=== PATIENT | male | born 1945 | race Caucasian/White ===

== ENCOUNTER 2020-02-27 14:58 | Inpatient (IN) | payer MEDICARE, BC, SELFPAY ==
--- NOTE | ~2020-02-27 | XR_ITS ---
EXAMINATION: XR chest 1V portable INDICATION: Hypotension TECHNIQUE: Portable AP chest at 1134 hours COMPARISON: None available FINDINGS: The lungs are free of acute opacities. There is no pleural effusion or pneumothorax. The ca rdiomediastinal silhouette is normal. There are changes of bilateral total shoulder arthroplasty. IMPRESSION: 1. No acute cardiopulmonary abnormality. Reviewed, dictated and finalized at location A.
--- NOTE | ~2020-02-27 | US_ITS ---
EXAMINATION: US carotid duplex BI DATE: 02/27/2020 16:29 INDICATION: Stroke TECHNIQUE: Grayscale, color Doppler, and pulsed Doppler images of the cervical carotid arteries were obtained. The degree of vessel stenosis is placed in one of the following categories: normal, <50%, 5 0-69%, >=70% but less than near-occlusion, near-occlusion, or total occlusion. Note that percent sten osis relative to normal distal artery lumen diameter is indirectly measured from velocity measurement s as described by David, et al. Radiology 2003; 229:340-346. COMPARISON: None. FINDINGS: RIGHT: The right common carotid artery (CCA) peak systolic velocity (PSV) is 45 cm/s. The right internal car otid artery (ICA) PSV is 41 cm/s. The right ICA end-diastolic velocity (EDV) is 16 cm/s. The right IC A/CCA PSV ratio is 0.9. Grayscale and color Doppler images yield an estimate of <50% diameter reducti on from plaque in the ICA. The external carotid artery (ECA) PSV is 96 cm/s. There is antegrade flow in the right vertebral artery. LEFT: The left CCA PSV is 56 cm/s. The left ICA PSV is 45 cm/s. The left ICA EDV is 15 cm/s. The left ICA/C CA PSV ratio is 0.8. Grayscale and color Doppler images yield an estimate of <50% diameter reduction from plaque in the ICA. The ECA PSV is 73 cm/s. There is antegrade flow in the left vertebral artery. IMPRESSION: 1. <50% stenosis in the right internal carotid artery. 2. <50% stenosis in the left internal carotid artery. Reviewed, dictated and finalized at location A.
--- NOTE | ~2020-02-27 | MR_ITS ---
EXAMINATION: MR brain/brain stem wo con DATE: 02/28/2020 16:57 INDICATION: Stroke presenting with left-sided weakness, numbness and slurred speech TECHNIQUE: Magnetic resonance imaging (MRI) of the brain and brainstem was performed without intraven ous contrast. Sequences included sagittal and axial T1-weighted SE, axial diffusion-weighted FS SE, a xial T2*-weighted GRE, axial T2-weighted FLAIR, and axial T2-weighted FSE. Apparent diffusion coeffic ient (ADC) maps were created. COMPARISON: None. FINDINGS: Small wedge-shaped region of restricted diffusion consistent with acute infarct at the lateral right side of the inferior marilyn. Chronic small infarcts in the right cerebellum and along a gyrus of the ri ght parietal lobe. No intracranial hemorrhage or abnormal intracranial mass lesion. There are scatter ed areas of nonspecific increased T2-weighted signal intensity in the cerebral white matter, predomin antly involving the deep and periventricular white matter. There are no intraparenchymal signal abnor malities seen on the other pulse sequences. Symmetric prominence of the sulci and ventricles consiste nt with mild age-appropriate diffuse cerebral volume loss. There are no abnormal extra-axial fluid co llections. There is absence of a flow void in the left vertebral artery on the T2-weighted sequences cyst with either occlusion or slow flow. Changes of bilateral intraocular lens replacement. Visualiz ed orbits and soft tissues are unremarkable. Mucous retention cysts at the inferior aspect of the fox ateral maxillary sinuses. IMPRESSION: 1. Acute infarct at the right side of the inferior marilyn. 2. Small old infarcts the right cerebellar hemisphere and right parietal lobe. 3. Absent flow void in the left vertebral artery consistent with occlusion or slow flow. 0.4. Age-rel ated changes including mild diffuse volume loss and moderate scattered periventricular predominant no nspecific white matter T2 hyperintensity consistent with chronic small vessel ischemic disease. Reviewed, dictated and finalized at location A. IMPRESSION: 1. Acute infarct at the right side of the inferior marilyn. 2. Small old infarcts the right cerebellar hemisphere and right parietal lobe. 3. Absent flow void in the left vertebral artery consistent with occlusion or s low flow. 0.4. Age-related changes including mild diffuse volume loss and moder ate scattered periventricular predominant nonspecific white matter T2 hyperinte nsity consistent with chronic small vessel ischemic disease.
--- NOTE | ~2020-02-27 | XR_ITS ---
EXAMINATION: XR barium swallow modified DATE: 02/28/2020 14:28 INDICATION: Dysphagia. TECHNIQUE: Modified barium esophagram was performed by myself to administer fluoroscopy, in conjunct ion with speech pathologist who administered barium in varying consistencies as per speech pathologis t documentation. This was recorded on tape. A single fluoroscopic spot image was recorded. The DAP fo r this procedure was 2.96 Gycm2. Fluoroscopy exposure time was 3.8 minutes. FINDINGS: Oral stage: Adequate function. Pharyngeal phase: Reduced laryngeal elevation, reduced tongue base retraction, reduced pharyngeal squ eeze, pyriform sinus residue with thicker material. Laryngeal penetration: Present with thin liquids. Aspiration: Present within liquids. Laryngeal sensitivity: Present. IMPRESSION: Findings as detailed above. Please refer to speech pathologist findings and specific fee ding recommendations. Reviewed, dictated and finalized at location A. IMPRESSION: Findings as detailed above. Please refer to speech pathologist armida seals and specific feeding recommendations.
--- NOTE | ~2020-02-27 | CT_ITS ---
EXAMINATION: CTA brain DATE: 02/28/2020 17:18 INDICATION: Stroke TECHNIQUE: Computed tomographic angiography (CTA) of the head was performed without and with 100 mL O mnipaque-350 intravenous contrast. Initial contrast opacification was poor and repeat imaging was obt ained 6 hours later with additional 100 mL Omnipaque 350 intravenous contrast. Volume-rendered and ma ximum intensity projection 3D reconstructions of the intracranial arteries were created by the techno logist on a separate workstation. The dose-length product was 2219.54 mGy-cm. COMPARISON: MR dated 02/28/2020 FINDINGS: There is a severe >70% stenosis at the left intracranial vertebral artery proximal to the cuff of the left posterior inferior cerebellar artery. The segment of the left vertebral artery between the take off of the left posterior inferior cerebellar artery and the basilar artery is completely thrombosed. There is approximately 70% stenosis of the intracranial right vertebral artery occurring at the conf luence with the left vertebral and basilar arteries. There is mild nonhemodynamically significant geovanna nosis along the basilar artery as well as along the internal carotid arteries at the bilateral caroti d siphons. The bilateral A1 and P1 segments are patent. The left P1 segment is diminutive with a pin larger caliber left posterior communicating artery also likely supplying the left posterior cerebral artery. Cerebral arterial arborization appears symmetric. There is additional scattered mild nonhemod ynamically significant stenosis along the right P1 segment as well as along branch of the bilateral m iddle and anterior cerebral arteries. No aneurysm. Small chronic infarcts in the right cerebellar hemisphere and at the right parietal lobe. Subtle decr eased attenuation at the right side of the inferior marilyn consistent corresponding to the acute infarc t with restricted diffusion is noted on MRI. There is moderate scattered white matter hypoattenuation consistent with chronic small vessel ischemic disease. No acute intracranial hemorrhage or abnormal extra axial fluid collection. Symmetric prominence of the sulci consistent with mild age-appropriate diffuse cerebral volume loss. Ventricles are normal and symmetric. No mass/mass effect. Changes of bi lateral intraocular lens replacement. The orbits, paranasal sinuses and mastoid air cells are normal. IMPRESSION: 1. Scattered intracranial atherosclerotic disease most notable for a 70% stenosis in the distalmost r ight vertebral artery and complete occlusion of the distalmost left vertebral artery. 2. Small old infarcts at the right parietal lobe and right cerebellar hemisphere with more subtle acu te infarct in the right inferior marilyn. 3. Age-related changes including mild diffuse volume loss and moderate scattered white matter hypoatt enuation consistent with chronic small vessel ischemic disease. Reviewed, dictated and finalized at location A. IMPRESSION: 1. Scattered intracranial atherosclerotic disease most notable for a 70% stenos is in the distalmost right vertebral artery and complete occlusion of the dista lmost left vertebral artery. 2. Small old infarcts at the right parietal lobe and right cerebellar hemispher e with more subtle acute infarct in the right inferior marilyn. 3. Age-related changes including mild diffuse volume loss and moderate scattere d white matter hypoattenuation consistent with chronic small vessel ischemic di sease.
[2020-02-27 15:00] VITALS: BP 179/104; PULSE 89; RESP 18; TEMP 36.2; O2SAT 97
[2020-02-27 15:02] VITALS: BMI 31.6
[2020-02-27 16:00] VITALS: PULSE 100
[2020-02-27 17:39] LABS: Add Urine Microscopic? YES; Appearance Urine Clear (Clear); Bilirubin Urine Negative (Negative); Blood Urine Negative (Negative); Color Urine Yellow (Yellow); Glucose Urine UA Negative (Negative); Ketones Urine Trace mg/dL (Negative); Leukocyte Esterase Ur Negative LEU/UL (Negative); Mucus Urine Rare /lpf; Nitrate Urine Negative (Negative); Protein Urine Negative (Negative); RBC Urine 0-2 /hpf (0-2); Specific Grav Ur 1.014 (1.001-1.035); Urobilinogen Urine Negative mg/dL (<2.0); WBC Urine 0-3 /hpf
[2020-02-27 17:58] LABS: Glucose Point of Care 127 (65-105)
[2020-02-27] MEDS: ASPIRIN 81 MG CHEWABLE TABLET 324 MG PO (18:09)
[2020-02-27 22:00] VITALS: BP 169/96; PULSE 84; RESP 18; TEMP 36.6; O2SAT 95
[2020-02-27 23:09] LABS: Glucose Point of Care 223 (65-105)
[2020-02-28] VITALS (12 sets, daily range): BP systolic 134–187; BP diastolic 79–99; PULSE 70–101; RESP 16–20; TEMP 36.4–37.1; O2SAT 94–99
--- NOTE | 2020-02-28 00:02 | PC.NURSE ---
RN was notified of blood pressure
[2020-02-28] MEDS: hydrALAZINE HCL 20 MG/ML VIAL 5 MG IV PUSH (02:02)
[2020-02-28 06:11] LABS: Hematocrit 44.2 % (42.0-52.0); Hemoglobin 15.1 g/dL (14.0-18.0); Mean Corpuscular HGB Conc 34.2 g/dl (32-36); Mean Corpuscular Hemoglobin 29.4 pg (26-34); Mean Platelet Volume 9.6 fl (7.4-10.4); Platelet Count Result 309 k/mm3 (150-375); Red Blood Count 5.14 M/mm3 (4.6-6.20); Red Cell Distribution Width 12.3 % (11.5-14.5); White Blood Count 9.3 K/mm3 (4.5-10.0)
[2020-02-28 06:23] LABS: Alanine Aminotransferase 11 U/L (4-50); Albumin Level 4.1 g/dL (3.5-5.1); Alkaline Phosphatase 46 U/L (38-126); Anion Gap 7 mmol/L (8-16); Aspartate Amino Transferase 22 U/L (17-59); Bilirubin,Total 0.5 mg/dL (0.2-1.3); Blood Urea Nitrogen 15 mg/dL (9-20); Carbon Dioxide 26 mmol/L (22-30); Chloride 103 mmol/L (98-107); Cholesterol 172 mg/dL (0-200); Estimated CRCL calculation 79 ml/min; Estimated Glomerular Filt Rate > 60; Glucose 126 mg/dL (75-110); HDL Direct 41 mg/dL; Potassium 3.7 mmol/L (3.4-5.0); Sodium 136 mmol/L (137-145); Triglycerides 136 mg/dL (<150)
[2020-02-28 06:34] LABS: LDL Cholesterol Direct 104 mg/dL
[2020-02-28 07:17] LABS: Hemoglobin A1C 7.4 % (<5.7)
[2020-02-28 08:33] LABS: Glucose Point of Care 139 (65-105)
[2020-02-28] MEDS: hydroCHLOROthiazide 12.5 MG CAPSULE PO (08:43)
[2020-02-28] MEDS: lisinopriL 10 MG TABLET PO (08:43)
[2020-02-28] MEDS: ASPIRIN 81 MG ENTERIC TABLET PO (08:43)
[2020-02-28 12:34] LABS: Glucose Point of Care 180 (65-105)
--- NOTE | 2020-02-28 14:47 | PCSTNOTE ---
Please refer to the Bedside Swallow Evaluation in the EMR. Please note, silent aspiration cannot be ruled out at bedside.
--- NOTE | 2020-02-28 14:47 | PCSTNOTE ---
Please refer to the Modified Barium Swallow Evaluation in the EMR.
--- NOTE | 2020-02-28 15:04 | ECHO_ITS ---
Patient Info Name: Cleve Oseguera Age: 74 years : 1945 Gender: Male Ht: 69 in Wt: 215 lbs BSA: 2.21 m2 HR: 70 bpm BP: 160 / 85 mmHg Technical Quality: Good Exam Date: 02/28/2020 10:42 AM Exam Location: [facility] Pulmonary Exam Room: 315 Patient Status: Inpatient Admit Date: 02/27/2020 Staff Ordering Physician: Melisa Shoemaker PA-C Senior Ui Software Engineer: Jordyn Cain RDCS Attending Provider: Kaley Chin MD Referring Physician: Navid ELIZALDE; Exam Type: CA echo doppler color flow Study Info Indications - CVA Complete two-dimensional, color flow and Doppler transthoracic echocardiogram is performed. Summary 1. Left ventricular chamber dimension is normal. 2. Left ventricular systolic function is normal, estimated at 65-70%. 3. The left ventricular diastolic function is grade I diastolic dysfunction. 4. E/e' 14 is mildly elevated. 5. There is mild aortic valve sclerosis. 6. The mitral valve has moderately calcified annulus. 7. No pulmonary hypertension, estimated pulmonary arterial systolic pressure is 19 mmHg. 8. There is trace pulmonic regurgitation. Left Ventricle E/e' 14 is mildly elevated. Left ventricular chamber dimension is normal. Left ventricular systolic function is normal, estimated at 65-70%. The left ventricular diastolic function is grade I diastolic dysfunction. Right Ventricle Right ventricular chamber dimension is normal. Right ventricular systolic function is normal. Left Atria Left atrial chamber dimension is normal. Right Atria Right atrial chamber dimension is normal. Aortic Valve The aortic valve is trileaflet. There is mild aortic valve sclerosis. There is no aortic valve stenosis. There is no aortic valve regurgitation. Pulmonic Valve There is trace pulmonic regurgitation. Mitral Valve The mitral valve has moderately calcified annulus. There is no mitral valve stenosis. There is no mitral valve regurgitation. Tricuspid Valve There is no tricuspid valve regurgitation. No pulmonary hypertension, estimated pulmonary arterial systolic pressure is 19 mmHg. Pericardium/Pleural There is no pericardial effusion. Inferior Vena Cava Normal inferior vena cava with >50% collapse upon inspiration consistent with normal right atrial pressure, 5 mmHg. Aorta The aortic root size at the sinus of Valsalva is normal. Left Ventricular Outflow Tract Name Value Normal LVOT 2D LVOT Diameter 2.1 cm LVOT Doppler LVOT Peak Gradient 4 mmHg LVOT Mean Gradient 3 mmHg LVOT VTI 20 cm LVOT VTI/AV VTI Ratio 0.9 LVOT Stroke Volume 71 ml LVOT CO 16.8 l/min LVOT CI 7.6 l/min/m2 Pulmonic Valve Name Value Normal PV Doppler
--- NOTE | 2020-02-28 15:10 | WPDNEURCNPN ---
Assessment and Plan Additional Plan brain stem stroke wit MRI done at [facility] further studies will be done here and he will be evaluated for the rehab Consult date: 02/28/20 Reason for consult: 74 years old right-handed male has been admitted to [facility] regular floor on transfer from the emergency room of [facility] as per the information available patient carries the diagnosis of hypertension hyperlipidemia diabetes mellitus type 2 in the emergency room of [facility] he was seen for the sudden onset of left-sided weakness along with the numbness initially involving the left lower extremity subsequently involving the left upper extremity he went about his day without any significant debility but was not feeling right so he went to bed early for a good night's sleep woke up in the morning while ambulating to the bathroom he fell down onto his buttock in the bathroom due to his left lower extremity weakness EMS were called to the scene he was brought to the emergency room where his blood pressure was noted to be 178/111 with NIH stroke scale of [address] scan revealed no acute finding that his bleed but MRI reveals subacute right pontine lacunar infarct and he was transferred to emergency it to the [facility] for further care Saul no history of associated headache nausea vomiting any other general symptomatology HPI: Cleve Oseguera is a 74 year old male Review of Systems Review of Systems: Narrative: all system reviewed and unremarkable except as noted in the admission history and physical examination PMFSH Past Medical History Medical History (Updated 02/27/20 @ 16:48 by Melisa Shoemaker PA-C) Cervical spine disease Degenerative disc disease, cervical Dyslipidemia Essential hypertension Osteoarthritis Type 2 diabetes mellitus Surgical History Surgical History (Updated 02/27/20 @ 16:10 by Melisa Shoemaker PA-C) History of lumbar surgery History of replacement of both shoulder joints History of toe surgery Right 1st toe surgery done for unclear reasons. Patient cannot provide me with specifics. Family History Family History (Updated 02/27/20 @ 16:10 by Melisa Shoemaker PA-C) Other Hypertension Social History Social History (Updated 02/27/20 @ 16:11 by Melisa Shoemaker PA-C) Social History: The patient lives in [place] with his . they have 2 children. He his retired from [employer]. He smoked perhaps a pack of cigarettes per day and quit 35 years ago. he denies alcohol and illicit substance use. He designates his , Katherine, as his surrogate decision maker and he wishes to be a full code. Spiritual care concerns: No Meds Home Medications and Allergies Home Medications Medication Instructions Recorded Confirmed Type fenofibrate 150 mg PO DAILY 02/27/20 02/27/20 History hydrochlorothiazide 12.5 mg PO DAILY 02/27/20 02/27/20 History lisinopril 10 mg PO DAILY 02/27/20 02/27/20 History metformin 1,000 mg PO BID 02/27/20 02/27/20 History pravastatin 40 mg PO HS 02/27/20 02/27/20 History Allergies Allergy/AdvReac Type Severity Reaction Status Date / Time No Known Allergies Allergy Verified 02/27/20 17:31 Vital Signs Vital Signs - 24 hr 02/27/20 16:00 02/27/20 22:00 02/28/20 00:00 Temperature 36.6 C Pulse Rate 100 84 80 Respiratory Rate 18 Blood Pressure 169/96 H Pulse Oximetry 95 02/28/20 02:00 02/28/20 03:08 02/28/20 04:00 Temperature 36.4 C Pulse Rate 77 81 78 Respiratory Rate 18 18 Blood Pressure 187/99 H 186/98 H Pulse Oximetry 98 99 02/28/20 06:25 02/28/20 08:00 02/28/20 12:00 Temperature 37.1 C 36.4 C Pulse Rate 70 76 81 Respiratory Rate 18 16 Blood Pressure 160/85 H 181/97 H Pulse Oximetry 97 97 Exam Narrative: Exam Narrative: examination revealed him to be awake alert cooperative in no obvious acute distress head normocephalic wi
--- NOTE | 2020-02-28 15:30 | PM.IMHP ---
H&P: HPI History of Present Illness Date/Time: 02/27/20 15:15 Chief complaint: CVA Narrative: Cleve Oseguera is a 74-year-old male with hypertension, dyslipidemia, and type 2 diabetes mellitus who is being directly admitted to the hospitalist service from the emergency department at [facility] for further workup after he was found to have a right pontine subacute lacunar infarction on brain MRI. He was in his usual state of health yesterday afternoon (02/26/2020 at approximately 12:00) and while vacuuming he noticed the sudden onset of left lower extremity numbness and weakness, followed shortly by left arm weakness. He went about his day without any significant debility but I was just not feeling right so I went to bed early for a good night's sleep. He woke at approximately 10:00, and while ambulating to the bathroom he fell down onto his buttock in the bathroom due to left leg weakness. EMS was summoned as he was unable to get himself up and at that time they noticed mild slurred speech, which the patient had not noticed himself yesterday. On arrival to the outside emergency department, his blood pressure was 178/111 and NIH stroke scale was 3. Brain CT showed no acute findings but a subsequent MRI showed a subacute right pontine lacunar infarction, and he is being transferred to [place] for neurology consultation given lack of that service at [place]. the weakness in his legs seems to be a bit better, and he seems mostly bothered by paresthesias at this time. He denies headache, vertigo, auditory and visual changes, palpitations, racing heart, and dysphagia. He has never had similar symptoms in the past. The only complaint he has at the time my evaluation is the urge to urinate and the inability to do so. With further questioning he denies dysuria, urgency, hematuria, and nocturia. He does not believe that he injured himself when he fell today, and he is having no back pain. He also denies constipation, diarrhea, and bowel incontinence. No saddle anesthesia. He also denies head trauma and loss of consciousness in the fall earlier today. Review of Systems Review of Systems: Narrative: Twelve systems were reviewed with pertinent positives and negatives as per HPI. No fever, chills, or sweats. No recent cold or flu symptoms. He denies exertional chest pain and shortness of breath. He does not check his blood pressure or glucose at home. He is not even certain that he has diabetes, and believes he may be a prediabetic. No blurry vision, polydipsia, or polyuria. Except as documented, all other systems were reviewed and are negative. [facility] Past Medical History Medical History (Updated 02/27/20 @ 16:48 by Melisa Shoemaker PA-C) Cervical spine disease Degenerative disc disease, cervical Dyslipidemia Essential hypertension Osteoarthritis Type 2 diabetes mellitus Surgical History Surgical History (Updated 02/27/20 @ 16:10 by Melisa Shoemaker PA-C) History of lumbar surgery History of replacement of both shoulder joints History of toe surgery Right 1st toe surgery done for unclear reasons. Patient cannot provide me with specifics. Family History Family History (Updated 02/27/20 @ 16:10 by Melisa Shoemaker PA-C) Other Hypertension Social History Social History (Updated 02/27/20 @ 16:11 by Melisa Shoemaker PA-C) Social History: The patient lives in [place] with his . they have 2 children. He his retired from [employer]. He smoked perhaps a pack of cigarettes per day and quit 35 years ago. he denies alcohol and illicit substance use. He designates his , Katherine, as his surrogate decision maker and he wishes to be a full code. Spiritual care concerns: No Meds Home Medications and Allergies Home Medications Medication Instructions Recorded Confirmed Type fenofibrate 150 mg PO DAILY 02/27/20 02/27/20 History hydrochlorothiazide 12.5 mg PO DAILY 02/27/20 02/27/20
--- NOTE | 2020-02-28 17:09 | PM.IMPN ---
Progress Note: A&P Assessment and Plan (1) Right pontine cerebrovascular accident: Code(s): I63.50 - Cerebral infarction due to unspecified occlusion or stenosis of unspecified cerebral artery Status: Acute Assessment and Plan: -----the patient had a confirms stroke at an outside area hospital and I reviewed the records. Today, his symptoms seem worse. I have spoken to Neurology and we have ordered a CTA and MRI P will continue on aspirin. I see no evidence of atrial fibrillation on telemetry. Blood pressure is better 134/79. Carotid Doppler are negative. Continue PT/OT/ST. Patient would benefit from TRC (2) Essential hypertension: Code(s): I10 - Essential (primary) hypertension Status: Acute Assessment and Plan: -----last blood pressure 134/79. Monitor (3) Dyslipidemia: Code(s): E78.5 - Hyperlipidemia, unspecified Status: Acute Assessment and Plan: ----- Continue statin and fenofibrate. LDL not at goal at 1:04 a.m.. Will switch him from pravastatin to atorvastatin 40 mg which is considered a high-intensity statin. (4) Type 2 diabetes mellitus: Code(s): E11.9 - Type 2 diabetes mellitus without complications Status: Acute Assessment and Plan: -----180 with a hemoglobin of 7.4. Continue sliding scale insulin (5) Urinary retention: Code(s): R33.9 - Retention of urine, unspecified Status: Acute Assessment and Plan: -----patient is still unable to void which she says happens every time he is in the hospital. He now has a Jang catheter and I will start tamsulosin. Hopefully he can have a successful voiding trial tomorrow Time Spent With Patient Time with patient: 25 - 35 minutes Subjective Date/time seen: 02/28/20 17:09 Interval history: Pt is a 74-year-old male here for new onset stroke. Patient was seen today and states that his left-sided weakness is getting worse. He is not unable to lift his left arm or leg off the bed. Yesterday he was able to move these although he was weaker. His states his speech is also worse. Pt denies nausea, vomiting, fevers, chills, constipation, diarrhea, chest pain, sob, or abdominal pain. Review of Systems Review of Systems: All systems reviewed & are unremarkable except as noted in HPI and below Exam Narrative: Exam Narrative: General: Well developed well nourished patient resting in bed in NAD HEENT: normocephalic Neck: supple Neuro: Alert and oriented x 4. Slurred speech with a left-sided mild facial droop. Left-sided paralysis as he is not able to move his left leg or arm. Tongue midline. Unable to shrug his left shoulder CV:RRR. Telemetry reviewed with no abnormal alarm reviews Resp:CTA Abd: Soft, non distended. No pain to palpation. Positive bowel sounds Extremities: No swelling, erythema, or pain to palpation. Objective Data Vital Signs Vital Signs: Vital Signs - 24 hr 02/27/20 22:00 02/28/20 00:00 02/28/20 02:00 Temperature 97.9 F 97.6 F Pulse Rate 84 80 77 Respiratory Rate 18 18 Blood Pressure 169/96 H 187/99 H Pulse Oximetry 95 98 02/28/20 03:08 02/28/20 04:00 02/28/20 06:25 Temperature 98.8 F Pulse Rate 81 78 70 Respiratory Rate 18 18 Blood Pressure 186/98 H 160/85 H Pulse Oximetry 99 97 02/28/20 08:00 02/28/20 12:00 02/28/20 14:00 Temperature 97.6 F 97.5 F L Pulse Rate 76 81 101 H Respiratory Rate 16 20 Blood Pressure 181/97 H 134/79 Pulse Oximetry 97 94 Intake/Output Intake/Output: Intake & Output 02/25/20 02/26/20 02/27/20 02/28/20 23:59 23:59 23:59 23:59 Intake Total 350 Output Total 1050 Balance -700 Meds/Results Medications: Active Medications Generic Name Dose Route Start Last Admin Trade Name Freq PRN Reason Stop Dose Admin Aspirin 81 mg 02/28/20 09:00 02/28/20 08:43 Aspirin Ec PO 81 mg QAM WEN Administration Dextrose 12.5 gm 02/27/20 16:22
[2020-02-28 17:54] LABS: Glucose Point of Care 216 (65-105)
[2020-02-28] MEDS: INSULIN ASPART (*BKC) 100 UNITS/ML SUB-Q (18:07)
[2020-02-28] MEDS: ATORVASTATIN 40 MG TABLET PO (20:21)
[2020-02-28 20:25] LABS: Glucose Point of Care 180 (65-105)
[2020-02-29] VITALS (13 sets, daily range): BP systolic 101–145; BP diastolic 64–98; PULSE 76–116; RESP 16–20; TEMP 36.4–36.7; O2SAT 94–98
[2020-02-29 08:38] LABS: Glucose Point of Care 159 (65-105)
[2020-02-29] MEDS: ASPIRIN 81 MG ENTERIC TABLET PO (09:01)
[2020-02-29] MEDS: hydroCHLOROthiazide 12.5 MG CAPSULE PO (09:01)
[2020-02-29] MEDS: TAMSULOSIN HCL 0.4 MG CAPSULE PO (09:01)
[2020-02-29] MEDS: lisinopriL 10 MG TABLET PO (09:01)
[2020-02-29 11:01] LABS: Hematocrit 47.8 % (42.0-52.0); Hemoglobin 16.6 g/dL (14.0-18.0)
--- NOTE | 2020-02-29 11:16 | ECG_ITS ---
Measurements Intervals [place] Rate: 98 P: 14 UT: 215 QRS: -24 QRSD: 160 T: -13 QT: 393 QTc: 504 Interpretive Statements SINUS RHYTHM WITH FIRST DEGREE AV BLOCK RIGHT BUNDLE BRANCH BLOCK BASELINE WANDER- II, AVF, V2 ABNORMAL ECG Electronically Signed On 02-29-2020 12:42:31 CDT by Matthias Smith D.O.
[2020-02-29 11:25] LABS: Glucose Point of Care 307 (65-105)
[2020-02-29 11:43] LABS: Basophils Absolute Auto 0.1 K/mm3 (0.0-0.1); Basophils Percent Auto 0.4 % (0.2-1.2); Eosinophils Absolute Auto 0.1 K/mm3 (0-0.3); Eosinophils Percent Auto 0.6 % (0-4.4); Hematocrit 46.4 % (42.0-52.0); Hemoglobin 16.1 g/dL (14.0-18.0); Immature Granulocyte Absolute 0.07 K/mm3 (0.00-0.031); Immature Granulocyte Percent A 0.6 % (0-0.5); Lymphocytes Absolute Auto 1.26 K/mm3 (0.9-3.2); Lymphocytes Percent Auto 10.7 % (18.3-44.2); Mean Corpuscular HGB Conc 34.7 g/dl (32-36); Mean Corpuscular Hemoglobin 29.6 pg (26-34); Mean Corpuscular Volume 85.3 fl (80-100); Mean Platelet Volume 9.5 fl (7.4-10.4); Monocytes Absolute Auto 0.8 K/mm3 (0.1-0.6); Monocytes Percent Auto 7.1 % (2.6-8.5); Neutrophils Absolute Auto 9.5 K/mm3 (1.3-6.7); Neutrophils Percent Auto 80.6 % (45.5-73.1); Platelet Count Result 339 k/mm3 (150-375); Red Blood Count 5.44 M/mm3 (4.6-6.20); White Blood Count 11.8 K/mm3 (4.5-10.0)
[2020-02-29 12:13] LABS: Lactic Acid Reflex 3.2 mmol/L (0.7-2.1)
[2020-02-29 12:15] LABS: Alanine Aminotransferase 17 U/L (4-50); Albumin Level 4.5 g/dL (3.5-5.1); Alkaline Phosphatase 55 U/L (38-126); Anion Gap 12 mmol/L (8-16); Aspartate Amino Transferase 26 U/L (17-59); Bilirubin,Total 0.4 mg/dL (0.2-1.3); Blood Urea Nitrogen 21 mg/dL (9-20); Calcium 9.7 mg/dL (8.4-10.2); Carbon Dioxide 24 mmol/L (22-30); Chloride 100 mmol/L (98-107); Estimated CRCL calculation 64 ml/min; Estimated Glomerular Filt Rate > 60; Glucose 303 mg/dL (75-110); Magnesium 1.9 mg/dL (1.6-2.3); Sodium 136 mmol/L (137-145)
[2020-02-29] MEDS: LACTATED RINGERS 1,000 ML 100 ML IV CONT ×2 (12:28→20:12)
--- NOTE | 2020-02-29 12:42 | PM.IMPN ---
Progress Note: A&P Assessment and Plan (1) Right pontine cerebrovascular accident: Code(s): I63.50 - Cerebral infarction due to unspecified occlusion or stenosis of unspecified cerebral artery Status: Acute Assessment and Plan: -----the patient had a confirmed stroke at an outside area hospital and I reviewed the records. MRI and CT done since his symptoms worsened which shows vetebral occlusion. I have spoken to Neurology and we will continue aspirin and do plavix for 3 weeks. I see no evidence of atrial fibrillation on telemetry. Blood pressure is better 107/66. Carotid Doppler are negative. Continue PT/OT/ST. Patient would benefit from TRC (2) Essential hypertension: Code(s): I10 - Essential (primary) hypertension Status: Acute Assessment and Plan: -----last blood pressure 107/66. Monitor (3) Dyslipidemia: Code(s): E78.5 - Hyperlipidemia, unspecified Status: Acute Assessment and Plan: ----- Continue statin and fenofibrate. LDL not at goal at 104. He was switched from pravastatin to atorvastatin 40 mg which is considered a high-intensity statin. (4) Type 2 diabetes mellitus: Code(s): E11.9 - Type 2 diabetes mellitus without complications Status: Acute Assessment and Plan: -----last glucose 283 with a hemoglobin A1c of 7.4. Continue sliding scale insulin (5) Urinary retention: Code(s): R33.9 - Retention of urine, unspecified Status: Acute Assessment and Plan: -----Undergoing a voiding trial now. continue flomax. (6) Elevated lactic acid level: Code(s): R79.89 - Other specified abnormal findings of blood chemistry Status: Acute Assessment and Plan: -----Likely d/t dehydration from thickened liquids. No signs of infection on exam or CXR but awaiting new UA. WBC slightly elevated. Will order blood cultures since he was tachycardic earlier (pulse now is better). Subjective Date/time seen: 02/29/20 12:42 Interval history: Pt is a 74-year-old male here for new onset stroke. Patient was seen today and has no complaints the time of my exam. He denies CP, SOB, fevers, chills, abdominal pain, diarrhea, constipation, leg swelling, or headache. He says he still can't use his left side and his speech is still slurred. Nursing staff called me and let me know he had a status change and he was much weaker than he was earlier in the day but no new focal deficits. Exam Narrative: Exam Narrative: General: Well developed well nourished patient resting in bed in NAD HEENT: normocephalic Neck: supple Neuro: Alert and oriented x 4. Slurred speech with a left-sided mild facial droop. Left-sided paralysis as he is not able to move his left leg or arm. Tongue midline. Unable to shrug his left shoulder. Right side normal CV:RRR. Tele showed some sinus tachycardia without arythmias. EKG reviewed, no acute abnormalities to cause his symptoms. RBBB. Resp:CTA Abd: Soft, non distended. No pain to palpation. Positive bowel sounds Extremities: No swelling, erythema, or pain to palpation. Objective Data Vital Signs Vital Signs: Vital Signs - 24 hr 02/28/20 14:00 02/28/20 16:00 02/28/20 18:00 Temperature 97.5 F L 98.0 F Pulse Rate 101 H 96 91 Respiratory Rate 20 20 Blood Pressure 134/79 149/89 H Pulse Oximetry 94 95 02/28/20 20:00 02/28/20 22:00 02/29/20 00:00 Temperature 97.7 F Pulse Rate 86 86 85 Respiratory Rate 20 20 Blood Pressure 134/90 Pulse Oximetry 97 97 02/29/20 02:00 02/29/20 04:00 02/29/20 06:00 Temperature 98.1 F 98 F Pulse Rate 76 76 80 Respiratory Rate 16 20 Blood Pressure 133/68 139/84 Pulse Oximetry 98 97 02/29/20 10:00 Temperature 97.8 F Pulse Rate 116 H Respiratory Rate 18 Blood Pressure 107/66 Pulse Oximetry 95 Intake/Output Intake/Output: Intake & Output 02/26/20 02/27/20 02/28/20 02/29/20 23:59 23:59 23:59 23:59 Stefanie
[2020-02-29 12:47] LABS: Glucose Point of Care 283 (65-105)
[2020-02-29] MEDS: INSULIN ASPART (*BKC) 100 UNITS/ML SUB-Q (12:53)
[2020-02-29 14:41] LABS: Reflex Lactic Acid Yes or No Add Lactic
[2020-02-29 15:09] LABS: Lactic Acid 2.7 mmol/L (0.7-2.1)
--- NOTE | 2020-02-29 17:20 | PC.NURSE ---
Patient has not voided since catheter removal at 1100. Patient bladder scanned and had 620mL in.
[2020-02-29 18:41] LABS: Glucose Point of Care 161 (65-105)
[2020-02-29 18:47] LABS: Add Urine Microscopic? YES; Appearance Urine Cloudy (Clear); Bilirubin Urine Negative (Negative); Blood Urine 3+ (Negative); Color Urine Yellow (Yellow); Glucose Urine UA 3+ mg/dL (Negative); Ketones Urine Negative (Negative); Leukocyte Esterase Ur Trace LEU/UL (Negative); Mucus Urine Few /lpf; Nitrate Urine Negative (Negative); Protein Urine 1+ mg/dL (Negative); RBC Urine >75 /hpf (0-2); Specific Grav Ur 1.022 (1.001-1.035); Urobilinogen Urine Negative mg/dL (<2.0)
[2020-02-29] MEDS: ATORVASTATIN 40 MG TABLET PO (20:12)
[2020-02-29 22:30] LABS: Glucose Point of Care 215 (65-105)
[2020-03-01] VITALS (13 sets, daily range): BP systolic 120–149; BP diastolic 63–85; PULSE 76–112; RESP 18–20; TEMP 36.4–36.9; O2SAT 93–96
[2020-03-01] MEDS: LACTATED RINGERS 1,000 ML 100 ML IV CONT ×2 (05:34→15:56)
[2020-03-01 06:30] LABS: Hemoglobin 14.5 g/dL (14.0-18.0); Mean Corpuscular HGB Conc 34.5 g/dl (32-36); Mean Corpuscular Hemoglobin 29.8 pg (26-34); Mean Corpuscular Volume 86.2 fl (80-100); Mean Platelet Volume 9.5 fl (7.4-10.4); Platelet Count Result 287 k/mm3 (150-375); Red Blood Count 4.87 M/mm3 (4.6-6.20); Red Cell Distribution Width 12.6 % (11.5-14.5); White Blood Count 9.4 K/mm3 (4.5-10.0)
[2020-03-01 06:44] LABS: Anion Gap 6 mmol/L (8-16); Blood Urea Nitrogen 18 mg/dL (9-20); CRP 1.1 mg/dL (<1.0); Calcium 8.9 mg/dL (8.4-10.2); Carbon Dioxide 29 mmol/L (22-30); Chloride 101 mmol/L (98-107); Estimated CRCL calculation 89 ml/min; Estimated Glomerular Filt Rate > 60; Glucose 143 mg/dL (75-110); Lactic Acid Reflex 2.4 mmol/L (0.7-2.1); Potassium 3.5 mmol/L (3.4-5.0); Sodium 136 mmol/L (137-145)
[2020-03-01 08:45] LABS: Glucose Point of Care 151 (65-105)
[2020-03-01 09:25] LABS: Reflex Lactic Acid Yes or No Add Lactic
[2020-03-01 09:48] LABS: Lactic Acid 2.2 mmol/L (0.7-2.1)
[2020-03-01] MEDS: TAMSULOSIN HCL 0.4 MG CAPSULE PO (09:51)
[2020-03-01] MEDS: CLOPIDOGREL BISULFATE 75 MG TABLET PO (09:51)
[2020-03-01] MEDS: hydroCHLOROthiazide 12.5 MG CAPSULE PO (09:51)
[2020-03-01] MEDS: ASPIRIN 81 MG ENTERIC TABLET PO (09:51)
[2020-03-01] MEDS: lisinopriL 10 MG TABLET PO (09:51)
[2020-03-01] MEDS: INSULIN ASPART (*BKC) 100 UNITS/ML SUB-Q ×2 (12:48→17:40)
[2020-03-01] MEDS: FENOFIBRATE NANOCRYSTALLIZED 145 MG TABLET PO (12:50)
[2020-03-01 12:56] LABS: Glucose Point of Care 262 (65-105)
--- NOTE | 2020-03-01 14:31 | PM.IMPN ---
Progress Note: A&P Assessment and Plan (1) Right pontine cerebrovascular accident: Code(s): I63.50 - Cerebral infarction due to unspecified occlusion or stenosis of unspecified cerebral artery Status: Acute Assessment and Plan: -----the patient had a confirmed stroke at an outside area hospital and I reviewed the records. MRI and CT done since his symptoms worsened which shows vetebral artery occlusion. I have spoken to Neurology and we will continue aspirin and do plavix for 3 weeks. I see no evidence of atrial fibrillation on telemetry. Blood pressure is better 127/82. Carotid Doppler are negative. Continue PT/OT/ST. Patient would benefit from TRC (2) Essential hypertension: Code(s): I10 - Essential (primary) hypertension Status: Acute Assessment and Plan: -----last blood pressure 127/82. Monitor (3) Dyslipidemia: Code(s): E78.5 - Hyperlipidemia, unspecified Status: Acute Assessment and Plan: ----- Continue statin and fenofibrate. LDL not at goal at 104. He was switched from pravastatin to atorvastatin 40 mg which is considered a high-intensity statin. (4) Type 2 diabetes mellitus: Code(s): E11.9 - Type 2 diabetes mellitus without complications Status: Acute Assessment and Plan: -----last glucose 262 with a hemoglobin A1c of 7.4. Continue sliding scale insulin and restart metformin (5) Urinary retention: Code(s): R33.9 - Retention of urine, unspecified Status: Acute Assessment and Plan: ----- patient failed his voiding trial and a catheter was replaced. continue flomax. Follow-up with his urologist outpatient (6) Elevated lactic acid level: Code(s): R79.89 - Other specified abnormal findings of blood chemistry Status: Acute Assessment and Plan: -----Likely d/t dehydration from thickened liquids. UA mildly suspicious for UTI. because his catheter related, Zosyn was started. WBC improved. Blood cultures negative to date (7) Possible urinary tract infection: Code(s): R39.89 - Other symptoms and signs involving the genitourinary system Status: Acute Assessment and Plan: ----- UA shows suspicion for UTI with trace leuk esterase, 10-15 white blood cells, and blood. The blood is likely from recatheterization although cannot rule out infection. He had no blood on admission. Continue Zosyn until cultures are back. Will likely discharge once these are back Subjective Date/time seen: 03/01/20 14:31 Interval history: Pt is a 74-year-old male here for new onset stroke. Patient was seen today and states he is feeling much better today than compared to yesterday. He has no complaints today. We talked about his catheter and he has a urologist but cannot remember the name. He is going to follow up with him. He still cannot utilize his left arm or left leg. He thinks his speech is better today. He feels a little constipated. We discussed the plan of care and agreed at bedside. Exam Narrative: Exam Narrative: General: Well developed well nourished patient resting in bed in NAD HEENT: normocephalic Neck: supple Neuro: Alert and oriented x 4. Slurred speech with a left-sided mild facial droop. Flaccid left side as he is not able to move his left leg or arm. Tongue midline. Unable to shrug his left shoulder. Right side normal CV:RRR. no worrisome alarm reviews Resp:CTA Abd: Soft, non distended. No pain to palpation. Positive bowel sounds Extremities: No swelling, erythema, or pain to palpation. Objective Data Vital Signs Vital Signs: Vital Signs - 24 hr 02/29/20 16:00 02/29/20 18:00 02/29/20 20:00 Temperature 97.6 F Pulse Rate 98 112 H 108 H Respiratory Rate 20 20 Blood Pressure 117/88 Pulse Oximetry 95 94 02/29/20 22:00 03/01/20 00:00 03/01/20 02:00 Temperature 97.8 F 97.8 F Pulse Rate 108 H 96 87 Respiratory Rate 2
[2020-03-01] MEDS: polyethylene glycoL 3350 17 GM POWD.PACK PO (15:18)
[2020-03-01] MEDS: metFORMIN HCL 500 MG TABLET 1000 MG PO (17:36)
[2020-03-01 17:46] LABS: Glucose Point of Care 258 (65-105)
--- NOTE | 2020-03-01 20:13 | WPDNEUROPN ---
Progress Note: A&P Assessment and Plan (1) Possible urinary tract infection: Code(s): R39.89 - Other symptoms and signs involving the genitourinary system Status: Acute (2) Type 2 diabetes mellitus: Code(s): E11.9 - Type 2 diabetes mellitus without complications Status: Acute (3) Dyslipidemia: Code(s): E78.5 - Hyperlipidemia, unspecified Status: Acute (4) Essential hypertension: Code(s): I10 - Essential (primary) hypertension Status: Acute (5) Right pontine cerebrovascular accident: Code(s): I63.50 - Cerebral infarction due to unspecified occlusion or stenosis of unspecified cerebral artery Status: Acute Additional Plan continue present medical management and evaluate for the T RC Review of Systems Review of Systems: All systems reviewed & are unremarkable except as noted in HPI and below Exam Const: General: comfortable and no acute distress HENMT: General nose exam: Normal nares present Mouth: Yes moist mucous membranes Eyes: General: appearance normal, both eyes and all related structures Neck: Neck: supple and no JVD Resp: Effort & Inspection: normal respiratory effort Auscultation: clear to auscultation bilaterally Cardio: Rate: regular rate Rhythm: regular rhythm GI: Auscultation: normal bowel sounds Skin: General skin exam: normal color and no rashes or lesions noted Neuro: Other: patient has dysphonia and dysarthria and significant weakness flaccid paralysis of the left side Extrem: General: normal to inspection Psych: Mental Status: mental status grossly normal Objective Data Vital Signs Vital Signs: Vital Signs - 24 hr 02/29/20 22:00 03/01/20 00:00 03/01/20 02:00 Temperature 36.6 C 36.6 C Pulse Rate 108 H 96 87 Respiratory Rate 20 20 Blood Pressure 133/70 125/71 Pulse Oximetry 94 93 03/01/20 04:00 03/01/20 06:00 03/01/20 08:00 Temperature 36.9 C Pulse Rate 77 76 78 Respiratory Rate 20 Blood Pressure 124/63 Pulse Oximetry 96 03/01/20 09:51 03/01/20 10:00 03/01/20 12:00 Temperature 36.9 C Pulse Rate 91 92 Respiratory Rate 18 Blood Pressure 149/74 H 127/82 Pulse Oximetry 95 03/01/20 14:00 03/01/20 16:00 03/01/20 18:00 Temperature 36.4 C L 36.6 C Pulse Rate 97 96 103 H Respiratory Rate 18 18 Blood Pressure 120/66 133/85 Pulse Oximetry 95 94 Intake/Output Intake/Output: Intake & Output 02/27/20 02/28/20 02/29/20 03/01/20 23:59 23:59 23:59 23:59 Intake Total 1100 2165 3080 Output Total 1875 1745 1600 Balance -275 228 1955 Meds/Results Medications: Active Medications Generic Name Dose Route Start Last Admin Trade Name Freq PRN Reason Stop Dose Admin Aspirin 81 mg 02/28/20 09:00 03/01/20 09:51 Aspirin Ec PO 81 mg QAM WEN Administration Atorvastatin Calcium 40 mg 02/28/20 21:00 02/29/20 20:12 Lipitor PO 40 mg HS WEN Administration Clopidogrel Bisulfate 75 mg 03/01/20 09:00 03/01/20 09:51 Plavix PO 75 mg QAM WEN Administration Dextrose 12.5 gm 02/27/20 16:22 Dextrose 50% Syringe IV PUSH PRN PRN Hypoglycemia Protocol Fenofibrate 145 mg 03/01/20 09:00 03/01/20 12:50 Tricor PO 03/29/20 09:01 145 mg DAILY WEN Administration Glucagon 1 mg 02/27/20 16:22 Glucagon For Inj IM PRN PRN Hypoglycemia Protocol Glucose 15 gm 02/27/20 16:22 Glutose 15 PO PRN PRN Hypoglycemia Protocol Hydralazine HCl 10 mg 02/28/20 04:42 Apresoline Hcl Inj IV PUSH Q4H PRN SBP > 185 or DBP > 110 Hydrochlorothiazide 12.5 mg 02/28/20 09:00 03/01/20 09:51 Hydrochlorothiazide PO 12.5 mg DAILY WEN Administration Dextrose 1,000 mls @ 100 mls/hr 02/27/20 16:22 Dextrose 5% 1,000 Ml IVPB PRN PRN Hypoglycemia Protocol Lactated Ringer's 1,000 mls @ 100 mls/hr 02/29/20 11:25 03/01/20 15:56 Lr - Lactated Ringers Iv IV CONT 100 ml
[2020-03-01] MEDS: ATORVASTATIN 40 MG TABLET PO (20:14)
[2020-03-01 20:26] LABS: Glucose Point of Care 223 (65-105)
[2020-03-02] VITALS (9 sets, daily range): BP systolic 153–162; BP diastolic 77–97; PULSE 69–109; RESP 16–20; TEMP 36.3–36.4; O2SAT 94–99
[2020-03-02] MEDS: LACTATED RINGERS 1,000 ML 100 ML IV CONT ×2 (00:46→09:22)
[2020-03-02 08:12] LABS: Glucose Point of Care 127 (65-105)
[2020-03-02] MEDS: ASPIRIN 81 MG ENTERIC TABLET PO (09:12)
[2020-03-02] MEDS: hydroCHLOROthiazide 12.5 MG CAPSULE PO (09:13)
[2020-03-02] MEDS: metFORMIN HCL 500 MG TABLET 1000 MG PO ×2 (09:13→17:10)
[2020-03-02] MEDS: CLOPIDOGREL BISULFATE 75 MG TABLET PO (09:13)
[2020-03-02] MEDS: polyethylene glycoL 3350 17 GM POWD.PACK PO (09:13)
[2020-03-02] MEDS: lisinopriL 10 MG TABLET PO (09:13)
[2020-03-02] MEDS: FENOFIBRATE NANOCRYSTALLIZED 145 MG TABLET PO (09:13)
[2020-03-02] MEDS: TAMSULOSIN HCL 0.4 MG CAPSULE PO (09:13)
[2020-03-02 12:25] LABS: Glucose Point of Care 179 (65-105)
--- NOTE | 2020-03-02 12:42 | WPDURCON ---
Assessment and Plan Assessment and plan (1) Urinary retention: Code(s): R33.9 - Retention of urine, unspecified Status: Acute Assessment and Plan: likely due to his cerebral vascular accident. A retention usually lasts for between 2 to 4 weeks. I would continue Flomax for now. Could attempt a voiding trial once he is more ambulatory. (2) Gross hematuria: Code(s): R31.0 - Gross hematuria Status: Acute Assessment and Plan: sounds like it was due to traumatic catheterization. Urine is clearing nicely. Could irrigate the catheter p.r.n.. No other interventions needed. Urology Consult Note HPI Date Seen: 03/02/20 Requesting Physician: Kaley Chin MD Primary Care Provider: Gely Francis, Consult Narrative Narrative: Cleve Oseguera is a 74 year old male Who is admitted for a cerebral vascular accident. A Jang catheter was placed on admission. It was discontinued and he failed his voiding trial. Jang catheter is replaced with some difficulty and he was started on Flomax. His past urologic history is significant for postoperative retention after orthopedic surgery. He otherwise states he voids well. His Jang catheter is in place. There is some pink-tinged urine clearing to yellow. He has no other urologic complaints. He is tolerating the Jang well. Review of Systems Review of Systems: All systems reviewed & are unremarkable except as noted in HPI and below Constitutional: Constitutional: Reports weakness Comments: Left-sided weakness from his stroke Respiratory: Respiratory: Reports no additional respiratory complaints [facility] Past Medical History Medical History (Updated 03/02/20 @ 12:46 by Fabrice Moore MD) Cervical spine disease Degenerative disc disease, cervical Dyslipidemia Essential hypertension Osteoarthritis Type 2 diabetes mellitus Surgical History Surgical History (Updated 02/27/20 @ 16:10 by Melisa Shoemaker PA-C) History of lumbar surgery History of replacement of both shoulder joints History of toe surgery Right 1st toe surgery done for unclear reasons. Patient cannot provide me with specifics. Family History Family History (Updated 02/27/20 @ 16:10 by Melisa Shoemaker PA-C) Other Hypertension Social History Social History (Updated 02/27/20 @ 16:11 by Melisa Shoemaker PA-C) Social History: The patient lives in [place] with his . they have 2 children. He his retired from [employer]. He smoked perhaps a pack of cigarettes per day and quit 35 years ago. he denies alcohol and illicit substance use. He designates his , Katherine, as his surrogate decision maker and he wishes to be a full code. Spiritual care concerns: No Meds Home Medications and Allergies Home Medications Medication Instructions Recorded Confirmed Type fenofibrate 150 mg PO DAILY 02/27/20 02/27/20 History hydrochlorothiazide 12.5 mg PO DAILY 02/27/20 02/27/20 History lisinopril 10 mg PO DAILY 02/27/20 02/27/20 History metformin 1,000 mg PO BID 02/27/20 02/27/20 History pravastatin 40 mg PO HS 02/27/20 02/27/20 History Allergies Allergy/AdvReac Type Severity Reaction Status Date / Time No Known Allergies Allergy Verified 02/27/20 17:31 Vital Signs Vital Signs - 24 hr 03/01/20 14:00 03/01/20 16:00 03/01/20 18:00 Temperature 97.5 F L 97.8 F Pulse Rate 97 96 103 H Respiratory Rate 18 18 Blood Pressure 120/66 133/85 Pulse Oximetry 95 94 03/01/20 20:00 03/01/20 22:00 03/02/20 00:00 Temperature 97.9 F Pulse Rate 112 H 91 80 Respiratory Rate 18 20 Blood Pressure 148/76 H Pulse Oximetry 94 96 03/02/20 02:00 03/02/20 04:00 03/02/20 06:00 Temperature 97.5 F L 97.4 F L Pulse Rate 75 69 71 Respiratory Rate 20 20 Blood Pressure 156/81 H 159/81 H Pulse Oximetry 95 97 03/02/20 08:00 Temperature Pulse Rate 76 Respiratory Rate Blood Pressure Pulse Oximetry Exam
--- NOTE | 2020-03-02 14:24 | PM.IMPN ---
Progress Note: A&P Assessment and Plan (1) Gross hematuria: Code(s): R31.0 - Gross hematuria Status: Acute Assessment and Plan: -----the patient likely has traumatic hematuria due to Jang catheter. We are going to irrigate the catheter. This seems to be draining nicely without any clots. Because of his recent significant stroke, we are going to continue the aspirin and Plavix and follow the hemoglobin. (2) Right pontine cerebrovascular accident: Code(s): I63.50 - Cerebral infarction due to unspecified occlusion or stenosis of unspecified cerebral artery Status: Acute Assessment and Plan: -----the patient had a confirmed stroke at an outside area hospital and I reviewed the records. MRI and CT done since his symptoms worsened which shows vetebral artery occlusion. I have spoken to Neurology and we will continue aspirin and do plavix for 3 weeks. I see no evidence of atrial fibrillation on telemetry. Blood pressure is better. Carotid Doppler are negative. Continue PT/OT/ST. Patient would benefit from TRC (3) Essential hypertension: Code(s): I10 - Essential (primary) hypertension Status: Acute Assessment and Plan: -----last blood pressure 159/81. Will stop fluids (4) Dyslipidemia: Code(s): E78.5 - Hyperlipidemia, unspecified Status: Acute Assessment and Plan: ----- Continue statin and fenofibrate. LDL not at goal at 104. He was switched from pravastatin to atorvastatin 40 mg which is considered a high-intensity statin. (5) Type 2 diabetes mellitus: Code(s): E11.9 - Type 2 diabetes mellitus without complications Status: Acute Assessment and Plan: -----last glucose 179 with a hemoglobin A1c of 7.4. Continue sliding scale insulin and restart metformin (6) Urinary retention: Code(s): R33.9 - Retention of urine, unspecified Status: Acute Assessment and Plan: ----- patient failed his voiding trial and a catheter was replaced. continue flomax. Follow-up with his urologist outpatient (7) Elevated lactic acid level: Code(s): R79.89 - Other specified abnormal findings of blood chemistry Status: Acute Assessment and Plan: -----Likely d/t dehydration from thickened liquids. Urine culture negative and antibiotics stopped. Blood cultures negative to date (8) Possible urinary tract infection: Code(s): R39.89 - Other symptoms and signs involving the genitourinary system Status: Acute Assessment and Plan: -----culture negative, antibiotics stopped. Subjective Date/time seen: 03/02/20 14:24 Interval history: Patient is 74-year-old male here for CVA. Patient states he has CN well and his speech wax and wanes but overall doing better. He is still unable to move his left side very well. He said he noticed his catheter being red this morning. He said the last time they put a catheter in him it hurt and that them sometime. He no longer has any pain in the area. He denies chest pain, shortness of breath, fevers, chills, nausea, vomiting, diarrhea or constipation. Exam Narrative: Exam Narrative: General: Well developed well nourished patient resting in bed in NAD HEENT: normocephalic Neck: supple Neuro: Alert and oriented x 4. Slurred speech with a left-sided mild facial droop. Flaccid left side as he is not able to move his left leg or arm. Tongue midline. Unable to shrug his left shoulder. Right side normal CV:RRR. no worrisome alarm reviews Resp:CTA Abd: Soft, non distended. No pain to palpation. Positive bowel sounds Extremities: No swelling, erythema, or pain to palpation. : Bright red urine without clots in the Jang bag Objective Data Vital Signs Vital Signs: Vital Signs - 24 hr 03/01/20 16:00 03/01/20 18:00 03/01/20 20:00 Temperature 97.8 F Pulse Rate 96 103 H 112 H Respiratory Rate 18 18 Blood Pressure 133/
[2020-03-02 17:19] LABS: Glucose Point of Care 167 (65-105)
[2020-03-02] MEDS: ATORVASTATIN 40 MG TABLET PO (21:22)
[2020-03-02 22:08] LABS: Glucose Point of Care 181 (65-105)
[2020-03-03] VITALS (8 sets, daily range): BP systolic 130–174; BP diastolic 67–87; PULSE 68–90; RESP 18–20; TEMP 36.5–36.9; O2SAT 95–97
[2020-03-03 06:13] LABS: Hematocrit 40.5 % (42.0-52.0); Hemoglobin 13.9 g/dL (14.0-18.0)
[2020-03-03] MEDS: lisinopriL 10 MG TABLET PO (08:05)
[2020-03-03] MEDS: FENOFIBRATE NANOCRYSTALLIZED 145 MG TABLET PO (08:05)
[2020-03-03] MEDS: metFORMIN HCL 500 MG TABLET 1000 MG PO ×2 (08:05→16:42)
[2020-03-03] MEDS: CLOPIDOGREL BISULFATE 75 MG TABLET PO (08:05)
[2020-03-03] MEDS: ASPIRIN 81 MG ENTERIC TABLET PO (08:06)
[2020-03-03] MEDS: polyethylene glycoL 3350 17 GM POWD.PACK PO (08:06)
[2020-03-03] MEDS: hydroCHLOROthiazide 12.5 MG CAPSULE PO (08:06)
[2020-03-03] MEDS: TAMSULOSIN HCL 0.4 MG CAPSULE PO (08:06)
[2020-03-03 08:13] LABS: Glucose Point of Care 114 (65-105)
--- NOTE | 2020-03-03 10:16 | PM.DS ---
DS: Admitting Diagnosis Admitting Diagnosis Admitting Diagnosis: CVA DS: Discharge Diagnosis Discharge Diagnosis (1) Gross hematuria: Code(s): R31.0 - Gross hematuria Status: Acute Assessment and Plan: -----the patient likely has traumatic hematuria due to Jang catheter. Continue to irrigate the catheter as needed at [facility]. This seems to be draining nicely without any clots. Because of his recent significant stroke, we are going to continue the aspirin and Plavix and follow the hemoglobin. (2) Right pontine cerebrovascular accident: Code(s): I63.50 - Cerebral infarction due to unspecified occlusion or stenosis of unspecified cerebral artery Status: Acute Assessment and Plan: -----the patient had a confirmed stroke at an outside area hospital and I reviewed the records. MRI and CT done since his symptoms worsened which shows vetebral artery occlusion. I have spoken to Neurology and we will continue aspirin and do plavix for 3 weeks. I see no evidence of atrial fibrillation on telemetry. Blood pressure is better. Carotid Doppler are negative. Continue PT/OT/ST in [facility] (3) Essential hypertension: Code(s): I10 - Essential (primary) hypertension Status: Acute Assessment and Plan: -----blood pressure appropriate. (4) Dyslipidemia: Code(s): E78.5 - Hyperlipidemia, unspecified Status: Acute Assessment and Plan: ----- Continue statin and fenofibrate. LDL not at goal at 104. He was switched from pravastatin to atorvastatin 40 mg which is considered a high-intensity statin. (5) Type 2 diabetes mellitus: Code(s): E11.9 - Type 2 diabetes mellitus without complications Status: Acute Assessment and Plan: -----glucose appropriate. hemoglobin A1c of 7.4. Continue sliding scale insulin and restart metformin (6) Urinary retention: Code(s): R33.9 - Retention of urine, unspecified Status: Acute Assessment and Plan: ----- patient failed his voiding trial and a catheter was replaced. continue flomax. Follow-up with his urologist outpatient (7) Elevated lactic acid level: Code(s): R79.89 - Other specified abnormal findings of blood chemistry Status: Acute Assessment and Plan: -----Likely d/t dehydration from thickened liquids. Urine culture negative and antibiotics stopped. Blood cultures negative to date (8) Possible urinary tract infection: Code(s): R39.89 - Other symptoms and signs involving the genitourinary system Status: Acute Assessment and Plan: -----culture negative, antibiotics stopped. DS: Summary Hospital Course Reason for hospitalization: Acute stroke Hospital Course: Patient is a 74-year-old male who presented from an outside area hospital after having an acute stroke with left-sided deficits. The patient's deficits worsened while here at the hospital and imaging was repeated with no signs of hemorrhagic conversion or worsening stroke. He was started on aspirin and Plavix and worked with physical therapy. During his stay, he had urinary retention and Jang catheter was placed. This was removed for voiding trial which he failed. The catheter was put back in which caused significant hematuria which lengthened his hospital stay. This was irrigated and Urology was consulted. He is going to follow up with Urology outpatient. Overall, the patient made little improvement during his stay and it was recommended that he go to [facility]. Please see above for further details. Patient was discharged in stable condition Status at Discharge Overall status at discharge: patient is not back to baseline Time Spent with Patient Time attestation: Total time spent providing and/or coordinating discharge services:40 min Time spent: Greater than 30 minutes Exam Narrative: Exam Narrative: General: Well developed well nourished patient resting in be
[2020-03-03] MEDS: INSULIN ASPART (*BKC) 100 UNITS/ML SUB-Q (11:59)
[2020-03-03 12:05] LABS: Glucose Point of Care 201 (65-105)
[2020-03-03 16:50] LABS: Glucose Point of Care 127 (65-105)
[2020-03-03] MEDS: ATORVASTATIN 40 MG TABLET PO (21:31)
[2020-03-03 21:58] LABS: Glucose Point of Care 144 (65-105)
[2020-03-04] VITALS: PULSE 81
[2020-03-04 02:00] VITALS: BP 160/87; PULSE 80; RESP 18; TEMP 36.2; O2SAT 97
[2020-03-04 04:00] VITALS: PULSE 75
[2020-03-04 06:00] VITALS: BP 167/93; PULSE 75; RESP 18; TEMP 36.2; O2SAT 96
[2020-03-04 08:00] VITALS: PULSE 74
[2020-03-04] MEDS: CLOPIDOGREL BISULFATE 75 MG TABLET PO (09:29)
[2020-03-04] MEDS: metFORMIN HCL 500 MG TABLET 1000 MG PO (09:29)
[2020-03-04] MEDS: FENOFIBRATE NANOCRYSTALLIZED 145 MG TABLET PO (09:29)
[2020-03-04] MEDS: hydroCHLOROthiazide 12.5 MG CAPSULE PO (09:29)
[2020-03-04] MEDS: polyethylene glycoL 3350 17 GM POWD.PACK PO (09:30)
[2020-03-04] MEDS: TAMSULOSIN HCL 0.4 MG CAPSULE PO (09:30)
[2020-03-04] MEDS: ASPIRIN 81 MG ENTERIC TABLET PO (09:30)
[2020-03-04] MEDS: lisinopriL 10 MG TABLET PO (09:30)
[2020-03-04 09:32] LABS: Glucose Point of Care 157 (65-105)
--- NOTE | 2020-03-10 12:29 | PC.NURSE ---
Blood cx are negative
== END 2020-03-04 10:45 | DRG 65 ==
PROVIDERS: Physician Assistant; Admitting Provider Family Medicine; PCP Internal Medicine; Visit Provider Physician Assistant
DX: I63.50 Cerebral infarction due to unspecified occlusion or stenosis of unspecified cerebral artery (principal); G81.04 Flaccid hemiplegia affecting left nondominant side; R47.81 Slurred speech; R29.810 Facial weakness; R33.9 Retention of urine, unspecified; R31.0 Gross hematuria; R39.89 Other symptoms and signs involving the genitourinary system; I10 Essential (primary) hypertension; E78.5 Hyperlipidemia, unspecified; E11.9 Type 2 diabetes mellitus without complications; R79.89 Other specified abnormal findings of blood chemistry; M50.30 Other cervical disc degeneration, unspecified cervical region; Z79.84 Long term (current) use of oral hypoglycemic drugs; Z87.891 Personal history of nicotine dependence
CPT/HCPCS: 36415; 70496; 70551; 71045; 80048; 80053; 80061; 81001; 83036; 83605; 83735; 84443; 85014; 85018; 85025; 85027; 86140; 87040; 87086; 92507; 92526; 92610; 92611; 93005; 93306; 93880; 97110; 97161; 97165; 97530; 97535; A9270; G0378; J0360; J1815; J2543; J7120; Q9967

== ENCOUNTER 2020-03-04 10:52 | IRF | payer MEDICARE, BC, SELFPAY ==
--- NOTE | ~2020-03-04 | XR_ITS ---
EXAMINATION: XR barium swallow modified EXAM DATE: 03/25/2020 10:43 INDICATION: Dysphagia. TECHNIQUE: Modified barium esophagram was performed by myself to administered fluoroscopy, in conjun ction with speech pathologist who administered barium in thin consistency as per speech pathologist d ocumentation. This was recorded on tape. The DAP for this procedure was 1.1 Gycm2. FINDINGS: Oral stage: Adequate function. Pharyngeal phase: Patulous piriform sinus with residual. Laryngeal penetration: None. Aspiration: None. IMPRESSION: Patient tolerated thin consistency in the upright position. Please refer to speech path ologist findings and specific feeding recommendations. Reviewed, dictated and finalized at location A. IMPRESSION: Patient tolerated thin consistency in the upright position. Pleas e refer to speech pathologist findings and specific feeding recommendations.
--- NOTE | ~2020-03-04 | XR_ITS ---
EXAMINATION: XR hand LT 2V INDICATION: Left hand pain TECHNIQUE: Three views of the right hand are obtained. COMPARISON: None available FINDINGS: No fracture is identified. There is advanced osteoarthritis at the first carpometacarpal aurora int. Moderate osteoarthritis is noted in the interphalangeal and metacarpophalangeal joint. The soft tissues are unremarkable. IMPRESSION: 1. Polyarticular osteoarthritis without acute osseous abnormality. Reviewed, dictated and finalized at location B.
--- NOTE | ~2020-03-04 | XR_ITS ---
EXAMINATION: XR barium swallow modified DATE: 03/13/2020 12:13 INDICATION: Dysphagia TECHNIQUE: Modified barium esophagram was performed by myself to administered fluoroscopy, in conjun ction with speech pathologist who administered barium in varying consistencies as per speech patholog ist documentation. This was recorded on tape. A single fluoroscopic spot image was recorded. The DAP for this procedure was 2.1 Gycm2. Fluoroscopy exposure time was 1.974 minutes. FINDINGS: Oral stage: Adequate function. Pharyngeal phase: Adequate function. Incidental note is made of prominent cricopharyngeal contraction during real-time images. Laryngeal penetration: None. Aspiration: None. Laryngeal sensitivity: Present. IMPRESSION: Prominent cricopharyngeal contraction noted. Please refer to speech pathologist findings and specific feeding recommendations. Reviewed, dictated and finalized at location A.
--- NOTE | 2020-03-04 11:30 | WPDREHABHP ---
H&P: HPI History of Present Illness Date/Time: 03/04/20 14:03 Chief complaint: CVA Narrative: Cleve Oseguera is a 74 year old male HISTORY OF PRESENT ILLNESS: The patient's primary rehab impairment category is stroke The etiologic diagnosis is acute infarct on the right side of the inferior marilyn I saw this patient [id number] on March 04, 2020 at 11:30 a.m. The patient is a 74-year-old right-handed white male with whom I am familiar with when I followed him up for brainstem stroke on the acute medical floor after being transferred from [facility]. The patient has a past medical history of hypertension hyperlipidemia ID with diabetes mellitus type 2 that was a direct admit from the emergency department [facility] to further workup after he was found to have a right pontine lacunar infarction on the brain MRI. He was in his usual state of health on February 26, 2020 at approximately 12 100 and while vacuuming he noticed the sudden onset of the left lower extremity numbness and weakness followed by left arm weakness. He went about his day without any significant debility but I was not just not feeling right so I went to bed will early for a good night sleep. He woke up approximately 10:00 a.m. and while ambulating to the bathroom he fell down onto his buttocks in the bathroom due to left leg weakness. EMS were called and he was unable to get himself up and at that time the notice mild slurring of the speech which the patient had not noticed himself. Upon arrival to [facility] his blood pressure was 178/111 and NIHSS score was 3. Brain CT showed no acute findings but subsequent MRI showed a subacute right pontine lacunar infarction and he was transferred to [facility] on February 27, 2020 for a neurology consultation. Carotid Dopplers demonstrated less than 50% stenosis in the right and left internal carotid arteries. Echocardiogram showed an ejection fraction of 65 to 70%. There was no evidence of atrial fibrillation on telemetry. After the completion of his modified barium swallow is speech therapy recommended regular diet with thickened liquids. A head CT showed scattered intracranial atherosclerosis disease most notable for a 70% stenosis in the distal most right vertebral artery and complete occlusion of the distal distal most left vertebral artery small old infarcts at the right parietal lobe in the right cerebellar hemisphere with more subtle acute infarct in the right inferior marilyn and adults changed. A brain MRI revealed an acute infarct in the right side of the inferior marilyn is small old infarcts the right cerebellar hemisphere and right parietal lobe and absent flow void in the left vertebral artery consistent with occlusion or slow flow 0.4. The patient's last hemoglobin A1c was 7.4. The patient's sliding scale insulin was continued and his metformin was restarted. He was also switched to high intensity statin for hyperlipidemia. The patient failed is voiding trial and the Jang catheter was placed or replace with some difficulty. Urology was consulted and the patient was found to have traumatic hematuria due to traumatic catheterization. Urine culture was negative and antibiotics stopped. Per urologist the urinary retention is likely due to his cerebral vascular accident and can last between 2 to 4 weeks. Additional voiding trial can be attempted once he is more ambulatory. Plan to continue pill Flomax and follow-up with his urologist outpatient if unsuccessful. Neurology was consulted and recommended continue aspirin and Plavix for 3 weeks Plavix for 3 weeks and then continuation of the aspirin later on the patient is alert and oriented x4 with dysphonia and dysarthria left-sided facial droop and left-sided hemiplegia. The patient has not traveled outside of the [place] or had contact with someone who is ill that has traveled outside the [place] in the past 21 days. Patient has not traveled to an a
[2020-03-04 11:55] VITALS: BP 152/90; PULSE 89; RESP 19; TEMP 36.1; O2SAT 94; BMI 31.2
[2020-03-04 12:15] LABS: Glucose Point of Care 161 (65-105)
--- NOTE | 2020-03-04 15:47 | ADMGEN ---
Patient arrived per bed from 3rd [facility] at 10:55. This patient, Cleve Oseguera, was admitted to [facility] Room 220-02. Patient/family oriented to hospital policies and general routines including ID bracelet, bed and alarms, visiting hours, pain management, procedures, bathroom and other care routines, personal items, smoking policy, room service/diet, and visiting hours. Valuables list has been completed. Information on how to activate the Rapid Response Team has been discussed. Patient/Family are encouraged to report perceived risks to care and to ask questions if they do not understand what they are told or what they should do.
[2020-03-04 17:19] LABS: Glucose Point of Care 115 (65-105)
[2020-03-04] MEDS: metFORMIN HCL 500 MG TABLET 1000 MG PO (17:24)
[2020-03-04] MEDS: CLOPIDOGREL BISULFATE 75 MG TABLET PO (17:25)
[2020-03-04] MEDS: ATORVASTATIN 40 MG TABLET PO (21:35)
[2020-03-04 22:00] VITALS: BP 130/85; PULSE 94; RESP 16; TEMP 36.9; O2SAT 92
[2020-03-04 22:43] LABS: Glucose Point of Care 142 (65-105)
[2020-03-05 05:06] LABS: Basophils Absolute Auto 0.1 K/mm3 (0.0-0.1); Basophils Percent Auto 0.7 % (0.2-1.2); Eosinophils Absolute Auto 0.2 K/mm3 (0-0.3); Eosinophils Percent Auto 2.3 % (0-4.4); Hematocrit 44.8 % (42.0-52.0); Hemoglobin 15.2 g/dL (14.0-18.0); Immature Granulocyte Absolute 0.06 K/mm3 (0.00-0.031); Immature Granulocyte Percent A 0.6 % (0-0.5); Lymphocytes Absolute Auto 1.59 K/mm3 (0.9-3.2); Lymphocytes Percent Auto 15.5 % (18.3-44.2); Mean Corpuscular HGB Conc 33.9 g/dl (32-36); Mean Corpuscular Hemoglobin 29.1 pg (26-34); Mean Corpuscular Volume 85.8 fl (80-100); Mean Platelet Volume 9.6 fl (7.4-10.4); Monocytes Absolute Auto 0.9 K/mm3 (0.1-0.6); Monocytes Percent Auto 8.3 % (2.6-8.5); Neutrophils Absolute Auto 7.4 K/mm3 (1.3-6.7); Neutrophils Percent Auto 72.6 % (45.5-73.1); Platelet Count Result 329 k/mm3 (150-375); Red Blood Count 5.22 M/mm3 (4.6-6.20); Red Cell Distribution Width 12.5 % (11.5-14.5); White Blood Count 10.2 K/mm3 (4.5-10.0)
[2020-03-05 05:21] LABS: Anion Gap 10 mmol/L (8-16); Blood Urea Nitrogen 18 mg/dL (9-20); Calcium 9.1 mg/dL (8.4-10.2); Carbon Dioxide 27 mmol/L (22-30); Chloride 98 mmol/L (98-107); Cholesterol 124 mg/dL (0-200); Estimated CRCL calculation 70 ml/min; Estimated Glomerular Filt Rate > 60; Glucose 152 mg/dL (75-110); HDL Direct 35 mg/dL; Potassium 3.8 mmol/L (3.4-5.0); Sodium 135 mmol/L (137-145); Triglycerides 132 mg/dL (<150)
[2020-03-05 05:23] LABS: Hemoglobin A1C 7.3 % (<5.7)
[2020-03-05 05:32] LABS: LDL Cholesterol Direct 67 mg/dL
[2020-03-05 06:00] VITALS: BP 130/76; PULSE 96; RESP 18; TEMP 36.7; O2SAT 95
[2020-03-05 06:02] LABS: Add Urine Microscopic? YES; Appearance Urine Cloudy (Clear); Bilirubin Urine Negative (Negative); Blood Urine 3+ (Negative); Color Urine Red (Yellow); Glucose Urine UA 1+ mg/dL (Negative); Ketones Urine Negative (Negative); Leukocyte Esterase Ur Trace LEU/UL (Negative); Mucus Urine Moderate /lpf; Nitrate Urine Positive (Negative); Protein Urine 2+ mg/dL (Negative); RBC Urine >75 /hpf (0-2); Specific Grav Ur 1.024 (1.001-1.035); Urobilinogen Urine Negative mg/dL (<2.0)
[2020-03-05 06:57] LABS: Glucose Point of Care 159 (65-105)
[2020-03-05] MEDS: FENOFIBRATE NANOCRYSTALLIZED 145 MG TABLET PO (08:43)
[2020-03-05] MEDS: hydroCHLOROthiazide 12.5 MG CAPSULE PO (08:43)
[2020-03-05] MEDS: TAMSULOSIN HCL 0.4 MG CAPSULE PO (08:43)
[2020-03-05] MEDS: metFORMIN HCL 500 MG TABLET 1000 MG PO ×2 (08:43→17:31)
[2020-03-05] MEDS: lisinopriL 10 MG TABLET PO (08:43)
[2020-03-05] MEDS: CLOPIDOGREL BISULFATE 75 MG TABLET PO (08:43)
[2020-03-05] MEDS: ASPIRIN 81 MG ENTERIC TABLET PO (08:43)
[2020-03-05 11:45] LABS: Glucose Point of Care 209 (65-105)
[2020-03-05 12:55] VITALS: BMI 31.2
[2020-03-05 14:00] VITALS: BP 152/89; PULSE 89; RESP 20; TEMP 36.4; O2SAT 98
--- NOTE | 2020-03-05 16:16 | RPD ---
INDIVIDUALIZED PLAN OF CARE FOR Cleve Oseguera Brief Synthesis of Pre-Admission Screen, Post-Admission Evaluation and Therapy Evaluations: The patient presents to rehab with acute infarct at the right side of the inferior marilyn. Comorbidities include s/p ground level fall, HTN, HLD, DMII, slurred speech, dysphonia, dysarthria, left-sided weakness/flaccid paralysis, cervical spine disease, degenerative disc disease, osteoarthritis, urinary retention, aortic valve sclerosis, grade I diastolic dysfunction, dyslipidemia, hyperglycemia, and hyponatremia. The complexity of the patient's medical management, nursing, and therapy needs require an inpatient rehab hospital stay with a physician-led interdisciplinary team approach. The patient?s needs will be best met in an intensive program vs. at a lower level of care. The patient requires physician services for neurology services, medical oversight, and coordination of care. The patient requires nursing services for frequent neurochecks, anticoagulation therapy, medication management and education, pressure relief and skin care management, monitoring of labs, bowel and bladder training, diabetes management and education, and fall/safety precautions. Deficits include:ADLs, Balance, Cognition, Endurance, Family Training/Education, Mobility, Pain Management, ROM, Safety, Speech, Strength, Transfers, and Swallowing Track Oiler/Case Management for: Discharge Planning and Patient/Family Counseling Physical Therapy: 5 days per week for 60 minutes. Treatments may include: Therapeutic Exercise, Gait Training, Neuromuscular Re-education, Transfer Training, Community Reintegration, Bed Mobility, Patient/Family Education, Wheelchair Mobility Group Therapy/Concurrent Therapy Rationales: -Improve attention span during functional activities in a distracted environment. -Enhance problem solving and/or adequate judgment skills during functional activities in a distracted environment. -Promote increased safety awareness in a distracted environment to reduce fall risk with functional tasks, transfers, and ambulation to allow a more safe, self-sufficient return to the home environment. -Improve dynamic balance skills to promote safety and independence with functional activities in a distracted environment for maximum gain. Occupational Therapy: 5 days per week for 60 minutes. Treatments may include: Therapeutic Exercise, Therapeutic Activity, Cognitive Training, Self-Care Transfer Training, Community Reintegration, Home Management, Patient/Family Education, Wheelchair Mobility Training, Energy Conservation Training Group Therapy/Concurrent Therapy Rationales: -Allow therapist to observe and teach generalization and carry-over of skills learned in individual therapy. -Enhance problem solving and sequencing skills during therapeutic activities in a distracted environment. -Promote increased safety awareness in a realistic setting to reduce fall risk with functional tasks due to visual and verbal distractions. -Increase functional level with ADLs, ADL transfers and use of adaptive equipment through therapeutic activities with others while promoting safety to allow a more safe, self-sufficient return home. Speech Therapy: 5 days per week for 60 minutes. Treatments may include: Dysphasia Therapy, Speech/Language/Communication Therapy, Cognitive Training, Patient/Family Education Group Therapy/Concurrent Therapy - Rationale: -Allow therapist to observe and teach generalization and carry-over of skills learned in individual therapy. -Improve comprehension skills with complex or abstract ideas through discussion in a realistic setting. -Enhance problem solving skills with complex issues during activities in a distracted environment. -Promote increased memory skills and concentration in a distracted environment for a safe transition home. -Improve attention and focus with language/communication skills in a realistic and supportive therapeutic set
--- NOTE | 2020-03-05 16:35 | WPDUROPN2 ---
Progress Note: A&P Assessment and Plan (1) Gross hematuria: Code(s): R31.0 - Gross hematuria Status: Acute (2) Urinary retention: Code(s): R33.9 - Retention of urine, unspecified Status: Acute Assessment and Plan: Urinary retention likely as result brainstem/pontine infarct. Jang catheter x2-4 weeks / voiding trial when more ambulatory. Tolerating catheter well. Hematuria likel just due to cahteter irritation. Won't worry about that unless persists following catheter removal. Subjective Subjective Date/Time Seen: 03/05/20 16:35 Urinary retention Tolerating catheter well - actually happy to have it. Review of Systems Cardiovascular: Cardiovascular: Denies chest pain, Denies lightheadedness, Denies palpitations and Denies dyspnea Respiratory: Respiratory: Denies dyspnea Gastrointestinal: Gastrointestinal: Denies diarrhea, Denies nausea and Denies vomiting Genitourinary: Genitourinary: Denies hematuria and Denies dysuria Endocrine: Endocrine: Denies palpitations Objective Data Vital Signs Vital Signs: Vital Signs - 24 hr 03/04/20 22:00 03/05/20 06:00 03/05/20 14:00 Temperature 98.5 F 98.1 F 97.6 F Pulse Rate 94 96 89 Respiratory Rate 16 18 20 Blood Pressure 130/85 130/76 152/89 H Pulse Oximetry 92 95 98 Intake/Output Intake/Output: Intake & Output 03/02/20 03/03/20 03/04/20 03/05/20 23:59 23:59 23:59 23:59 Intake Total 720 0 Output Total 600 250 Balance 120 -250 Meds/Results Medications: Active Medications Generic Name Dose Route Start Last Admin Trade Name Freq PRN Reason Stop Dose Admin Aspirin 81 mg 03/05/20 09:00 03/05/20 08:43 Aspirin Ec PO 81 mg QAM WEN Administration Atorvastatin Calcium 40 mg 03/04/20 21:00 03/04/20 21:35 Lipitor PO 40 mg HS WEN Administration Clopidogrel Bisulfate 75 mg 03/04/20 09:00 03/05/20 08:43 Plavix PO 03/24/20 09:01 75 mg DAILY WEN Administration Dextrose 12.5 gm 03/04/20 12:34 Dextrose 50% Syringe IV PUSH PRN PRN Hypoglycemia Protocol Fenofibrate 145 mg 03/05/20 09:00 03/05/20 08:43 Tricor PO 04/04/20 09:01 145 mg DAILY WEN Administration Glucagon 1 mg 03/04/20 12:34 Glucagon For Inj IM PRN PRN Hypoglycemia Protocol Glucose 15 gm 03/04/20 12:34 Glutose 15 PO PRN PRN Hypoglycemia Protocol Hydrochlorothiazide 12.5 mg 03/05/20 09:00 03/05/20 08:43 Hydrochlorothiazide PO 12.5 mg DAILY WEN Administration Dextrose 1,000 mls @ 100 mls/hr 03/04/20 12:34 Dextrose 5% 1,000 Ml IVPB PRN PRN Hypoglycemia Protocol Lisinopril 10 mg 03/05/20 09:00 03/05/20 08:43 Prinivil PO 10 mg DAILY WEN Administration Metformin HCl 1,000 mg 03/04/20 17:00 03/05/20 08:43 Glucophage PO 1,000 mg BID WEN Administration Tamsulosin HCl 0.4 mg 03/05/20 09:00 03/05/20 08:43 Flomax PO 0.4 mg QAM WEN Administration Labs Labs: Laboratory Results - last 24 hr 03/04/20 03/04/20 03/05/20 17:11 21:35 04:31 WBC 10.2 H RBC 5.22 Hgb 15.2 Hct 44.8 MCV 85.8 MCH 29.1 MCHC 33.9 RDW 12.5 Plt Count 329 MPV 9.6 Immature Gran % (Auto) 0.6 H Neut % (Auto) 72.6 Lymph % (Auto) 15.5 L Irion % (Auto) 8.3 Eos % (Auto) 2.3 Baso % (Auto) 0.7 Lymph # (Auto) 1.59 Irion # (Auto) 0.9 H Eos # (Auto) 0.2 Baso # (Auto) 0.1 Abs Immat Gran (auto) 0.06 H Absolute Neuts (auto) 7.4 H Absolute Nucleated RBC 0.0 Nucleated RBC % 0.0 Sodium Potassium Chloride Carbon Dioxide Anion Gap BUN Creatinine Estim Creat Clear Calc Estimated GFR Glucose POC Capillary Glucose 115 H 142 H Hemoglobin A1c Calcium Triglycerides Cholesterol LDL Cholesterol Direct HDL Direct Urine Color Urine Appearance Urine pH Ur Specific Crooks Urine Protein
[2020-03-05 17:06] LABS: Glucose Point of Care 125 (65-105)
[2020-03-05] MEDS: ATORVASTATIN 40 MG TABLET PO (20:45)
[2020-03-05 21:37] LABS: Glucose Point of Care 163 (65-105)
[2020-03-05 21:58] VITALS: BP 121/86; PULSE 97; RESP 20; TEMP 36.5; O2SAT 93
[2020-03-06 05:41] VITALS: BP 136/81; PULSE 99; RESP 22; TEMP 36.7; O2SAT 91
[2020-03-06 06:15] LABS: Glucose Point of Care 147 (65-105)
--- NOTE | 2020-03-06 07:09 | WPDUROPN2 ---
Progress Note: A&P Assessment and Plan (1) Urinary retention: Code(s): R33.9 - Retention of urine, unspecified Status: Acute (2) Gross hematuria: Code(s): R31.0 - Gross hematuria Status: Acute Assessment and Plan: Urinary retention likely as result brainstem/pontine infarct. Jang catheter x2-4 weeks / voiding trial when more ambulatory. Tolerating catheter well. Hematuria likel just due to cahteter irritation. Won't worry about that unless persists following catheter removal. 03/06/2020 Urine clear today - draining well. Plan as above Subjective Subjective Date/Time Seen: 03/06/20 07:09 No complaints - tolerating catheter. Urine clear today. Review of Systems Cardiovascular: Cardiovascular: Denies chest pain, Denies lightheadedness, Denies palpitations and Denies dyspnea Respiratory: Respiratory: Denies dyspnea Gastrointestinal: Gastrointestinal: Denies diarrhea, Denies nausea and Denies vomiting Genitourinary: Genitourinary: Denies hematuria and Denies dysuria Endocrine: Endocrine: Denies palpitations Exam Const: General: no acute distress Resp: Effort & Inspection: normal respiratory effort GI: Inspection: non-distended GI Palp: No abdominal tenderness and No Guarding due to palpation present (GI) Auscultation: normal bowel sounds Objective Data Vital Signs Vital Signs: Vital Signs - 24 hr 03/05/20 14:00 03/05/20 21:58 03/06/20 05:41 Temperature 97.6 F 97.7 F 98.1 F Pulse Rate 89 97 99 Respiratory Rate 20 20 22 H Blood Pressure 152/89 H 121/86 136/81 Pulse Oximetry 98 93 91 Intake/Output Intake/Output: Intake & Output 03/03/20 03/04/20 03/05/20 03/06/20 23:59 23:59 23:59 23:59 Intake Total 720 240 60 Output Total 600 700 400 Balance 120 460 -340 Meds/Results Medications: Active Medications Generic Name Dose Route Start Last Admin Trade Name Freq PRN Reason Stop Dose Admin Aspirin 81 mg 03/05/20 09:00 03/05/20 08:43 Aspirin Ec PO 81 mg QAM WEN Administration Atorvastatin Calcium 40 mg 03/04/20 21:00 03/05/20 20:45 Lipitor PO 40 mg HS WEN Administration Clopidogrel Bisulfate 75 mg 03/04/20 09:00 03/05/20 08:43 Plavix PO 03/24/20 09:01 75 mg DAILY WEN Administration Dextrose 12.5 gm 03/04/20 12:34 Dextrose 50% Syringe IV PUSH PRN PRN Hypoglycemia Protocol Fenofibrate 145 mg 03/05/20 09:00 03/05/20 08:43 Tricor PO 04/04/20 09:01 145 mg DAILY WEN Administration Glucagon 1 mg 03/04/20 12:34 Glucagon For Inj IM PRN PRN Hypoglycemia Protocol Glucose 15 gm 03/04/20 12:34 Glutose 15 PO PRN PRN Hypoglycemia Protocol Hydrochlorothiazide 12.5 mg 03/05/20 09:00 03/05/20 08:43 Hydrochlorothiazide PO 12.5 mg DAILY WEN Administration Dextrose 1,000 mls @ 100 mls/hr 03/04/20 12:34 Dextrose 5% 1,000 Ml IVPB PRN PRN Hypoglycemia Protocol Lisinopril 10 mg 03/05/20 09:00 03/05/20 08:43 Prinivil PO 10 mg DAILY WEN Administration Metformin HCl 1,000 mg 03/04/20 17:00 03/05/20 17:31 Glucophage PO 1,000 mg BID WEN Administration Tamsulosin HCl 0.4 mg 03/05/20 09:00 03/05/20 08:43 Flomax PO 0.4 mg QAM WEN Administration Labs Labs: Laboratory Results - last 24 hr 03/05/20 03/05/20 03/05/20 11:26 17:02 20:52 POC Capillary Glucose 209 H 125 H 163 H 03/06/20 06:09 POC Capillary Glucose 147 H
[2020-03-06] MEDS: FENOFIBRATE NANOCRYSTALLIZED 145 MG TABLET PO (09:03)
[2020-03-06] MEDS: metFORMIN HCL 500 MG TABLET 1000 MG PO ×2 (09:03→18:41)
[2020-03-06] MEDS: TAMSULOSIN HCL 0.4 MG CAPSULE PO (09:03)
[2020-03-06] MEDS: lisinopriL 10 MG TABLET PO (09:04)
[2020-03-06] MEDS: ASPIRIN 81 MG ENTERIC TABLET PO (09:04)
[2020-03-06] MEDS: hydroCHLOROthiazide 12.5 MG CAPSULE PO (09:04)
[2020-03-06] MEDS: CLOPIDOGREL BISULFATE 75 MG TABLET PO (09:04)
[2020-03-06 11:58] LABS: Glucose Point of Care 204 (65-105)
--- NOTE | 2020-03-06 12:06 | WPDNEURORHBP ---
Subjective Date/time seen: 03/06/20 12:06 Interval history: this 74-year-old is here after having had the brainstem stroke with left-sided hemiparesis he is improving has been seen by the urologist for the hematuria he has a Jang catheter which is not as red as it was before urology wants to follow it till the catheter is removed and the hematuria persisted then only we will need to to do any further workup from the urological standpoint The patient denies any headache nausea vomiting chest pain shortness of breath fever chills sore throat Review of Systems Review of Systems: All systems reviewed & are unremarkable except as noted in HPI and below Functional Status Ambulation Ability Ambulation Assistive Devices: Mechanical Lift Transfers Ability Ability to Transfer In/Out of Chair: Moderate Assistance X 2 Exam Const: General: comfortable and no acute distress HENMT: General nose exam: Normal nares present Mouth: Yes moist mucous membranes Eyes: General: appearance normal, both eyes and all related structures Neck: Neck: supple and no JVD Resp: Effort & Inspection: normal respiratory effort Auscultation: clear to auscultation bilaterally Cardio: Rate: regular rate Rhythm: regular rhythm GI: GI Palp: Yes Soft to palpation Auscultation: normal bowel sounds Urinary Catheter: Urinary Catheter: patent and draining and urine pink Skin: General skin exam: normal color and no rashes or lesions noted Neuro: Other: patient's dysphonia and dysarthria is improved likewise his left hemiparesis is improving also Extrem: General: normal to inspection Psych: Mental Status: mental status grossly normal Objective Data Vital Signs Vital Signs: Vital Signs - 24 hr 03/05/20 14:00 03/05/20 21:58 03/06/20 05:41 Temperature 36.4 C 36.5 C 36.7 C Pulse Rate 89 97 99 Respiratory Rate 20 20 22 H Blood Pressure 152/89 H 121/86 136/81 Pulse Oximetry 98 93 91 Intake/Output Intake/Output: Intake & Output 03/03/20 03/04/20 03/05/20 03/06/20 23:59 23:59 23:59 23:59 Intake Total 720 240 180 Output Total 600 700 400 Balance 120 -460 -220 Meds/Results Medications: Active Medications Generic Name Dose Route Start Last Admin Trade Name Freq PRN Reason Stop Dose Admin Aspirin 81 mg 03/05/20 09:00 03/06/20 09:04 Aspirin Ec PO 81 mg QAM WEN Administration Atorvastatin Calcium 40 mg 03/04/20 21:00 03/05/20 20:45 Lipitor PO 40 mg HS WEN Administration Clopidogrel Bisulfate 75 mg 03/04/20 09:00 03/06/20 09:04 Plavix PO 03/24/20 09:01 75 mg DAILY WEN Administration Dextrose 12.5 gm 03/04/20 12:34 Dextrose 50% Syringe IV PUSH PRN PRN Hypoglycemia Protocol Fenofibrate 145 mg 03/05/20 09:00 03/06/20 09:03 Tricor PO 04/04/20 09:01 145 mg DAILY WEN Administration Glucagon 1 mg 03/04/20 12:34 Glucagon For Inj IM PRN PRN Hypoglycemia Protocol Glucose 15 gm 03/04/20 12:34 Glutose 15 PO PRN PRN Hypoglycemia Protocol Hydrochlorothiazide 12.5 mg 03/05/20 09:00 03/06/20 09:04 Hydrochlorothiazide PO 12.5 mg DAILY WEN Administration Dextrose 1,000 mls @ 100 mls/hr 03/04/20 12:34 Dextrose 5% 1,000 Ml IVPB PRN PRN Hypoglycemia Protocol Lisinopril 10 mg 03/05/20 09:00 03/06/20 09:04 Prinivil PO 10 mg DAILY WEN Administration Metformin HCl 1,000 mg 03/04/20 17:00 03/06/20 09:03 Glucophage PO 1,000 mg BID WEN Administration Tamsulosin HCl 0.4 mg 03/05/20 09:00 03/06/20 09:03 Flomax PO 0.4 mg QAM WEN Administration Labs Labs: Laboratory Results - last 24 hr 03/05/20 03/05/20 03/06/20 17:02 20:52 06:09 POC Capillary Glucose 125 H 163 H 147 H 03/06/20 11:52 POC Capillary Glucose 204 H Progress Note: A&P Assessment and Plan (1) Vertebral artery stenosis: Code(s): I65.09 - Occlusion and stenosis of unspecified verte
[2020-03-06 14:00] VITALS: BP 119/71; PULSE 103; RESP 20; TEMP 36.3; O2SAT 95
[2020-03-06] MEDS: ATORVASTATIN 40 MG TABLET PO (20:35)
[2020-03-06 20:41] VITALS: BP 143/72; PULSE 106; RESP 20; TEMP 37.7; O2SAT 94
[2020-03-06 21:27] VITALS: TEMP 37
[2020-03-07 06:00] VITALS: BP 147/85; PULSE 100; RESP 16; TEMP 36.5; O2SAT 95
[2020-03-07 08:00] VITALS: PULSE 100; RESP 16; O2SAT 95
[2020-03-07] MEDS: hydroCHLOROthiazide 12.5 MG CAPSULE PO (08:59)
[2020-03-07] MEDS: FENOFIBRATE NANOCRYSTALLIZED 145 MG TABLET PO (08:59)
[2020-03-07] MEDS: metFORMIN HCL 500 MG TABLET 1000 MG PO ×2 (08:59→17:40)
[2020-03-07] MEDS: ASPIRIN 81 MG ENTERIC TABLET PO (08:59)
[2020-03-07] MEDS: CLOPIDOGREL BISULFATE 75 MG TABLET PO (08:59)
[2020-03-07] MEDS: lisinopriL 10 MG TABLET PO (08:59)
[2020-03-07] MEDS: TAMSULOSIN HCL 0.4 MG CAPSULE PO (09:00)
[2020-03-07 11:59] LABS: Glucose Point of Care 240 (65-105)
[2020-03-07 14:00] VITALS: BP 140/78; PULSE 99; RESP 18; TEMP 36.2; O2SAT 94
[2020-03-07 16:54] LABS: Glucose Point of Care 237 (65-105)
[2020-03-07] MEDS: ATORVASTATIN 40 MG TABLET PO (20:21)
[2020-03-07 20:27] LABS: Glucose Point of Care 292 (65-105)
[2020-03-07 21:50] VITALS: BP 115/71; PULSE 100; RESP 18; TEMP 36.7; O2SAT 93
[2020-03-08 06:00] VITALS: BP 147/76; PULSE 83; RESP 18; TEMP 36.1; O2SAT 97
[2020-03-08 06:47] LABS: Glucose Point of Care 149 (65-105)
[2020-03-08] MEDS: ASPIRIN 81 MG ENTERIC TABLET PO (09:48)
[2020-03-08] MEDS: TAMSULOSIN HCL 0.4 MG CAPSULE PO (09:48)
[2020-03-08] MEDS: CLOPIDOGREL BISULFATE 75 MG TABLET PO (09:48)
[2020-03-08] MEDS: FENOFIBRATE NANOCRYSTALLIZED 145 MG TABLET PO (09:48)
[2020-03-08] MEDS: hydroCHLOROthiazide 12.5 MG CAPSULE PO (09:48)
[2020-03-08] MEDS: lisinopriL 10 MG TABLET PO (09:48)
[2020-03-08] MEDS: metFORMIN HCL 500 MG TABLET 1000 MG PO ×2 (09:48→17:45)
[2020-03-08 12:04] LABS: Glucose Point of Care 200 (65-105)
--- NOTE | 2020-03-08 12:29 | WPDNEURORHBP ---
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 in addition to the ongoing hematuria he has been evaluated by the urologist catheter is in place and if the hematuria persist after the catheter is removed further workup will be done by the urologist Review of Systems Review of Systems: All systems reviewed & are unremarkable except as noted in HPI and below Functional Status Ambulation Ability Ambulation Assistive Devices: Mechanical Lift Transfers Ability Ability to Transfer In/Out of Chair: Moderate Assistance X 2 Exam Narrative: Exam Narrative: examination reveals him to be awake alert cooperative ear nose throat examination normal with no nasal drainage eyes normal with normal visual miller and normal extraocular movements neck is supple with no cervical bruit no thyromegaly no lymphadenopathy no JVD respiration clear with no rhonchi or crepitations heart regular with no murmur abdomen is soft with no organomegaly nontender normal bowel sounds urinary catheter in place draining a skin normal neurologically he has mild dysphonia and dysarthria with obvious left hemiparesis but definitely improving and is normal mental status with no signs of hallucination or depression Objective Data Vital Signs Vital Signs: Vital Signs - 24 hr 03/07/20 14:00 03/07/20 21:50 03/08/20 06:00 Temperature 36.2 C L 36.7 C 36.1 C L Pulse Rate 99 100 83 Respiratory Rate 18 18 18 Blood Pressure 140/78 115/71 147/76 H Pulse Oximetry 94 93 97 Intake/Output Intake/Output: Intake & Output 03/05/20 03/06/20 03/07/20 03/08/20 23:59 23:59 23:59 23:59 Intake Total 240 540 880 0 Output Total 237 218 6777 600 Balance -460 -310 -270 -600 Meds/Results Medications: Active Medications Generic Name Dose Route Start Last Admin Trade Name Freq PRN Reason Stop Dose Admin Aspirin 81 mg 03/05/20 09:00 03/08/20 09:48 Aspirin Ec PO 81 mg QAM WEN Administration Atorvastatin Calcium 40 mg 03/04/20 21:00 03/07/20 20:21 Lipitor PO 40 mg HS WEN Administration Clopidogrel Bisulfate 75 mg 03/04/20 09:00 03/08/20 09:48 Plavix PO 03/24/20 09:01 75 mg DAILY WEN Administration Dextrose 12.5 gm 03/04/20 12:34 Dextrose 50% Syringe IV PUSH PRN PRN Hypoglycemia Protocol Fenofibrate 145 mg 03/05/20 09:00 03/08/20 09:48 Tricor PO 04/04/20 09:01 145 mg DAILY WEN Administration Glucagon 1 mg 03/04/20 12:34 Glucagon For Inj IM PRN PRN Hypoglycemia Protocol Glucose 15 gm 03/04/20 12:34 Glutose 15 PO PRN PRN Hypoglycemia Protocol Hydrochlorothiazide 12.5 mg 03/05/20 09:00 03/08/20 09:48 Hydrochlorothiazide PO 12.5 mg DAILY WEN Administration Dextrose 1,000 mls @ 100 mls/hr 03/04/20 12:34 Dextrose 5% 1,000 Ml IVPB PRN PRN Hypoglycemia Protocol Lisinopril 10 mg 03/05/20 09:00 03/08/20 09:48 Prinivil PO 10 mg DAILY WEN Administration Metformin HCl 1,000 mg 03/04/20 17:00 03/08/20 09:48 Glucophage PO 1,000 mg BID WEN Administration Tamsulosin HCl 0.4 mg 03/05/20 09:00 03/08/20 09:48 Flomax PO 0.4 mg QAM WEN Administration Labs Labs: Laboratory Results - last 24 hr 03/07/20 03/07/20 03/08/20 16:48 20:25 06:31 POC Capillary Glucose 237 H 292 H 149 H 03/08/20 11:58 POC Capillary Glucose 200 H Progress Note: A&P Assessment and Plan (1) Vertebral artery stenosis: Code(s): I65.09 - Occlusion and stenosis of unspecified vertebral artery Status: Acute (2) Vertebral artery occlusion: Code(s): I65.09 - Occlusion and stenosis of unspecified vertebral artery Status: Acute (3) Gross hematuria: Code(s): R31.0 - Gross hematuria Status: Acute (4) Possible urinary tract infection: Code(s): R39.89 - Other symptoms and signs involving th
[2020-03-08 14:00] VITALS: BP 112/64; PULSE 108; RESP 18; TEMP 36.5; O2SAT 95
[2020-03-08 17:06] LABS: Glucose Point of Care 244 (65-105)
[2020-03-08] MEDS: ATORVASTATIN 40 MG TABLET PO (20:51)
[2020-03-08 21:25] LABS: Glucose Point of Care 261 (65-105)
[2020-03-08 22:00] VITALS: BP 124/63; PULSE 99; RESP 18; TEMP 36.6; O2SAT 94
[2020-03-09 05:28] LABS: Glucose Point of Care 144 (65-105)
[2020-03-09 06:00] VITALS: BP 131/74; PULSE 81; RESP 16; TEMP 36.7; O2SAT 99
[2020-03-09 08:00] VITALS: PULSE 98; RESP 18; O2SAT 97
[2020-03-09] MEDS: CLOPIDOGREL BISULFATE 75 MG TABLET PO (09:50)
[2020-03-09] MEDS: metFORMIN HCL 500 MG TABLET 1000 MG PO ×2 (09:50→17:36)
[2020-03-09] MEDS: FENOFIBRATE NANOCRYSTALLIZED 145 MG TABLET PO (09:50)
[2020-03-09] MEDS: lisinopriL 10 MG TABLET PO (09:50)
[2020-03-09] MEDS: hydroCHLOROthiazide 12.5 MG CAPSULE PO (09:50)
[2020-03-09] MEDS: TAMSULOSIN HCL 0.4 MG CAPSULE PO (09:50)
[2020-03-09] MEDS: ASPIRIN 81 MG ENTERIC TABLET PO (09:50)
[2020-03-09 11:51] LABS: Glucose Point of Care 254 (65-105)
[2020-03-09 14:00] VITALS: BP 151/84; PULSE 106; RESP 20; TEMP 36.3; O2SAT 97
[2020-03-09 17:33] LABS: Glucose Point of Care 186 (65-105)
[2020-03-09] MEDS: MEGESTROL ACETATE (*CHEMO) ORAL SUSP 40 MG/ML SYR 800 MG PO (17:37)
[2020-03-09] MEDS: ATORVASTATIN 40 MG TABLET PO (21:08)
[2020-03-09 21:14] LABS: Glucose Point of Care 215 (65-105)
[2020-03-09 22:00] VITALS: BP 132/64; PULSE 72; RESP 18; TEMP 36.2; O2SAT 97
[2020-03-10 06:00] VITALS: BP 115/70; PULSE 90; RESP 20; TEMP 36.8; O2SAT 95
[2020-03-10] MEDS: MEGESTROL ACETATE (*CHEMO) ORAL SUSP 40 MG/ML SYR 800 MG PO ×2 (06:07→11:50)
[2020-03-10 06:26] LABS: Glucose Point of Care 183 (65-105)
[2020-03-10] MEDS: metFORMIN HCL 500 MG TABLET 1000 MG PO ×2 (10:11→16:36)
[2020-03-10] MEDS: hydroCHLOROthiazide 12.5 MG CAPSULE PO (10:11)
[2020-03-10] MEDS: TAMSULOSIN HCL 0.4 MG CAPSULE PO (10:11)
[2020-03-10] MEDS: FENOFIBRATE NANOCRYSTALLIZED 145 MG TABLET PO (10:11)
[2020-03-10] MEDS: ASPIRIN 81 MG ENTERIC TABLET PO (10:11)
[2020-03-10] MEDS: CLOPIDOGREL BISULFATE 75 MG TABLET PO (10:12)
[2020-03-10] MEDS: lisinopriL 10 MG TABLET PO (10:12)
[2020-03-10 11:43] LABS: Glucose Point of Care 257 (65-105)
--- NOTE | 2020-03-10 13:35 | PCNFU ---
Nutrition Follow-Up Complete: Suboptimal oral intake related to fatigue as evidenced by patient report, limited intake at lunch. Goal: Patient to consume 75% of meals or greater. Patient progressing towards goal with 69% average meal consumption. Patient states he is often still full from the previous meal when the next meal arrives (i.e. full from breakfast when lunch arrives). Encouraged patient to consume what he can tolerate. Told patient he can order half portions (i.e. half sandwich) if needed. Patient states liking Ensure. will continue with current goal. Pt current nutrition is [facility] with mildly thick liquids. Nutrition recommendation: Agree with current recommendations Last recorded weight is 96.1 kg. Recommend obtaining new weight. Bowel Motility: last bowel movement reported on 03/08/20. Labs Reviewed: Meds Noted: Hydrochlorothiazide, Glucophage, Tricor, Lipitor, Prinivil, Flomax Additional Notes: Skin is WNL Follow up in 5 days.
--- NOTE | 2020-03-10 13:55 | PCPTNOTE ---
Caroline Treadwell PTA completed an inpatient rehab wheelchair evaluation on Cleve Oseguera on 03/10/2020. The patient is unable to safely and independently ambulate household distances due to their current impairments. Their diagnosis is CVA and their impairments include decreased strength, decreased endurance, decreased range of motion, decreased balance, and lower extremity weakness. Cleve's weight bearing status is weight-bearing as tolerated on the bilateral lower legs. The patient demonstrates significant functional mobility limitations that impair their ability to participate in mobility-related activities of daily living (MRADLs), including toileting, feeding, dressing, grooming, and bathing in the customary locations in the home. These limitations cannot be sufficiently resolved by the use of an appropriately fitted cane or walker. It is recommended that the patient utilize a wheelchair for functional mobility within the home in order to facilitate optimal safety, independence and participation in all MRADL's and adequately access their home environment on a regular basis. The patient's home provides adequate access between rooms, maneuvering space, and surfaces to accommodate the recommended wheelchair. The use of a wheelchair for functional mobility is strongly recommended and the patient is receptive to using the wheelchair. The use of this wheelchair will significantly improve the patient's ability to participate in MRADLS and the patient will use it on a regular basis in the home. This will facilitate optimal safety, independence, and participation. The patient has demonstrated sufficient physical and mental capabilities needed to safely propel a manual wheelchair that is provided in the home during a typical day. Recommended Wheelchair Frame:standard Recommended Wheelchair Size: 20x20 due to patient's anatomical hip and leg length of 18 inches Recommended Wheelchair Cushion:standard Wheelchair Leg Recommendations: swing away -(Anti-tippers are recommended due to patient demonstrating increased risk for falls. They would benefit from anti-tippers with added safety and stabilization. Caroline Rogersenport ABALONE PROCESSOR 03-10-2020 Evaluating Therapist Date I agree with and certify that the above recommendation is medically necessary. Referring Physician Date I agree with and certify that the above recommendation is medically necessary. Referring Physician Date
[2020-03-10 14:00] VITALS: BP 129/70; PULSE 112; RESP 20; TEMP 36.4; O2SAT 94
--- NOTE | 2020-03-10 14:19 | WPDNEURORHBP ---
Subjective Date/time seen: 03/10/20 14:19 Interval history: this 74-year-old gentleman is here due to a brainstem stroke which has left him with the significant left-sided hemiparesis he also has urinary retention and the Jang catheter is being irrigated. Occupational therapy wanted and E stim for the left upper extremity which is feasible speech therapy is giving him a thick the can't liquid in the physical therapy is making slow progress otherwise denies any headache nausea vomiting chest pain shortness of breath fever chills sore throat Review of Systems Review of Systems: All systems reviewed & are unremarkable except as noted in HPI and below Functional Status Ambulation Ability Ambulation Assistive Devices: Mechanical Lift Transfers Ability Ability to Transfer In/Out of Chair: Moderate Assistance X 2 Exam Const: General: comfortable and no acute distress HENMT: General nose exam: Normal nares present Mouth: Yes moist mucous membranes Eyes: General: appearance normal, both eyes and all related structures Neck: Neck: supple and no JVD Resp: Effort & Inspection: normal respiratory effort Auscultation: clear to auscultation bilaterally Cardio: Rate: regular rate Rhythm: regular rhythm GI: GI Palp: Yes Soft to palpation Auscultation: normal bowel sounds Skin: General skin exam: normal color and no rashes or lesions noted Neuro: Other: patient is awake alert well oriented to time place and person his dysarthria is improving the left-sided hemiparesis is taking much longer actually the upper extremities for more involved than the lower extremity but still making progress Extrem: General: normal to inspection Psych: Mental Status: mental status grossly normal Objective Data Vital Signs Vital Signs: Vital Signs - 24 hr 03/09/20 22:00 03/10/20 06:00 Temperature 36.2 C L 36.8 C Pulse Rate 72 90 Respiratory Rate 18 20 Blood Pressure 132/64 115/70 Pulse Oximetry 97 95 Intake/Output Intake/Output: Intake & Output 03/07/20 03/08/20 03/09/20 03/10/20 23:59 23:59 23:59 23:59 Intake Total 880 120 970 480 Output Total 1150 1300 1200 600 Balance -270 -1180 -230 -120 Meds/Results Medications: Active Medications Generic Name Dose Route Start Last Admin Trade Name Freq PRN Reason Stop Dose Admin Aspirin 81 mg 03/05/20 09:00 03/10/20 10:11 Aspirin Ec PO 81 mg QAM WEN Administration Atorvastatin Calcium 40 mg 03/04/20 21:00 03/09/20 21:08 Lipitor PO 40 mg HS WEN Administration Clopidogrel Bisulfate 75 mg 03/04/20 09:00 03/10/20 10:12 Plavix PO 03/24/20 09:01 75 mg DAILY WEN Administration Dextrose 12.5 gm 03/04/20 12:34 Dextrose 50% Syringe IV PUSH PRN PRN Hypoglycemia Protocol Fenofibrate 145 mg 03/05/20 09:00 03/10/20 10:11 Tricor PO 04/04/20 09:01 145 mg DAILY WEN Administration Glucagon 1 mg 03/04/20 12:34 Glucagon For Inj IM PRN PRN Hypoglycemia Protocol Glucose 15 gm 03/04/20 12:34 Glutose 15 PO PRN PRN Hypoglycemia Protocol Hydrochlorothiazide 12.5 mg 03/05/20 09:00 03/10/20 10:11 Hydrochlorothiazide PO 12.5 mg DAILY WEN Administration Dextrose 1,000 mls @ 100 mls/hr 03/04/20 12:34 Dextrose 5% 1,000 Ml IVPB PRN PRN Hypoglycemia Protocol Lisinopril 10 mg 03/05/20 09:00 03/10/20 10:12 Prinivil PO 10 mg DAILY WEN Administration Megestrol Acetate 800 mg 03/09/20 16:30 03/10/20 11:50 Megace Oral Susp PO 800 mg AC WEN Administration Metformin HCl 1,000 mg 03/04/20 17:00 03/10/20 10:11 Glucophage PO 1,000 mg BID WEN Administration Tamsulosin HCl 0.4 mg 03/05/20 09:00 03/10/20 10:11 Flomax PO 0.4 mg QAM WEN Administration Labs Labs: Laboratory Results - last 24 hr 03/09/20 03/09/20 03/10/20 17:20 21:12 06:09 POC Capillary Glucose 186 H 215 H 183 H 03/10/20 11:40 POC Capillar
--- NOTE | 2020-03-10 14:31 | PCNSR ---
On 03/10/20, the student, Doe Ruiz, provided care and [facility]. I have reviewed the student's documentation and agree with the findings.
[2020-03-10 19:17] LABS: Glucose Point of Care 232 (65-105)
[2020-03-10] MEDS: ATORVASTATIN 40 MG TABLET PO (20:58)
[2020-03-10 22:00] VITALS: BP 141/43; PULSE 59; RESP 20; TEMP 37.3; O2SAT 99
[2020-03-11] MEDS: MEGESTROL ACETATE (*CHEMO) ORAL SUSP 40 MG/ML SYR 800 MG PO (05:52)
[2020-03-11 06:00] VITALS: BP 161/79; PULSE 98; RESP 18; TEMP 36.2; O2SAT 97
[2020-03-11 06:29] LABS: Glucose Point of Care 151 (65-105)
[2020-03-11] MEDS: hydroCHLOROthiazide 12.5 MG CAPSULE PO (09:44)
[2020-03-11] MEDS: lisinopriL 10 MG TABLET PO (09:44)
[2020-03-11] MEDS: FENOFIBRATE NANOCRYSTALLIZED 145 MG TABLET PO (09:44)
[2020-03-11] MEDS: CLOPIDOGREL BISULFATE 75 MG TABLET PO (09:44)
[2020-03-11] MEDS: ASPIRIN 81 MG ENTERIC TABLET PO (09:44)
[2020-03-11] MEDS: TAMSULOSIN HCL 0.4 MG CAPSULE PO (09:45)
[2020-03-11] MEDS: metFORMIN HCL 500 MG TABLET 1000 MG PO ×2 (09:45→17:17)
[2020-03-11 12:24] LABS: Glucose Point of Care 263 (65-105)
[2020-03-11 14:00] VITALS: BP 139/69; PULSE 105; RESP 20; TEMP 36.6; O2SAT 95
--- NOTE | 2020-03-11 14:25 | WPDNEURORHBP ---
Subjective Date/time seen: 03/11/20 14:25 Interval history: this 74-year-old gentleman is here because of brainstem stroke which has left him with this left-sided hemiplegia is stable making slow progress denies any headache nausea vomiting chest pain or shortness of breath fever chills sore throat Review of Systems Review of Systems: All systems reviewed & are unremarkable except as noted in HPI and below Functional Status Ambulation Ability Ambulation Assistive Devices: Mechanical Lift Transfers Ability Ability to Transfer In/Out of Chair: Moderate Assistance X 2 Exam Const: General: comfortable and no acute distress HENMT: General nose exam: Normal nares present Mouth: Yes moist mucous membranes Eyes: General: appearance normal, both eyes and all related structures Neck: Neck: supple and no JVD Resp: Effort & Inspection: normal respiratory effort Auscultation: clear to auscultation bilaterally Cardio: Rate: regular rate Rhythm: regular rhythm GI: GI Palp: Yes Soft to palpation Auscultation: normal bowel sounds Skin: General skin exam: normal color and no rashes or lesions noted Neuro: Other: patient is awake and alert well oriented follows all commands seem to be tolerating the therapy well with slow progress in the left-sided almost hemiplegia Extrem: General: normal to inspection Psych: Mental Status: mental status grossly normal Objective Data Vital Signs Vital Signs: Vital Signs - 24 hr 03/10/20 22:00 03/11/20 06:00 Temperature 37.3 C 36.2 C L Pulse Rate 59 L 98 Respiratory Rate 20 18 Blood Pressure 141/43 H 161/79 H Pulse Oximetry 99 97 Intake/Output Intake/Output: Intake & Output 03/08/20 03/09/20 03/10/20 03/11/20 23:59 23:59 23:59 23:59 Intake Total 120 970 720 480 Output Total 1300 1200 1175 400 Balance -8877 -230 -949 80 Meds/Results Medications: Active Medications Generic Name Dose Route Start Last Admin Trade Name Freq PRN Reason Stop Dose Admin Aspirin 81 mg 03/05/20 09:00 03/11/20 09:44 Aspirin Ec PO 81 mg QAM WEN Administration Atorvastatin Calcium 40 mg 03/04/20 21:00 03/10/20 20:58 Lipitor PO 40 mg HS WEN Administration Clopidogrel Bisulfate 75 mg 03/04/20 09:00 03/11/20 09:44 Plavix PO 03/24/20 09:01 75 mg DAILY WEN Administration Dextrose 12.5 gm 03/04/20 12:34 Dextrose 50% Syringe IV PUSH PRN PRN Hypoglycemia Protocol Fenofibrate 145 mg 03/05/20 09:00 03/11/20 09:44 Tricor PO 04/04/20 09:01 145 mg DAILY WEN Administration Glucagon 1 mg 03/04/20 12:34 Glucagon For Inj IM PRN PRN Hypoglycemia Protocol Glucose 15 gm 03/04/20 12:34 Glutose 15 PO PRN PRN Hypoglycemia Protocol Hydrochlorothiazide 12.5 mg 03/05/20 09:00 03/11/20 09:44 Hydrochlorothiazide PO 12.5 mg DAILY WEN Administration Dextrose 1,000 mls @ 100 mls/hr 03/04/20 12:34 Dextrose 5% 1,000 Ml IVPB PRN PRN Hypoglycemia Protocol Lisinopril 10 mg 03/05/20 09:00 03/11/20 09:44 Prinivil PO 10 mg DAILY WEN Administration Megestrol Acetate 800 mg 03/11/20 06:30 03/11/20 05:52 Megace Oral Susp PO 800 mg DAILY@0630 WEN Administration Metformin HCl 1,000 mg 03/04/20 17:00 03/11/20 09:45 Glucophage PO 1,000 mg BID WEN Administration Tamsulosin HCl 0.4 mg 03/05/20 09:00 03/11/20 09:45 Flomax PO 0.4 mg QAM WEN Administration Labs Labs: Laboratory Results - last 24 hr 03/10/20 03/11/20 03/11/20 16:44 06:23 11:40 POC Capillary Glucose 232 H 151 H 263 H Progress Note: A&P Assessment and Plan (1) Vertebral artery stenosis: Code(s): I65.09 - Occlusion and stenosis of unspecified vertebral artery Status: Acute (2) Vertebral artery occlusion: Code(s): I65.09 - Occlusion and stenosis of unspecified vertebral artery Status: Acute (3) Urinary retention: Code(s):
[2020-03-11 17:50] LABS: Glucose Point of Care 180 (65-105)
[2020-03-11] MEDS: ATORVASTATIN 40 MG TABLET PO (20:18)
[2020-03-11 22:00] VITALS: BP 125/60; PULSE 100; RESP 20; TEMP 36.4; O2SAT 96
[2020-03-12] MEDS: MEGESTROL ACETATE (*CHEMO) ORAL SUSP 40 MG/ML SYR 800 MG PO (05:24)
[2020-03-12 05:42] LABS: Basophils Absolute Auto 0.1 K/mm3 (0.0-0.1); Basophils Percent Auto 0.6 % (0.2-1.2); Eosinophils Absolute Auto 0.3 K/mm3 (0-0.3); Eosinophils Percent Auto 2.1 % (0-4.4); Hemoglobin 14.2 g/dL (14.0-18.0); Immature Granulocyte Absolute 0.08 K/mm3 (0.00-0.031); Immature Granulocyte Percent A 0.6 % (0-0.5); Lymphocytes Absolute Auto 1.69 K/mm3 (0.9-3.2); Lymphocytes Percent Auto 13.1 % (18.3-44.2); Mean Corpuscular HGB Conc 33.8 g/dl (32-36); Mean Corpuscular Hemoglobin 29.5 pg (26-34); Mean Corpuscular Volume 87.1 fl (80-100); Mean Platelet Volume 10.1 fl (7.4-10.4); Monocytes Absolute Auto 0.9 K/mm3 (0.1-0.6); Monocytes Percent Auto 6.6 % (2.6-8.5); Neutrophils Absolute Auto 9.9 K/mm3 (1.3-6.7); Platelet Count Result 314 k/mm3 (150-375); Red Blood Count 4.82 M/mm3 (4.6-6.20); Red Cell Distribution Width 12.7 % (11.5-14.5); White Blood Count 12.9 K/mm3 (4.5-10.0)
[2020-03-12 05:59] LABS: Anion Gap 8 mmol/L (8-16); Blood Urea Nitrogen 25 mg/dL (9-20); Calcium 9.5 mg/dL (8.4-10.2); Carbon Dioxide 28 mmol/L (22-30); Chloride 102 mmol/L (98-107); Estimated CRCL calculation 88 ml/min; Estimated Glomerular Filt Rate > 60; Glucose 128 mg/dL (75-110); Potassium 3.8 mmol/L (3.4-5.0); Sodium 138 mmol/L (137-145)
[2020-03-12 06:00] VITALS: BP 132/51; PULSE 73; RESP 18; TEMP 37.2; O2SAT 99
[2020-03-12 06:46] LABS: Glucose Point of Care 121 (65-105)
[2020-03-12] MEDS: lisinopriL 10 MG TABLET PO (09:28)
[2020-03-12] MEDS: ASPIRIN 81 MG ENTERIC TABLET PO (09:28)
[2020-03-12] MEDS: hydroCHLOROthiazide 12.5 MG CAPSULE PO (09:28)
[2020-03-12] MEDS: FENOFIBRATE NANOCRYSTALLIZED 145 MG TABLET PO (09:28)
[2020-03-12] MEDS: CLOPIDOGREL BISULFATE 75 MG TABLET PO (09:28)
[2020-03-12] MEDS: metFORMIN HCL 500 MG TABLET 1000 MG PO ×2 (09:29→17:34)
[2020-03-12] MEDS: TAMSULOSIN HCL 0.4 MG CAPSULE PO (09:29)
[2020-03-12 12:00] LABS: Glucose Point of Care 227 (65-105)
[2020-03-12 14:00] VITALS: BP 147/59; PULSE 78; RESP 18; TEMP 36.6; O2SAT 96
[2020-03-12 17:08] LABS: Glucose Point of Care 169 (65-105)
[2020-03-12 20:03] VITALS: BP 130/73; PULSE 102; RESP 18; TEMP 36.9; O2SAT 97
[2020-03-12] MEDS: ATORVASTATIN 40 MG TABLET PO (20:11)
[2020-03-13 05:05] VITALS: BP 142/78; PULSE 92; RESP 20; TEMP 36.6; O2SAT 96
[2020-03-13 06:15] LABS: Glucose Point of Care 134 (65-105)
[2020-03-13] MEDS: MEGESTROL ACETATE (*CHEMO) ORAL SUSP 40 MG/ML SYR 800 MG PO (07:22)
[2020-03-13] MEDS: lisinopriL 10 MG TABLET PO (08:41)
[2020-03-13] MEDS: metFORMIN HCL 500 MG TABLET 1000 MG PO ×2 (08:41→17:51)
[2020-03-13] MEDS: FENOFIBRATE NANOCRYSTALLIZED 145 MG TABLET PO (08:41)
[2020-03-13] MEDS: hydroCHLOROthiazide 12.5 MG CAPSULE PO (08:41)
[2020-03-13] MEDS: CLOPIDOGREL BISULFATE 75 MG TABLET PO (08:41)
[2020-03-13] MEDS: ASPIRIN 81 MG ENTERIC TABLET PO (08:41)
[2020-03-13] MEDS: TAMSULOSIN HCL 0.4 MG CAPSULE PO (08:42)
[2020-03-13 12:42] LABS: Glucose Point of Care 291 (65-105)
--- NOTE | 2020-03-13 12:53 | PCNFU ---
Nutrition Follow-Up Complete: Suboptimal oral intake related to fatigue as evidenced by patient report, limited intake at lunch. Goal: Patient to consume 75% of meals or greater. Patient is progressing towards goal with 65% average meal consumption. Patient is receiving Glucerna TID (220 kcal and 10 grams protein per serving). Per LINEN WORKER patient is drinking 25-50% of Glucerna. LINEN WORKER states pt is eating more than before. Pt reports good appetite and no diet related concerns. Will continue with current goal. Pt current nutrition is [facility] with thickened liquids, level 2. Nutrition recommendation: Agree with current recommendations Last recorded weight is 96.1 kg. Recommend obtaining new weight Bowel Motility: last bowel movement reported on 03/10/20 Labs Reviewed: BUN (25) Glu (128) Meds Noted: Glucophage, Tricor, Lipitor, Flomax, Plavix Additional Notes: Skin is WNL. Patient wants water and said he can not have it because of thickened liquids. Encouraged patient to practice exercises recommended by speech therapy and to provide speech therapy with concerns. Follow up in 5 days.
--- NOTE | 2020-03-13 13:32 | PCSTNOTE ---
03/13/20: MBS completed. Please refer to evaluation documentation in EMR for details.
--- NOTE | 2020-03-13 13:58 | WPDNEURORHBP ---
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 he gives me conflicting history initially saying that he did have some issues with swallowing prior to having had stroke however told the nurse different story that it developed after the stroke difficult to discern otherwise he remains lucid he is working with the team and using the light gait E give meant to move on denies any headache nausea vomiting chest pain or shortness of breath the patient has been seen by the dietitian to advance his diet however they will stick to the present dietary regimen and suggested a GI consult to look into his swallowing mechanism and the possibility of some kind of web at the level of pharynx or below Review of Systems Review of Systems: All systems reviewed & are unremarkable except as noted in HPI and below Functional Status Ambulation Ability Ambulation Assistive Devices: Mechanical Lift Transfers Ability Ability to Transfer In/Out of Chair: Moderate Assistance X 2 Exam Const: General: comfortable and no acute distress HENMT: General nose exam: Normal nares present Mouth: Yes moist mucous membranes Eyes: General: appearance normal, both eyes and all related structures Neck: Neck: supple and no JVD Resp: Effort & Inspection: normal respiratory effort Auscultation: clear to auscultation bilaterally Cardio: Rate: regular rate GI: GI Palp: Yes Soft to palpation Auscultation: normal bowel sounds Back/Spine/Pelvis: Other: patient's Jang catheter was removed after irrigation because it has some blood clots however the nursing as usual were not able to put the catheter in and we are waiting for a response from the urologist to either put the catheter back in or advise otherwise Skin: General skin exam: normal color and no rashes or lesions noted Neuro: Other: patient is awake alert well oriented with dysarthria and dysphonia related to brainstem stroke left hemiplegia with little improvement Extrem: General: normal to inspection Psych: Mental Status: mental status grossly normal Objective Data Vital Signs Vital Signs: Vital Signs - 24 hr 03/12/20 14:00 03/12/20 20:03 03/13/20 05:05 Temperature 36.6 C 36.9 C 36.6 C Pulse Rate 78 102 H 92 Respiratory Rate 18 18 20 Blood Pressure 147/59 H 130/73 142/78 H Pulse Oximetry 96 97 96 Intake/Output Intake/Output: Intake & Output 03/10/20 03/11/20 03/12/20 03/13/20 23:59 23:59 23:59 23:59 Intake Total 720 960 840 760 Output Total 1175 1150 1400 350 Balance -455 -891 -720 410 Meds/Results Medications: Active Medications Generic Name Dose Route Start Last Admin Trade Name Freq PRN Reason Stop Dose Admin Aspirin 81 mg 03/05/20 09:00 03/13/20 08:41 Aspirin Ec PO 81 mg QAM WEN Administration Atorvastatin Calcium 40 mg 03/04/20 21:00 03/12/20 20:11 Lipitor PO 40 mg HS WEN Administration Clopidogrel Bisulfate 75 mg 03/04/20 09:00 03/13/20 08:41 Plavix PO 03/24/20 09:01 75 mg DAILY WEN Administration Dextrose 12.5 gm 03/04/20 12:34 Dextrose 50% Syringe IV PUSH PRN PRN Hypoglycemia Protocol Fenofibrate 145 mg 03/05/20 09:00 03/13/20 08:41 Tricor PO 04/04/20 09:01 145 mg DAILY WEN Administration Glucagon 1 mg 03/04/20 12:34 Glucagon For Inj IM PRN PRN Hypoglycemia Protocol Glucose 15 gm 03/04/20 12:34 Glutose 15 PO PRN PRN Hypoglycemia Protocol Hydrochlorothiazide 12.5 mg 03/05/20 09:00 03/13/20 08:41 Hydrochlorothiazide PO 12.5 mg DAILY WEN Administration Dextrose 1,000 mls @ 100 mls/hr 03/04/20 12:34 Dextrose 5% 1,000 Ml IVPB PRN PRN Hypoglycemia Protocol Lisinopril 10 mg 03/05/20 09:00 03/13/20 08:41 Prinivil PO 10 mg DAILY WEN Administration Megestrol Acetate 800 mg 03/11/20 06:30 03/13/20 07:22 M
[2020-03-13 14:00] VITALS: BP 136/82; PULSE 94; RESP 20; TEMP 36.8; O2SAT 98
--- NOTE | 2020-03-13 14:39 | PCNSR ---
On 03/13/20, the student, Doe Ruiz, provided care and completed [facility] documentation on this patient. I have reviewed the student's documentation and agree with the findings.
[2020-03-13 17:24] LABS: Glucose Point of Care 230 (65-105)
[2020-03-13] MEDS: ATORVASTATIN 40 MG TABLET PO (21:15)
[2020-03-13 21:27] LABS: Glucose Point of Care 287 (65-105)
[2020-03-13 22:00] VITALS: BP 125/76; PULSE 108; RESP 22; TEMP 36.9; O2SAT 97
[2020-03-14] MEDS: MEGESTROL ACETATE (*CHEMO) ORAL SUSP 40 MG/ML SYR 800 MG PO (05:59)
[2020-03-14 06:00] VITALS: BP 124/62; PULSE 95; RESP 20; TEMP 36.7; O2SAT 97
[2020-03-14 06:13] LABS: Glucose Point of Care 159 (65-105)
[2020-03-14] MEDS: FENOFIBRATE NANOCRYSTALLIZED 145 MG TABLET PO (09:26)
[2020-03-14] MEDS: TAMSULOSIN HCL 0.4 MG CAPSULE PO (09:26)
[2020-03-14] MEDS: metFORMIN HCL 500 MG TABLET 1000 MG PO ×2 (09:26→17:14)
[2020-03-14] MEDS: hydroCHLOROthiazide 12.5 MG CAPSULE PO (09:26)
[2020-03-14] MEDS: CLOPIDOGREL BISULFATE 75 MG TABLET PO (09:26)
[2020-03-14] MEDS: ASPIRIN 81 MG ENTERIC TABLET PO (09:26)
[2020-03-14] MEDS: lisinopriL 10 MG TABLET PO (09:26)
[2020-03-14 11:42] LABS: Glucose Point of Care 227 (65-105)
[2020-03-14 14:00] VITALS: BP 142/76; PULSE 94; RESP 20; TEMP 36.3; O2SAT 98
[2020-03-14 17:28] LABS: Glucose Point of Care 251 (65-105)
--- NOTE | 2020-03-14 18:12 | WPDNEURORHBP ---
Subjective Date/time seen: 03/14/20 18:12 Interval history: this pleasant 74-year-old gentleman is here with the brainstem stroke waiting for the GI to look into his dysphagia for suspected trouble at the faringo esophageal left his catheter is back in with some bloody discharge with stable hemoglobin hematocrit he denies any headache nausea vomiting chest pain shortness of breath fever chills sore throat his diabetic control is at best a fair I will add a Lantus to it and also os for the diabetes educator to see him Review of Systems Review of Systems: All systems reviewed & are unremarkable except as noted in HPI and below Functional Status Ambulation Ability Ability to Ambulate 10 Feet: Total Assistance X 1 Ambulation Assistive Devices: Mechanical Lift Transfers Ability Ability to Transfer In/Out of Chair: Moderate Assistance X 2 Exam Const: General: comfortable and no acute distress HENMT: General nose exam: Normal nares present Mouth: Yes moist mucous membranes Eyes: General: appearance normal, both eyes and all related structures Neck: Neck: supple and no JVD Resp: Effort & Inspection: normal respiratory effort Auscultation: clear to auscultation bilaterally Cardio: Rate: regular rate Rhythm: regular rhythm GI: GI Palp: Yes Soft to palpation Auscultation: normal bowel sounds Urinary Catheter: Urinary Catheter: patent and draining Skin: General skin exam: normal color and no rashes or lesions noted Neuro: Other: patient is awake and alert well oriented with moderately severe left-sided hemiparesis almost hemiplegia Extrem: General: normal to inspection Psych: Mental Status: mental status grossly normal Objective Data Vital Signs Vital Signs: Vital Signs - 24 hr 03/13/20 22:00 03/14/20 06:00 03/14/20 14:00 Temperature 36.9 C 36.7 C 36.3 C L Pulse Rate 108 H 95 94 Respiratory Rate 22 H 20 20 Blood Pressure 125/76 124/62 142/76 H Pulse Oximetry 97 97 98 Intake/Output Intake/Output: Intake & Output 03/11/20 03/12/20 03/13/20 03/14/20 23:59 23:59 23:59 23:59 Intake Total 442 145 6682 720 Output Total 1150 1400 1050 1650 Balance -190 -560 0 -930 Meds/Results Medications: Active Medications Generic Name Dose Route Start Last Admin Trade Name Freq PRN Reason Stop Dose Admin Aspirin 81 mg 03/05/20 09:00 03/14/20 09:26 Aspirin Ec PO 81 mg QAM WEN Administration Atorvastatin Calcium 40 mg 03/04/20 21:00 03/13/20 21:15 Lipitor PO 40 mg HS WEN Administration Clopidogrel Bisulfate 75 mg 03/04/20 09:00 03/14/20 09:26 Plavix PO 03/24/20 09:01 75 mg DAILY WEN Administration Dextrose 12.5 gm 03/04/20 12:34 Dextrose 50% Syringe IV PUSH PRN PRN Hypoglycemia Protocol Fenofibrate 145 mg 03/05/20 09:00 03/14/20 09:26 Tricor PO 04/04/20 09:01 145 mg DAILY WEN Administration Glucagon 1 mg 03/04/20 12:34 Glucagon For Inj IM PRN PRN Hypoglycemia Protocol Glucose 15 gm 03/04/20 12:34 Glutose 15 PO PRN PRN Hypoglycemia Protocol Hydrochlorothiazide 12.5 mg 03/05/20 09:00 03/14/20 09:26 Hydrochlorothiazide PO 12.5 mg DAILY WEN Administration Dextrose 1,000 mls @ 100 mls/hr 03/04/20 12:34 Dextrose 5% 1,000 Ml IVPB PRN PRN Hypoglycemia Protocol Lisinopril 10 mg 03/05/20 09:00 03/14/20 09:26 Prinivil PO 10 mg DAILY WEN Administration Megestrol Acetate 800 mg 03/11/20 06:30 03/14/20 05:59 Megace Oral Susp PO 800 mg DAILY@0630 WEN Administration Metformin HCl 1,000 mg 03/04/20 17:00 03/14/20 17:14 Glucophage PO 1,000 mg BID WEN Administration Tamsulosin HCl 0.4 mg 03/05/20 09:00 03/14/20 09:26 Flomax PO 0.4 mg QAM WEN Administration Radiology Results: ITS Impressions Modified Barium Swallow 03/13/20 12:22 IMPRESSION: Prominent cricopharyngeal contraction noted. Please refer to speech pathologist find
[2020-03-14] MEDS: ATORVASTATIN 40 MG TABLET PO (20:01)
[2020-03-14] MEDS: INSULIN GLARGINE (*BKC) 100 UNITS/ML 10 UNITS SUB-Q (20:02)
[2020-03-14 20:30] LABS: Glucose Point of Care 263 (65-105)
[2020-03-14 22:00] VITALS: BP 112/68; PULSE 102; RESP 18; TEMP 36.9; O2SAT 97
[2020-03-15 06:00] VITALS: BP 129/75; PULSE 87; RESP 20; TEMP 36.3; O2SAT 98
[2020-03-15] MEDS: MEGESTROL ACETATE (*CHEMO) ORAL SUSP 40 MG/ML SYR 800 MG PO (06:01)
[2020-03-15 06:22] LABS: Glucose Point of Care 141 (65-105)
[2020-03-15] MEDS: CLOPIDOGREL BISULFATE 75 MG TABLET PO (08:01)
[2020-03-15] MEDS: ASPIRIN 81 MG ENTERIC TABLET PO (08:01)
[2020-03-15] MEDS: FENOFIBRATE NANOCRYSTALLIZED 145 MG TABLET PO (08:01)
[2020-03-15] MEDS: metFORMIN HCL 500 MG TABLET 1000 MG PO ×2 (08:02→17:12)
[2020-03-15] MEDS: hydroCHLOROthiazide 12.5 MG CAPSULE PO (08:02)
[2020-03-15] MEDS: TAMSULOSIN HCL 0.4 MG CAPSULE PO (08:02)
[2020-03-15] MEDS: lisinopriL 10 MG TABLET PO (08:02)
--- NOTE | 2020-03-15 08:33 | WPDGICN ---
Assessment and Plan Assessment and plan (1) Dysphagia: Code(s): R13.10 - Dysphagia, unspecified Status: Acute Assessment and Plan: Patient has delayed swallowing associated with his recent CVA. Modified barium swallow raises concerns over possible narrowing in the proximal esophagus. Plan is for EGD Monday to assess more thoroughly and exclude any organic disease in the proximal esophagus. Further recommendations will be given after endoscopy. Plan is to continue speech therapy recommendations in advance diet as per their instructions. (2) Right pontine cerebrovascular accident: Code(s): I63.50 - Cerebral infarction due to unspecified occlusion or stenosis of unspecified cerebral artery Status: Acute (3) Left hemiparesis: Code(s): G81.94 - Hemiplegia, unspecified affecting left nondominant side Status: Acute GI Consult Note Consult date/time: 03/15/20 08:33 HPI: Cleve Oseguera is a 74 year old male seen in evaluation at the request of Dr. Baltazar because of swallowing difficulties. Patient has a history of his CVA with brain stem stroke. He has some left hemiparesis. Has had difficulty swallowing. Modified barium swallow revealed that concerned that he may have a narrowing in the proximal esophagus. Patient appeared to swallow adequately in diet is allowed with thickening agents. Patient himself reports that he swallows adequately. He denies coughing after swallowing. He denies any weight loss. Review of Systems Review of Systems: All systems reviewed & are unremarkable except as noted in HPI and below PMFSH Past Medical History Medical History Cervical spine disease Degenerative disc disease, cervical Dyslipidemia Essential hypertension Osteoarthritis Type 2 diabetes mellitus Surgical History Surgical History History of lumbar surgery History of replacement of both shoulder joints History of toe surgery Right 1st toe surgery done for unclear reasons. Patient cannot provide me with specifics. Family History Family History Other Hypertension Social History Social History Social History: The patient lives in [place] with his . they have 2 children. He his retired from [employer]. He smoked perhaps a pack of cigarettes per day and quit 35 years ago. he denies alcohol and illicit substance use. He designates his , Katherine, as his surrogate decision maker and he wishes to be a full code. Smoking packs per day: 1 Smoking cigarettes per day: 20.0 Smoking status: Former smoker Tobacco type: cigarettes Second hand tobacco smoke exposure: Yes Alcohol intake: never Substance use: never Substance use type: does not use Spiritual care concerns: No Meds Home Medications and Allergies Home Medications Medication Instructions Recorded Confirmed Type fenofibrate 150 mg PO DAILY 02/27/20 03/04/20 History hydrochlorothiazide 12.5 mg PO DAILY 02/27/20 03/04/20 History lisinopril 10 mg PO DAILY 02/27/20 03/04/20 History metformin 1,000 mg PO BID 02/27/20 03/04/20 History aspirin 81 mg PO QAM #30 tablet 02/29/20 03/04/20 Rx atorvastatin 40 mg PO HS #30 tablet 02/29/20 03/04/20 Rx clopidogrel [Plavix] 75 mg PO DAILY 21 Days #21 tablet 02/29/20 03/04/20 Rx tamsulosin 0.4 mg PO QAM #30 cap 02/29/20 03/04/20 Rx Allergies Allergy/AdvReac Type Severity Reaction Status Date / Time No Known Allergies Allergy Verified 02/27/20 17:31 Vital Signs Vital Signs - 24 hr 03/14/20 14:00 03/14/20 22:00 03/15/20 06:00 Temperature 97.3 F L 98.5 F 97.4 F L Pulse Rate 94 102 H 87 Respiratory Rate 20 18 20 Blood Pressure 142/76 H 112/68 129/75 Pulse Oximetry 98 97 98 Exam Narrative: Exam Narrative: Physical exam reveals pat
[2020-03-15 12:03] LABS: Glucose Point of Care 149 (65-105)
[2020-03-15 14:00] VITALS: BP 134/71; PULSE 95; RESP 20; TEMP 36.4; O2SAT 98
--- NOTE | 2020-03-15 16:27 | P.PNAN_ITS ---
Anes - Eval Pre Procedure Procedure: EGD Date/Time: 03/15/20 16:27 Surgeon: Vijay Preop Diagnosis: Dysphagia Pre Op Diagnosis: CVA Patient Data Age: 74 Gender: M Height: 5 ft 9 in Weight: 96.1 kg Last Vital Signs Temp 36.3 C L 03/15/20 06:00 Pulse 87 03/15/20 06:00 Resp 20 03/15/20 06:00 BP 129/75 03/15/20 06:00 Pulse Ox 98 03/15/20 06:00 Allergies Allergy/AdvReac Type Severity Reaction Status Date / Time No Known Allergies Allergy Verified 02/27/20 17:31 Home Medications Medication Instructions Recorded Confirmed Type fenofibrate 150 mg PO DAILY 02/27/20 03/04/20 History hydrochlorothiazide 12.5 mg PO DAILY 02/27/20 03/04/20 History lisinopril 10 mg PO DAILY 02/27/20 03/04/20 History metformin 1,000 mg PO BID 02/27/20 03/04/20 History aspirin 81 mg PO QAM #30 tablet 02/29/20 03/04/20 Rx atorvastatin 40 mg PO HS #30 tablet 02/29/20 03/04/20 Rx clopidogrel [Plavix] 75 mg PO DAILY 21 Days #21 tablet 02/29/20 03/04/20 Rx tamsulosin 0.4 mg PO QAM #30 cap 02/29/20 03/04/20 Rx Laboratory Tests 03/14/20 03/14/20 03/15/20 17:13 20:07 05:56 POC Capillary Glucose 251 mg/dl H mg/dl 263 mg/dl H mg/dl 141 mg/dl H mg/dl (65-105) (65-105) (65-105) 03/15/20 11:55 POC Capillary Glucose 149 mg/dl H mg/dl (65-105) Patient hx anesthesia problems: none Family hx anesthesia problems: none PMFSH Past Medical History Medical History Cervical spine disease Degenerative disc disease, cervical Dyslipidemia Essential hypertension Ischemic cerebrovascular accident (CVA) Left hemiparesis Obesity (BMI 30.0-34.9) Osteoarthritis Type 2 diabetes mellitus Surgical History Surgical History History of lumbar surgery History of replacement of both shoulder joints History of toe surgery Right 1st toe surgery done for unclear reasons. Patient cannot provide me with specifics. Family History Family History Other Hypertension Social History Social History Social History: The patient lives in [place] with his . they have 2 children. He his retired from [employer]. He smoked perhaps a pack of cigarettes per day and quit 35 years ago. he denies alcohol and illicit substance use. He designates his , Katherine, as his surrogate decision maker and he wishes to be a full code. Smoking packs per day: 1 Smoking cigarettes per day: 20.0 Smoking status: Former smoker Tobacco type: cigarettes Second hand tobacco smoke exposure: Yes Alcohol intake: never Substance use: never Substance use type: does not use Spiritual care concerns: No Exam Day of Procedure 03/15/20 16:27 Patient weight: obese Heart: regular rate and rhythm Lungs: clear to auscultation and normal air movement Airway: Mallampati scale class II Neurological: alert and oriented and hemiparesis
[2020-03-15 16:46] LABS: Glucose Point of Care 133 (65-105)
[2020-03-15 20:00] VITALS: O2SAT 98
[2020-03-15] MEDS: ATORVASTATIN 40 MG TABLET PO (20:39)
[2020-03-15] MEDS: INSULIN GLARGINE (*BKC) 100 UNITS/ML 10 UNITS SUB-Q (20:39)
[2020-03-15 22:00] VITALS: BP 104/65; PULSE 100; RESP 18; TEMP 36.8; O2SAT 98
[2020-03-15 22:01] LABS: Glucose Point of Care 254 (65-105)
[2020-03-16] VITALS (8 sets, daily range): BP systolic 92–137; BP diastolic 48–76; PULSE 81–91; RESP 20–32; TEMP 36.1–36.6; O2SAT 95–100
[2020-03-16 06:40] LABS: Glucose Point of Care 112 (65-105)
--- NOTE | 2020-03-16 07:13 | P.PNAN_ITS ---
Anes - Eval Final PreProcedure Day of Procedure 03/16/20 07:13 Patient weight: obese Heart: regular rate and rhythm Lungs: clear to auscultation and normal air movement Airway: Mallampati scale class II Neurological: alert and oriented Last oral intake: >/= 8 hours ASA classification: IV Emergent: yes Anesthetic plan: proceed Anesthesia type and monitoring: general GIVS Informed Consent: The patient's anesthetic plan and its attendant risks and b enefits were discussed with the patient/family/POA. Questions were solicited and answers provided to the satisfaction of the patient/family/POA.
[2020-03-16] MEDS: LACTATED RINGERS 1,000 ML 150 ML IV CONT (08:00)
[2020-03-16] MEDS: BENZOCAINE (*SP) 60 ML SPRAY CAN (HURRICAINE) 1 SPRAY MUCOUS MEM (09:32)
[2020-03-16 10:01] LABS: Glucose Point of Care 115 (65-105)
[2020-03-16 10:03] LABS: Glucose Point of Care 116 (65-105)
[2020-03-16] MEDS: ASPIRIN 81 MG ENTERIC TABLET PO (10:48)
[2020-03-16] MEDS: CLOPIDOGREL BISULFATE 75 MG TABLET PO (10:48)
[2020-03-16] MEDS: FENOFIBRATE NANOCRYSTALLIZED 145 MG TABLET PO (10:48)
[2020-03-16] MEDS: metFORMIN HCL 500 MG TABLET 1000 MG PO ×2 (10:49→17:12)
[2020-03-16] MEDS: lisinopriL 10 MG TABLET PO (10:49)
[2020-03-16] MEDS: TAMSULOSIN HCL 0.4 MG CAPSULE PO (10:49)
[2020-03-16] MEDS: hydroCHLOROthiazide 12.5 MG CAPSULE PO (10:49)
--- NOTE | 2020-03-16 11:12 | PC.NURSE ---
Jang leaking slightly, flushed with total of 200 cc; with first flush had a few very small clots.
--- NOTE | 2020-03-16 11:59 | WPDNEURORHBP ---
Subjective Date/time seen: 03/16/20 11:59 Interval history: this 74-year-old gentleman is here after having had right pontine stroke which has left him with left-sided hemiplegia and some dysphagia for which he was evaluated earlier today by EGD and reportedly it has come out unremarkable however the formal notes from the GI are not available for me to review the patient denies any headache nausea vomiting chest pain shortness of breath fever chills or sore throat he still has bladder retention and has urinary catheter placed with still kind of reddish we need to check his CBC tomorrow to see where he is at this point Review of Systems Review of Systems: All systems reviewed & are unremarkable except as noted in HPI and below Functional Status Ambulation Ability Ability to Ambulate 10 Feet: Total Assistance X 1 Ambulation Assistive Devices: Mechanical Lift Transfers Ability Ability to Transfer In/Out of Chair: Moderate Assistance X 2 Exam Const: General: comfortable and no acute distress HENMT: General nose exam: Normal nares present Mouth: Yes moist mucous membranes Eyes: General: appearance normal, both eyes and all related structures Neck: Neck: supple and no JVD Resp: Effort & Inspection: normal respiratory effort Auscultation: clear to auscultation bilaterally Cardio: Rate: regular rate Rhythm: regular rhythm GI: GI Palp: Yes Soft to palpation Auscultation: normal bowel sounds Urinary Catheter: Urinary Catheter: patent and draining and urine red Skin: General skin exam: normal color and no rashes or lesions noted Neuro: Other: patient is awake alert well oriented and has a left-sided hemiplegia Extrem: General: normal to inspection Psych: Mental Status: mental status grossly normal Objective Data Vital Signs Vital Signs: Vital Signs - 24 hr 03/15/20 14:00 03/15/20 20:00 03/15/20 22:00 Temperature 36.4 C 36.8 C Pulse Rate 95 100 Respiratory Rate 20 18 Blood Pressure 134/71 104/65 Pulse Oximetry 98 98 98 03/16/20 06:00 03/16/20 08:03 03/16/20 09:41 Temperature 36.6 C 36.4 C Pulse Rate 81 85 91 Respiratory Rate 20 20 32 H Blood Pressure 122/67 127/69 92/56 L Pulse Oximetry 97 96 95 03/16/20 09:51 03/16/20 10:01 03/16/20 10:11 Temperature Pulse Rate 83 85 84 Respiratory Rate 26 H 28 H 20 Blood Pressure 95/48 L 107/50 L 112/65 Pulse Oximetry 97 96 98 Intake/Output Intake/Output: Intake & Output 03/13/20 03/14/20 03/15/20 03/16/20 23:59 23:59 23:59 23:59 Intake Total 1050 720 540 170 Output Total 1050 1650 1225 300 Balance 0 -558 -396 -130 Meds/Results Medications: Active Medications Generic Name Dose Route Start Last Admin Trade Name Freq PRN Reason Stop Dose Admin Aspirin 81 mg 03/05/20 09:00 03/16/20 10:48 Aspirin Ec PO 81 mg QAM WEN Administration Atorvastatin Calcium 40 mg 03/04/20 21:00 03/15/20 20:39 Lipitor PO 40 mg HS WEN Administration Clopidogrel Bisulfate 75 mg 03/04/20 09:00 03/16/20 10:48 Plavix PO 03/24/20 09:01 75 mg DAILY WEN Administration Dextrose 12.5 gm 03/04/20 12:34 Dextrose 50% Syringe IV PUSH PRN PRN Hypoglycemia Protocol Fenofibrate 145 mg 03/05/20 09:00 03/16/20 10:48 Tricor PO 04/04/20 09:01 145 mg DAILY WEN Administration Glucagon 1 mg 03/04/20 12:34 Glucagon For Inj IM PRN PRN Hypoglycemia Protocol Glucose 15 gm 03/04/20 12:34 Glutose 15 PO PRN PRN Hypoglycemia Protocol Hydrochlorothiazide 12.5 mg 03/05/20 09:00 03/16/20 10:49 Hydrochlorothiazide PO 12.5 mg DAILY WEN Administration Dextrose 1,000 mls @ 100 mls/hr 03/04/20 12:34 Dextrose 5% 1,000 Ml IVPB PRN PRN Hypoglycemia Protocol Insulin Glargine 10 units 03/14/20 21:00 03/15/20 20:39 Lantus SUB-Q 10 units HS WEN Administration Lisinopril 10 mg 03/05/20 09:00 03/16/20 10:49 Prinivil PO 10 mg DAILY SC
[2020-03-16 12:04] LABS: Glucose Point of Care 126 (65-105)
[2020-03-16 17:08] LABS: Glucose Point of Care 120 (65-105)
[2020-03-16] MEDS: ATORVASTATIN 40 MG TABLET PO (20:01)
[2020-03-16 20:07] LABS: Glucose Point of Care 123 (65-105)
--- NOTE | 2020-03-16 20:16 | PC.NURSE ---
HS dose lantus held due to decreased glucose, Dr Baltazar aware.
[2020-03-17 04:43] LABS: Basophils Absolute Auto 0.1 K/mm3 (0.0-0.1); Basophils Percent Auto 0.5 % (0.2-1.2); Eosinophils Absolute Auto 0.3 K/mm3 (0-0.3); Hematocrit 40.5 % (42.0-52.0); Hemoglobin 13.5 g/dL (14.0-18.0); Immature Granulocyte Absolute 0.08 K/mm3 (0.00-0.031); Immature Granulocyte Percent A 0.7 % (0-0.5); Lymphocytes Absolute Auto 1.39 K/mm3 (0.9-3.2); Lymphocytes Percent Auto 12.2 % (18.3-44.2); Mean Corpuscular HGB Conc 33.3 g/dl (32-36); Mean Corpuscular Hemoglobin 29.1 pg (26-34); Mean Corpuscular Volume 87.3 fl (80-100); Mean Platelet Volume 9.5 fl (7.4-10.4); Monocytes Absolute Auto 0.9 K/mm3 (0.1-0.6); Neutrophils Absolute Auto 8.6 K/mm3 (1.3-6.7); Neutrophils Percent Auto 75.6 % (45.5-73.1); Platelet Count Result 355 k/mm3 (150-375); Red Blood Count 4.64 M/mm3 (4.6-6.20); Red Cell Distribution Width 12.1 % (11.5-14.5); White Blood Count 11.4 K/mm3 (4.5-10.0)
[2020-03-17 05:01] LABS: Anion Gap 7 mmol/L (8-16); Blood Urea Nitrogen 18 mg/dL (9-20); Calcium 9.2 mg/dL (8.4-10.2); Carbon Dioxide 24 mmol/L (22-30); Chloride 104 mmol/L (98-107); Estimated CRCL calculation 88 ml/min; Estimated Glomerular Filt Rate > 60; Glucose 112 mg/dL (75-110); Potassium 3.9 mmol/L (3.4-5.0); Sodium 135 mmol/L (137-145)
[2020-03-17] MEDS: MEGESTROL ACETATE (*CHEMO) ORAL SUSP 40 MG/ML SYR 800 MG PO (05:58)
[2020-03-17 06:00] VITALS: BP 133/73; PULSE 81; RESP 18; TEMP 36.4; O2SAT 97
[2020-03-17 06:45] LABS: Glucose Point of Care 108 (65-105)
[2020-03-17] MEDS: FENOFIBRATE NANOCRYSTALLIZED 145 MG TABLET PO (07:40)
[2020-03-17] MEDS: CLOPIDOGREL BISULFATE 75 MG TABLET PO (07:40)
[2020-03-17] MEDS: metFORMIN HCL 500 MG TABLET 1000 MG PO ×2 (07:40→17:29)
[2020-03-17] MEDS: ASPIRIN 81 MG ENTERIC TABLET PO (07:40)
--- NOTE | 2020-03-17 07:40 | WPDANESPN ---
Anes - Prog Note Post-Op Date/Time: 03/17/20 07:40 Cardiovascular status: normal Respiratory status: normal Airway patency: baseline Mental status: baseline Post-Op hydration status: normal Vital Signs: Last Vital Signs Temp 97.6 F 03/17/20 06:00 Pulse 81 03/17/20 06:00 Resp 18 03/17/20 06:00 BP 133/73 03/17/20 06:00 Pulse Ox 97 03/17/20 06:00 Pain Score (VAS): 0/10 I/O: Intake & Output 03/16/20 03/16/20 03/17/20 15:59 23:59 07:59 Intake Total 290 240 Output Total 700 Balance 290 -460 Laboratory Tests 03/17/20 04:26 03/17/20 04:26 03/16/20 03/16/20 03/16/20 08:09 10:02 11:55 WBC RBC Hgb Hct MCV MCH MCHC RDW Plt Count MPV Immature Gran % (Auto) Neut % (Auto) Lymph % (Auto) Foard % (Auto) Eos % (Auto) Baso % (Auto) Lymph # (Auto) [place]oard # (Auto) Eos # (Auto) Baso # (Auto) Abs Immat Gran (auto) Absolute Neuts (auto) Absolute Nucleated RBC Nucleated RBC % Sodium Potassium Chloride Carbon Dioxide Anion Gap BUN Creatinine Estim Creat Clear Calc Estimated GFR Glucose POC Capillary Glucose 115 H 116 H 126 H Calcium 03/16/20 03/16/20 03/17/20 16:56 19:58 04:26 WBC 11.4 H RBC 4.64 Hgb 13.5 L Hct 40.5 L MCV 87.3 MCH 29.1 MCHC 33.3 RDW 12.1 Plt Count 355 MPV 9.5 Immature Gran % (Auto) 0.7 H Neut % (Auto) 75.6 H Lymph % (Auto) 12.2 L Foard % (Auto) 8.0 Eos % (Auto) 3.0 Baso % (Auto) 0.5 Lymph # (Auto) 1.39 Foard # (Auto) 0.9 H Eos # (Auto) 0.3 Baso # (Auto) 0.1 Abs Immat Gran (auto) 0.08 H Absolute Neuts (auto) 8.6 H Absolute Nucleated RBC 0.0 Nucleated RBC % 0.0 Sodium Potassium Chloride Carbon Dioxide Anion Gap BUN Creatinine Estim Creat Clear Calc Estimated GFR Glucose POC Capillary Glucose 120 H 123 H Calcium 03/17/20 03/17/20 04:26 05:56 WBC RBC Hgb Hct MCV MCH MCHC RDW Plt Count MPV Immature Gran % (Auto) Neut % (Auto) Lymph % (Auto) [place] % (Auto) Eos % (Auto) Baso % (Auto) Lymph # (Auto) [place]oard # (Auto) Eos # (Auto) Baso # (Auto) Abs Immat Gran (auto) Absolute Neuts (auto) Absolute Nucleated RBC Nucleated RBC % Sodium 135 L Potassium 3.9 Chloride 104 Carbon Dioxide 24 Anion Gap 7 L BUN 18 Creatinine 0.70 Estim Creat Clear Calc 88 Estimated GFR > 60 Glucose 112 H POC Capillary Glucose 108 Calcium 9.2 Post-procedural complaints: none Patient Feedback: Patient satisfied with anesthetic care.
[2020-03-17] MEDS: lisinopriL 10 MG TABLET PO (07:41)
[2020-03-17] MEDS: TAMSULOSIN HCL 0.4 MG CAPSULE PO (07:41)
[2020-03-17] MEDS: hydroCHLOROthiazide 12.5 MG CAPSULE PO (07:59)
--- NOTE | 2020-03-17 08:06 | WPDGIPROGNO ---
Progress Note: A&P Additional Plan Patient alert comfortable this morning. No change in swallowing status. Physical exam reveals ENT evaluation unremarkable. Lungs are clear. Heart without murmur. Abdomen benign. Left hemiparesis noted. Yesterday EGD was performed and found to be unremarkable. No obvious [place] narrowing of the esophagus encountered. No inflammation evident. Impression 1. Oropharyngeal dysphagia. No intrinsic narrowing her difficulty in the esophagus. This appears to be related to recent CVA. Plan is for diet per speech therapy. Continue speech therapy swallowing therapy. Subjective Date/time seen: 03/17/20 08:06 Objective Data Vital Signs Vital Signs: Vital Signs - 24 hr 03/16/20 09:41 03/16/20 09:51 03/16/20 10:01 Temperature Pulse Rate 91 83 85 Respiratory Rate 32 H 26 H 28 H Blood Pressure 92/56 L 95/48 L 107/50 L Pulse Oximetry 95 97 96 03/16/20 10:11 03/16/20 14:00 03/16/20 22:00 Temperature 97.7 F 97 F L Pulse Rate 84 87 91 Respiratory Rate 20 20 20 Blood Pressure 112/65 137/76 112/70 Pulse Oximetry 98 100 96 03/17/20 06:00 Temperature 97.6 F Pulse Rate 81 Respiratory Rate 18 Blood Pressure 133/73 Pulse Oximetry 97 Intake/Output Intake/Output: Intake & Output 03/14/20 03/15/20 03/16/20 03/17/20 23:59 23:59 23:59 23:59 Intake Total 720 540 650 Output Total 1650 1225 1000 Balance -930 -685 -350 Meds/Results Medications: Active Medications Generic Name Dose Route Start Last Admin Trade Name Freq PRN Reason Stop Dose Admin Aspirin 81 mg 03/05/20 09:00 03/17/20 07:40 Aspirin Ec PO 81 mg QAM WEN Administration Atorvastatin Calcium 40 mg 03/04/20 21:00 03/16/20 20:01 Lipitor PO 40 mg HS WEN Administration Clopidogrel Bisulfate 75 mg 03/04/20 09:00 03/17/20 07:40 Plavix PO 03/24/20 09:01 75 mg DAILY WEN Administration Dextrose 12.5 gm 03/04/20 12:34 Dextrose 50% Syringe IV PUSH PRN PRN Hypoglycemia Protocol Fenofibrate 145 mg 03/05/20 09:00 03/17/20 07:40 Tricor PO 04/04/20 09:01 145 mg DAILY WEN Administration Glucagon 1 mg 03/04/20 12:34 Glucagon For Inj IM PRN PRN Hypoglycemia Protocol Glucose 15 gm 03/04/20 12:34 Glutose 15 PO PRN PRN Hypoglycemia Protocol Hydrochlorothiazide 12.5 mg 03/05/20 09:00 03/17/20 07:59 Hydrochlorothiazide PO 12.5 mg DAILY WEN Administration Dextrose 1,000 mls @ 100 mls/hr 03/04/20 12:34 Dextrose 5% 1,000 Ml IVPB PRN PRN Hypoglycemia Protocol Insulin Glargine 10 units 03/14/20 21:00 03/16/20 20:16 Lantus SUB-Q Not Given HS WEN Lisinopril 10 mg 03/05/20 09:00 03/17/20 07:41 Prinivil PO 10 mg DAILY WEN Administration Megestrol Acetate 800 mg 03/11/20 06:30 03/17/20 06:39 Megace Oral Susp PO Not Given DAILY@0630 WEN Metformin HCl 1,000 mg 03/04/20 17:00 03/17/20 07:40 Glucophage PO 1,000 mg BID WEN Administration Tamsulosin HCl 0.4 mg 03/05/20 09:00 03/17/20 07:41 Flomax PO 0.4 mg QAM WEN Administration Radiology Results: ITS Impressions Modified Barium Swallow 03/13/20 12:22 IMPRESSION: Prominent cricopharyngeal contraction noted. Please refer to speech pathologist findings and specific feeding recommendations. Labs Labs: Laboratory Results - last 24 hr 03/16/20 03/16/20 03/16/20 08:09 10:02 11:55 WBC RBC Hgb Hct MCV MCH MCHC RDW Plt Count MPV Immature Gran % (Auto) Neut % (Auto) Lymph % (Auto) [place] % (Auto) Eos % (Auto) Baso % (Auto) Lymph # (Auto) [place] # (Auto) Eos # (Auto) Baso # (Auto) Abs Immat Gran (auto) Absolute Neuts (auto) Absolute Nucleated RBC Nucleated RBC % Sodium Potassium Chloride Carbon Dioxide Anion Gap BUN Creatinine Estim Creat Clear Calc Estimated
[2020-03-17 12:07] LABS: Glucose Point of Care 155 (65-105)
--- NOTE | 2020-03-17 12:57 | WPDNEURORHBP ---
Subjective Date/time seen: 03/17/20 12:57 Interval history: This 74-year-old gentleman is here after having had the brainstem stroke which has left him with left hemiplegia some dysphagia and also bladder dysfunction for which she has a Jang catheter in place he is getting electrical stimulation to his left upper extremity. Patient is eating fairly well we are using in the physical therapy light gait and with significant assistance he is able to walk 70 feet is speech therapy is also seeing him and the swallowing has improved and she is recommending vital stimulation to his Frenchie L muscles from outside which we will start The patient denies any headache nausea vomiting chest pain shortness of breath fever chills sore throat Review of Systems Review of Systems: All systems reviewed & are unremarkable except as noted in HPI and below Functional Status Ambulation Ability Ability to Ambulate 10 Feet: Total Assistance X 1 Ambulation Assistive Devices: Mechanical Lift Transfers Ability Ability to Transfer In/Out of Chair: Moderate Assistance X 2 Exam Const: General: comfortable and no acute distress HENMT: General nose exam: Normal nares present Mouth: Yes moist mucous membranes Eyes: General: appearance normal, both eyes and all related structures Neck: Neck: supple and no JVD Resp: Effort & Inspection: normal respiratory effort Auscultation: clear to auscultation bilaterally Cardio: Rate: regular rate Rhythm: regular rhythm GI: GI Palp: Yes Soft to palpation Auscultation: normal bowel sounds Urinary Catheter: Urinary Catheter: patent and draining and urine pink Skin: General skin exam: normal color and no rashes or lesions noted Neuro: Other: patient is awake alert well oriented follows all commands left-sided hemiplegia is slightly getting better however needs significant assistance at this time Extrem: General: normal to inspection Psych: Mental Status: mental status grossly normal Objective Data Vital Signs Vital Signs: Vital Signs - 24 hr 03/16/20 14:00 03/16/20 22:00 03/17/20 06:00 Temperature 36.5 C 36.1 C L 36.4 C Pulse Rate 87 91 81 Respiratory Rate 20 20 18 Blood Pressure 137/76 112/70 133/73 Pulse Oximetry 100 96 97 Intake/Output Intake/Output: Intake & Output 03/14/20 03/15/20 03/16/20 03/17/20 23:59 23:59 23:59 23:59 Intake Total 720 540 650 240 Output Total 1650 1225 1000 Balance -930 -685 -350 240 Meds/Results Medications: Active Medications Generic Name Dose Route Start Last Admin Trade Name Freq PRN Reason Stop Dose Admin Aspirin 81 mg 03/05/20 09:00 03/17/20 07:40 Aspirin Ec PO 81 mg QAM WEN Administration Atorvastatin Calcium 40 mg 03/04/20 21:00 03/16/20 20:01 Lipitor PO 40 mg HS WEN Administration Clopidogrel Bisulfate 75 mg 03/04/20 09:00 03/17/20 07:40 Plavix PO 03/24/20 09:01 75 mg DAILY WEN Administration Dextrose 12.5 gm 03/04/20 12:34 Dextrose 50% Syringe IV PUSH PRN PRN Hypoglycemia Protocol Fenofibrate 145 mg 03/05/20 09:00 03/17/20 07:40 Tricor PO 04/04/20 09:01 145 mg DAILY WEN Administration Glucagon 1 mg 03/04/20 12:34 Glucagon For Inj IM PRN PRN Hypoglycemia Protocol Glucose 15 gm 03/04/20 12:34 Glutose 15 PO PRN PRN Hypoglycemia Protocol Hydrochlorothiazide 12.5 mg 03/05/20 09:00 03/17/20 07:59 Hydrochlorothiazide PO 12.5 mg DAILY WEN Administration Dextrose 1,000 mls @ 100 mls/hr 03/04/20 12:34 Dextrose 5% 1,000 Ml IVPB PRN PRN Hypoglycemia Protocol Insulin Glargine 10 units 03/14/20 21:00 03/16/20 20:16 Lantus SUB-Q Not Given HS WEN Lisinopril 10 mg 03/05/20 09:00 03/17/20 07:41 Prinivil PO 10 mg DAILY WEN Administration Metformin HCl 1,000 mg 03/04/20 17:00 03/17/20 07:40 Glucophage PO 1,000 mg BID WEN Administration Tamsulosin HCl 0.4 mg 03/05/20 09:00
[2020-03-17 14:00] VITALS: BP 142/78; PULSE 84; RESP 20; TEMP 36.3; O2SAT 99
[2020-03-17 17:03] LABS: Glucose Point of Care 232 (65-105)
[2020-03-17 20:00] VITALS: PULSE 97; RESP 20; O2SAT 98
[2020-03-17] MEDS: ATORVASTATIN 40 MG TABLET PO (20:00)
[2020-03-17] MEDS: INSULIN GLARGINE (*BKC) 100 UNITS/ML 10 UNITS SUB-Q (20:00)
[2020-03-17 20:14] LABS: Glucose Point of Care 291 (65-105)
[2020-03-17 20:53] VITALS: BP 123/65; PULSE 97; RESP 20; TEMP 36.4; O2SAT 98
[2020-03-18 04:57] VITALS: BP 132/78; PULSE 84; RESP 18; TEMP 36.6; O2SAT 97
[2020-03-18 07:01] LABS: Glucose Point of Care 103 (65-105)
[2020-03-18] MEDS: hydroCHLOROthiazide 12.5 MG CAPSULE PO (07:50)
[2020-03-18] MEDS: metFORMIN HCL 500 MG TABLET 1000 MG PO ×2 (07:50→16:56)
[2020-03-18] MEDS: lisinopriL 10 MG TABLET PO (07:50)
[2020-03-18] MEDS: FENOFIBRATE NANOCRYSTALLIZED 145 MG TABLET PO (07:50)
[2020-03-18] MEDS: ASPIRIN 81 MG ENTERIC TABLET PO (07:50)
[2020-03-18] MEDS: TAMSULOSIN HCL 0.4 MG CAPSULE PO (07:50)
[2020-03-18] MEDS: CLOPIDOGREL BISULFATE 75 MG TABLET PO (07:50)
--- NOTE | 2020-03-18 11:27 | WPDNEURORHBP ---
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 and some dysphagia for which he is receiving vital stimulation and is tolerating is fairly well in 1 session at least 40 minutes is getting the irrigation for his bladder dysfunction and the the urine looks relatively clear Review of Systems Review of Systems: All systems reviewed & are unremarkable except as noted in HPI and below Functional Status Ambulation Ability Ability to Ambulate 10 Feet: Total Assistance X 1 Ambulation Assistive Devices: Parallel Bars Transfers Ability Ability to Transfer In/Out of Chair: Moderate Assistance X 2 Exam Const: General: comfortable and no acute distress HENMT: General nose exam: Normal nares present Mouth: Yes moist mucous membranes Eyes: General: appearance normal, both eyes and all related structures Neck: Neck: supple and no JVD Resp: Effort & Inspection: normal respiratory effort Auscultation: clear to auscultation bilaterally Cardio: Rate: regular rate Rhythm: regular rhythm GI: GI Palp: Yes Soft to palpation Auscultation: normal bowel sounds Urinary Catheter: Urinary Catheter: patent and draining and urine pink Skin: General skin exam: normal color and no rashes or lesions noted Neuro: Other: patient is awake and alert will oriented in time place and person has rather dense left-sided hemiplegia receiving vital stimulation for his dysphagia which is most likely related to the brainstem stroke His EGD was unremarkable as per Gastroenterology note and dysphagia is most likely related to brainstem stroke Extrem: General: normal to inspection Psych: Mental Status: mental status grossly normal Objective Data Vital Signs Vital Signs: Vital Signs - 24 hr 03/17/20 14:00 03/17/20 20:00 03/17/20 20:53 Temperature 36.3 C L 36.4 C Pulse Rate 84 97 97 Respiratory Rate 20 20 20 Blood Pressure 142/78 H 123/65 Pulse Oximetry 99 98 98 03/18/20 04:57 Temperature 36.6 C Pulse Rate 84 Respiratory Rate 18 Blood Pressure 132/78 Pulse Oximetry 97 Intake/Output Intake/Output: Intake & Output 03/15/20 03/16/20 03/17/20 03/18/20 23:59 23:59 23:59 23:59 Intake Total 540 650 480 480 Output Total 1225 1000 450 550 Balance -685 -350 30 -70 Meds/Results Medications: Active Medications Generic Name Dose Route Start Last Admin Trade Name Freq PRN Reason Stop Dose Admin Aspirin 81 mg 03/05/20 09:00 03/18/20 07:50 Aspirin Ec PO 81 mg QAM WEN Administration Atorvastatin Calcium 40 mg 03/04/20 21:00 03/17/20 20:00 Lipitor PO 40 mg HS WEN Administration Clopidogrel Bisulfate 75 mg 03/04/20 09:00 03/18/20 07:50 Plavix PO 03/24/20 09:01 75 mg DAILY WEN Administration Dextrose 12.5 gm 03/04/20 12:34 Dextrose 50% Syringe IV PUSH PRN PRN Hypoglycemia Protocol Fenofibrate 145 mg 03/05/20 09:00 03/18/20 07:50 Tricor PO 04/04/20 09:01 145 mg DAILY WEN Administration Glucagon 1 mg 03/04/20 12:34 Glucagon For Inj IM PRN PRN Hypoglycemia Protocol Glucose 15 gm 03/04/20 12:34 Glutose 15 PO PRN PRN Hypoglycemia Protocol Hydrochlorothiazide 12.5 mg 03/05/20 09:00 03/18/20 07:50 Hydrochlorothiazide PO 12.5 mg DAILY WEN Administration Dextrose 1,000 mls @ 100 mls/hr 03/04/20 12:34 Dextrose 5% 1,000 Ml IVPB PRN PRN Hypoglycemia Protocol Insulin Glargine 10 units 03/14/20 21:00 03/17/20 20:00 Lantus SUB-Q 10 units HS WEN Administration Lisinopril 10 mg 03/05/20 09:00 03/18/20 07:50 Prinivil PO 10 mg DAILY WEN Administration Metformin HCl 1,000 mg 03/04/20 17:00 03/18/20 07:50 Glucophage PO 1,000 mg BID WEN Administration Tamsulosin HCl 0.4 mg 03/05/20 09:00 03/18/20 07:50 Flomax PO 0.4 mg QAM WEN Administration
--- NOTE | 2020-03-18 11:44 | PCDIET ---
Nutrition Follow-Up Complete: Nutrition Diagnosis: Suboptimal oral intake related to fatigue as evidenced by patient report, limited intake at lunch. Nutrition Goal: Patient to consume 75% of meals or greater. Goal met. Patient consuming 100% of most meals and reports good appetite. Diet is diabetic, carbohydrate controlled with level 2 liquids and Glucerna Shakes with meals. Patient would like to continue receiving Glucerna Shakes at this time. Last recorded weight is 96.1 kg. Recommend obtaining new weight. Bowel Motility: Last BM on 03/17/20, per nursing flowsheet. Labs Reviewed: Hgb (13.5), Hct (40.5), Glu (112), Na (135) Meds Noted: Lipitor, Tricor, Hydrochlorothiazide, Lantus, Prinivil, Glucophage Additional Notes: No documented skin breakdown. Patient now undergoing VitalStim on the throat to potentially strengthen swallowing function. Will continue to monitor with same goals. Nutrition Monitoring and Evaluation: Follow up in 7 days.
[2020-03-18 12:32] LABS: Glucose Point of Care 158 (65-105)
[2020-03-18 14:00] VITALS: BP 131/75; PULSE 99; RESP 20; TEMP 36.5; O2SAT 97
[2020-03-18 17:33] LABS: Glucose Point of Care 117 (65-105)
[2020-03-18] MEDS: INSULIN GLARGINE (*BKC) 100 UNITS/ML 10 UNITS SUB-Q (20:39)
[2020-03-18] MEDS: ATORVASTATIN 40 MG TABLET PO (20:39)
[2020-03-18 20:45] LABS: Glucose Point of Care 125 (65-105)
[2020-03-18 21:54] VITALS: BP 128/80; PULSE 93; RESP 20; TEMP 36.6; O2SAT 97
[2020-03-19 04:37] LABS: Basophils Percent Auto 0.4 % (0.2-1.2); Eosinophils Absolute Auto 0.3 K/mm3 (0-0.3); Eosinophils Percent Auto 2.9 % (0-4.4); Hematocrit 39.3 % (42.0-52.0); Hemoglobin 13.4 g/dL (14.0-18.0); Immature Granulocyte Absolute 0.09 K/mm3 (0.00-0.031); Immature Granulocyte Percent A 0.9 % (0-0.5); Lymphocytes Absolute Auto 1.87 K/mm3 (0.9-3.2); Mean Corpuscular HGB Conc 34.1 g/dl (32-36); Mean Corpuscular Hemoglobin 29.5 pg (26-34); Mean Corpuscular Volume 86.6 fl (80-100); Mean Platelet Volume 9.4 fl (7.4-10.4); Monocytes Absolute Auto 0.8 K/mm3 (0.1-0.6); Monocytes Percent Auto 7.5 % (2.6-8.5); Neutrophils Absolute Auto 7.3 K/mm3 (1.3-6.7); Neutrophils Percent Auto 70.3 % (45.5-73.1); Platelet Count Result 380 k/mm3 (150-375); Red Blood Count 4.54 M/mm3 (4.6-6.20); Red Cell Distribution Width 12.2 % (11.5-14.5); White Blood Count 10.4 K/mm3 (4.5-10.0)
[2020-03-19 04:53] LABS: Anion Gap 8 mmol/L (8-16); Blood Urea Nitrogen 19 mg/dL (9-20); Carbon Dioxide 23 mmol/L (22-30); Chloride 104 mmol/L (98-107); Estimated CRCL calculation 88 ml/min; Estimated Glomerular Filt Rate > 60; Glucose 137 mg/dL (75-110); Potassium 3.7 mmol/L (3.4-5.0); Sodium 135 mmol/L (137-145)
[2020-03-19 05:47] VITALS: BP 110/61; PULSE 84; RESP 20; TEMP 36.5; O2SAT 98
[2020-03-19 06:42] LABS: Glucose Point of Care 110 (65-105)
[2020-03-19] MEDS: FENOFIBRATE NANOCRYSTALLIZED 145 MG TABLET PO (08:32)
[2020-03-19] MEDS: ASPIRIN 81 MG ENTERIC TABLET PO (08:32)
[2020-03-19] MEDS: CLOPIDOGREL BISULFATE 75 MG TABLET PO (08:32)
[2020-03-19] MEDS: lisinopriL 10 MG TABLET PO (08:32)
[2020-03-19] MEDS: hydroCHLOROthiazide 12.5 MG CAPSULE PO (08:33)
[2020-03-19] MEDS: metFORMIN HCL 500 MG TABLET 1000 MG PO ×2 (08:33→16:55)
[2020-03-19] MEDS: TAMSULOSIN HCL 0.4 MG CAPSULE PO (08:33)
--- NOTE | 2020-03-19 10:15 | WPDNEURORHBP ---
Subjective Date/time seen: 03/19/20 10:15 Interval history: this 74-year-old gentleman is here status post right pontine stroke with left hemiplegia and also some difficulty swallowing he also has urinary retention for which she has Jang catheter placed by the urologist and he gets the irrigation at least twice a day his urine is clear and is no more pinkish has hemoglobin hematocrit is stable beside the hemiplegia he is awake alert well oriented and does not have any specific new complaints Review of Systems Review of Systems: All systems reviewed & are unremarkable except as noted in HPI and below Functional Status Ambulation Ability Ability to Ambulate 10 Feet: Total Assistance X 1 Ambulation Assistive Devices: Parallel Bars Transfers Ability Ability to Transfer In/Out of Chair: Moderate Assistance X 1 Exam Const: General: comfortable and no acute distress HENMT: General nose exam: Normal nares present Mouth: Yes moist mucous membranes Eyes: General: appearance normal, both eyes and all related structures Neck: Neck: supple and no JVD Resp: Effort & Inspection: normal respiratory effort Auscultation: clear to auscultation bilaterally Cardio: Rate: regular rate Rhythm: regular rhythm GI: GI Palp: Yes Soft to palpation Auscultation: normal bowel sounds Urinary Catheter: Urinary Catheter: patent and draining and urine clear Skin: General skin exam: normal color and no rashes or lesions noted Neuro: Other: patient is awake alert and well-oriented with normal cranial examination and also left-sided hemiplegia needing significant assistance at least at this time Extrem: General: normal to inspection Psych: Mental Status: mental status grossly normal Objective Data Vital Signs Vital Signs: Vital Signs - 24 hr 03/18/20 14:00 03/18/20 21:54 03/19/20 05:47 Temperature 36.5 C 36.6 C 36.5 C Pulse Rate 99 93 84 Respiratory Rate 20 20 20 Blood Pressure 131/75 128/80 110/61 Pulse Oximetry 97 97 98 Intake/Output Intake/Output: Intake & Output 03/16/20 03/17/20 03/18/20 03/19/20 23:59 23:59 23:59 23:59 Intake Total 650 480 960 Output Total 0021 177 8357 400 Balance -350 30 -60 -400 Meds/Results Medications: Active Medications Generic Name Dose Route Start Last Admin Trade Name Freq PRN Reason Stop Dose Admin Aspirin 81 mg 03/05/20 09:00 03/19/20 08:32 Aspirin Ec PO 81 mg QAM WEN Administration Atorvastatin Calcium 40 mg 03/04/20 21:00 03/18/20 20:39 Lipitor PO 40 mg HS WEN Administration Clopidogrel Bisulfate 75 mg 03/04/20 09:00 03/19/20 08:32 Plavix PO 03/24/20 09:01 75 mg DAILY WEN Administration Dextrose 12.5 gm 03/04/20 12:34 Dextrose 50% Syringe IV PUSH PRN PRN Hypoglycemia Protocol Fenofibrate 145 mg 03/05/20 09:00 03/19/20 08:32 Tricor PO 04/04/20 09:01 145 mg DAILY WEN Administration Glucagon 1 mg 03/04/20 12:34 Glucagon For Inj IM PRN PRN Hypoglycemia Protocol Glucose 15 gm 03/04/20 12:34 Glutose 15 PO PRN PRN Hypoglycemia Protocol Hydrochlorothiazide 12.5 mg 03/05/20 09:00 03/19/20 08:33 Hydrochlorothiazide PO 12.5 mg DAILY WEN Administration Dextrose 1,000 mls @ 100 mls/hr 03/04/20 12:34 Dextrose 5% 1,000 Ml IVPB PRN PRN Hypoglycemia Protocol Insulin Glargine 10 units 03/14/20 21:00 03/18/20 20:39 Lantus SUB-Q 10 units HS WEN Administration Lisinopril 10 mg 03/05/20 09:00 03/19/20 08:32 Prinivil PO 10 mg DAILY WEN Administration Metformin HCl 1,000 mg 03/04/20 17:00 03/19/20 08:33 Glucophage PO 1,000 mg BID WEN Administration Tamsulosin HCl 0.4 mg 03/05/20 09:00 03/19/20 08:33 Flomax PO 0.4 mg QAM WEN Administration Radiology Results: ITS Impressions Modified Barium Swallow 03/13/20 12:22 IMPRESSION: Prominent cricopharyngeal contraction noted. Please refer to speech patho
[2020-03-19 12:01] LABS: Glucose Point of Care 115 (65-105)
[2020-03-19 14:00] VITALS: BP 118/73; PULSE 90; RESP 18; TEMP 36.3; O2SAT 100
[2020-03-19 16:43] LABS: Glucose Point of Care 97 (65-105)
[2020-03-19] MEDS: INSULIN GLARGINE (*BKC) 100 UNITS/ML 10 UNITS SUB-Q (19:19)
[2020-03-19 19:23] LABS: Glucose Point of Care 102 (65-105)
[2020-03-19] MEDS: ATORVASTATIN 40 MG TABLET PO (20:22)
[2020-03-19 22:00] VITALS: BP 117/60; PULSE 89; RESP 18; TEMP 36.2; O2SAT 95
[2020-03-20 06:00] VITALS: BP 120/71; PULSE 84; RESP 18; TEMP 36.6; O2SAT 98
[2020-03-20 06:35] LABS: Glucose Point of Care 92 (65-105)
[2020-03-20] MEDS: FENOFIBRATE NANOCRYSTALLIZED 145 MG TABLET PO (09:17)
[2020-03-20] MEDS: lisinopriL 10 MG TABLET PO (09:17)
[2020-03-20] MEDS: ASPIRIN 81 MG ENTERIC TABLET PO (09:17)
[2020-03-20] MEDS: CLOPIDOGREL BISULFATE 75 MG TABLET PO (09:17)
[2020-03-20] MEDS: TAMSULOSIN HCL 0.4 MG CAPSULE PO (09:17)
[2020-03-20] MEDS: metFORMIN HCL 500 MG TABLET 1000 MG PO ×2 (09:17→18:31)
[2020-03-20] MEDS: hydroCHLOROthiazide 12.5 MG CAPSULE PO (09:17)
--- NOTE | 2020-03-20 11:36 | WPDNEURORHBP ---
Subjective Date/time seen: 03/20/20 11:36 Interval history: This 74-year-old diabetic hypertensive gentleman is here after having had right pontine stroke superimposed on the old stroke of the right cerebellum and the right parietal area with left-sided hemiplegia which in fact has improved some in the past couple of days with the encouragement electrical stimulation and also using the light gait a device to make him walk with help from the physical therapy he was complaining of pain of the left hand which shows a polyarticular osteoarthritis without acute osseous abnormality today the pain is negligible and is doing fairly well his catheter drainage is clean and he denies any headache nausea vomiting chest pain shortness of breath fever chills sore throat Review of Systems Review of Systems: All systems reviewed & are unremarkable except as noted in HPI and below Functional Status Ambulation Ability Ability to Ambulate 10 Feet: Total Assistance X 1 Ambulation Assistive Devices: Parallel Bars Transfers Ability Ability to Transfer In/Out of Chair: Moderate Assistance X 1 Exam Const: General: comfortable and no acute distress HENMT: General nose exam: Normal nares present Mouth: Yes moist mucous membranes Eyes: General: appearance normal, both eyes and all related structures Neck: Neck: supple and no JVD Resp: Effort & Inspection: normal respiratory effort Auscultation: clear to auscultation bilaterally Cardio: Rate: regular rate Rhythm: regular rhythm GI: GI Palp: Yes Soft to palpation Auscultation: normal bowel sounds Urinary Catheter: Urinary Catheter: patent and draining and urine clear Skin: General skin exam: normal color and no rashes or lesions noted Neuro: Other: patient is awake alert well oriented time place and person some improvement in the left upper extremity and left lower extremity noted as the patient is able to flex some in the left upper extremity and use the triceps likewise he is able to bend his knee both on command and well of the left lower extremity which is significant improvement from the totally flaccid left-sided hemiplegia Extrem: General: normal to inspection Psych: Mental Status: mental status grossly normal Objective Data Vital Signs Vital Signs: Vital Signs - 24 hr 03/19/20 14:00 03/19/20 22:00 03/20/20 06:00 Temperature 36.3 C L 36.2 C L 36.6 C Pulse Rate 90 89 84 Respiratory Rate 18 18 18 Blood Pressure 118/73 117/60 120/71 Pulse Oximetry 100 95 98 Intake/Output Intake/Output: Intake & Output 03/17/20 03/18/20 03/19/20 03/20/20 23:59 23:59 23:59 23:59 Intake Total 480 960 900 290 Output Total 450 1020 850 350 Balance 30 -60 50 -60 Meds/Results Medications: Active Medications Generic Name Dose Route Start Last Admin Trade Name Freq PRN Reason Stop Dose Admin Aspirin 81 mg 03/05/20 09:00 03/20/20 09:17 Aspirin Ec PO 81 mg QAM WEN Administration Atorvastatin Calcium 40 mg 03/04/20 21:00 03/19/20 20:22 Lipitor PO 40 mg HS WEN Administration Clopidogrel Bisulfate 75 mg 03/04/20 09:00 03/20/20 09:17 Plavix PO 03/24/20 09:01 75 mg DAILY WEN Administration Dextrose 12.5 gm 03/04/20 12:34 Dextrose 50% Syringe IV PUSH PRN PRN Hypoglycemia Protocol Fenofibrate 145 mg 03/05/20 09:00 03/20/20 09:17 Tricor PO 04/04/20 09:01 145 mg DAILY WEN Administration Glucagon 1 mg 03/04/20 12:34 Glucagon For Inj IM PRN PRN Hypoglycemia Protocol Glucose 15 gm 03/04/20 12:34 Glutose 15 PO PRN PRN Hypoglycemia Protocol Hydrochlorothiazide 12.5 mg 03/05/20 09:00 03/20/20 09:17 Hydrochlorothiazide PO 12.5 mg DAILY WEN Administration Dextrose 1,000 mls @ 100 mls/hr 03/04/20 12:34 Dextrose 5% 1,000 Ml IVPB PRN PRN Hypoglycemia Protocol Insulin Glargine 10 units 03/14/20 21:00 03/19/20 19:19 Lantus SUB-Q 10 units HS WEN Adm
[2020-03-20 12:14] LABS: Glucose Point of Care 144 (65-105)
[2020-03-20 14:00] VITALS: BP 143/109; PULSE 97; RESP 20; TEMP 36.4; O2SAT 98
--- NOTE | 2020-03-20 16:11 | PCCDE ---
Consult received 03/14 for insulin teaching. Pt admitted 03/04 s/p CVA; left hemiparesis. Pt has hx of DM treated with Metformin and Lantus insulin was added 03/14. Attempted to meet with pt today but pt c/o being hoarse and tired. Also noted left side is flaccid and he will need help with insulin injections. Pt gave permission that I could contact his to schedule time on Friday 03/23 for teaching. Called , Katherine and scheduled for 03/23 @ 1000.
[2020-03-20 18:39] LABS: Glucose Point of Care 142 (65-105)
[2020-03-20] MEDS: INSULIN GLARGINE (*BKC) 100 UNITS/ML 10 UNITS SUB-Q (19:40)
[2020-03-20] MEDS: ATORVASTATIN 40 MG TABLET PO (19:40)
[2020-03-20 20:13] LABS: Glucose Point of Care 151 (65-105)
[2020-03-20 20:55] VITALS: BP 113/72; PULSE 90; RESP 18; TEMP 36.5; O2SAT 97
[2020-03-21 05:39] VITALS: BP 129/62; PULSE 79; RESP 18; TEMP 36.6; O2SAT 98
[2020-03-21 06:37] LABS: Glucose Point of Care 100 (65-105)
[2020-03-21] MEDS: metFORMIN HCL 500 MG TABLET 1000 MG PO ×2 (08:14→16:53)
[2020-03-21] MEDS: ASPIRIN 81 MG ENTERIC TABLET PO (08:14)
[2020-03-21] MEDS: hydroCHLOROthiazide 12.5 MG CAPSULE PO (08:14)
[2020-03-21] MEDS: CLOPIDOGREL BISULFATE 75 MG TABLET PO (08:14)
[2020-03-21] MEDS: TAMSULOSIN HCL 0.4 MG CAPSULE PO (08:14)
[2020-03-21] MEDS: lisinopriL 10 MG TABLET PO (08:14)
[2020-03-21] MEDS: FENOFIBRATE NANOCRYSTALLIZED 145 MG TABLET PO (08:14)
[2020-03-21 12:17] LABS: Glucose Point of Care 176 (65-105)
[2020-03-21 14:00] VITALS: BP 131/77; PULSE 95; RESP 20; TEMP 36.4; O2SAT 97
[2020-03-21 17:01] LABS: Glucose Point of Care 115 (65-105)
[2020-03-21] MEDS: INSULIN GLARGINE (*BKC) 100 UNITS/ML 10 UNITS SUB-Q (19:25)
[2020-03-21] MEDS: ATORVASTATIN 40 MG TABLET PO (19:27)
[2020-03-21 20:27] LABS: Glucose Point of Care 120 (65-105)
[2020-03-21 20:43] VITALS: BP 103/70; PULSE 94; RESP 20; TEMP 36.6; O2SAT 96
[2020-03-22 04:58] VITALS: BP 127/76; PULSE 79; RESP 18; TEMP 36.1; O2SAT 98
[2020-03-22 06:33] LABS: Glucose Point of Care 78 (65-105)
[2020-03-22] MEDS: lisinopriL 10 MG TABLET PO (08:45)
[2020-03-22] MEDS: CLOPIDOGREL BISULFATE 75 MG TABLET PO (08:45)
[2020-03-22] MEDS: FENOFIBRATE NANOCRYSTALLIZED 145 MG TABLET PO (08:45)
[2020-03-22] MEDS: metFORMIN HCL 500 MG TABLET 1000 MG PO ×2 (08:45→17:28)
[2020-03-22] MEDS: ASPIRIN 81 MG ENTERIC TABLET PO (08:45)
[2020-03-22] MEDS: hydroCHLOROthiazide 12.5 MG CAPSULE PO (08:45)
[2020-03-22] MEDS: TAMSULOSIN HCL 0.4 MG CAPSULE PO (08:45)
[2020-03-22 11:48] LABS: Glucose Point of Care 147 (65-105)
--- NOTE | 2020-03-22 11:56 | WPDREHABHP ---
H&P: HPI History of Present Illness Date/Time: 03/22/20 11:56 74 years old is status post right pontine stroke superimposed on the old stroke of the right cerebellum and the right parietal area with clinical presentation of left hemiplegia and resultant gait dysfunction as well as left hand discomfort cause of polyarticular osteoarthritis complains of no pain today has not noted any significant change in his condition sleeping well bowel movements are okay Chief complaint: CVA Narrative: Cleve Oseguera is a 74 year old male Review of Systems Review of Systems Narrative: all systems reviewed and unremarkable PMFSH Past Medical History Medical History Cervical spine disease Degenerative disc disease, cervical Dyslipidemia Essential hypertension Ischemic cerebrovascular accident (CVA) Left hemiparesis Obesity (BMI 30.0-34.9) Osteoarthritis Type 2 diabetes mellitus Surgical History Surgical History History of lumbar surgery History of replacement of both shoulder joints History of toe surgery Right 1st toe surgery done for unclear reasons. Patient cannot provide me with specifics. Family History Family History Other Hypertension Social History Social History Social History: The patient lives in [place] with his . they have 2 children. He his retired from [employer]. He smoked perhaps a pack of cigarettes per day and quit 35 years ago. he denies alcohol and illicit substance use. He designates his , Katherine, as his surrogate decision maker and he wishes to be a full code. Smoking packs per day: 1 Smoking cigarettes per day: 20.0 Smoking status: Former smoker Tobacco type: cigarettes Second hand tobacco smoke exposure: Yes Alcohol intake: never Substance use: never Substance use type: does not use Spiritual care concerns: No Meds Home Medications and Allergies Home Medications Medication Instructions Recorded Confirmed Type fenofibrate 150 mg PO DAILY 02/27/20 03/04/20 History hydrochlorothiazide 12.5 mg PO DAILY 02/27/20 03/04/20 History lisinopril 10 mg PO DAILY 02/27/20 03/04/20 History metformin 1,000 mg PO BID 02/27/20 03/04/20 History aspirin 81 mg PO QAM #30 tablet 02/29/20 03/04/20 Rx atorvastatin 40 mg PO HS #30 tablet 02/29/20 03/04/20 Rx clopidogrel [Plavix] 75 mg PO DAILY 21 Days #21 tablet 02/29/20 03/04/20 Rx tamsulosin 0.4 mg PO QAM #30 cap 02/29/20 03/04/20 Rx Allergies Allergy/AdvReac Type Severity Reaction Status Date / Time No Known Allergies Allergy Verified 02/27/20 17:31 Vital Signs Vital Signs - 24 hr 03/21/20 14:00 03/21/20 20:43 03/22/20 04:58 Temperature 36.4 C L 36.6 C 36.1 C L Pulse Rate 95 94 79 Respiratory Rate 20 20 18 Blood Pressure 131/77 103/70 127/76 Pulse Oximetry 97 96 98 Exam Narrative Exam Narrative: examination reveals him to be awake alert cooperative in no obvious acute distress. Head normocephalic with no cranial bruit ear nose throat examination normal. Nose clear no drainage eyes normal no corneal opacity nose conjunctival injection neck is supple with no cervical bruit no thyromegaly no lymphadenopathy heart regular with no murmur lungs clear to auscultation with no crepitations abdomen is soft with no organomegaly normal bowel sounds nontender urinary catheter in place draining his skin normal with no evidence of rash or any specific lesions neurological examination reveals him to be awake alert cooperative his speech nor dysphasic not dysarthric not dysphonic with obvious left hemiparesis and hyperreflexia and upgoing plantar response on the left side otherwise extremities are normal with no signs of DVT and mental status is normal as well Assessment and Plan Assessment and plan (1) Left
[2020-03-22 14:00] VITALS: BP 119/77; PULSE 94; RESP 20; TEMP 36.1; O2SAT 98
--- NOTE | 2020-03-22 15:51 | PC.NURSE ---
Spoke with Dr. Holley about low blood sugars and he dc'd Lantus and changed fingersticks to BID (AM and HS). Will continue to monitor.
[2020-03-22] MEDS: ATORVASTATIN 40 MG TABLET PO (20:48)
[2020-03-22 20:55] LABS: Glucose Point of Care 94 (65-105)
[2020-03-22 22:00] VITALS: BP 127/69; PULSE 88; RESP 18; TEMP 36.9; O2SAT 96
[2020-03-23 06:00] VITALS: BP 125/70; PULSE 78; RESP 18; TEMP 36.2; O2SAT 99
[2020-03-23 06:12] LABS: Glucose Point of Care 89 (65-105)
[2020-03-23] MEDS: ASPIRIN 81 MG ENTERIC TABLET PO (08:18)
[2020-03-23] MEDS: metFORMIN HCL 500 MG TABLET 1000 MG PO ×2 (08:19→17:00)
[2020-03-23] MEDS: CLOPIDOGREL BISULFATE 75 MG TABLET PO (08:19)
[2020-03-23] MEDS: FENOFIBRATE NANOCRYSTALLIZED 145 MG TABLET PO (08:19)
[2020-03-23] MEDS: TAMSULOSIN HCL 0.4 MG CAPSULE PO (08:19)
[2020-03-23] MEDS: hydroCHLOROthiazide 12.5 MG CAPSULE PO (08:19)
[2020-03-23] MEDS: lisinopriL 10 MG TABLET PO (08:19)
--- NOTE | 2020-03-23 10:05 | WPDNEURORHBP ---
Subjective Date/time seen: 03/23/20 10:05 74 years old with a right pontine stroke superimposed on the old stroke of the right cerebellum and right parietal area with clinical presentation of left hemiplegia and gait dysfunction as well as ongoing complain of left hand discomfort because loop early articular osteoarthritis on follow-up today has no specific complaints eating fairly well slept go to no bowel or movements difficulties Review of Systems Review of Systems: All systems reviewed & are unremarkable except as noted in HPI and below Functional Status Ambulation Ability Ability to Ambulate 10 Feet: Moderate Assistance X 1 Ambulation Assistive Devices: Railings Transfers Ability Ability to Transfer In/Out of Chair: Moderate Assistance X 1 Exam Narrative: Exam Narrative: examination reveals him to be awake alert cooperative in no obvious acute distress ear nose throat examination normal with no obvious drainage from the nasal passages neck is supple with no signs of irritation normal range of motion no thyromegaly no lymphadenopathy heart regular with no murmur lungs clear to auscultation no rhonchi or crepitations abdomen is soft nontender normal bowel sounds neurological examination revealed him to have non dysphasic non dysarthric speech with clinical presentation of left hemiparesis with hyperreflexia and upgoing left plantar response extremities are normal Objective Data Vital Signs Vital Signs: Vital Signs - 24 hr 03/22/20 14:00 03/22/20 22:00 03/23/20 06:00 Temperature 36.1 C L 36.9 C 36.2 C L Pulse Rate 94 88 78 Respiratory Rate 20 18 18 Blood Pressure 119/77 127/69 125/70 Pulse Oximetry 98 96 99 Intake/Output Intake/Output: Intake & Output 03/20/20 03/21/20 03/22/20 03/23/20 23:59 23:59 23:59 23:59 Intake Total 890 1140 1680 240 Output Total 900 900 975 300 Balance -10 240 705 -60 Meds/Results Medications: Active Medications Generic Name Dose Route Start Last Admin Trade Name Freq PRN Reason Stop Dose Admin Aspirin 81 mg 03/05/20 09:00 03/23/20 08:18 Aspirin Ec PO 81 mg QAM WEN Administration Atorvastatin Calcium 40 mg 03/04/20 21:00 03/22/20 20:48 Lipitor PO 40 mg HS WEN Administration Clopidogrel Bisulfate 75 mg 03/04/20 09:00 03/23/20 08:19 Plavix PO 09/15/20 09:01 75 mg DAILY WEN Administration Dextrose 12.5 gm 03/04/20 12:34 Dextrose 50% Syringe IV PUSH PRN PRN Hypoglycemia Protocol Fenofibrate 145 mg 03/05/20 09:00 03/23/20 08:19 Tricor PO 04/04/20 09:01 145 mg DAILY WEN Administration Glucagon 1 mg 03/04/20 12:34 Glucagon For Inj IM PRN PRN Hypoglycemia Protocol Glucose 15 gm 03/04/20 12:34 Glutose 15 PO PRN PRN Hypoglycemia Protocol Hydrochlorothiazide 12.5 mg 03/05/20 09:00 03/23/20 08:19 Hydrochlorothiazide PO 12.5 mg DAILY WEN Administration Dextrose 1,000 mls @ 100 mls/hr 03/04/20 12:34 Dextrose 5% 1,000 Ml IVPB PRN PRN Hypoglycemia Protocol Lisinopril 10 mg 03/05/20 09:00 03/23/20 08:19 Prinivil PO 10 mg DAILY WEN Administration Metformin HCl 1,000 mg 03/04/20 17:00 03/23/20 08:19 Glucophage PO 1,000 mg BID WEN Administration Tamsulosin HCl 0.4 mg 03/05/20 09:00 03/23/20 08:19 Flomax PO 0.4 mg QAM WEN Administration Radiology Results: ITS Impressions Modified Barium Swallow 03/13/20 12:22 IMPRESSION: Prominent cricopharyngeal contraction noted. Please refer to speech pathologist findings and specific feeding recommendations. Hand X-Ray 03/19/20 14:07 IMPRESSION: 1. Polyarticular osteoarthritis without acute osseous abnormality. Labs Labs: Laboratory Results - last 24 hr 03/22/20 03/22/20 03/23/20 11:45 20:50 06:08 POC Capillary Glucose 147 H 94 89 Progress Note: A&P Assessment and Plan (1) Left hemiparesis: Code(s): G81.94 - Hemiplegia, uns
[2020-03-23 10:10] VITALS: BMI 31.2
[2020-03-23 14:00] VITALS: BP 117/73; PULSE 72; RESP 20; TEMP 36.5; O2SAT 98
[2020-03-23] MEDS: ATORVASTATIN 40 MG TABLET PO (19:56)
[2020-03-23 20:19] VITALS: BP 116/58; PULSE 90; RESP 18; TEMP 36.4; O2SAT 98
[2020-03-24 05:54] VITALS: BP 135/75; PULSE 76; RESP 18; TEMP 36.3; O2SAT 96
[2020-03-24 06:39] LABS: Glucose Point of Care 96 (65-105)
[2020-03-24] MEDS: FENOFIBRATE NANOCRYSTALLIZED 145 MG TABLET PO (08:47)
[2020-03-24] MEDS: CLOPIDOGREL BISULFATE 75 MG TABLET PO (08:47)
[2020-03-24] MEDS: ASPIRIN 81 MG ENTERIC TABLET PO (08:47)
[2020-03-24] MEDS: hydroCHLOROthiazide 12.5 MG CAPSULE PO (08:48)
[2020-03-24] MEDS: TAMSULOSIN HCL 0.4 MG CAPSULE PO (08:48)
[2020-03-24] MEDS: metFORMIN HCL 500 MG TABLET 1000 MG PO ×2 (08:48→17:23)
[2020-03-24] MEDS: lisinopriL 10 MG TABLET PO (08:48)
--- NOTE | 2020-03-24 10:38 | WPDNEURORHBP ---
Subjective Date/time seen: 03/24/20 10:38 Interval history: this 74-year-old gentleman is here after having had the brainstem stroke which has left him significant weakness of the left side of the body and also some difficulty swallowing where he is taking the thickened liquids for which a modified barium swallow will be done tomorrow to make sure we can decrease his appetite a by changing the consistent rather consistency of the liquids from thickened liquids to regular liquids The patient denies any headache nausea vomiting chest pain shortness of breath fever chills sore throat the case was discussed in detail in the team conference Review of Systems Review of Systems: All systems reviewed & are unremarkable except as noted in HPI and below Functional Status Ambulation Ability Ability to Ambulate 10 Feet: Moderate Assistance X 1 Ambulation Assistive Devices: Railings Transfers Ability Ability to Transfer In/Out of Chair: Moderate Assistance X 1 Exam Const: General: comfortable and no acute distress HENMT: General nose exam: Normal nares present Mouth: Yes moist mucous membranes Eyes: General: appearance normal, both eyes and all related structures Neck: Neck: supple and no JVD Resp: Effort & Inspection: normal respiratory effort Auscultation: clear to auscultation bilaterally Cardio: Rate: regular rate Rhythm: regular rhythm GI: GI Palp: Yes Soft to palpation Auscultation: normal bowel sounds Urinary Catheter: Urinary Catheter: patent and draining and urine clear Skin: General skin exam: normal color and no rashes or lesions noted Neuro: Other: patient remains awake alert well oriented time place person with moderately severe left-sided hemiparesis which has improved however not quite for him to be going home with independent living and the has been involved and she knows it and that she was available on the telephone for the team conference Extrem: General: normal to inspection Psych: Mental Status: mental status grossly normal Objective Data Vital Signs Vital Signs: Vital Signs - 24 hr 03/23/20 14:00 03/23/20 20:19 03/24/20 05:54 Temperature 36.5 C 36.4 C L 36.3 C L Pulse Rate 72 90 76 Respiratory Rate 20 18 18 Blood Pressure 117/73 116/58 L 135/75 Pulse Oximetry 98 98 96 Intake/Output Intake/Output: Intake & Output 03/21/20 03/22/20 03/23/20 03/24/20 23:59 23:59 23:59 23:59 Intake Total 1140 1680 480 360 Output Total 900 975 950 450 Balance 240 705 -470 -90 Meds/Results Medications: Active Medications Generic Name Dose Route Start Last Admin Trade Name Freq PRN Reason Stop Dose Admin Aspirin 81 mg 03/05/20 09:00 03/24/20 08:47 Aspirin Ec PO 81 mg QAM WEN Administration Atorvastatin Calcium 40 mg 03/04/20 21:00 03/23/20 19:56 Lipitor PO 40 mg HS WEN Administration Dextrose 12.5 gm 03/04/20 12:34 Dextrose 50% Syringe IV PUSH PRN PRN Hypoglycemia Protocol Fenofibrate 145 mg 03/05/20 09:00 03/24/20 08:47 Tricor PO 04/04/20 09:01 145 mg DAILY WEN Administration Glucagon 1 mg 03/04/20 12:34 Glucagon For Inj IM PRN PRN Hypoglycemia Protocol Glucose 15 gm 03/04/20 12:34 Glutose 15 PO PRN PRN Hypoglycemia Protocol Hydrochlorothiazide 12.5 mg 03/05/20 09:00 03/24/20 08:48 Hydrochlorothiazide PO 12.5 mg DAILY WEN Administration Dextrose 1,000 mls @ 100 mls/hr 03/04/20 12:34 Dextrose 5% 1,000 Ml IVPB PRN PRN Hypoglycemia Protocol Lisinopril 10 mg 03/05/20 09:00 03/24/20 08:48 Prinivil PO 10 mg DAILY WEN Administration Metformin HCl 1,000 mg 03/04/20 17:00 03/24/20 08:48 Glucophage PO 1,000 mg BID WEN Administration Tamsulosin HCl 0.4 mg 03/05/20 09:00 03/24/20 08:48 Flomax PO 0.4 mg QAM WEN Administration Radiology Results: ITS Impressions Modified Barium Swallow 03/13/20 12:22 IMPRESSION: Prominent
--- NOTE | 2020-03-24 11:25 | PCOTNOTE ---
During session with patient, patient stated he was very tired today and just wanted to sleep. Patient complained of being tired during session, but participated in session for 30 minutes before refusing to continue because he was just too tired. Patient stated he didn't sleep all night because he was repeatedly awakened during the night for blood draws and vitals. Patient was encouraged to continue the session, but still refused to continue. Will attempt again later.
--- NOTE | 2020-03-24 12:56 | PCDIET ---
Nutrition Follow-Up Complete: Nutrition Diagnosis: Suboptimal oral intake related to fatigue as evidenced by patient report, limited intake at lunch. Nutrition Goal: Patient to consume 75% of meals or greater. Goal not met. Average intake since 03/18/20 is 68% of meals. Continues on diabetic diet with thickened liquids. Plan for MBS again tomorrow. Patient states no longer taking Glucerna but would be willing to try Frozen Nutritional Treat (300kcal, 9g protein). c/o being too tired to eat or participate in therapy. MD added Lexapro today. Last recorded weight is 96.1 kg. Recommend obtaining new weight. Bowel Motility: Last documented BM on 03/23/20. Labs Reviewed: Glu (96) Meds Noted: Lexapro, Hydrochlorothiazide, Lisinopril, Glucophage Additional Notes: No documented skin breakdown. RN and RD discussed importance of intake with patient re: being on Metformin and needing increased strength/endurance for therapy. Patient eating pot roast and potatoes at time of departure. Recommend stopping Glucerna and adding Frozen Nutritional Treat (Thrive) BID. Will continue to monitor with same goal. Nutrition Monitoring and Evaluation: Follow up in 5 days.
[2020-03-24 14:00] VITALS: BP 127/69; PULSE 76; RESP 18; TEMP 36.8; O2SAT 100
[2020-03-24 17:29] LABS: Glucose Point of Care 127 (65-105)
[2020-03-24] MEDS: ATORVASTATIN 40 MG TABLET PO (20:29)
[2020-03-24 21:05] VITALS: BP 146/75; PULSE 90; RESP 18; TEMP 36.4; O2SAT 97
[2020-03-25 06:00] VITALS: BP 126/65; PULSE 81; RESP 18; TEMP 36.5; O2SAT 97
[2020-03-25 06:44] LABS: Glucose Point of Care 122 (65-105)
[2020-03-25] MEDS: ASPIRIN 81 MG ENTERIC TABLET PO (08:39)
[2020-03-25] MEDS: ESCITALOPRAM OXALATE 10 MG TABLET PO (08:39)
[2020-03-25] MEDS: metFORMIN HCL 500 MG TABLET 1000 MG PO ×2 (08:39→17:47)
[2020-03-25] MEDS: FENOFIBRATE NANOCRYSTALLIZED 145 MG TABLET PO (08:40)
[2020-03-25] MEDS: lisinopriL 10 MG TABLET PO (08:40)
[2020-03-25] MEDS: TAMSULOSIN HCL 0.4 MG CAPSULE PO (08:40)
[2020-03-25] MEDS: hydroCHLOROthiazide 12.5 MG CAPSULE PO (08:40)
--- NOTE | 2020-03-25 09:52 | WPDNEURORHBP ---
Subjective Date/time seen: 03/25/20 09:52 Interval history: This 74-year-old gentleman is here having had a brainstem stroke with significant left-sided hemiparesis and also bladder dysfunction he has Jang catheter which is being irrigated twice a day and the urine is clear denies any headache nausea vomiting chest pain shortness of breath fever chills sore throat he comes across as depressed so have started him on low-dose Lexapro his quite stable no fever no chills no sore throat Review of Systems Review of Systems: All systems reviewed & are unremarkable except as noted in HPI and below Functional Status Ambulation Ability Ability to Ambulate 10 Feet: Moderate Assistance X 1 Ambulation Assistive Devices: Parallel Bars Transfers Ability Ability to Transfer In/Out of Chair: Moderate Assistance X 1 Exam Const: General: comfortable and no acute distress HENMT: General nose exam: Normal nares present Mouth: Yes moist mucous membranes Eyes: General: appearance normal, both eyes and all related structures Neck: Neck: supple and no JVD Resp: Effort & Inspection: normal respiratory effort Auscultation: clear to auscultation bilaterally Cardio: Rate: regular rate Rhythm: regular rhythm GI: GI Palp: Yes Soft to palpation Auscultation: normal bowel sounds Urinary Catheter: Urinary Catheter: patent and draining and urine clear Skin: General skin exam: normal color and no rashes or lesions noted Neuro: Other: patient remains awake alert well oriented with normal speech and language functions and moderately severe left-sided hemiparesis which has improved however not enough for him to be even near independent at this point Extrem: General: normal to inspection Psych: Mental Status: mental status grossly normal Other: patient is a little bit depressed but is not anxious not sad not belligerent Objective Data Vital Signs Vital Signs: Vital Signs - 24 hr 03/24/20 14:00 03/24/20 21:05 03/25/20 06:00 Temperature 36.8 C 36.4 C L 36.5 C Pulse Rate 76 90 81 Respiratory Rate 18 18 18 Blood Pressure 127/69 146/75 H 126/65 Pulse Oximetry 100 97 97 Intake/Output Intake/Output: Intake & Output 03/22/20 03/23/20 03/24/20 03/25/20 23:59 23:59 23:59 23:59 Intake Total 1680 480 840 360 Output Total 975 829 900 550 Balance 705 -470 -60 -190 Meds/Results Medications: Active Medications Generic Name Dose Route Start Last Admin Trade Name Freq PRN Reason Stop Dose Admin Aspirin 81 mg 03/05/20 09:00 03/25/20 08:39 Aspirin Ec PO 81 mg QAM WEN Administration Atorvastatin Calcium 40 mg 03/04/20 21:00 03/24/20 20:29 Lipitor PO 40 mg HS WEN Administration Dextrose 12.5 gm 03/04/20 12:34 Dextrose 50% Syringe IV PUSH PRN PRN Hypoglycemia Protocol Escitalopram Oxalate 10 mg 03/25/20 09:00 03/25/20 08:39 Lexapro PO 10 mg QAM WEN Administration Fenofibrate 145 mg 03/05/20 09:00 03/25/20 08:40 Tricor PO 04/04/20 09:01 145 mg DAILY WEN Administration Glucagon 1 mg 03/04/20 12:34 Glucagon For Inj IM PRN PRN Hypoglycemia Protocol Glucose 15 gm 03/04/20 12:34 Glutose 15 PO PRN PRN Hypoglycemia Protocol Hydrochlorothiazide 12.5 mg 03/05/20 09:00 03/25/20 08:40 Hydrochlorothiazide PO 12.5 mg DAILY WEN Administration Dextrose 1,000 mls @ 100 mls/hr 03/04/20 12:34 Dextrose 5% 1,000 Ml IVPB PRN PRN Hypoglycemia Protocol Lisinopril 10 mg 03/05/20 09:00 03/25/20 08:40 Prinivil PO 10 mg DAILY WEN Administration Metformin HCl 1,000 mg 03/04/20 17:00 03/25/20 08:39 Glucophage PO 1,000 mg BID WEN Administration Tamsulosin HCl 0.4 mg 03/05/20 09:00 03/25/20 08:40 Flomax PO 0.4 mg QAM WEN Administration Radiology Results: ITS Impressions Modified Barium Swallow 03/13/20 12:22 IMPRESSION: Prominent cricopharyngeal contraction noted. Please refer t
--- NOTE | 2020-03-25 13:01 | PCSTNOTE ---
Please refer to the Modified Barium Swallow Evaluation in the EMR.
[2020-03-25 14:00] VITALS: BP 129/80; PULSE 90; RESP 20; TEMP 36.6; O2SAT 100
[2020-03-25 14:25] LABS: SARS-CoV-2 RNA PCR Negative
[2020-03-25] MEDS: ATORVASTATIN 40 MG TABLET PO (20:03)
[2020-03-25 20:32] VITALS: BP 121/76; PULSE 93; RESP 18; TEMP 36.3; O2SAT 97
[2020-03-26 05:11] LABS: Basophils Absolute Auto 0.1 K/mm3 (0.0-0.1); Basophils Percent Auto 0.4 % (0.2-1.2); Eosinophils Absolute Auto 0.3 K/mm3 (0-0.3); Hematocrit 39.9 % (42.0-52.0); Hemoglobin 13.8 g/dL (14.0-18.0); Immature Granulocyte Absolute 0.08 K/mm3 (0.00-0.031); Immature Granulocyte Percent A 0.6 % (0-0.5); Lymphocytes Absolute Auto 2.01 K/mm3 (0.9-3.2); Lymphocytes Percent Auto 16.1 % (18.3-44.2); Mean Corpuscular HGB Conc 34.6 g/dl (32-36); Mean Corpuscular Hemoglobin 28.8 pg (26-34); Mean Corpuscular Volume 83.3 fl (80-100); Mean Platelet Volume 9.3 fl (7.4-10.4); Monocytes Absolute Auto 0.8 K/mm3 (0.1-0.6); Monocytes Percent Auto 6.7 % (2.6-8.5); Neutrophils Absolute Auto 9.2 K/mm3 (1.3-6.7); Neutrophils Percent Auto 74.2 % (45.5-73.1); Platelet Count Result 384 k/mm3 (150-375); Red Blood Count 4.79 M/mm3 (4.6-6.20); Red Cell Distribution Width 11.9 % (11.5-14.5); White Blood Count 12.5 K/mm3 (4.5-10.0)
[2020-03-26 05:26] LABS: Anion Gap 9 mmol/L (8-16); Blood Urea Nitrogen 16 mg/dL (9-20); Calcium 9.1 mg/dL (8.4-10.2); Carbon Dioxide 23 mmol/L (22-30); Chloride 103 mmol/L (98-107); Estimated CRCL calculation 88 ml/min; Estimated Glomerular Filt Rate > 60; Glucose 113 mg/dL (75-110); Potassium 3.3 mmol/L (3.4-5.0); Sodium 135 mmol/L (137-145)
[2020-03-26 05:40] VITALS: BP 115/63; PULSE 71; RESP 20; TEMP 36.6; O2SAT 96
[2020-03-26 06:41] LABS: Glucose Point of Care 124 (65-105)
[2020-03-26] MEDS: TAMSULOSIN HCL 0.4 MG CAPSULE PO (08:49)
[2020-03-26] MEDS: FENOFIBRATE NANOCRYSTALLIZED 145 MG TABLET PO (08:49)
[2020-03-26] MEDS: ESCITALOPRAM OXALATE 10 MG TABLET PO (08:49)
[2020-03-26] MEDS: lisinopriL 10 MG TABLET PO (08:49)
[2020-03-26] MEDS: metFORMIN HCL 500 MG TABLET 1000 MG PO (08:49)
[2020-03-26] MEDS: hydroCHLOROthiazide 12.5 MG CAPSULE PO (08:49)
[2020-03-26] MEDS: ASPIRIN 81 MG ENTERIC TABLET PO (08:49)
--- NOTE | 2020-03-28 14:33 | PM.DS ---
DS: Admitting Diagnosis Admitting Diagnosis Admitting Diagnosis: CVA DS: Discharge Diagnosis Discharge Diagnosis (1) Left hemiparesis: Code(s): G81.94 - Hemiplegia, unspecified affecting left nondominant side Status: Acute (2) Dysphagia: Code(s): R13.10 - Dysphagia, unspecified Status: Acute (3) Vertebral artery stenosis: Code(s): I65.09 - Occlusion and stenosis of unspecified vertebral artery Status: Acute (4) Vertebral artery occlusion: Code(s): I65.09 - Occlusion and stenosis of unspecified vertebral artery Status: Acute (5) Gross hematuria: Code(s): R31.0 - Gross hematuria Status: Acute (6) Possible urinary tract infection: Code(s): R39.89 - Other symptoms and signs involving the genitourinary system Status: Acute (7) Urinary retention: Code(s): R33.9 - Retention of urine, unspecified Status: Acute (8) Type 2 diabetes mellitus: Code(s): E11.9 - Type 2 diabetes mellitus without complications Status: Acute (9) Dyslipidemia: Code(s): E78.5 - Hyperlipidemia, unspecified Status: Acute (10) Essential hypertension: Code(s): I10 - Essential (primary) hypertension Status: Acute (11) Right pontine cerebrovascular accident: Code(s): I63.50 - Cerebral infarction due to unspecified occlusion or stenosis of unspecified cerebral artery Status: Acute DS: Summary Hospital Course Reason for hospitalization: this 74-year-old gentleman was admitted to brainstem stroke on the right marilyn with significant issues with swallowing which resolved and also the left-sided hemiplegia with slightly improved received the PT OT and gait training the patient had urinary retention for which I urology consultation was obtained he had a Jang catheter and his gross hematuria cleared up the patient needs the irrigation twice a day and he had to be transferred to the snf facility to the course of hospitalization he was able to achieve the following independent measures Hospital Course: eating setup, oral hygiene setup, toileting dependent, bathing partial assistance, upper body dressing partial assistance, lower body dressing substantial, footwear substantial, rolling in bed partial assistance, sitting to lying supervision, lying to sitting supervision, sit to stand partial assistance, chair transfers partial assistance, toilet transfers partial assistance, car transfers partial assistance, walking 10 feet dependent, walking 50 feet the 2 turns patient was unable to, walking 150 feet independent, walking 10 feet uneven surfaces dependent, [place] step patient was unable to, 4 steps patient was unable to, 12 steps patient was unable to, became object patient was unable to wheelchair 50 feet partial assistance, wheelchair 150 feet patient partial assistance Time Spent with Patient Time attestation: Total time spent providing and/or coordinating discharge services: Exam Const: General: comfortable and no acute distress HENMT: General nose exam: Normal nares present Mouth: Yes dry mucous membranes Eyes: General: appearance normal, both eyes and all related structures Neck: Neck: supple and no JVD Resp: Effort & Inspection: normal respiratory effort Auscultation: clear to auscultation bilaterally Cardio: Rate: regular rate Rhythm: regular rhythm Urinary Catheter: Urinary Catheter: patent and draining and urine clear Skin: General skin exam: normal color and no rashes or lesions noted Neuro: Other: patient remained awake and alert well oriented with much improved dysphagia and much improved hematuria and other issues which he has had on the acute medical floor he needs further therapy and that is why he had to be transferred to the snf facility the right-sided amend sorry the left-sided weakness had improved but not quite bed Extrem: General: normal to inspection Psych: Mental Status: ment
== END 2020-03-26 14:00 | DRG 57 ==
PROVIDERS: Internal Medicine Gastroenterology; Admitting Provider Psychiatry & Neurology Neurology; PCP Internal Medicine; Visit Provider Psychiatry & Neurology Neurology
PROC: 0DJ08ZZ Inspection of Upper Intestinal Tract, Via Natural or Artificial Opening Endoscopic (ICD-10-PCS; CPT 43235; principal; 2020-03-16 08:00)
DX: I69.354 Hemiplegia and hemiparesis following cerebral infarction affecting left non-dominant side (principal); E87.1 Hypo-osmolality and hyponatremia; Z20.828 Contact with and (suspected) exposure to other viral communicable diseases; I69.322 Dysarthria following cerebral infarction; I69.392 Facial weakness following cerebral infarction; I69.391 Dysphagia following cerebral infarction; R13.12 Dysphagia, oropharyngeal phase; I65.03 Occlusion and stenosis of bilateral vertebral arteries; E78.5 Hyperlipidemia, unspecified; E66.9 Obesity, unspecified; F32.9 Major depressive disorder, single episode, unspecified; I10 Essential (primary) hypertension; I35.8 Other nonrheumatic aortic valve disorders; E11.65 Type 2 diabetes mellitus with hyperglycemia; M15.9 Polyosteoarthritis, unspecified; M50.30 Other cervical disc degeneration, unspecified cervical region; R33.9 Retention of urine, unspecified; T83.83XD Hemorrhage due to genitourinary prosthetic devices, implants and grafts, subsequent encounter; W19.XXXD Unspecified fall, subsequent encounter; Z79.4 Long term (current) use of insulin; Z87.891 Personal history of nicotine dependence; Z96.612 Presence of left artificial shoulder joint; Z96.611 Presence of right artificial shoulder joint; Z68.31 Body mass index [BMI] 31.0-31.9, adult
CPT/HCPCS: 36415; 73120; 80048; 80061; 81001; 83036; 85025; 87635; 92507; 92522; 92526; 92610; 92611; 97110; 97112; 97116; 97162; 97166; 97530; 97535; 97542; A4565; A9270; C9803; J1815; J2704; J7120; U0003

== ENCOUNTER 2020-04-21 14:13 | Inpatient (IN) | payer MEDICARE, BC, SELFPAY ==
[2020-04-21] VITALS (14 sets, daily range): BP systolic 94–135; BP diastolic 67–78; PULSE 86–113; RESP 16–30; TEMP 36.2–36.6; O2SAT 92–97; BMI 27.1
--- NOTE | ~2020-04-21 | XR_ITS ---
EXAMINATION: XR chest 1V portable DATE: 04/21/2020 14:39 INDICATION: Weakness. Hypotension. TECHNIQUE: frontal view of the chest was obtained. COMPARISON: Chest radiograph dated 02/29/2020 FINDINGS: Mild elevation of the right hemidiaphragm. No focal airspace opacities, pulmonary edema, pleural effu brayan or pneumothorax. The cardiomediastinal silhouette is normal. Bilateral total shoulder arthroplas ties. IMPRESSION: 1. Elevation of the right hemidiaphragm. No acute cardiopulmonary disease. Reviewed, dictated and finalized at location B.
--- NOTE | ~2020-04-21 | XR_ITS ---
EXAMINATION: XR chest 1V DATE: 04/24/2020 13:49 INDICATION: Cough. Aspiration. TECHNIQUE: A single frontal view of the chest was obtained. COMPARISON: Chest single view 04/21/2020 FINDINGS: Again seen is mild elevation of right hemidiaphragm. There is mild atelectasis in right low er lung zone. No pleural effusion or pneumothorax. The heart size is normal. There are bilateral shou lder arthroplasties. IMPRESSION: 1. Mild atelectasis in right lower lung zone. Reviewed, dictated and finalized at location A.
--- NOTE | ~2020-04-21 | XR_ITS ---
EXAMINATION: XR barium swallow modified DATE: 04/24/2020 13:51 INDICATION: Witnessed aspiration TECHNIQUE: Modified barium esophagram was performed by myself to administered fluoroscopy, in conjun ction with speech pathologist who administered barium in varying consistencies as per speech patholog ist documentation. This was recorded on tape. A single fluoroscopic spot image was recorded. The DAP for this procedure was 3.242 Gycm2. Fluoroscopy exposure time was 3.3 minutes. FINDINGS: Oral stage: Adequate function. Pharyngeal phase: Adequate function. Laryngeal penetration: One episode seen. Aspiration: One episode seen. Laryngeal sensitivity: Present. IMPRESSION: One episode of laryngeal penetration and aspiration identified with laryngeal sensitivity present. Please refer to speech pathologist findings and specific feeding recommendations. Reviewed, dictated and finalized at location A. IMPRESSION: One episode of laryngeal penetration and aspiration identified with laryngeal sensitivity present. Please refer to speech pathologist findings an d specific feeding recommendations.
--- NOTE | 2020-04-21 14:16 | ECG_ITS ---
Measurements Intervals [place] Rate: 102 P: 50 WI: 188 QRS: -34 QRSD: 161 T: 8 QT: 433 QTc: 567 Interpretive Statements SINUS TACHYCARDIA LEFT AXIS DEVIATION RIGHT BUNDLE BRANCH BLOCK BASELINE ARTIFACT- I, II, AVR, AVL, AVF ABNORMAL ECG Electronically Signed On 04-21-2020 15:00:53 CDT by Matthias Smith D.O.
--- NOTE | 2020-04-21 14:27 | ED.GENADULT ---
HPI - General Adult General Chief complaint: Unspecified Stated complaint: low BP Source: EMS History of Present Illness HPI narrative: Patient is a 74 y/o male sent from [place] for low BP. Patient reportedly had BP of 80s/50s. He was given IVF, which improved his BP. Of note, he test positive for COVID 2 weeks ago. Patient is aphasic due to previous stroke. He is unable to provide additional history. Related Data Home Medications Medication Instructions Recorded Confirmed fenofibrate 200 mg PO DAILY 02/27/20 04/21/20 hydrochlorothiazide 12.5 mg PO DAILY 02/27/20 04/21/20 lisinopril 10 mg PO DAILY 02/27/20 04/21/20 metformin 1,000 mg PO BID 02/27/20 04/21/20 acetaminophen [Tylenol] 650 mg PO Q4H PRN 04/21/20 04/21/20 cholecalciferol (vitamin D3) 125 mcg PO DAILY 04/21/20 04/21/20 [Vitamin D3] mirtazapine 15 mg PO DAILY 04/21/20 04/21/20 phenol [Chloraseptic] 5 spray MUCOUS MEMBRANE Q2H PRN 04/21/20 04/21/20 prochlorperazine maleate 5 mg PO Q8H PRN 04/21/20 04/21/20 Allergies Allergy/AdvReac Type Severity Reaction Status Date / Time No Known Allergies Allergy Verified 02/27/20 17:31 Review of Systems Review of Systems: ROS unobtainable: Yes unobtainable due to medical condition PMFSH Past Medical History Medical History (Updated 04/21/20 @ 20:45 by Joselin Davis MD) Cervical spine disease Degenerative disc disease, cervical Dyslipidemia Essential hypertension Ischemic cerebrovascular accident (CVA) Left hemiparesis Obesity (BMI 30.0-34.9) Osteoarthritis Type 2 diabetes mellitus Surgical History Surgical History History of lumbar surgery History of replacement of both shoulder joints History of toe surgery Right 1st toe surgery done for unclear reasons. Patient cannot provide me with specifics. Family History Family History Other Hypertension Social History Social History Social History: The patient lives in [place] with his . they have 2 children. He his retired from [employer]. He smoked perhaps a pack of cigarettes per day and quit 35 years ago. he denies alcohol and illicit substance use. He designates his , Katherine, as his surrogate decision maker and he wishes to be a full code. Smoking packs per day: 1 Smoking cigarettes per day: 20.0 Smoking status: Former smoker Tobacco type: cigarettes Second hand tobacco smoke exposure: Yes Alcohol intake: former Substance use: never Substance use type: does not use Spiritual care concerns: No Exam Const: General: no acute distress and well developed HENMT: Head: normocephalic Ears: external ears normal General nose exam: Normal external nose present Eyes: General: appearance normal, both eyes and all related structures Conjunctivae: conjunctivae normal Neck: Neck: normal visual inspection and full ROM Chest: Chest palpation & inspection: normal inspection of the chest and no tenderness Resp: Effort & Inspection: normal respiratory effort Auscultation: clear to auscultation bilaterally Cardio: Rate: regular rate and tachycardic GI: GI Palp: No abdominal tenderness and Yes Soft to palpation Skin: General skin exam: normal color and turgor normal Neuro: Cognition (Neuro): normal cognition Motor exam (neuro): Other motor observations present (chronic left hemiparesis) Extrem: General: normal to inspection, full ROM and no pedal edema Psych: Appearance: grossly normal Mental Status: mental status grossly normal Affect: normal affect Course Consultations Consultation #1: Discussed with PUBLIC RELATIONS MANAGER Jacquelyn, who agrees to admit to Dr. Chin. Date: 04/21/20 Time: 17:11 Vital Signs Vital signs: Vital Signs Temperature 36.6 C 04/21/20 14:17 Pulse Rate 107 H 04/21/20 14:17 Respiratory Rate 18 04/21/20 14:17 Blood Pressure 94/67 L 04/21/20
[2020-04-21] MEDS: SODIUM CHLORIDE 0.9% IV 1,000 ML 999 ML IV CONT (14:29)
[2020-04-21 14:49] LABS: Basophils Absolute Auto 0.1 K/mm3 (0.0-0.1); Basophils Percent Auto 0.5 % (0.2-1.2); Eosinophils Absolute Auto 0.1 K/mm3 (0-0.3); Eosinophils Percent Auto 0.5 % (0-4.4); Hematocrit 43.2 % (42.0-52.0); Hemoglobin 14.5 g/dL (14.0-18.0); Immature Granulocyte Absolute 0.18 K/mm3 (0.00-0.031); Immature Granulocyte Percent A 1.4 % (0-0.5); Lymphocytes Absolute Auto 1.01 K/mm3 (0.9-3.2); Mean Corpuscular HGB Conc 33.6 g/dl (32-36); Mean Corpuscular Hemoglobin 28.5 pg (26-34); Mean Platelet Volume 9.5 fl (7.4-10.4); Monocytes Percent Auto 7.7 % (2.6-8.5); Neutrophils Absolute Auto 10.3 K/mm3 (1.3-6.7); Neutrophils Percent Auto 81.9 % (45.5-73.1); Platelet Count Result 472 k/mm3 (150-375); Red Blood Count 5.08 M/mm3 (4.6-6.20); Red Cell Distribution Width 12.8 % (11.5-14.5); White Blood Count 12.6 K/mm3 (4.5-10.0)
[2020-04-21 15:02] LABS: Alanine Aminotransferase 25 U/L (4-50); Albumin Level 3.8 g/dL (3.5-5.1); Alkaline Phosphatase 67 U/L (38-126); Anion Gap 16 mmol/L (8-16); Aspartate Amino Transferase 35 U/L (17-59); Bilirubin,Total 0.8 mg/dL (0.2-1.3); Blood Urea Nitrogen 34 mg/dL (9-20); Calcium 9.5 mg/dL (8.4-10.2); Carbon Dioxide 26 mmol/L (22-30); Chloride 93 mmol/L (98-107); Estimated CRCL calculation 44 ml/min; Estimated Glomerular Filt Rate 49; Glucose 205 mg/dL (75-110); Potassium 3.4 mmol/L (3.4-5.0); Sodium 135 mmol/L (137-145)
[2020-04-21 15:02] LABS: Lactic Acid Reflex 1.2 mmol/L (0.7-2.1)
[2020-04-21 15:13] LABS: NT Pro B Type Natriuretic Pept 247 PG/ML (5-100); Troponin I < 0.012 ng/mL (0.000-0.034)
[2020-04-21 16:39] LABS: Add Urine Microscopic? YES; Appearance Urine Turbid (Clear); Bacteria Urine 4+ /hpf; Bilirubin Urine Negative (Negative); Blood Urine 2+ (Negative); Color Urine Amber (Yellow); Glucose Urine UA Negative (Negative); Hyaline Casts Urine 20-29 /lpf; Ketones Urine Negative (Negative); Leukocyte Esterase Ur 3+ LEU/UL (Negative); Mucus Urine Few /lpf; Nitrate Urine Positive (Negative); Protein Urine 2+ mg/dL (Negative); RBC Urine 21-50 /hpf (0-2); Specific Grav Ur 1.015 (1.001-1.035); Squamous Epithelial Cell Urine Rare /hpf (Few); WBC Clumps Urine Present /HPF; WBC Urine >75 /hpf
[2020-04-21] MEDS: SODIUM CHLORIDE 0.9% IV 1,000 ML 100 ML IV CONT (17:23)
[2020-04-21 17:47] LABS: Troponin I < 0.012 ng/mL (0.000-0.034)
--- NOTE | 2020-04-21 19:04 | ADMGEN ---
This patient, Cleve Oseguera, was admitted to Medical Room 248-. Patient/family oriented to hospital policies and general routines including ID bracelet, bed and alarms, visiting hours, pain management, procedures, bathroom and other care routines, personal items, smoking policy, room service/diet, and visiting hours. Valuables list has been completed. Information on how to activate the Rapid Response Team has been discussed. Patient/Family are encouraged to report perceived risks to care and to ask questions if they do not understand what they are told or what they should do.
[2020-04-21 20:51] LABS: Troponin I < 0.012 ng/mL (0.000-0.034)
[2020-04-22] VITALS (9 sets, daily range): BP systolic 108–136; BP diastolic 66–89; PULSE 74–96; RESP 16–21; TEMP 36.1–36.8; O2SAT 93–98; BMI 27.1
--- NOTE | 2020-04-22 00:26 | PM.IMHP ---
H&P: HPI History of Present Illness Date/Time: 04/21/20 [id number] Chief complaint: uti/hypotension Narrative: Cleve Oseguera is a 74 year old male the patient hears in from the senior living and was reportedly having low blood pressures 80s over 50s. The patient has been on hydralazine. He was given IV fluid which improved his blood pressure patient tested positive 2 weeks ago for COVID. He previously had a stroke and was here in [facility] with left-sided hemiparesis. The patient was just discharged on 03/28/2020 patient is admitted for after patient due to the blood pressure. Sodium 135. Creatinine 1.4. Glucose 205. Troponin negative x3 patient was positive for UTI. Patient was started on Rocephin. The patient does have a chronic indwelling Jang catheter and has a leg bag to left leg. Patient was admitted observation to medical floor Review of Systems Review of Systems: All systems reviewed & are unremarkable except as noted in HPI and below Constitutional: Constitutional: Reports as per HPI and Reports no additional constitutional complaints Eyes: Eyes: Reports as per HPI and Reports no additional eye complaints ENT: Reports system reviewed and no additional complaints, except as documented and Reports Normal hearing present Cardiovascular: Cardiovascular: Reports no additional cardiovascular complaints Respiratory: Respiratory: Reports no additional respiratory complaints and Reports no additional respiratory complaints Gastrointestinal: Gastrointestinal: Reports as per HPI and Reports no additional gastrointestinal complaints Musculoskeletal: Musculoskeletal: Reports no additional musculoskeletal complaints Integumentary/Breasts: Skin/Breast: Reports system reviewed and no additional complaints, except as docu and Reports as per HPI Neurologic: Reports system reviewed and no additional complaints, except as documented, Reports as per HPI and Reports Normal hearing present Psychiatric: Psychiatric: Reports no additional psychiatric complaints and Reports as per HPI Endocrine: Endocrine: Reports no additional endocrine complaints Hematologic/Lymphatic: Hematologic/Lymphatic: Reports no additional hematologic/lymphatic complaints Allergic/Immunologic: Allergic/Immunologic: Reports no additional allergic/immunologic complaints [facility] Past Medical History Medical History (Updated 04/22/20 @ 00:49 by Jacquelyn Lopez NP) Cervical spine disease Degenerative disc disease, cervical Dyslipidemia Essential hypertension Ischemic cerebrovascular accident (CVA) Left hemiparesis Left hemiparesis Obesity (BMI 30.0-34.9) Osteoarthritis Type 2 diabetes mellitus Surgical History Surgical History History of lumbar surgery History of replacement of both shoulder joints History of toe surgery Right 1st toe surgery done for unclear reasons. Patient cannot provide me with specifics. Family History Family History Other Hypertension Social History Social History (Updated 04/22/20 @ 00:39 by Jacquelyn Lopez NP) Social History: The patient lives in [place] with his . they have 2 children. He his retired from [employer]. He smoked perhaps a pack of cigarettes per day and quit 35 years ago. he denies alcohol and illicit substance use. He designates his , Katherine, as his surrogate decision maker and he wishes to be a full code. Smoking packs per day: 1 Smoking cigarettes per day: 20.0 Smoking status: Former smoker Tobacco type: cigarettes Second hand tobacco smoke exposure: Yes Alcohol intake: former Substance use: never Substance use type: does not use Spiritual care concerns: No Meds Home Medications and Allergies Home Medications Medication Instructions Recorded Confirmed Type fenofibrate 200 mg PO DAILY 02/27/20 04/21/20 History hydrochlorothiazide 12.5 mg PO MAEGAN
[2020-04-22 06:18] LABS: Anion Gap 8 mmol/L (8-16); Blood Urea Nitrogen 28 mg/dL (9-20); Calcium 8.4 mg/dL (8.4-10.2); Carbon Dioxide 27 mmol/L (22-30); Chloride 101 mmol/L (98-107); Estimated CRCL calculation 68 ml/min; Estimated Glomerular Filt Rate > 60; Glucose 85 mg/dL (75-110); Potassium 2.8 mmol/L (3.4-5.0); Sodium 136 mmol/L (137-145)
[2020-04-22 08:03] LABS: Glucose Point of Care 106 (65-105)
[2020-04-22] MEDS: CHOLECALCIFEROL 1,000 UNITS TABLET 5000 UNITS PO (08:18)
[2020-04-22] MEDS: ASPIRIN 81 MG ENTERIC TABLET PO (08:19)
[2020-04-22] MEDS: FENOFIBRATE 160 MG TABLET PO (08:19)
[2020-04-22] MEDS: MIRTAZAPINE 15 MG TABLET PO (08:19)
[2020-04-22 11:31] LABS: Glucose Point of Care 131 (65-105)
--- NOTE | 2020-04-22 14:09 | PM.IMPN ---
Progress Note: A&P Assessment and Plan (1) UTI (urinary tract infection) due to urinary indwelling catheter: Qualifiers: Encounter type: initial encounter Indwelling urinary catheter type: indwelling urethral catheter Qualified Code(s): T83.511A - Infection and inflammatory reaction due to indwelling urethral catheter, initial encounter; N39.0 - Urinary tract infection, site not specified Code(s): T83.511A - Infection and inflammatory reaction due to indwelling urethral catheter, initial encounter; N39.0 - Urinary tract infection, site not specified Status: Acute Assessment and Plan: -----UA suspicious for UTI and awaiting urine culture. Continue ceftriaxone at this time. I have discussed with the nurse about changing the Jang catheter since it has not been changed since he has been here. Blood cultures are pending. His blood pressure is better white blood cell count is 12.6. Will monitor cultures and adjust medications as indicated. Cr has improved since admission. (2) Hypotension: Qualifiers: Hypotension type: unspecified hypotension type Qualified Code(s): I95.9 - Hypotension, unspecified Code(s): I95.9 - Hypotension, unspecified Status: Acute Assessment and Plan: -----last blood pressure 108/66 which is improved from admission when it was 94/67. I am going to stop the fluids since he sounds a bit crackly and his blood pressure has improved and he looks more euvolemic. I am not going to restart his hydrochlorothiazide at this time but may need to do so in the future. (3) Urinary retention: Code(s): R33.9 - Retention of urine, unspecified Status: Acute Assessment and Plan: -----chronic since his stroke. Will exchange catheter. He should follow-up with urology (4) Type 2 diabetes mellitus: Code(s): E11.9 - Type 2 diabetes mellitus without complications Status: Chronic Assessment and Plan: -----last glucose 131. Continue Accu-Cheks AC and HS. Metformin is on hold due to acute renal failure. (5) Essential hypertension: Code(s): I10 - Essential (primary) hypertension Status: Chronic Assessment and Plan: -----See above. Hydrochlorothiazide and lisinopril is on hold at this time. (6) Dyslipidemia: Code(s): E78.5 - Hyperlipidemia, unspecified Status: Chronic Assessment and Plan: -----Continue lipitor and fenofibrate Time Spent With Patient Time with patient: 25 - 35 minutes Subjective Date/time seen: 04/22/20 14:09 Interval history: Pt is a 74 year old male here for UTI sepsis and states he is feeling better. Pt denies nausea, vomiting, fevers, chills, constipation, diarrhea, chest pain, sob, or abdominal pain. He states he is weak on his left side which is chronic for him since his stroke a couple months ago. He was doing better at rehab but then contracted COVID and ended up back to his previous baseline. Review of Systems Review of Systems: All systems reviewed & are unremarkable except as noted in HPI and below Exam Narrative: Exam Narrative: General: Well developed well nourished patient in NAD HEENT: normocephalic Neck: supple Neuro: Alert and oriented x4. Weak on his left upper extremity CV:RRR. Telemetry with no arrhythmias Resp: Crackles at the bases, no rhonchi Abd: Soft, non distended. No pain to palpation. Positive bowel sounds Extremities: No swelling, erythema, or pain to palpation. Objective Data Vital Signs Vital Signs: Vital Signs - 24 hr 04/21/20 14:17 04/21/20 14:33 04/21/20 14:47 Temperature 97.8 F Pulse Rate 107 H 113 H 103 H Respiratory Rate 18 30 H 17 Blood Pressure 94/67 L Pulse Oximetry 95 92 97 04/21/20 15:00 04/21/20 15:15 04/21/20 15:30 Temperature Pulse Rate 98 97 98 Respiratory Rate 26 H 25 H 24 H Blood Pressure Pulse Oximetry 94 97 95 04/21/20 15:45 04/21/20 17:16
--- NOTE | 2020-04-22 14:30 | PCNSR ---
On 04/22/20, the student, Lisandra Dobson, provided care and completed [facility] documentation on this patient. I have reviewed the student's documentation and agree with the findings.
[2020-04-22 15:39] LABS: Potassium 3.1 mmol/L (3.4-5.0)
[2020-04-22 15:43] LABS: Magnesium 1.4 mg/dL (1.6-2.3)
[2020-04-22] MEDS: MAGNESIUM SULF 2 GM/WATER 50ML 2 GM/50 ML BAG IVPB (16:54)
[2020-04-22] MEDS: POTASSIUM CHLORIDE 20 MEQ TABLET 40 MEQ PO (16:54)
[2020-04-22 17:02] LABS: Glucose Point of Care 124 (65-105)
[2020-04-22] MEDS: ATORVASTATIN 40 MG TABLET PO (21:40)
[2020-04-22 22:10] LABS: Glucose Point of Care 151 (65-105)
--- NOTE | 2020-04-22 22:24 | PC.NURSE ---
Multiple bladder scans performed at 6h post void, highest result 275ml.
[2020-04-23] VITALS: PULSE 74
[2020-04-23 04:00] VITALS: PULSE 82
[2020-04-23 06:00] VITALS: BP 141/78; PULSE 83; RESP 18; TEMP 37; O2SAT 96
[2020-04-23 06:05] LABS: Hematocrit 35.5 % (42.0-52.0); Hemoglobin 12.4 g/dL (14.0-18.0); Mean Corpuscular HGB Conc 34.9 g/dl (32-36); Mean Corpuscular Hemoglobin 28.8 pg (26-34); Mean Corpuscular Volume 82.4 fl (80-100); Mean Platelet Volume 9.4 fl (7.4-10.4); Platelet Count Result 411 k/mm3 (150-375); Red Blood Count 4.31 M/mm3 (4.6-6.20); Red Cell Distribution Width 12.4 % (11.5-14.5); White Blood Count 10.4 K/mm3 (4.5-10.0)
[2020-04-23 07:04] LABS: Alanine Aminotransferase 19 U/L (4-50); Alkaline Phosphatase 52 U/L (38-126); Anion Gap 8 mmol/L (8-16); Aspartate Amino Transferase 34 U/L (17-59); Bilirubin,Total 0.6 mg/dL (0.2-1.3); Blood Urea Nitrogen 13 mg/dL (9-20); CRP 1.9 mg/dL (<1.0); Calcium 8.7 mg/dL (8.4-10.2); Carbon Dioxide 25 mmol/L (22-30); Chloride 101 mmol/L (98-107); Estimated CRCL calculation 105 ml/min; Estimated Glomerular Filt Rate > 60; Glucose 115 mg/dL (75-110); Magnesium 1.4 mg/dL (1.6-2.3); Potassium 3.3 mmol/L (3.4-5.0); Sodium 134 mmol/L (137-145)
[2020-04-23 07:44] LABS: Glucose Point of Care 123 (65-105)
[2020-04-23 08:00] VITALS: PULSE 84
[2020-04-23] MEDS: MIRTAZAPINE 15 MG TABLET PO (08:13)
[2020-04-23] MEDS: FENOFIBRATE 160 MG TABLET PO (08:13)
[2020-04-23] MEDS: ASPIRIN 81 MG ENTERIC TABLET PO (08:13)
[2020-04-23] MEDS: CHOLECALCIFEROL 1,000 UNITS TABLET 5000 UNITS PO (08:13)
[2020-04-23] MEDS: MAGNESIUM SULF 2 GM/WATER 50ML 2 GM/50 ML BAG IVPB (09:44)
[2020-04-23] MEDS: POTASSIUM CHLORIDE 20 MEQ TABLET 40 MEQ PO (09:44)
--- NOTE | 2020-04-23 10:58 | PM.IMPN ---
Progress Note: A&P Assessment and Plan (1) UTI (urinary tract infection) due to urinary indwelling catheter: Qualifiers: Encounter type: initial encounter Indwelling urinary catheter type: indwelling urethral catheter Qualified Code(s): T83.511A - Infection and inflammatory reaction due to indwelling urethral catheter, initial encounter; N39.0 - Urinary tract infection, site not specified Code(s): T83.511A - Infection and inflammatory reaction due to indwelling urethral catheter, initial encounter; N39.0 - Urinary tract infection, site not specified Status: Acute Assessment and Plan: -----Urine culture confirmed UTI with Klebsiella sensitive to ceftriaxone. Will continue IV antibiotics at this time and monitor blood cultures. He should be able to go home on oral medications tomorrow as long as he continues to do well. We did a voiding trial which she is not retaining urine but is continuously incontinent which is a new symptom. He is going to try to regulate his urine today but if not, we can reinsert the Jang catheter before discharge. (2) Hypotension: Qualifiers: Hypotension type: unspecified hypotension type Qualified Code(s): I95.9 - Hypotension, unspecified Code(s): I95.9 - Hypotension, unspecified Status: Acute Assessment and Plan: -----last blood pressure 141/78 which is improved from admission when it was 94/67. I am not going to restart his hydrochlorothiazide just yet at this time but may need to do so in the future. (3) Urinary retention: Code(s): R33.9 - Retention of urine, unspecified Status: Acute Assessment and Plan: -----chronic since his stroke. See above (4) Type 2 diabetes mellitus: Code(s): E11.9 - Type 2 diabetes mellitus without complications Status: Chronic Assessment and Plan: -----last glucose 123. Continue Accu-Cheks AC and HS. Metformin is on hold due to acute renal failure but will be restarted on discharge. (5) Essential hypertension: Code(s): I10 - Essential (primary) hypertension Status: Chronic Assessment and Plan: -----See above. Will restart lisinopril (6) Dyslipidemia: Code(s): E78.5 - Hyperlipidemia, unspecified Status: Chronic Assessment and Plan: -----Continue lipitor and fenofibrate (7) Sepsis: Code(s): A41.9 - Sepsis, unspecified organism Status: Acute Assessment and Plan: -----due to UTI evident by tachycardia, white blood cell count, and hypotension. Resolved Subjective Date/time seen: 04/23/20 10:58 Interval history: Pt is a 74 year old male here for UTI sepsis and states he is doing okay. Nurse states he has been incontinent of stool and urine. He says he does not feel the urge to urinate and pretty much goes continously. He did not do this before his stroke. Nursing staff also state he had pain in his left wrist that he says comes and goes but he currently without pain. Pt denies nausea, vomiting, fevers, chills, constipation, diarrhea, chest pain, sob, or abdominal pain. Exam Narrative: Exam Narrative: General: Well developed well nourished patient in NAD HEENT: normocephalic Neck: supple Neuro: Alert and oriented x4. Weak on his left upper extremity CV:RRR. Telemetry with no arrhythmias Resp: Less crackles today. no wheezing or rhonchi Abd: Soft, non distended. No pain to palpation. Positive bowel sounds Extremities: No swelling, erythema, or pain to palpation. Objective Data Vital Signs Vital Signs: Vital Signs - 24 hr 04/22/20 12:00 04/22/20 14:00 04/22/20 16:00 Temperature 98.1 F Pulse Rate 96 85 87 Respiratory Rate 21 H Blood Pressure 117/71 Pulse Oximetry 93 04/22/20 20:00 04/22/20 22:00 04/23/20 00:00 Temperature 98.2 F Pulse Rate 81 78 74 Respiratory Rate 20 Blood Pressure 136/89 Pulse Oximetry 98 04/23/20 04:00
[2020-04-23 11:49] LABS: Glucose Point of Care 139 (65-105)
[2020-04-23] MEDS: lisinopriL 10 MG TABLET PO (13:11)
[2020-04-23 14:00] VITALS: BP 126/66; PULSE 87; RESP 18; TEMP 36.7; O2SAT 97
[2020-04-23 17:27] LABS: Glucose Point of Care 125 (65-105)
[2020-04-23] MEDS: ATORVASTATIN 40 MG TABLET PO (21:06)
[2020-04-23 22:00] VITALS: BP 123/70; PULSE 73; RESP 18; TEMP 37.2; O2SAT 96
[2020-04-23 22:30] LABS: Glucose Point of Care 115 (65-105)
[2020-04-24 05:47] LABS: Hematocrit 35.5 % (42.0-52.0); Hemoglobin 12.1 g/dL (14.0-18.0); Mean Corpuscular HGB Conc 34.1 g/dl (32-36); Mean Corpuscular Hemoglobin 28.4 pg (26-34); Mean Corpuscular Volume 83.3 fl (80-100); Mean Platelet Volume 9.3 fl (7.4-10.4); Platelet Count Result 373 k/mm3 (150-375); Red Blood Count 4.26 M/mm3 (4.6-6.20); Red Cell Distribution Width 12.7 % (11.5-14.5); White Blood Count 10.4 K/mm3 (4.5-10.0)
[2020-04-24 06:00] VITALS: BP 119/71; PULSE 73; RESP 20; TEMP 36.2; O2SAT 99
[2020-04-24 06:02] LABS: Anion Gap 4 mmol/L (8-16); Blood Urea Nitrogen 9 mg/dL (9-20); Calcium 8.7 mg/dL (8.4-10.2); Carbon Dioxide 30 mmol/L (22-30); Chloride 102 mmol/L (98-107); Estimated CRCL calculation 89 ml/min; Estimated Glomerular Filt Rate > 60; Glucose 93 mg/dL (75-110); Magnesium 1.4 mg/dL (1.6-2.3); Potassium 3.4 mmol/L (3.4-5.0); Sodium 136 mmol/L (137-145)
[2020-04-24 08:30] LABS: Glucose Point of Care 92 (65-105)
--- NOTE | 2020-04-24 08:51 | PM.IMPN ---
Progress Note: A&P Assessment and Plan (1) Aspiration into airway: Code(s): T17.908A - Unspecified foreign body in respiratory tract, part unspecified causing other injury, initial encounter Status: Acute Assessment and Plan: ----- patient reportedly had an aspiration event overnight. No other details are available at this time. He had a stroke 2 months ago which could be the cause. He is NPO and is going to get a swallow study and a chest x-ray. I have adjusted his medications to Unasyn and started breathing treatments. He does have rhonchi and wheezing which is new for him. Will initiate aspiration precautions and await further recommendations by speech therapy. White blood cell count remained stable today 10.2 and his blood pressure and pulse are within normal limits. No signs systemic infection at this time (2) UTI (urinary tract infection) due to urinary indwelling catheter: Qualifiers: Encounter type: initial encounter Indwelling urinary catheter type: indwelling urethral catheter Qualified Code(s): T83.511A - Infection and inflammatory reaction due to indwelling urethral catheter, initial encounter; N39.0 - Urinary tract infection, site not specified Code(s): T83.511A - Infection and inflammatory reaction due to indwelling urethral catheter, initial encounter; N39.0 - Urinary tract infection, site not specified Status: Acute Assessment and Plan: -----Urine culture confirmed UTI with Klebsiella now on Unasyn which will cover his UTI as well. We did a voiding trial which she is not retaining urine but is continuously incontinent which is a new symptom. No plan for benavidez catheter unless he is retaining urine. Incontinence is not an indication as the risk of infection with catheter outweighs the benefits of catheter for connivence. (3) Hypotension: Qualifiers: Hypotension type: unspecified hypotension type Qualified Code(s): I95.9 - Hypotension, unspecified Code(s): I95.9 - Hypotension, unspecified Status: Acute Assessment and Plan: -----last blood pressure 119/71 which is improved from admission when it was 94/67. I am not going to restart his hydrochlorothiazide just yet at this time but may need to do so in the future. (4) Urinary retention: Code(s): R33.9 - Retention of urine, unspecified Status: Acute Assessment and Plan: ----- See above (5) Type 2 diabetes mellitus: Code(s): E11.9 - Type 2 diabetes mellitus without complications Status: Chronic Assessment and Plan: -----last glucose 92. Continue Accu-Cheks AC and HS. Metformin is on hold due to acute renal failure but will be restarted on discharge. (6) Essential hypertension: Code(s): I10 - Essential (primary) hypertension Status: Chronic Assessment and Plan: -----See above. continue lisinopril (7) Dyslipidemia: Code(s): E78.5 - Hyperlipidemia, unspecified Status: Chronic Assessment and Plan: -----Continue lipitor and fenofibrate (8) Sepsis: Code(s): A41.9 - Sepsis, unspecified organism Status: Acute Assessment and Plan: -----due to UTI evident by tachycardia, white blood cell count, and hypotension. Resolved Subjective Date/time seen: 04/24/20 08:51 Interval history: Pt is a 74 year old male here for UTI sepsis. Nursing staff states that the patient had an aspiration event overnight but could not tell me any details other than that. There is no documentation in the chart about this either. Patient was seen today and was sleepy. He had no complaints and did not feel short of breath. He specifically denies chest pain, abdominal pain, nausea, vomiting, fevers, chills, diarrhea or constipation. He continues to be incontinent of urine. Exam Narrative: Exam Narrative: General: Well developed well nourished patient in [facility] HEENT: n
[2020-04-24] MEDS: MAGNESIUM SULF 4 GM/WATER100ML 4 GM/100 ML BAG IVPB (09:27)
[2020-04-24] MEDS: AMPICILLIN SULB 1.5 GM/NS 50ML 1.5 GM/50 ML VIAL IVPB ×3 (10:51→21:24)
[2020-04-24 11:53] LABS: Glucose Point of Care 94 (65-105)
[2020-04-24 14:00] VITALS: BP 119/82; PULSE 91; RESP 20; TEMP 36.4; O2SAT 96
[2020-04-24] MEDS: CHOLECALCIFEROL 1,000 UNITS TABLET 5000 UNITS PO (14:05)
[2020-04-24] MEDS: MIRTAZAPINE 15 MG TABLET PO (14:06)
[2020-04-24] MEDS: ASPIRIN 81 MG ENTERIC TABLET PO (14:06)
[2020-04-24] MEDS: MAGNESIUM OXIDE 400 MG TABLET PO (14:06)
[2020-04-24] MEDS: lisinopriL 10 MG TABLET PO (14:06)
[2020-04-24] MEDS: POTASSIUM CHLORIDE 20 MEQ TABLET 40 MEQ PO (14:07)
[2020-04-24] MEDS: FENOFIBRATE 160 MG TABLET PO (14:07)
[2020-04-24 14:12] LABS: SARS-CoV-2 RNA PCR Positive
--- NOTE | 2020-04-24 14:16 | PCNFU ---
Nutrition Follow-Up Complete: Inadequate nutrient intake related to unknown etiology, as evidenced by refusal of meal(s) and weight loss of 31lb since February 27, 2020. Goal: Pt. regain appetite and consume at least 90% of total caloric needs in addition to protein supplement. Progressing towards goal. We will continue current goal. Pt current nutrition is NPO. Nutrition recommendation: Regular with Glucerna shakes TID Last recorded weight is 83.2 kg. Bowel Motility: +BM 04/22 Labs Reviewed:Na 136,Hct 35.5, Hgb 12.1 Meds Noted:Vit D, Remeron, Mag Ox. Additional Notes:Patient NPO for MBS today. Spoke with Speech Therapy today they are recommending a regular diet. I would also recommend Glucerna shakes TID for additional 220 kcals and 10 gms protein 2/2 to poor po intake. Monitoring: Monitor pt. intake records and follow up in 3 days.
--- NOTE | 2020-04-24 15:00 | PC.NURSE ---
Spoke with display manager, director, and Renita RN regarding COVID results. Patient was previously positive for COVID 2 weeks ago. COVID testing required for placement has resulted positive today. Patient has already isolated for 10 days prior to admission. Therefore, per Renita we will not isolate at this time. Case management notified as patient was tentatively discharging to [facility].
[2020-04-24 16:37] LABS: Glucose Point of Care 93 (65-105)
[2020-04-24 20:37] VITALS: PULSE 72; RESP 16
[2020-04-24] MEDS: LEVALBUTEROL NEB 1.25 MG/3 ML 0.63 MG INHALATION (20:37)
[2020-04-24 20:48] VITALS: PULSE 77; RESP 16
[2020-04-24] MEDS: ATORVASTATIN 40 MG TABLET PO (21:24)
[2020-04-24 21:54] LABS: Glucose Point of Care 91 (65-105)
[2020-04-24 22:00] VITALS: BP 129/70; PULSE 77; RESP 20; TEMP 37.1; O2SAT 96
[2020-04-25] VITALS (7 sets, daily range): BP systolic 119–124; BP diastolic 75; PULSE 70–85; RESP 16–20; TEMP 36.4; O2SAT 92–93
[2020-04-25] MEDS: LEVALBUTEROL NEB 1.25 MG/3 ML 0.63 MG INHALATION ×2 (01:59→09:17)
[2020-04-25] MEDS: AMPICILLIN SULB 1.5 GM/NS 50ML 1.5 GM/50 ML VIAL IVPB ×2 (03:17→08:36)
[2020-04-25 06:13] LABS: Basophils Absolute Auto 0.1 K/mm3 (0.0-0.1); Basophils Percent Auto 0.7 % (0.2-1.2); Eosinophils Absolute Auto 0.2 K/mm3 (0-0.3); Eosinophils Percent Auto 2.4 % (0-4.4); Hematocrit 37.5 % (42.0-52.0); Hemoglobin 12.8 g/dL (14.0-18.0); Immature Granulocyte Absolute 0.06 K/mm3 (0.00-0.031); Immature Granulocyte Percent A 0.7 % (0-0.5); Lymphocytes Absolute Auto 1.38 K/mm3 (0.9-3.2); Lymphocytes Percent Auto 16.9 % (18.3-44.2); Mean Corpuscular HGB Conc 34.1 g/dl (32-36); Mean Corpuscular Hemoglobin 28.4 pg (26-34); Mean Corpuscular Volume 83.3 fl (80-100); Mean Platelet Volume 9.5 fl (7.4-10.4); Monocytes Absolute Auto 0.8 K/mm3 (0.1-0.6); Monocytes Percent Auto 9.4 % (2.6-8.5); Neutrophils Absolute Auto 5.7 K/mm3 (1.3-6.7); Neutrophils Percent Auto 69.9 % (45.5-73.1); Platelet Count Result 374 k/mm3 (150-375); Red Cell Distribution Width 12.9 % (11.5-14.5); White Blood Count 8.2 K/mm3 (4.5-10.0)
[2020-04-25 06:34] LABS: Alanine Aminotransferase 17 U/L (4-50); Albumin Level 3.2 g/dL (3.5-5.1); Alkaline Phosphatase 63 U/L (38-126); Anion Gap 7 mmol/L (8-16); Aspartate Amino Transferase 34 U/L (17-59); Bilirubin,Total 0.5 mg/dL (0.2-1.3); Blood Urea Nitrogen 10 mg/dL (9-20); Calcium 8.8 mg/dL (8.4-10.2); Carbon Dioxide 28 mmol/L (22-30); Chloride 104 mmol/L (98-107); Estimated CRCL calculation 89 ml/min; Estimated Glomerular Filt Rate > 60; Glucose 87 mg/dL (75-110); Magnesium 1.8 mg/dL (1.6-2.3); Potassium 3.9 mmol/L (3.4-5.0); Sodium 139 mmol/L (137-145)
[2020-04-25] MEDS: MAGNESIUM OXIDE 400 MG TABLET PO (08:37)
[2020-04-25] MEDS: ASPIRIN 81 MG ENTERIC TABLET PO (08:37)
[2020-04-25] MEDS: lisinopriL 10 MG TABLET PO (08:37)
[2020-04-25] MEDS: CHOLECALCIFEROL 1,000 UNITS TABLET 5000 UNITS PO (08:37)
[2020-04-25] MEDS: FENOFIBRATE 160 MG TABLET PO (08:38)
[2020-04-25] MEDS: MIRTAZAPINE 15 MG TABLET PO (08:38)
[2020-04-25 09:23] LABS: Glucose Point of Care 91 (65-105)
--- NOTE | 2020-04-25 09:56 | PM.DS ---
DS: Admitting Diagnosis Admitting Diagnosis Admitting Diagnosis: uti/hypotension DS: Discharge Diagnosis Discharge Diagnosis (1) Aspiration into airway: Code(s): T17.908A - Unspecified foreign body in respiratory tract, part unspecified causing other injury, initial encounter Status: Acute Assessment and Plan: -----there was reports that the patient might have aspirated during his hospitalization. He was made NPO and underwent a swallow study which he passed. Chest x-ray did not show any new infection and he did not require any oxygen. His antibiotic regimen for his UTI was adjusted to Augmentin to cover for respiratory pathogens. He is to follow-up with speech therapy outpatient. White blood cell count normal as well as vitals normal the day of discharge (2) UTI (urinary tract infection) due to urinary indwelling catheter: Qualifiers: Encounter type: initial encounter Indwelling urinary catheter type: indwelling urethral catheter Qualified Code(s): T83.511A - Infection and inflammatory reaction due to indwelling urethral catheter, initial encounter; N39.0 - Urinary tract infection, site not specified Code(s): T83.511A - Infection and inflammatory reaction due to indwelling urethral catheter, initial encounter; N39.0 - Urinary tract infection, site not specified Status: Acute Assessment and Plan: -----Urine culture confirmed UTI with Klebsiella discharged on Augmentin. We did a voiding trial which she is not retaining urine but is continuously incontinent which is a new symptom. No plan for benavidez catheter unless he is retaining urine. Incontinence is not an indication as the risk of infection with catheter outweighs the benefits of catheter for connivence. (3) Hypotension: Qualifiers: Hypotension type: unspecified hypotension type Qualified Code(s): I95.9 - Hypotension, unspecified Code(s): I95.9 - Hypotension, unspecified Status: Acute Assessment and Plan: -----last blood pressure 124/75 which is improved from admission when it was 94/67. Hydrochlorothiazide discontinued (4) Urinary retention: Code(s): R33.9 - Retention of urine, unspecified Status: Acute Assessment and Plan: ----- See above (5) Type 2 diabetes mellitus: Code(s): E11.9 - Type 2 diabetes mellitus without complications Status: Chronic Assessment and Plan: -----last glucose 208. Continue home regimen (6) Essential hypertension: Code(s): I10 - Essential (primary) hypertension Status: Chronic Assessment and Plan: -----See above. continue lisinopril (7) Dyslipidemia: Code(s): E78.5 - Hyperlipidemia, unspecified Status: Chronic Assessment and Plan: -----Continue lipitor and fenofibrate (8) Sepsis: Code(s): A41.9 - Sepsis, unspecified organism Status: Acute Assessment and Plan: -----due to UTI evident by tachycardia, white blood cell count, and hypotension. Resolved DS: Summary Hospital Course Reason for hospitalization: Hypotension Hospital Course: Patient is a 74-year-old male at a rehab center for stroke therapy who presented emergency room for low blood pressures. He tested positive for COVID-19 2 weeks ago but had no recurrent symptoms. Vitals in the ER were temperature 36.6? C, pulse 107, respiratory rate 18, blood pressure 94/67, pulse ox 95 on room air. White blood cell count 12.6, hemoglobin 14.5, hematocrit 43.2, platelets 472. Creatinine a bit elevated 1.4. Lactic acid normal. UA suspicious for UTI. Patient was admitted to the hospitalist service and started on IV fluids and antibiotics. Urine culture grew Klebsiella pnemoniae. And he was on ceftriaxone which was sensitive. During his hospitalization he was thought to aspirate so his antibiotics were changed and he was discharged on Augmentin. Chest x-ray did not show a
[2020-04-25 11:43] LABS: Glucose Point of Care 208 (65-105)
[2020-04-25] MEDS: INSULIN ASPART (*BKC) 100 UNITS/ML SUB-Q (11:45)
--- NOTE | 2020-04-30 08:08 | PC.NURSE ---
Blood cx are negative.
== END 2020-04-25 14:00 | DRG 698 ==
LOC: ANHED 17:22 → ANH2MED 18:22
PROVIDERS: Nurse Practitioner; Admitting Provider Family Medicine; Emergency Provider Emergency Medicine; PCP Internal Medicine; Visit Provider Physician Assistant
DX: T83.511A Infection and inflammatory reaction due to indwelling urethral catheter, initial encounter (principal); A41.9 Sepsis, unspecified organism; U07.1 COVID-19; E78.5 Hyperlipidemia, unspecified; E11.9 Type 2 diabetes mellitus without complications; I10 Essential (primary) hypertension; T17.908A Unspecified foreign body in respiratory tract, part unspecified causing other injury, initial encounter; B96.1 Klebsiella pneumoniae [K. pneumoniae] as the cause of diseases classified elsewhere
CPT/HCPCS: 36415; 71045; 80048; 80053; 80076; 81001; 83605; 83735; 83880; 84132; 84443; 84484; 85025; 85027; 86140; 87040; 87077; 87086; 87088; 87186; 87635; 92611; 93005; 94640; 96361; 96365; 96375; 97110; 97161; 97166; 97530; 99285; A9270; C9803; G0378; J0295; J0696; J1815; J3475; J3480; J7030; U0003

== ENCOUNTER 2021-01-12 13:31 | Outpatient (RCR) | payer MEDICARE, BC, SELFPAY ==
--- NOTE | 2021-01-12 16:01 | PCPTNOTE ---
Patient:Cleve Oseguera Date of :1945 Power mobility seating assessment. Thank you for referring this patient to [facility]. Cleve has been evaluated for wheelchair seating assessment. Recommendations for a power mobility device has been completed with the wheelchair DME provider, Efrem, from [facility]. The findings have been scanned into the patient's EMR. Please review, sign, date and return this recognition of care provided. No additional skilled therapy services are indicated at this time time. I agree with and certify that the following plan for DME equipment is medically necessary. Referring Physician date
== END 2021-01-21 16:54 | disposition home or self-care (01) ==
LOC: ANHPT 13:31
PROVIDERS: PCP Internal Medicine; Visit Provider Internal Medicine
DX: I63.9 Cerebral infarction, unspecified (principal); Z76.89 Persons encountering health services in other specified circumstances
CPT/HCPCS: 97163

== ENCOUNTER 2022-01-11 10:30 | Outpatient (CLI) | payer MEDICARE, BC, SELFPAY ==
--- NOTE | ~2022-01-11 | XR_ITS ---
EXAMINATION: XR abdomen/kub 1V INDICATION: Gross hematuria TECHNIQUE: Supine views of the abdomen were obtained on 2 radiographs. COMPARISON: CT from today FINDINGS: A 5 mm calcification projects in the expected location of the right renal pelvis. There are phleboliths of the pelvis. The bowel gas pattern is normal. There is moderate osteoarthritis of the hips. IMPRESSION: 1. 5 mm calcification projecting in the expected location of the right renal pelvis. Reviewed, dictated and finalized at location A. IMPRESSION: 1. 5 mm calcification projecting in the expected location of the right renal pe lvis.
--- NOTE | ~2022-01-11 | CT_ITS ---
EXAMINATION: CT abdomen pelvis wo/w con DATE: 01/11/2022 11:39 INDICATION: Gross hematuria TECHNIQUE: Computed tomography (CT) of the abdomen and pelvis was performed without and subsequently with 130 CC Omnipaque 300 intravenous contrast. Automated exposure control and iterative reconstructi on technique were employed. Exam dose: 2492.53 mGy-cm total exam DLP. COMPARISON: 01/11/2022 KUB FINDINGS: Cardiomegaly. Coronary artery calcifications. Trace pericardial effusion. Small right pleur al effusion. Mild discoid atelectasis or scarring, right lower lobe. There are multiple stones in the dependent aspect of the gallbladder. No gallbladder wall thickening or pericholecystic fluid or fat stranding. No hepatic, splenic, pancreatic or adrenal space-occupying mass lesion. No bile duct or pancreatic duct dilatation. There is a calcification of the body of the pancreas whic h may indicate mild chronic pancreatitis. Approximately 4 x 4 mm right renal pelvic calculus; mild right hydronephrosis.. Approximately 2 mm lo wer pole nonobstructing right renal calculus. No left renal calculus. No ureteral calculus. Bilateral renal cysts, measuring up to 6.1 cm on the left, 3.5 x 4.6 cm on the right. There is a prominent asymmetric irregular soft tissue mass along the lower posterior right, posterior mid and to a greater extent posterior lateral left urinary bladder. Differential diagnosis includes urothelial urinary bladder carcinoma and/or prostate carcinoma. Cystoscopic correlation and biopsy ar e recommended. Prominent abdominal aortic and iliac arterial calcifications. Prominent calcification at the origin o f the superior mesenteric and to a lesser extent celiac artery. Constipation origins of the renal art eries, especially prominent on the left. Normal appendix. Occasional colonic diverticula; no CT evidence of diverticulitis. No bowel obstructi on, bowel wall thickening, pneumatosis or intraperitoneal free air. Mild fat-containing right inguinal hernia. Fat-containing umbilical hernia. Bilateral L5 pars interarticularis defects with grade 1 anterolisthesis at L5-S1. Multilevel degenera tive disc disease of lumbar spine, most prominent at L1 to and particularly L2-3 and L3-4, with mild retrolisthesis at each of these levels. Mild degenerative disc disease with mild retrolisthesis at L4 -5. Mild to moderate degenerative disc disease at L5-S1. No suspicious osteolytic or osteoblastic lesions are noted. IMPRESSION: Large asymmetric mass along the lower posterior wall of the urinary bladder, left greate r than right, suspicious for urothelial bladder cancer and/or prostate cancer. Cystoscopic correlatio n and biopsy are recommended Cholelithiasis Bilateral renal cysts Right renal pelvic 4 x 4 mm calculus with mild right hydronephrosis as result Minimal colonic diverticulosis Bilateral L5 pars intra-articular is defects with grade 1 anterolisthesis at L5-S1 Multilevel degenerative disc disease of the lumbar and lumbosacral spine Mild fat-containing right inguinal hernia fat-containing umbilical hernia Cardiomegaly, trace pericardial effusion, small right pleural effusion Reviewed, dictated and finalized at [facility]. Reviewed, dictated and finalized at location A. IMPRESSION: Large asymmetric mass along the lower posterior wall of the urinar y bladder, left greater than right, suspicious for urothelial bladder cancer an d/or prostate cancer. Cystoscopic correlation and biopsy are recommended Cholelithiasis Bilateral renal cysts Right renal pelvic 4 x 4 mm calculus with mild right hydronephrosis as result Minimal colonic diverticulosis Bilateral L5 pars intra-articular is defects with grade 1 anterolisthesis at L5 -S1 Mult
[2022-01-11 11:18] LABS: Estimated Glomerular Filt Rate > 60
== END 2022-01-11 10:31 | disposition home or self-care (01) ==
PROVIDERS: PCP Internal Medicine; Visit Provider Nurse Practitioner Adult Health
DX: R31.0 Gross hematuria (principal); K80.20 Calculus of gallbladder without cholecystitis without obstruction; N28.1 Cyst of kidney, acquired; K57.30 Diverticulosis of large intestine without perforation or abscess without bleeding; K40.90 Unilateral inguinal hernia, without obstruction or gangrene, not specified as recurrent; I51.7 Cardiomegaly
CPT/HCPCS: 74018; 74178; Q9967

== ENCOUNTER 2022-03-03 09:25 | Outpatient (CLI) | payer MEDICARE, BC, SELFPAY ==
--- NOTE | 2022-03-03 09:30 | ECG_ITS ---
Measurements Intervals [place] Rate: 86 P: [place]: 0 QRS: -37 QRSD: 141 T: -15 QT: 413 QTc: 496 Interpretive Statements SINUS RHYTHM LEFT AXIS DEVIATION RIGHT BUNDLE BRANCH BLOCK NONSPECIFIC ST AND T-WAVE ABNORMALITY ABNORMAL ECG COMPARED TO ECG 04/21/2020 14:46:38 NO SIGNIFICANT CHANGES Electronically Signed On 03-03-2022 15:21:49 CDT by Reji Veliz M.D.
[2022-03-03 10:12] LABS: Basophils Absolute Auto 0.1 K/mm3 (0.0-0.1); Basophils Percent Auto 0.8 % (0.2-1.2); Eosinophils Absolute Auto 0.2 K/mm3 (0-0.3); Eosinophils Percent Auto 2.3 % (0-4.4); Hematocrit 44.3 % (42.0-52.0); Hemoglobin 14.6 g/dL (14.0-18.0); Immature Granulocyte Absolute 0.02 K/mm3 (0.00-0.031); Immature Granulocyte Percent A 0.3 % (0-0.5); Lymphocytes Absolute Auto 1.41 K/mm3 (0.9-3.2); Lymphocytes Percent Auto 18.1 % (18.3-44.2); Mean Corpuscular Hemoglobin 29.3 pg (26-34); Mean Platelet Volume 9.6 fl (7.4-10.4); Monocytes Absolute Auto 0.6 K/mm3 (0.1-0.6); Monocytes Percent Auto 7.9 % (2.6-8.5); Neutrophils Absolute Auto 5.5 K/mm3 (1.3-6.7); Neutrophils Percent Auto 70.6 % (45.5-73.1); Platelet Count Result 277 k/mm3 (150-375); Red Blood Count 4.98 M/mm3 (4.6-6.20); White Blood Count 7.8 K/mm3 (4.5-10.0)
[2022-03-03 10:27] LABS: INR 1.1; Partial Thromboplastin Time 31.1 SECONDS (22.3-36.8); Prothrombin Time 13.3 Seconds (11.1-14.7)
[2022-03-03 10:28] LABS: Anion Gap 9 mmol/L (8-16); Blood Urea Nitrogen 12 mg/dL (9-20); Calcium 9.2 mg/dL (8.4-10.2); Carbon Dioxide 29 mmol/L (22-30); Chloride 101 mmol/L (98-107); Estimated Glomerular Filt Rate > 60; Glucose 120 mg/dL (65-110); Potassium 4.3 mmol/L (3.4-5.0); Sodium 139 mmol/L (137-145)
== END 2022-03-03 09:26 | disposition home or self-care (01) ==
LOC: ANHSURGERY 09:39
PROVIDERS: PCP Internal Medicine; Visit Provider Urology
DX: E11.9 Type 2 diabetes mellitus without complications (principal); C67.9 Malignant neoplasm of bladder, unspecified; Z01.818 Encounter for other preprocedural examination; I45.10 Unspecified right bundle-branch block
CPT/HCPCS: 36415; 80048; 85025; 85610; 85730; 87077; 87086; 87186; 93005

== ENCOUNTER 2022-03-24 09:16 | Outpatient (CLI) | payer MEDICARE, BC, SELFPAY | END 2022-03-24 09:17 | disposition home or self-care (01) | PROVIDERS: PCP Internal Medicine; Visit Provider Urology | DX: R31.0 Gross hematuria (principal); Z01.818 Encounter for other preprocedural examination | CPT/HCPCS: 87086 ==

== ENCOUNTER 2022-03-30 15:33 | Inpatient (IN) | payer MEDICARE, BC, SELFPAY ==
[2022-03-01 08:51] VITALS: BMI 32.5
--- NOTE | 2022-03-01 09:26 | PC.NURSE ---
Report to the Outpatient Waiting Room, entrance under the green pavilion located off [facility], at time _0600_ on date _03/08/22_. OR Time: _0730_. - You and your visitor will be asked to self-screen and do not enter if you have any COVID symptoms. - Only one visitor and NO children visitors are allowed at this time. - The patient visitor is requested to leave or wait in car when not with patient due to restrictions. - A mask is required within the hospital. Patients may have clear liquids (water, carbonated beverages, clear teas, apple juice) until 3 hours prior to surgery (0430 AM) with a maximum of 20 ounces. - No food from midnight until time of surgery Take the following medications with a SIP of water the morning of surgery: _TYLENOL IF NEEDED_ Medications to discontinue per DR. PINO - _ASPIRIN AND MULTIVITAMIN (PER SPOUSE), Date to take last dose_03/01/22_ Please no make-up, nail danish, hairspray, perfume, deodorant, or body powder the day of surgery. No jewelry (including any body piercings) or valuables the day of surgery, leave them at home. Please take a shower or bath the night before, or the morning of, surgery with an antibacterial soap. Wear comfortable, loose fitting clothing. - Jewelry must be removed prior to entering the operating room. Rings and piercings that are not removed may be cut off. - The hospital will not accept responsibility for valuables. - Please leave all valuables, including medications, at home the day of surgery. If you are going home after surgery, a licensed wood pile driver operator must drive you home. - NO public transportation without another adult. - We recommend that an adult stay with you for 24 hours following discharge. - We also recommend that you do not drive, make important decision, drink alcoholic beverages, or take any drugs that were not prescribed by your health care provider for at least 24 hours after your discharge time. Follow any additional instructions given to you from your surgeon. If you or anyone in your household have experienced Covid symptoms in the past week, please notify your surgeon or the nurse liaison at the phone number below for possible testing. Telephone instructions given to and asked if any additional questions and then verbalized understanding. Patient advised to call surgeon office or pre surgery nurse liaison [phone] if any additional questions.
--- NOTE | 2022-03-21 15:26 | PC.NURSE ---
PRE-OP INSTRUCTIONS, PLEASE READ CAREFULLY Report to the Outpatient Waiting Room, entrance under the green pavilion located off [facility], at time _1100_ on date _03/29/22_. OR Time: _1 PM_. Time changes happen often and if your time is changed the preop area will call you the afternoon before. - You and your visitor will be asked to self-screen and do not enter if you have any COVID symptoms. - Only one visitor and NO children visitors are allowed at this time. - The patient visitor is requested to leave or wait in car when not with patient due to restrictions. - A mask is required within the hospital. Patients may have clear liquids (water, carbonated beverages, clear teas, apple juice) until 3 hours prior to surgery with a maximum of 20 ounces. - No food from midnight until time of surgery Take the following medications with a SIP of water the morning of surgery: _TYLENOL IF NEEDED_ Medications to discontinue _ASPIRIN AND MULTIVITAMIN PER DR. PINO'S INSTRUCTIONS 7 DAYS PRIOR TO SURGERY_ Date to take last dose_03/21/22_ Please no make-up, nail thai, hairspray, perfume, deodorant, or body powder the day of surgery. No jewelry (including any body piercings) or valuables the day of surgery, leave them at home. Please take a shower or bath the night before, or the morning of, surgery with an antibacterial soap. Wear comfortable, loose fitting clothing. - Jewelry must be removed prior to entering the operating room. Rings and piercings that are not removed may be cut off. - The hospital will not accept responsibility for valuables. - Please leave all valuables, including medications, at home the day of surgery. If you are going home after surgery, a licensed maintenance truck driver must drive you home. - NO public transportation without another adult. - We recommend that an adult stay with you for 24 hours following discharge. - We also recommend that you do not drive, make important decision, drink alcoholic beverages, or take any drugs that were not prescribed by your health care provider for at least 24 hours after your discharge time. Follow any additional instructions given to you from your surgeon. If you or anyone in your household have experienced Covid symptoms in the past week, please notify your surgeon or the nurse liaison at the phone number below for possible testing. Telephone instructions given to _PT'S SPOUSE (YUKI)_and asked if any additional questions and then verbalized understanding. Patient advised to call surgeon office or pre surgery nurse liaison [phone] if any additional questions.
[2022-03-21 15:35] VITALS: BMI 32.5
--- NOTE | 2022-03-28 12:30 | WPDANESEPPF ---
Anes - Initial Pre Proc Eval Procedure: Operation Date: 03/29/22 13:00 Proposed Procedures p Trans Urethral Resection Bladder Tumor - Eric Escobedo MD Date/Time: 03/28/22 12:30 Surgeon: Eric Escobedo MD Pre Op Diagnosis: gross hematuria, bladder lesions Patient Data Age: 76 Gender: M Height: 1.75 m Weight: 100 kg Allergies Allergy/AdvReac Type Severity Reaction Status Date / Time No Known Allergies Allergy Verified 03/21/22 15:43 Home Medications Medication Instructions Recorded Confirmed Type lisinopril 10 mg tablet 20 mg PO DAILY 02/27/20 03/21/22 History metformin 1,000 mg tablet 500 mg PO BID 02/27/20 03/21/22 History aspirin 81 mg tablet,delayed 81 mg PO QAM #30 tabs 02/29/20 03/21/22 Rx release atorvastatin 40 mg tablet 40 mg PO HS #30 tabs 02/29/20 03/21/22 Rx tamsulosin 0.4 mg capsule 0.4 mg PO QAM #30 caps 02/29/20 03/21/22 Rx acetaminophen 325 mg tablet 650 mg PO Q4H PRN Pain 04/21/20 03/21/22 History (Tylenol) cholecalciferol (vitamin D3) 125 50 mcg PO DAILY 04/21/20 03/21/22 History mcg (5,000 unit) tablet (Vitamin D3) magnesium oxide 400 mg (241.3 mg 400 mg PO QAM #30 tabs 04/25/20 03/21/22 Rx magnesium) tablet calcitriol 0.25 mcg capsule 0.25 mcg PO DAILY 03/01/22 03/21/22 History multivitamin 1 tablet PO DAILY 03/01/22 03/21/22 History ECG: Date of Service: 03/03/22 Procedure(s): CA 12 lead EKG Accession Number(s): [id number] cc: ~ ? Measurements Intervals? M[place]? Rate: ? 86 ? P:? [place]: ? 0? QRS:? -37 QRSD: ? 141? T:? -15 QT: ? 413? QTc:? 496? Interpretive Statements SINUS RHYTHM LEFT AXIS DEVIATION RIGHT BUNDLE BRANCH BLOCK NONSPECIFIC ST AND T-WAVE ABNORMALITY ABNORMAL ECG COMPARED TO ECG 04/21/2020 14:46:38 NO SIGNIFICANT CHANGES Electronically Signed On 03-03-2022 15:21:49 CDT by Reji Veliz M.D. Patient hx anesthesia problems: none Family hx anesthesia problems: none Results Review: All pre-operative results and documents have been reviewed as part of the pre-operative evaluation. [facility] Past Medical History Medical History (Updated 04/24/20 @ 09:07 by Yany Vazquez PA-C) Cervical spine disease Degenerative disc disease, cervical Dyslipidemia Essential hypertension Ischemic cerebrovascular accident (CVA) Left hemiparesis Left hemiparesis Obesity (BMI 30.0-34.9) Osteoarthritis Type 2 diabetes mellitus Surgical History Surgical History History of lumbar surgery History of replacement of both shoulder joints History of toe surgery Right 1st toe surgery done for unclear reasons. Patient cannot provide me with specifics. Family History Family History Other Hypertension Social History Social History (Updated 04/22/20 @ 00:39 by Jacquelyn Lopez NP) Social History: The patient lives in [place] with his . they have 2 children. He his retired from [employer]. He smoked perhaps a pack of cigarettes per day and quit 35 years ago. he denies alcohol and illicit substance use. He designates his , Katherine, as his surrogate decision maker and he wishes to be a full code. Smoking packs per day: 1 Smoking cigarettes per day: 20.0 Smoking status: Former smoker Tobacco type: cigarettes Second hand tobacco smoke exposure: No Additional smoking assessment comments: STATES SMOKED YRS AGO, QUIT AGE EARLY 38'S Alcohol intake: former Substance use: never Substance use type: does not use Living arrangements: with family Spiritual care concerns: No Anes - Eval Final PreProcedure Day of Proce
[2022-03-29] VITALS (13 sets, daily range): BP systolic 117–189; BP diastolic 75–112; PULSE 82–104; RESP 12–23; TEMP 35.9–36.9; O2SAT 95–100; BMI 32.3
--- NOTE | 2022-03-29 12:07 | WPDHPUPDATE1 ---
History and Physical Update Update Date/Time: 03/29/22 12:07 History and Physical has been reviewed, including an updated exam of the patient. There are NO changes in the patient's condition. Risks, benefits, and alternatives have been discussed and questions answered. Patient agrees to proceed with procedure.
[2022-03-29] MEDS: LACTATED RINGERS 1,000 ML 30 ML IV CONT ×2 (12:14→14:55)
[2022-03-29 12:17] LABS: Glucose Point of Care 112 mg/dl (65-105)
[2022-03-29] MEDS: hydrALAZINE HCL 20 MG/ML VIAL 5 MG IV PUSH (12:17)
[2022-03-29] MEDS: ceFAZolin 2 GM/D5W 50 ML 2 GM/50 ML BAG IVPB (13:47)
[2022-03-29] MEDS: LIDOCAINE HCL 2% GEL UROJET 10 ML PKG MUCOUS MEM (14:11)
--- NOTE | 2022-03-29 14:12 | SUR.PREOP ---
1215 dr estrada aware of elevated bp,orders received,hydralizine given as ordered.
--- NOTE | 2022-03-29 14:52 | P.OP_ITS ---
Procedure Note - Detailed Date of Procedure 03/29/22 Pre-op Diagnosis gross hematuria, bladder lesions Post-op Diagnosis Same Procedure Performed Cystoscopy with transurethral resection of prostate Surgeon Eric Escobedo MD Description of Procedure Patient is taken the operative suite correctly identified. Once anesthesia was obtained was placed in dorsal lithotomy position prepped draped usual sterile fashion. Twenty-two Vietnamese scope inserted into the urethra. Patient was noted to have a fused prostatic lobes inferiorly. We entered the bladder and ventrally. The area in question on CT scan appeared to be more prominent prostate lobes protruding into the bladder. No bladder tumors noted at this time. There was 2+ trabeculation present. Both ureteral orifices normal anatomic position. At this point week's changed the scope over 24 Vietnamese resectoscope sheath. We resected the prostate from the bladder neck to the verumontanum. Hemostasis was achieved using electrocautery. Chips were sent for analysis. There was good hemostasis at termination procedure. 2% viscous lidocaine was inserted urethra. Twenty-four Vietnamese [address] was placed and inflated with 20 cc in the balloon. This was connected to continuous bladder irrigation. Patient is taken recovery room stable condition. Estimated Blood Loss 50 Drains Yes Packing No Pathology Yes Complications No immediate complications Condition Stable Disposition PACU
[2022-03-29 15:04] LABS: Glucose Point of Care 111 mg/dl (65-105)
[2022-03-29] MEDS: hydrALAZINE HCL 20 MG/ML VIAL 10 MG IV PUSH (15:33)
[2022-03-29] MEDS: METOPROLOL TARTRATE INJ 5 MG/5 ML VIAL IV PUSH (16:04)
[2022-03-29 17:07] LABS: Glucose Point of Care 145 mg/dl (65-105)
[2022-03-29] MEDS: DEXTROSE 5%/LACTATED RINGERS 1,000 ML 125 ML IV CONT (17:21)
[2022-03-29] MEDS: lisinopriL 20 MG TABLET PO (17:23)
[2022-03-29] MEDS: DOCUSATE SODIUM 100 MG CAPSULE PO (20:38)
[2022-03-29] MEDS: ATORVASTATIN 40 MG TABLET PO (20:38)
[2022-03-29 21:08] LABS: Glucose Point of Care 288 mg/dl (65-105)
[2022-03-30 04:54] VITALS: BP 135/70; PULSE 82; RESP 16; TEMP 36.4; O2SAT 94
[2022-03-30 05:35] LABS: Hematocrit 39.8 % (42.0-52.0); Hemoglobin 13.1 g/dL (14.0-18.0)
[2022-03-30 05:49] LABS: Anion Gap 12 mmol/L (8-16); Blood Urea Nitrogen 14 mg/dL (9-20); Calcium 8.7 mg/dL (8.4-10.2); Carbon Dioxide 25 mmol/L (22-30); Chloride 100 mmol/L (98-107); Estimated CRCL calculation 87 ml/min; Estimated Glomerular Filt Rate > 60; Glucose 159 mg/dL (65-110); Sodium 137 mmol/L (137-145)
--- NOTE | 2022-03-30 08:07 | WPDUROPN2 ---
Progress Note: A&P Assessment and Plan (1) Gross hematuria: Code(s): R31.0 - Gross hematuria Status: Acute Assessment and Plan: Continue with CBI for today. Will wean overnight if urine becomes clear (2) BPH (benign prostatic hyperplasia): Code(s): N40.0 - Benign prostatic hyperplasia without lower urinary tract symptoms Status: Acute Assessment and Plan: Postop day 1. Transurethral resection of prostate. Continue with CBI for today his urine is still somewhat bloody in nature. Subjective Subjective Date/Time Seen: 03/30/22 08:07 Post Op day: 1 (Transurethral resection of prostate) Principal diagnosis: Hematuria with possible bladder mass Interval history: Doing well postoperative day 1. Urine is still somewhat bloody in nature. Will continue with CBI Review of Systems Review of Systems: All systems reviewed & are unremarkable except as noted in HPI and below Exam Const: General: cooperative, comfortable and no acute distress HENMT: Head: normal to inspection Resp: Effort & Inspection: normal respiratory effort Cardio: Rate: regular rate GI: Inspection: normal to inspection : Scrotum: scrotum normal Urinary Catheter: Urinary Catheter: patent and draining and urine red Objective Data Vital Signs Vital Signs: Vital Signs - 24 hr 03/29/22 12:15 03/29/22 14:54 03/29/22 15:09 Temperature 36.4 C L 35.9 C L Pulse Rate 90 92 86 Respiratory Rate 16 12 14 Blood Pressure 189/112 H 123/75 117/77 Pulse Oximetry 98 98 99 Oxygen Delivery Room Air Simple Face Mask Simple Face Mask Oxygen Flow Rate 10 10 03/29/22 15:24 03/29/22 15:39 03/29/22 15:54 Temperature Pulse Rate 85 94 99 Respiratory Rate 14 23 H 19 Blood Pressure 168/103 H 172/90 H 184/93 H Pulse Oximetry 100 97 97 Oxygen Delivery Simple Face Mask Room Air Room Air Oxygen Flow Rate 10 03/29/22 16:04 03/29/22 16:09 03/29/22 16:30 Temperature 36.2 C L 36.5 C Pulse Rate 104 H 87 88 Respiratory Rate 18 18 Blood Pressure 170/87 H 176/90 H Pulse Oximetry 95 96 Oxygen Delivery Room Air Oxygen Flow Rate 03/29/22 16:45 03/29/22 17:15 03/29/22 18:38 Temperature 36.5 C 36.5 C Pulse Rate 86 85 Respiratory Rate 18 18 Blood Pressure 176/88 H 175/92 H Pulse Oximetry 95 95 Oxygen Delivery Room Air Oxygen Flow Rate 03/29/22 18:15 03/29/22 22:04 03/30/22 04:54 Temperature 36.4 C 36.9 C 36.4 C Pulse Rate 82 97 82 Respiratory Rate 18 18 16 Blood Pressure 172/86 H 156/88 H 135/70 Pulse Oximetry 96 98 94 Oxygen Delivery Oxygen Flow Rate Intake/Output Intake/Output: Intake & Output 03/27/22 03/28/22 03/29/22 03/30/22 23:59 23:59 23:59 23:59 Intake Total 5050 250 Output Total 6450 1999 Balance -1400 -6100 Meds/Results Medications: Active Medications Generic Name Dose Route Start Last Admin Trade Name Freq PRN Reason Stop Dose Admin Hydrocodone Bitart/Acetaminophen 1 tab 03/29/22 16:19 Hydrocodone/Acetaminophen (*Crx) 5-325 Mg Tablet PO Q4H PRN Pain Rated 1-6 Atorvastatin Calcium 40 mg 03/29/22 21:00 03/29/22 20:38 Atorvastatin 40 Mg Tablet PO 40 mg HS WEN Administration Cephalexin HCl 500 mg 03/30/22 09:00 Cephalexin 500 Mg Capsule PO QID WEN Docusate Sodium 100 mg 03/29/22 21:00 03/29/22 20:38 Docusate Sodium 100 Mg Capsule PO 100 mg Q12HR WEN Administration Hyoscyamine 0.125 mg 03/29/22 16:19 Hyoscyamine Sulfate 0.125 Mg Tablet SUBLINGUAL Q6H PRN Bladder Spasm Lisinopril 20 mg 03/29/22 17:00 03/29/22 17:23 Lisinopril 20 Mg Tablet PO 20 mg DAILY WEN Administration Metformin HCl 500 mg 03/29/22 17:00 Metformin Hcl 500 Mg Tablet PO BID WEN Miscellaneous Information 0 each 03/29/22 00:01 Metformin Please Clarify Dose External Med Rec Shows 100mg Bid XX 04/28/22 00:00 CLARIFY WEN Morphine Sulfate 2 mg 03/29/22 16:19 Morphine S
[2022-03-30 08:25] VITALS: BP 129/69; PULSE 78; RESP 16; O2SAT 96
[2022-03-30] MEDS: lisinopriL 20 MG TABLET PO (08:28)
[2022-03-30] MEDS: DOCUSATE SODIUM 100 MG CAPSULE PO ×2 (08:28→20:12)
[2022-03-30] MEDS: CEPHALEXIN 500 MG CAPSULE PO ×4 (08:28→20:12)
[2022-03-30 08:39] LABS: Glucose Point of Care 143 mg/dl (65-105)
[2022-03-30 11:52] LABS: Glucose Point of Care 166 mg/dl (65-105)
[2022-03-30 11:55] VITALS: BP 126/72; PULSE 88; RESP 16; TEMP 36.7; O2SAT 98
--- NOTE | 2022-03-30 13:27 | PC.NURSE ---
On 03/30/22, the student, [Nilay Elliott], provided care and completed [facility] documentation on this patient. I have reviewed the student's documentation and agree with the findings.
[2022-03-30 15:45] VITALS: BP 134/72; PULSE 82; RESP 17; TEMP 36.4; O2SAT 96
[2022-03-30] MEDS: metFORMIN HCL 500 MG TABLET PO (17:25)
[2022-03-30 17:29] LABS: Glucose Point of Care 182 mg/dl (65-105)
[2022-03-30] MEDS: ATORVASTATIN 40 MG TABLET PO (20:12)
[2022-03-30 20:27] VITALS: BP 148/79; PULSE 73; RESP 16; TEMP 36.4; O2SAT 98
[2022-03-30 21:29] LABS: Glucose Point of Care 204 mg/dl (65-105)
[2022-03-31] VITALS: BP 140/68; PULSE 73; RESP 14; TEMP 36.7; O2SAT 97
[2022-03-31 06:57] VITALS: BP 151/74; PULSE 76; RESP 14; TEMP 36.6; O2SAT 99
[2022-03-31] MEDS: lisinopriL 20 MG TABLET PO (08:12)
[2022-03-31] MEDS: CEPHALEXIN 500 MG CAPSULE PO ×4 (08:12→20:49)
[2022-03-31] MEDS: metFORMIN HCL 500 MG TABLET PO ×2 (08:12→17:36)
[2022-03-31] MEDS: DOCUSATE SODIUM 100 MG CAPSULE PO ×2 (08:12→20:49)
[2022-03-31 08:30] LABS: Glucose Point of Care 96 mg/dl (65-105)
[2022-03-31 10:00] VITALS: BP 150/79; PULSE 91; RESP 15; TEMP 36.7; O2SAT 96
[2022-03-31 12:34] LABS: Glucose Point of Care 153 mg/dl (65-105)
[2022-03-31 14:00] VITALS: BP 150/70; PULSE 86; RESP 15; TEMP 37.1; O2SAT 97
--- NOTE | 2022-03-31 15:38 | WPDUROPN2 ---
Progress Note: A&P Assessment and Plan (1) BPH (benign prostatic hyperplasia): Code(s): N40.0 - Benign prostatic hyperplasia without lower urinary tract symptoms Status: Acute Assessment and Plan: Continue CBI, wean to off when clear, will re-assess in the morning. Likely to take some time to improve. Hopeful to discharge tomorrow, slight improvement today. (2) Gross hematuria: Code(s): R31.0 - Gross hematuria Status: Acute Subjective Subjective Date/Time Seen: 03/31/22 15:38 Cystoscopy with TURP Patient remains with bloody urine on CBI. It was pink this morning on slow CBI, I turned it off and rechecked about 3 hours later and it was red in color, but still draining without clots. Post Op day: 2 Review of Systems Cardiovascular: Cardiovascular: Reports no additional cardiovascular complaints Respiratory: Respiratory: Reports no additional respiratory complaints Gastrointestinal: Gastrointestinal: Denies abdominal pain, Denies nausea and Denies vomiting Genitourinary: Genitourinary: Reports hematuria and Denies flank pain Exam Const: General: cooperative Cardio: Rate: regular rate GI: GI Palp: Yes Soft to palpation and No Tenderness to palpation present (GI) : General: Yes no CVA tenderness Urinary Catheter: Urinary Catheter: patent and draining and urine red Extrem: Right lower extremity: no edema Left lower extremity: no edema Objective Data Vital Signs Vital Signs: Vital Signs - 24 hr 03/30/22 15:45 03/30/22 20:27 03/31/22 00:00 Temperature 97.5 F L 97.6 F 98.0 F Pulse Rate 82 73 73 Respiratory Rate 17 16 14 Blood Pressure 134/72 148/79 H 140/68 Pulse Oximetry 96 98 97 Oxygen Delivery 03/31/22 06:57 03/31/22 10:00 03/31/22 08:20 Temperature 97.8 F 98.1 F Pulse Rate 76 91 Respiratory Rate 14 15 Blood Pressure 151/74 H 150/79 H Pulse Oximetry 99 96 Oxygen Delivery Room Air 03/31/22 14:00 Temperature 98.7 F Pulse Rate 86 Respiratory Rate 15 Blood Pressure 150/70 H Pulse Oximetry 97 Oxygen Delivery Intake/Output Intake/Output: Intake & Output 03/28/22 03/29/22 03/30/22 03/31/22 23:59 23:59 23:59 23:59 Intake Total 5050 2050 1510 Output Total 1333 0817 6102 [id number] -8439 -0201 -609 Meds/Results Medications: Active Medications Generic Name Dose Route Start Last Admin Trade Name Freq PRN Reason Stop Dose Admin Hydrocodone Bitart/Acetaminophen 1 tab 03/29/22 16:19 Hydrocodone/Acetaminophen (*Crx) 5-325 Mg Tablet PO Q4H PRN Pain Rated 1-6 Atorvastatin Calcium 40 mg 03/29/22 21:00 03/30/22 20:12 Atorvastatin 40 Mg Tablet PO 40 mg HS WEN Administration Cephalexin HCl 500 mg 03/30/22 09:00 03/31/22 12:34 Cephalexin 500 Mg Capsule PO 500 mg QID WEN Administration Docusate Sodium 100 mg 03/29/22 21:00 03/31/22 08:12 Docusate Sodium 100 Mg Capsule PO 100 mg Q12HR WEN Administration Hyoscyamine 0.125 mg 03/29/22 16:19 Hyoscyamine Sulfate 0.125 Mg Tablet SUBLINGUAL Q6H PRN Bladder Spasm Lisinopril 20 mg 03/29/22 17:00 03/31/22 08:12 Lisinopril 20 Mg Tablet PO 20 mg DAILY WEN Administration Metformin HCl 500 mg 03/30/22 17:00 03/31/22 08:12 Metformin Hcl 500 Mg Tablet PO 500 mg BIDWM WEN Administration Morphine Sulfate 2 mg 03/29/22 16:19 Morphine Sulfate (*Crx) 2 Mg/Ml Inj IV PUSH Q2H PRN Pain Rated 7-10 Naloxone HCl 0.1 mg 03/29/22 16:19 Naloxone Hcl 0.4 Mg/Ml Vial IV PUSH Q2M PRN Opiate Reversal Ondansetron HCl 4 mg 03/29/22 16:19 Ondansetron Inj 4 Mg/2 Ml Vial IV PUSH Q12H PRN Nausea And Vomiting Labs Labs: Laboratory Results - last 24 hr 03/30/22 03/30/22 03/31/22 17:26 20:29 08:20 POC Capillary Glucose 182 H 204 H 96 03/31/22 12:29 POC Capillary Glucose 153 H
[2022-03-31 16:58] LABS: Glucose Point of Care 118 mg/dl (65-105)
[2022-03-31 18:00] VITALS: BP 148/72; PULSE 80; RESP 15; TEMP 37; O2SAT 98
[2022-03-31 19:55] VITALS: BP 164/88; PULSE 88; RESP 18; TEMP 36.4; O2SAT 96
[2022-03-31] MEDS: ATORVASTATIN 40 MG TABLET PO (20:49)
[2022-03-31 21:51] LABS: Glucose Point of Care 183 mg/dl (65-105)
[2022-04-01] VITALS (13 sets, daily range): BP systolic 99–175; BP diastolic 53–97; PULSE 73–95; RESP 14–18; TEMP 36.2–36.8; O2SAT 94–100
[2022-04-01] MEDS: CEPHALEXIN 500 MG CAPSULE PO ×3 (08:18→19:42)
[2022-04-01] MEDS: lisinopriL 20 MG TABLET PO (08:18)
[2022-04-01] MEDS: metFORMIN HCL 500 MG TABLET PO ×2 (08:18→17:55)
[2022-04-01] MEDS: DOCUSATE SODIUM 100 MG CAPSULE PO ×2 (08:22→19:45)
[2022-04-01 08:54] LABS: Glucose Point of Care 117 mg/dl (65-105)
--- NOTE | 2022-04-01 10:33 | WPDANESEPPF ---
Anes - Initial Pre Proc Eval Procedure: Operation Date: 03/29/22 13:00 Proposed Procedures p Trans Urethral Resection Bladder Tumor - Eric Escobedo MD Operation Date: 04/01/22 14:15 Proposed Procedures p Cystoscopy, Evacuation Bladder Clots, Fulgeration - Eric Escobedo MD Date/Time: 04/01/22 10:33 Surgeon: Eric Escobedo MD Pre Op Diagnosis: gross hematuria, bladder lesions Patient Data Age: 76 Gender: M Height: 1.75 m Weight: 99.2 kg Last Vital Signs Temp 36.2 C L 04/01/22 04:11 Pulse 75 04/01/22 04:11 Resp 18 04/01/22 04:11 BP 150/83 H 04/01/22 04:11 Pulse Ox 99 04/01/22 04:11 O2 Del Method Room Air 04/01/22 08:18 O2 Flow Rate 10 03/29/22 15:24 Allergies Allergy/AdvReac Type Severity Reaction Status Date / Time No Known Allergies Allergy Verified 04/01/22 13:47 Home Medications Medication Instructions Recorded Confirmed Type lisinopril 10 mg tablet 20 mg PO DAILY 02/27/20 03/29/22 History metformin 1,000 mg tablet 500 mg PO BID 02/27/20 03/29/22 History aspirin 81 mg tablet,delayed 81 mg PO QAM #30 tabs 02/29/20 03/29/22 Rx release atorvastatin 40 mg tablet 40 mg PO HS #30 tabs 02/29/20 03/29/22 Rx tamsulosin 0.4 mg capsule 0.4 mg PO QAM #30 caps 02/29/20 03/29/22 Rx cholecalciferol (vitamin D3) 125 50 mcg PO DAILY 04/21/20 03/29/22 History mcg (5,000 unit) tablet (Vitamin D3) magnesium oxide 400 mg (241.3 mg 400 mg PO QAM #30 tabs 04/25/20 03/29/22 Rx magnesium) tablet calcitriol 0.25 mcg capsule 0.25 mcg PO DAILY 03/01/22 03/29/22 History multivitamin 1 tablet PO DAILY 03/01/22 03/29/22 History Laboratory Tests 03/31/22 03/31/22 03/31/22 12:29 16:52 20:44 POC Capillary Glucose 153 mg/dl H mg/dl 118 mg/dl H mg/dl 183 mg/dl H mg/dl (65-105) (65-105) (65-105) 04/01/22 08:46 POC Capillary Glucose 117 mg/dl H mg/dl (65-105) Patient hx anesthesia problems: none Family hx anesthesia problems: none Results Review: All pre-operative results and documents have been reviewed as part of the pre-operative evaluation. [facility] Past Medical History Medical History (Updated 03/30/22 @ 08:09 by Eric Escobedo MD) Cervical spine disease Degenerative disc disease, cervical Dyslipidemia Essential hypertension Ischemic cerebrovascular accident (CVA) Left hemiparesis Left hemiparesis Obesity (BMI 30.0-34.9) Osteoarthritis Type 2 diabetes mellitus Surgical History Surgical History History of lumbar surgery History of replacement of both shoulder joints History of toe surgery Right 1st toe surgery done for unclear reasons. Patient cannot provide me with specifics. Family History Family History Other Hypertension Social History Social History (Updated 04/22/20 @ 00:39 by Jacquelyn Lopez NP) Social History: The patient lives in [place] with his . they have 2 children. He his retired from [employer]. He smoked perhaps a pack of cigarettes per day and quit 35 years ago. he denies alcohol and illicit substance use. He designates his , Katherine, as his surrogate decision maker and he wishes to be a full code. Smoking packs per day: 1 Smoking cigarettes per day: 20.0 Smoking status: Former smoker Second hand tobacco smoke exposure: No Additional smoking assessment comments: STATES SMOKED YRS AGO, QUIT AGE EARLY 38'S Alcohol intake: former Substance use: never Substance use type: does not use Living arrangements: with family Spiritual care concerns: No Anes - Eval Final PreProcedure Day of Procedure 04/01/22 10:33 Patient weight: obese Heart: regular rate and rhythm Lungs: clear to auscultation and normal air movement Airway: Mallampati scale class II Neurological: alert and oriented Last oral intake: >/= 8 hours ASA classification: I
[2022-04-01 12:17] LABS: Glucose Point of Care 129 mg/dl (65-105)
--- NOTE | 2022-04-01 13:13 | PC.NURSE ---
To OR per bed at 1310 04/01/22.
[2022-04-01] MEDS: LACTATED RINGERS 1,000 ML 30 ML IV CONT (13:28)
--- NOTE | 2022-04-01 13:33 | WPDHPUPDATE1 ---
History and Physical Update Update Date/Time: 04/01/22 13:33 History and Physical has been reviewed, including an updated exam of the patient. There are NO changes in the patient's condition. Risks, benefits, and alternatives have been discussed and questions answered. Patient agrees to proceed with procedure. proceed with cysto, clot evacuation and fulguration
[2022-04-01 13:54] LABS: Glucose Point of Care 109 mg/dl (65-105)
[2022-04-01] MEDS: LIDOCAINE HCL 2% GEL UROJET 10 ML PKG MUCOUS MEM (16:08)
--- NOTE | 2022-04-01 16:23 | P.OP_ITS ---
Procedure Note - Detailed Date of Procedure 04/01/22 Pre-op Diagnosis gross hematuria, clots Post-op Diagnosis Same Procedure Performed Cystoscopy with clot evacuation and fulguration Surgeon Eric Escobedo MD Anesthesia General Description of Procedure Patient is taken the operative suite correctly identified. Once anesthesia was obtained he was placed in dorsal lithotomy position and prepped and draped usual sterile fashion. Resectoscope sheath was inserted. Proximally 400 cc of clots were evacuated. We inspected the prostatic fossa. There was no active bleeding noted at this time. We still went ahead and used a rollerball to fulgurate the prostatic fossa. There appeared to be good hemostasis at termination procedure. 2% viscous lidocaine was inserted urethra. Twenty-four Belarusian [address] was placed with 30 cc in the balloon. This was placed under traction and connected to continuous bladder irrigation. It appeared clear when we took him to recovery room. Patient will be returned to his room and hopefully be discharged home in the next day or 2 with Jang catheter to be removed as an outpatient next week. Estimated Blood Loss 0 Urine Output 2,000 Drains Yes Packing No Complications No immediate complications Condition Stable Disposition PACU
[2022-04-01 16:54] LABS: Glucose Point of Care 97 mg/dl (65-105)
[2022-04-01] MEDS: BISACODYL 10 MG SUPPOSITORY RECTAL (18:02)
[2022-04-01] MEDS: ATORVASTATIN 40 MG TABLET PO (19:41)
[2022-04-01 21:46] LABS: Glucose Point of Care 111 mg/dl (65-105)
[2022-04-02] VITALS (7 sets, daily range): BP systolic 124–165; BP diastolic 62–90; PULSE 83–105; RESP 16–18; TEMP 36.2–37.1; O2SAT 95–98
[2022-04-02 08:28] LABS: Glucose Point of Care 95 mg/dl (65-105)
[2022-04-02] MEDS: lisinopriL 20 MG TABLET PO (09:16)
[2022-04-02] MEDS: CEPHALEXIN 500 MG CAPSULE PO ×4 (09:16→20:49)
[2022-04-02] MEDS: metFORMIN HCL 500 MG TABLET PO ×2 (09:16→18:17)
[2022-04-02] MEDS: DOCUSATE SODIUM 100 MG CAPSULE PO ×2 (09:18→20:54)
[2022-04-02 12:11] LABS: Glucose Point of Care 144 mg/dl (65-105)
--- NOTE | 2022-04-02 15:12 | WPDUROPN2 ---
Progress Note: A&P Assessment and Plan (1) BPH (benign prostatic hyperplasia): Code(s): N40.0 - Benign prostatic hyperplasia without lower urinary tract symptoms Status: Acute Assessment and Plan: 3 way weaning CBI taking PO well likely home tomorrow (2) Gross hematuria: Code(s): R31.0 - Gross hematuria Status: Acute (3) Urinary retention: Code(s): R33.9 - Retention of urine, unspecified Status: Acute (4) Constipation due to neurogenic bowel: Code(s): K59.00 - Constipation, unspecified; K59.2 - Neurogenic bowel, not elsewhere classified Status: Acute Assessment and Plan: added Miralax repeat suppository Subjective Subjective Date/Time Seen: 04/02/22 15:12 Urine now clear CBI weaned No bowel movement in several days taking PO well no pain Review of Systems Gastrointestinal: Comments: ND and Soft, no pain Genitourinary: Comments: Jang in place--3 way. Urine clear currently Objective Data Vital Signs Vital Signs: Vital Signs - 24 hr 04/01/22 16:22 04/01/22 16:35 04/01/22 16:50 Temperature 36.6 C Pulse Rate 86 75 79 Respiratory Rate 14 16 14 Blood Pressure 99/60 L 130/75 144/88 H Pulse Oximetry 98 100 100 Oxygen Delivery Simple Face Mask Simple Face Mask Simple Face Mask Oxygen Flow Rate 10 10 10 04/01/22 17:05 04/01/22 17:20 04/01/22 17:35 Temperature Pulse Rate 77 74 75 Respiratory Rate 14 18 16 Blood Pressure 134/82 156/87 H 138/77 Pulse Oximetry 94 95 95 Oxygen Delivery Room Air Room Air Room Air Oxygen Flow Rate 04/01/22 17:58 04/01/22 18:00 04/01/22 19:44 Temperature 36.4 C L 36.3 C L Pulse Rate 73 85 Respiratory Rate 16 18 Blood Pressure 175/97 H 152/53 H Pulse Oximetry 99 97 Oxygen Delivery Room Air Oxygen Flow Rate 04/01/22 23:55 04/02/22 04:37 04/02/22 09:29 Temperature 36.2 C L 36.6 C 36.6 C Pulse Rate 76 86 91 Respiratory Rate 18 18 16 Blood Pressure 153/75 H 134/62 165/75 H Pulse Oximetry 98 98 95 Oxygen Delivery Oxygen Flow Rate 04/02/22 08:00 04/02/22 14:00 Temperature 36.8 C Pulse Rate 91 83 Respiratory Rate 16 18 Blood Pressure 150/82 H Pulse Oximetry 95 96 Oxygen Delivery Room Air Oxygen Flow Rate Intake/Output Intake/Output: Intake & Output 03/30/22 03/31/22 04/01/22 04/02/22 23:59 23:59 23:59 23:59 Intake Total 2050 1930 3930 980 Output Total 3600 3550 6950 1000 [facility] -1550 -1620 -3020 -20 Meds/Results Medications: Active Medications Generic Name Dose Route Start Last Admin Trade Name Freq PRN Reason Stop Dose Admin Hydrocodone Bitart/Acetaminophen 1 tab 03/29/22 16:19 Hydrocodone/Acetaminophen (*Crx) 5-325 Mg Tablet PO Q4H PRN Pain Rated 1-6 Atorvastatin Calcium 40 mg 03/29/22 21:00 04/01/22 19:41 Atorvastatin 40 Mg Tablet PO 40 mg HS WEN Administration Cephalexin HCl 500 mg 03/30/22 09:00 04/02/22 12:28 Cephalexin 500 Mg Capsule PO 500 mg QID WEN Administration Docusate Sodium 100 mg 03/29/22 21:00 04/02/22 09:18 Docusate Sodium 100 Mg Capsule PO 100 mg Q12HR WEN Administration Hyoscyamine 0.125 mg 03/29/22 16:19 Hyoscyamine Sulfate 0.125 Mg Tablet SUBLINGUAL Q6H PRN Bladder Spasm Lisinopril 20 mg 03/29/22 17:00 04/02/22 09:16 Lisinopril 20 Mg Tablet PO 20 mg DAILY WEN Administration Metformin HCl 500 mg 03/30/22 17:00 04/02/22 09:16 Metformin Hcl 500 Mg Tablet PO 500 mg BIDWM WEN Administration Morphine Sulfate 2 mg 03/29/22 16:19 Morphine Sulfate (*Crx) 2 Mg/Ml Inj IV PUSH Q2H PRN Pain Rated 7-10 Naloxone HCl 0.1 mg 03/29/22 16:19 Naloxone Hcl 0.4 Mg/Ml Vial IV PUSH Q2M PRN Opiate Reversal Ondansetron HCl 4 mg 03/29/22 16:19 Ondansetron Inj 4 Mg/2 Ml Vial IV PUSH Q12H PRN Nausea And Vomiting Polyethylene Glycol 17 gm 04/02/22 17:00 Polyethylene Glycol 3350 17 Gm Powd.Pac
[2022-04-02] MEDS: BISACODYL 10 MG SUPPOSITORY RECTAL (15:28)
[2022-04-02 17:32] LABS: Glucose Point of Care 135 mg/dl (65-105)
[2022-04-02] MEDS: polyethylene glycoL 3350 17 GM POWD.PACK PO (18:17)
[2022-04-02] MEDS: ATORVASTATIN 40 MG TABLET PO (20:50)
[2022-04-02 21:02] LABS: Glucose Point of Care 195 mg/dl (65-105)
[2022-04-03 03:41] VITALS: BP 134/80; PULSE 86; RESP 18; TEMP 36.6; O2SAT 97
[2022-04-03 08:34] LABS: Glucose Point of Care 112 mg/dl (65-105)
[2022-04-03] MEDS: lisinopriL 20 MG TABLET PO (10:13)
[2022-04-03] MEDS: polyethylene glycoL 3350 17 GM POWD.PACK PO ×2 (10:13→16:36)
[2022-04-03] MEDS: DOCUSATE SODIUM 100 MG CAPSULE PO ×2 (10:13→20:25)
[2022-04-03] MEDS: metFORMIN HCL 500 MG TABLET PO ×2 (10:13→16:36)
[2022-04-03] MEDS: CEPHALEXIN 500 MG CAPSULE PO ×4 (10:13→20:25)
[2022-04-03 10:30] VITALS: BP 155/86; PULSE 78; RESP 22; TEMP 36.8; O2SAT 95
--- NOTE | 2022-04-03 12:01 | WPDUROPN2 ---
Progress Note: A&P Assessment and Plan (1) BPH (benign prostatic hyperplasia): Code(s): N40.0 - Benign prostatic hyperplasia without lower urinary tract symptoms Status: Acute Assessment and Plan: 3 way weaning CBI taking PO well likely home tomorrow (2) Gross hematuria: Code(s): R31.0 - Gross hematuria Status: Acute (3) Urinary retention: Code(s): R33.9 - Retention of urine, unspecified Status: Acute (4) Constipation due to neurogenic bowel: Code(s): K59.00 - Constipation, unspecified; K59.2 - Neurogenic bowel, not elsewhere classified Status: Acute Assessment and Plan: added Miralax repeat suppository can try emema May need GI advice if not responsive Subjective Subjective Date/Time Seen: 04/03/22 12:01 Objective Data Vital Signs Vital Signs: Vital Signs - 24 hr 04/02/22 14:00 04/02/22 18:00 04/02/22 19:26 Temperature 36.8 C 37.1 C 36.2 C L Pulse Rate 83 105 H 100 Respiratory Rate 18 18 17 Blood Pressure 150/82 H 124/79 132/90 Pulse Oximetry 96 96 96 Oxygen Delivery 04/02/22 23:14 04/03/22 03:41 04/03/22 10:15 Temperature 36.5 C 36.6 C Pulse Rate 87 86 Respiratory Rate 18 18 Blood Pressure 133/76 134/80 Pulse Oximetry 96 97 Oxygen Delivery Room Air 04/03/22 10:30 Temperature 36.8 C Pulse Rate 78 Respiratory Rate 22 H Blood Pressure 155/86 H Pulse Oximetry 95 Oxygen Delivery Intake/Output Intake/Output: Intake & Output 03/31/22 04/01/22 04/02/22 04/03/22 23:59 23:59 23:59 23:59 Intake Total 1930 3930 1310 200 Output Total 3550 6950 1000 900 Balance -1620 -3020 310 -700 Meds/Results Medications: Active Medications Generic Name Dose Route Start Last Admin Trade Name Freq PRN Reason Stop Dose Admin Hydrocodone Bitart/Acetaminophen 1 tab 03/29/22 16:19 Hydrocodone/Acetaminophen (*Crx) 5-325 Mg Tablet PO Q4H PRN Pain Rated 1-6 Atorvastatin Calcium 40 mg 03/29/22 21:00 04/02/22 20:50 Atorvastatin 40 Mg Tablet PO 40 mg HS WEN Administration Cephalexin HCl 500 mg 03/30/22 09:00 04/03/22 10:13 Cephalexin 500 Mg Capsule PO 500 mg QID WEN Administration Docusate Sodium 100 mg 03/29/22 21:00 04/03/22 10:13 Docusate Sodium 100 Mg Capsule PO 100 mg Q12HR WEN Administration Hyoscyamine 0.125 mg 03/29/22 16:19 Hyoscyamine Sulfate 0.125 Mg Tablet SUBLINGUAL Q6H PRN Bladder Spasm Lisinopril 20 mg 03/29/22 17:00 04/03/22 10:13 Lisinopril 20 Mg Tablet PO 20 mg DAILY WEN Administration Metformin HCl 500 mg 03/30/22 17:00 04/03/22 10:13 Metformin Hcl 500 Mg Tablet PO 500 mg BIDWM WEN Administration Morphine Sulfate 2 mg 03/29/22 16:19 Morphine Sulfate (*Crx) 2 Mg/Ml Inj IV PUSH Q2H PRN Pain Rated 7-10 Naloxone HCl 0.1 mg 03/29/22 16:19 Naloxone Hcl 0.4 Mg/Ml Vial IV PUSH Q2M PRN Opiate Reversal Ondansetron HCl 4 mg 03/29/22 16:19 Ondansetron Inj 4 Mg/2 Ml Vial IV PUSH Q12H PRN Nausea And Vomiting Polyethylene Glycol 17 gm 04/02/22 17:00 04/03/22 10:13 Polyethylene Glycol 3350 17 Gm Powd.Pack PO 17 gm BID WEN Administration Labs Labs: Laboratory Results - last 24 hr 04/02/22 04/02/22 04/02/22 11:59 17:26 21:00 POC Capillary Glucose 144 H 135 H 195 H 04/03/22 08:27 POC Capillary Glucose 112 H
[2022-04-03 12:06] LABS: Glucose Point of Care 107 mg/dl (65-105)
[2022-04-03 14:00] VITALS: BP 155/86; PULSE 91; RESP 20; TEMP 36.9; O2SAT 96
[2022-04-03 17:01] LABS: Glucose Point of Care 121 mg/dl (65-105)
[2022-04-03 18:50] VITALS: BP 159/79; PULSE 90; RESP 22; TEMP 36.9; O2SAT 96
[2022-04-03 19:32] VITALS: BP 151/88; PULSE 86; RESP 18; TEMP 36.4; O2SAT 95
[2022-04-03 20:00] VITALS: PULSE 86; RESP 18; O2SAT 95
[2022-04-03] MEDS: ATORVASTATIN 40 MG TABLET PO (20:25)
[2022-04-03 21:06] LABS: Glucose Point of Care 128 mg/dl (65-105)
[2022-04-04 01:06] VITALS: BP 146/70; PULSE 81; RESP 17; TEMP 36.6; O2SAT 97
[2022-04-04 03:36] VITALS: BP 149/69; PULSE 81; RESP 16; TEMP 36.6; O2SAT 95
[2022-04-04 08:33] LABS: Glucose Point of Care 124 mg/dl (65-105)
[2022-04-04] MEDS: metFORMIN HCL 500 MG TABLET PO (08:50)
[2022-04-04] MEDS: polyethylene glycoL 3350 17 GM POWD.PACK PO (08:50)
[2022-04-04] MEDS: lisinopriL 20 MG TABLET PO (08:50)
[2022-04-04] MEDS: CEPHALEXIN 500 MG CAPSULE PO ×2 (08:50→14:03)
[2022-04-04] MEDS: DOCUSATE SODIUM 100 MG CAPSULE PO (08:55)
[2022-04-04 11:56] LABS: Glucose Point of Care 178 mg/dl (65-105)
--- NOTE | 2022-04-04 12:49 | WPDUROPN2 ---
Progress Note: A&P Assessment and Plan (1) Constipation due to neurogenic bowel: Code(s): K59.00 - Constipation, unspecified; K59.2 - Neurogenic bowel, not elsewhere classified Status: Acute Assessment and Plan: Improved, BM on Monday, patient is improved today, his bowels are not distended, he is passing flatus. Continue stool softners at home and miralax as needed. (2) BPH (benign prostatic hyperplasia): Code(s): N40.0 - Benign prostatic hyperplasia without lower urinary tract symptoms Status: Acute Assessment and Plan: Ok to remove benavidez and do a voiding trial. When he urinates, ok to discharge home without benavidez to f/u in the office. (3) Gross hematuria: Code(s): R31.0 - Gross hematuria Status: Acute Assessment and Plan: Resolved. Subjective Subjective Date/Time Seen: 04/04/22 12:49 Cystoscopy, with clot evacuation and fulguration on 04/01/[address] Escobedo. Prior to this he had a Cystoscopy with TURP. His urine has been clear since his procedure on 04/01/22. He has struggled with constipation unfortunately during this time but has supplemented with Miralax, an enema and suppositories, which did help him have a BM on Monday. He states he feels good today and is not bloated, distended or uncomfortable. Post Op day: 3 Review of Systems Cardiovascular: Cardiovascular: Denies chest pain Respiratory: Respiratory: Reports no additional respiratory complaints Gastrointestinal: Gastrointestinal: Denies abdominal pain, Denies nausea and Denies vomiting Genitourinary: Genitourinary: Denies hematuria and Denies flank pain Exam Const: General: cooperative Resp: Effort & Inspection: normal respiratory effort Cardio: Rate: regular rate GI: GI Palp: Yes Soft to palpation and No Tenderness to palpation present (GI) : General: Yes no CVA tenderness Extrem: Right lower extremity: no edema Left lower extremity: no edema Objective Data Vital Signs Vital Signs: Vital Signs - 24 hr 04/03/22 14:00 04/03/22 18:50 04/03/22 19:32 Temperature 98.4 F 98.4 F 97.5 F L Pulse Rate 91 90 86 Respiratory Rate 20 22 H 18 Blood Pressure 155/86 H 159/79 H 151/88 H Pulse Oximetry 96 96 95 Oxygen Delivery 04/03/22 20:00 04/04/22 01:06 04/04/22 03:36 Temperature 97.9 F 98 F Pulse Rate 86 81 81 Respiratory Rate 18 17 16 Blood Pressure 146/70 H 149/69 H Pulse Oximetry 95 97 95 Oxygen Delivery Room Air 04/04/22 08:50 Temperature Pulse Rate Respiratory Rate Blood Pressure Pulse Oximetry Oxygen Delivery Room Air Intake/Output Intake/Output: Intake & Output 04/01/22 04/02/22 04/03/22 04/04/22 23:59 23:59 23:59 23:59 Intake Total 3930 1310 1290 364 Output Total 6950 1000 2500 800 Balance -3020 023 -6245 -513 Meds/Results Medications: Active Medications Generic Name Dose Route Start Last Admin Trade Name Freq PRN Reason Stop Dose Admin Hydrocodone Bitart/Acetaminophen 1 tab 03/29/22 16:19 Hydrocodone/Acetaminophen (*Crx) 5-325 Mg Tablet PO Q4H PRN Pain Rated 1-6 Atorvastatin Calcium 40 mg 03/29/22 21:00 04/03/22 20:25 Atorvastatin 40 Mg Tablet PO 40 mg HS WEN Administration Cephalexin HCl 500 mg 03/30/22 09:00 04/04/22 08:50 Cephalexin 500 Mg Capsule PO 500 mg QID WEN Administration Docusate Sodium 100 mg 03/29/22 21:00 04/04/22 08:55 Docusate Sodium 100 Mg Capsule PO 100 mg Q12HR WEN Administration Hyoscyamine 0.125 mg 03/29/22 16:19 Hyoscyamine Sulfate 0.125 Mg Tablet SUBLINGUAL Q6H PRN Bladder Spasm Lisinopril 20 mg 03/29/22 17:00 04/04/22 08:50 Lisinopril 20 Mg Tablet PO 20 mg DAILY WEN Administration Metformin HCl 500 mg 03/30/22 17:00 04/04/22 08:50 Metformin Hcl 500 Mg Tablet PO 500 mg BIDWM WEN Administration Morphine Sulfate 2 mg 03/29/22 16:19 Morphine Sulfate (*Crx) 2 Mg/Ml Inj IV PUSH Q2H PRN Pain Rat
--- NOTE | 2022-04-04 13:11 | PM.DS ---
DS: Admitting Diagnosis Discharge Date BPH/Retention Admitting Diagnosis BPH/Retention DS: Discharge Diagnosis Discharge Diagnosis Plan BPH/Retention DS: Summary Hospital Course Hospital Course: The patient was admitted s/p Cystoscopy with TURP on 03/29/[address] Escobedo. He tolerating his procedure well, was transferred to recovery in stable condition and to the floor for further observation. He continued on CBI for three days post operatively as he would clear with CBI, but then his gross hematuria would return as soon as he was weaned off. THerefore he was then taken back to the OR on 04/01/[address] Escobedo for a Cystoscopy with bladder fulguration and clot evacuation. Since then he was weaned off CBI and urine remains clear without blood or clots. He unfortunately has struggled with post operative constipation. He has been on stool softeners, miralax as well as use of suppositories and an enema. He was successful in having a BM on Monday04/02/22 and is now comfortable. His bowels are not distended, he is passing flatus and he denies bloating. He will be discharged home today after a voiding trial and benavidez removal. He will resume a diabetic diet and all home medications except ASA. He will in addition to his home medications continue to take stool softners, antibiotics and pain medications PRN. His activity is no straining or heavy lifting. He will f/u in the office on 04/18/[address] Escobedo. Time spent discussing smoking cessation with patient: more than 10 minutes Status at Discharge Functional status at discharge: wheelchair bound Overall status at discharge: patient is back to baseline Time Spent with Patient Time attestation: Total time spent providing and/or coordinating discharge services: Time spent: Greater than 30 minutes Exam Const: General: cooperative and comfortable Resp: Effort & Inspection: normal respiratory effort Cardio: Rate: regular rate GI: GI Palp: Yes Soft to palpation, No Tenderness to palpation present (GI) and No Rigid due to palpation : General: Yes no CVA tenderness Urinary Catheter: Urinary Catheter: patent and draining and urine clear Extrem: Right lower extremity: no edema Left lower extremity: no edema DS: Data Data Completed and Pending Completed studies during hospitalization: Pending at discharge 03/29/22 14:29 Surgical [PTH] Routine Labs on day of discharge: Labs from last 24 hours 04/04/22 04/04/22 04/03/22 11:53 08:20 20:24 POC Capillary Glucose 178 H 124 H 128 H 04/03/22 16:55 POC Capillary Glucose 121 H Discharge Plan Discharge Attending physician on discharge: Eric Escobedo Discharging Clinician: Lisandra Conklin Anticipated Discharge Date/Time: 04/04/22 15:30 Patient Disposition: Home, Self-Care Activity: may shower Diet: as tolerated Discharge Instructions: Per Care Coordination Patient is with [facility] for PT[facility]OT. Please resume Home Health at discharge. [phone] RN please fax completed discharge instructions to [facility] [phone] Follow up on 04/18/2022 at 10:[address] Escobedo. You may experience some slight blood in the urine, if it becomes heavy, will not decrease, or you have clots in the urine, you should call the office or go to the ER. You should notify the office or go to the ER for signs and symptoms of an infection such as: cloudy, malodorous urine, a fever, chills, flank pain or abdominal pain. If you develop difficulty urinating call the office or go to the ER. Patient Instructions: Antibiotic Form Stand Alone Forms: General Discharge Information Follow-up/Referrals: Eric Escobedo MD [Physician] - Discharge Medications: New cephalexin 500 mg Capsule 500 mg PO BID Qty: 14 0RF docusate sodium 100 mg Capsule 100 mg PO Q12HR Qty: 20 0RF tramadol 100 mg tablet 100 mg PO Q6H PRN (Reason: pain) Qty: 20 0RF Continued
[2022-04-04 14:17] VITALS: BP 153/89; PULSE 90; RESP 18; TEMP 36.6; O2SAT 97
--- NOTE | 2022-04-04 17:20 | PC.NURSE ---
Patient had a fleets enema with a successful large BM. Also urinated heavily and was found to have 15 mls of residual urine in his bladder after urinating.
== END 2022-04-04 17:37 | disposition home health service (06) | DRG 713 ==
LOC: ANHSURGERY 15:38 → ANH2MED 15:38
PROVIDERS: Admitting Provider Urology; PCP Internal Medicine; Visit Provider Nurse Practitioner Adult Health
PROC: 0TBB8ZZ Excision of Bladder, Via Natural or Artificial Opening Endoscopic (ICD-10-PCS; principal; 2022-03-29 13:00)
PROC: 0TCB8ZZ Extirpation of Matter from Bladder, Via Natural or Artificial Opening Endoscopic (ICD-10-PCS; CPT 52001; principal; 2022-04-01 14:15)
DX: N40.1 Benign prostatic hyperplasia with lower urinary tract symptoms (principal); I69.354 Hemiplegia and hemiparesis following cerebral infarction affecting left non-dominant side; K59.2 Neurogenic bowel, not elsewhere classified; K59.00 Constipation, unspecified; R33.8 Other retention of urine; R31.0 Gross hematuria; M50.30 Other cervical disc degeneration, unspecified cervical region; E11.9 Type 2 diabetes mellitus without complications; I10 Essential (primary) hypertension; E78.5 Hyperlipidemia, unspecified; E66.9 Obesity, unspecified; Z68.32 Body mass index [BMI] 32.0-32.9, adult; Z87.891 Personal history of nicotine dependence
CPT/HCPCS: 36415; 80048; 82948; 85014; 85018; 88305; A9270; J0360; J0690; J1100; J2370; J2405; J2704; J3010; J7120; J7121

== ENCOUNTER 2022-12-18 13:30 | Emergency (ER) | payer MEDICARE, BC, SELFPAY ==
--- NOTE | ~2022-12-18 | XR_ITS ---
XR abdomen NG/feed tube insert DATE: 12/18/2022 16:34 INDICATION: NG tube placement TECHNIQUE: Portable supine AP view on 12/18/2022 at 1631 hours COMPARISON: 01/11/2022 KUB FINDINGS: An NG tube is present in the gastric fundus, the proximal side-port more than 12 cm distal to the diaphragmatic hiatus. Nonspecific bowel gas pattern. IMPRESSION: NG tube in gastric fundus Reviewed, dictated and finalized at [facility] Reviewed, dictated and finalized at [facility]. IMPRESSION: NG tube in gastric fundus
[2022-12-18 13:33] VITALS: BP 189/92; PULSE 86; RESP 20; TEMP 36.6; O2SAT 95
[2022-12-18 13:50] LABS: Basophils Absolute Auto 0.1 K/mm3 (0.0-0.1); Basophils Percent Auto 0.7 % (0.2-1.2); Eosinophils Absolute Auto 0.1 K/mm3 (0-0.3); Hematocrit 41.6 % (42.0-52.0); Hemoglobin 13.8 g/dL (14.0-18.0); Immature Granulocyte Absolute 0.02 K/mm3 (0.00-0.031); Immature Granulocyte Percent A 0.3 % (0-0.5); Lymphocytes Absolute Auto 0.66 K/mm3 (0.9-3.2); Mean Corpuscular HGB Conc 33.2 g/dl (32-36); Mean Corpuscular Volume 84.4 fl (80-100); Monocytes Absolute Auto 0.4 K/mm3 (0.1-0.6); Monocytes Percent Auto 5.4 % (2.6-8.5); Neutrophils Absolute Auto 6.1 K/mm3 (1.3-6.7); Neutrophils Percent Auto 83.6 % (45.5-73.1); Platelet Count Result 280 k/mm3 (150-375); Red Blood Count 4.93 M/mm3 (4.6-6.20); Red Cell Distribution Width 16.4 % (11.5-14.5); White Blood Count 7.3 K/mm3 (4.5-10.0)
[2022-12-18 14:00] LABS: Alanine Aminotransferase 35 U/L (6-50); Alkaline Phosphatase 107 U/L (38-126); Anion Gap 8 mmol/L (8-16); Aspartate Amino Transferase 34 U/L (17-59); Bilirubin,Total 0.8 mg/dL (0.2-1.3); Blood Urea Nitrogen 9 mg/dL (9-20); Calcium 8.6 mg/dL (8.4-10.2); Carbon Dioxide 23 mmol/L (22-30); Chloride 103 mmol/L (98-107); Estimated Glomerular Filt Rate > 60; Glucose 150 mg/dL (65-110); Lipase 100 U/L (23-300); Potassium 4.3 mmol/L (3.4-5.0); Sodium 134 mmol/L (137-145)
[2022-12-18 15:15] VITALS: BP 136/102; PULSE 94; RESP 28; O2SAT 95
--- NOTE | 2022-12-18 16:27 | ED.GENADULT ---
HPI - General Adult General Chief complaint: Nausea/Vomiting/Diarrhea Stated complaint: N/V Time Seen by Provider: 12/18/22 15:15 History of Present Illness HPI narrative: Patient is a 77-year-old male who presents ER due to concerns for hematemesis. Patient reports he started having some retching and was vomiting and then he had vomit that had red streaking in it. Apparently patient is on some heparin. He has no abdominal pain at this time. Nausea is improved. Denies fevers or chills or sweats. No additional concerns at this time. No dark bowel movements per patient. Related Data Home Medications Medication Instructions Recorded Confirmed lisinopril 10 mg tablet 20 mg PO DAILY 02/27/20 12/16/22 metformin 1,000 mg tablet 500 mg PO BID 02/27/20 12/16/22 cholecalciferol (vitamin D3) 125 50 mcg PO DAILY 04/21/20 12/16/22 mcg (5,000 unit) tablet (Vitamin D3) calcitriol 0.25 mcg capsule 0.25 mcg PO DAILY 03/01/22 12/16/22 multivitamin 1 tablet PO DAILY 03/01/22 12/16/22 Allergies Allergy/AdvReac Type Severity Reaction Status Date / Time No Known Allergies Allergy Verified 04/01/22 13:47 Review of Systems Review of Systems: All systems reviewed & are unremarkable except as noted in HPI and below Constitutional: Constitutional: Denies chills, Denies fatigue and Denies fever(s) ENT: Denies nasal congestion and Denies sore throat Cardiovascular: Cardiovascular: Denies chest pain, Denies rapid heart rate and Denies radiating jaw, neck or arm pain Respiratory: Respiratory: Denies cough and Denies dyspnea Gastrointestinal: Gastrointestinal: Denies abdominal pain, Reports nausea and Reports vomiting Comments: Blood in vomit PMFSH Past Medical History Medical History (Updated 12/18/22 @ 17:20 by Oleg Rosales MD) Cervical spine disease Degenerative disc disease, cervical Dyslipidemia Essential hypertension Ischemic cerebrovascular accident (CVA) Left hemiparesis Left hemiparesis Obesity (BMI 30.0-34.9) Osteoarthritis Type 2 diabetes mellitus Surgical History Surgical History History of lumbar surgery History of replacement of both shoulder joints History of toe surgery Right 1st toe surgery done for unclear reasons. Patient cannot provide me with specifics. Family History Family History Other Hypertension Social History Social History (Updated 04/22/20 @ 00:39 by Jacquelyn Lopez NP) Social History: The patient lives in [place] with his . they have 2 children. He his retired from [employer]. He smoked perhaps a pack of cigarettes per day and quit 35 years ago. he denies alcohol and illicit substance use. He designates his , Katherine, as his surrogate decision maker and he wishes to be a full code. Smoking packs per day: 1 Smoking cigarettes per day: 20.0 Smoking status: Former smoker Second hand tobacco smoke exposure: No Additional smoking assessment comments: STATES SMOKED YRS AGO, QUIT AGE EARLY 38'S Alcohol intake: former Substance use: never Substance use type: does not use Living arrangements: with family Spiritual care concerns: No Exam Narrative: GENERAL: Chronically ill-appearing, well-nourished, and in no acute distress. HEAD: Normocephalic, atraumatic. EYES: PERRL and EOMI. ENT: Mucous membranes moist. CHEST: Clear to auscultation. No respiratory distress. HEART: Regular rate and rhythm. Normal peripheral pulses. ABDOMEN: Soft, nontender, nondistended. EXTREMITIES: Normal range of motion. No edema. SKIN: Warm, dry, no rash. NEURO: Alert and oriented x3. PSYCH: Normal mood and affect. Course Course Emergency Course: Labs reassuring. NG tube placed by nursing staff, gastric lavage performed, no evidence of active bleeding, pain blood clots noted but without significant burden. Feel patient had a small tea
--- NOTE | 2022-12-18 17:11 | PC.NURSE ---
NG tuba lavage resulted in no active bleeding or blood clots. Patient's NG tube pulled per EDP verbal order.
[2022-12-18 18:50] VITALS: BP 168/101; PULSE 84; RESP 16; O2SAT 98
[2022-12-18] MEDS: ONDANSETRON HCL ODT 4 MG TABLET PO (19:10)
== END 2022-12-18 18:52 ==
PROVIDERS: Emergency Provider Emergency Medicine; PCP Internal Medicine
DX: R11.10 Vomiting, unspecified (principal); I69.954 Hemiplegia and hemiparesis following unspecified cerebrovascular disease affecting left non-dominant side; E78.5 Hyperlipidemia, unspecified; I10 Essential (primary) hypertension; E11.9 Type 2 diabetes mellitus without complications; M19.90 Unspecified osteoarthritis, unspecified site; M50.30 Other cervical disc degeneration, unspecified cervical region; Z79.84 Long term (current) use of oral hypoglycemic drugs; Z96.612 Presence of left artificial shoulder joint; Z96.611 Presence of right artificial shoulder joint; Z87.891 Personal history of nicotine dependence
CPT/HCPCS: 36415; 80053; 83690; 85025; 99283; A9270

== ENCOUNTER 2023-07-03 10:46 | Emergency (ER) | payer MEDICARE, BC, SELFPAY ==
--- NOTE | ~2023-07-03 | CT_ITS ---
EXAMINATION: CT brain wo con DATE: 07/03/2023 12:43 INDICATION: Cerebrovascular accident. Difficulty speaking. TECHNIQUE: Computed tomography (CT) of the head was performed without intravenous contrast. The mA wa s adjusted according to patient size. Iterative reconstruction technique was employed. Exam dose: 60 5.33 mGy-cm total exam DLP. COMPARISON: 02/28/2020 MRI brain/brainstem 02/28/2020 CT brain FINDINGS: Chronic focal right cerebellar hemispheric infarct. Focal high right parietal small chronic infarct. Right inferior marilyn chronic infarct. There is prominent bilateral vertebral artery calcification and prominent bilateral carotid siphon an d supraclinoid internal carotid artery calcification. There is nonspecific diminished attenuation of the cerebral white matter, likely due to chronic small vessel ischemic changes. There is prominent central and cortical cerebral and cerebellar atrophy. No intracranial mass lesion or hemorrhage, midline shift or mass effect or subdural or epidural hemat fabrizio is detected. Mastoid air cells and included paranasal sinuses are normally developed and aerated. No fracture or bone destruction of the cranial vault. IMPRESSION: Right cerebellar, right parietal and right marilyn chronic infarcts; no significant change since 02/28/2020 Reviewed, dictated and finalized at [facility] Reviewed, dictated and finalized at [facility]. 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
--- NOTE | ~2023-07-03 | XR_ITS ---
XR chest 1V DATE: 07/03/2023 12:46 INDICATION: Cough, fever, shortness of breath TECHNIQUE: AP chest COMPARISON: 04/24/2020 AP chest FINDINGS: Heart size appears within normal limits. Is aortic calcification, ectasia and unfolding. There is chronic mild elevation of the right diaphragm. No pulmonary infiltrate or consolidation, pleural effusion or pulmonary vascular congestion or pneumo thorax is detected. Status post bilateral glenohumeral joint replacement. IMPRESSION: No active cardiopulmonary disease Aortic atherosclerosis Reviewed, dictated and finalized at [facility]. PHONE MESSENGER
[2023-07-03 10:48] VITALS: BP 112/80; PULSE 73; RESP 20; TEMP 36.4; O2SAT 95
--- NOTE | 2023-07-03 12:25 | ED.GENADULT ---
HPI - General Adult General Chief complaint: Neuro Symptoms/Deficit Stated complaint: raspy voice Time Seen by Provider: 07/03/23 11:27 Source: patient, family and EMS Mode of arrival: EMS Limitations: no limitations History of Present Illness HPI narrative: PATIENT IS 78 YEARS OLD WHITE MALE CAME FROM ALF BY AMBULANCE BECAUSE TROUBLE SPEAKING BASICALLY RASPY/HOARSENESS OF VOICE NOTICED THIS MORNING. PATIENT REPORTS NASAL CONGESTION AND POSTNASAL DISCHARGE SLIGHT COUGH FOR THE LAST 2 DAYS, MOST OF THE PEOPLE AT THE ALF HAD SIMILAR SYMPTOMS, PATIENT VOMITED APPROXIMATELY 4 TIMES YESTERDAY, DENIES ANY DIARRHEA OR FEVER OR CHILLS OR ABDOMINAL PAIN. CURRENTLY PATIENT FEELING OKAY EXCEPT HIS RASPY VOICE. HISTORY OF CVA WITH LEFT HEMIPLEGIA, ANOTHER CVA WITH RIGHT HEMIPARESIS. PATIENT IS WHEELCHAIR-BOUND, CURRENTLY ON ASPIRIN, DNR Related Data Home Medications Medication Instructions Recorded Confirmed metformin 1,000 mg tablet 500 mg PO BID 02/27/20 05/24/23 cholecalciferol (vitamin D3) 125 50 mcg PO DAILY 04/21/20 05/24/23 mcg (5,000 unit) tablet (Vitamin D3) calcitriol 0.25 mcg capsule 0.25 mcg PO DAILY 03/01/22 05/24/23 multivitamin 1 tablet PO DAILY 03/01/22 05/24/23 carvedilol 25 mg tablet 25 mg PO Q12H 06/21/23 pantoprazole 40 mg tablet,delayed 40 mg PO QAM 06/21/23 release rivaroxaban 2.5 mg tablet 2.5 mg PO BID 06/21/23 Allergies Allergy/AdvReac Type Severity Reaction Status Date / Time No Known Allergies Allergy Verified 07/03/23 10:56 Review of Systems Review of Systems: All systems reviewed & are unremarkable except as noted in HPI and below PMFSH Past Medical History Medical History Cervical spine disease Degenerative disc disease, cervical Dyslipidemia Essential hypertension Ischemic cerebrovascular accident (CVA) Left hemiparesis Left hemiparesis Obesity (BMI 30.0-34.9) Osteoarthritis Type 2 diabetes mellitus Surgical History Surgical History History of lumbar surgery History of replacement of both shoulder joints History of toe surgery Right 1st toe surgery done for unclear reasons. Patient cannot provide me with specifics. Family History Family History Other Hypertension Social History Social History Social History: The patient lives in [place] with his . they have 2 children. He his retired from [employer]. He smoked perhaps a pack of cigarettes per day and quit 35 years ago. he denies alcohol and illicit substance use. He designates his , Katherine, as his surrogate decision maker and he wishes to be a full code. Smoking packs per day: 1 Smoking cigarettes per day: 20.0 Smoking status: Former smoker Second hand tobacco smoke exposure: No Additional smoking assessment comments: STATES SMOKED YRS AGO, QUIT AGE EARLY 38'S Alcohol intake: former Substance use: never Substance use type: does not use Living arrangements: with family Spiritual care concerns: No Exam Narrative: GENERAL APPEARANCE: WELL-DEVELOPED, WELL-NOURISHED, HOARSENESS OF VOICE SKIN: NORMAL COLOR HEAD: NORMOCEPHALIC, NONTRAUMATIC EYES: CLEAR CONJUNCTIVA ENT: OROPHARYNX NORMAL, EARS NORMAL, RHINORRHEA NECK: SUPPLE, NONTENDER CHEST AND RESPIRATORY: AIRWAY PATENT, NO RESPIRATORY DISTRESS, NO ACCESSORY MUSCLE USE HEART: REGULAR RATE/RHYTHM ABDOMEN: SOFT, NONTENDER, NO ORGANOMEGALY, QUIET BOWEL SOUNDS VASCULAR: NORMAL PERIPHERAL PULSES, NORMAL CAPILLARY REFILL. MUSCULOSKELETAL: LEFT HEMIPLEGIA, ABLE TO MOVE RIGHT UPPER AND RIGHT LOWER EXTREMITY NEUROLOGIC: ALERT AND ORIENTED ?3, LEFT HEMIPLEGIA, RIGHT HEMIPLEGIA WHICH IS LESS POTENT COMPARED TO THE LEFT SIDE
--- NOTE | 2023-07-03 12:26 | ECG_ITS ---
Measurements Intervals [place] Rate: 70 P: 3 TN: 263 QRS: -26 QRSD: 129 T: 2 QT: 423 QTc: 457 Interpretive Statements SINUS RHYTHM WITH FIRST DEGREE AV BLOCK BORDERLINE LEFT AXIS DEVIATION [QRS AXIS < -20] RIGHT BUNDLE BRANCH BLOCK [120+ ms QRS DURATION, UPRIGHT V1, 40+ ms S IN I/aVL/V4/V5/V6] COMPARED TO ECG 03/03/2022 10:00:54 FIRST DEGREE AV BLOCK NOW PRESENT Electronically Signed On 07-03-2023 13:57:03 DRYWALL INSTALLER by Natalie Kimball M.D.
[2023-07-03 13:01] VITALS: BP 112/78; PULSE 74; RESP 21; TEMP 36.6; O2SAT 95
--- NOTE | 2023-07-03 13:04 | PC.NURSE ---
Pt states he was sent to ER for c/o hoarseness for months. Denies any h/a, sore throat, difficulty swallowing
[2023-07-03 13:05] LABS: Basophils Percent Auto 0.5 % (0.2-1.2); Eosinophils Percent Auto 0.3 % (0-4.4); Hematocrit 41.4 % (42.0-52.0); Hemoglobin 13.2 g/dL (14.0-18.0); Immature Granulocyte Absolute 0.03 K/mm3 (0.00-0.031); Immature Granulocyte Percent A 0.5 % (0-0.5); Lymphocytes Absolute Auto 0.85 K/mm3 (0.9-3.2); Lymphocytes Percent Auto 14.7 % (18.3-44.2); Mean Corpuscular HGB Conc 31.9 g/dl (32-36); Mean Corpuscular Hemoglobin 28.7 pg (26-34); Mean Platelet Volume 9.3 fl (7.4-10.4); Monocytes Absolute Auto 0.5 K/mm3 (0.1-0.6); Monocytes Percent Auto 8.5 % (2.6-8.5); Neutrophils Absolute Auto 4.4 K/mm3 (1.3-6.7); Neutrophils Percent Auto 75.5 % (45.5-73.1); Platelet Count Result 274 k/mm3 (150-375); Red Cell Distribution Width 13.8 % (11.5-14.5); White Blood Count 5.8 K/mm3 (4.5-10.0)
[2023-07-03] MEDS: ONDANSETRON INJ 4 MG/2 ML VIAL IV PUSH (13:14)
[2023-07-03 13:15] LABS: Alanine Aminotransferase 22 U/L (6-50); Albumin Level 3.4 g/dL (3.5-5.1); Alkaline Phosphatase 93 U/L (38-126); Anion Gap 9 mmol/L (8-16); Aspartate Amino Transferase 22 U/L (17-59); Bilirubin,Total 0.7 mg/dL (0.2-1.3); Blood Urea Nitrogen 20 mg/dL (9-20); Calcium 8.8 mg/dL (8.4-10.2); Carbon Dioxide 27 mmol/L (22-30); Chloride 102 mmol/L (98-107); Estimated CRCL calculation 73 ml/min; Estimated Glomerular Filt Rate > 60; Glucose 144 mg/dL (65-110); Sodium 138 mmol/L (137-145)
[2023-07-03] MEDS: SODIUM CHLORIDE 0.9% IV 1,000 ML 999 ML IV CONT (13:15)
[2023-07-03 13:18] LABS: INR 1.2; Prothrombin Time 15.7 Seconds (11.1-14.7)
[2023-07-03 13:19] LABS: Partial Thromboplastin Time 31.5 SECONDS (22.3-36.8)
[2023-07-03 13:45] LABS: Influenza A QL RT-PCR Negative (Negative); Influenza B QL RT-PCR Negative (Negative); RSV RNA, RT-PCR Negative (Negative); SARS-CoV-2 RNA PCR Negative (Negative)
[2023-07-03 16:07] VITALS: BP 121/76; PULSE 64; RESP 20; O2SAT 98
== END 2023-07-03 16:14 ==
PROVIDERS: Emergency Provider Emergency Medicine; PCP Family Medicine
DX: J06.9 Acute upper respiratory infection, unspecified (principal); I69.351 Hemiplegia and hemiparesis following cerebral infarction affecting right dominant side; I69.354 Hemiplegia and hemiparesis following cerebral infarction affecting left non-dominant side; Z99.3 Dependence on wheelchair; I10 Essential (primary) hypertension; E78.5 Hyperlipidemia, unspecified; E11.9 Type 2 diabetes mellitus without complications; M50.30 Other cervical disc degeneration, unspecified cervical region; Z87.891 Personal history of nicotine dependence; Z79.01 Long term (current) use of anticoagulants; Z79.84 Long term (current) use of oral hypoglycemic drugs; Z20.822 Contact with and (suspected) exposure to COVID-19; Z79.82 Long term (current) use of aspirin
CPT/HCPCS: 36415; 70450; 71045; 80053; 85025; 85610; 85730; 87637; 93005; 96361; 96374; 99284; J2405; J7030

== ENCOUNTER 2023-07-20 02:02 | Day surgery (SDC) | payer MEDICARE, BC, SELFPAY ==
--- NOTE | 2023-07-13 12:52 | PC.NURSE ---
Spoke with _JAZMINE-NURSE___ regarding medication __XARELTO___. verbalizes understanding that the last dose of _XARELTO___ is to be taken on ____07/17/2023__ and the Endoscopist will instruct them when to restart after the procedure.
--- NOTE | 2023-07-18 10:25 | SUR.PREOP ---
Patient called regarding upcoming procedure. Message left on pt's voicemail regarding appointment times.
--- NOTE | 2023-07-20 11:47 | WPDHPUPDATE1 ---
History and Physical Update Update Date/Time: 07/20/23 11:47 History and Physical has been reviewed, including an updated exam of the patient. There are NO changes in the patient's condition. Risks, benefits, and alternatives have been discussed and questions answered. Patient agrees to proceed with procedure.
[2023-07-20] MEDS: LACTATED RINGERS 1,000 ML 150 ML IV CONT (11:56)
--- NOTE | 2023-07-20 12:01 | WPDANESEPPF ---
Anes - Initial Pre Proc Eval Procedure: Operation Date: 07/20/23 13:00 Proposed Procedures p Esophagogastroduodenoscopy - Kris Olsen MD Date/Time: 07/20/23 12:01 Surgeon: Kris Olsen MD Pre Op Diagnosis: Esophageal obstruction, Dysphagia Patient Data Age: 78 Gender: M Height: Weight: Allergies Allergy/AdvReac Type Severity Reaction Status Date / Time No Known Allergies Allergy Verified 07/20/23 11:54 Home Medications Medication Instructions Recorded Confirmed Type aspirin 81 mg tablet,delayed 81 mg PO QAM #30 tabs 02/29/20 07/13/23 Rx release atorvastatin 40 mg tablet 40 mg PO HS #30 tabs 02/29/20 07/13/23 Rx tamsulosin 0.4 mg capsule 0.4 mg PO QAM #30 caps 02/29/20 07/13/23 Rx carvedilol 25 mg tablet 25 mg PO Q12H 06/21/23 07/13/23 History pantoprazole 40 mg tablet,delayed 40 mg PO QAM 06/21/23 07/13/23 History release rivaroxaban 2.5 mg tablet 2.5 mg PO BID 06/21/23 07/13/23 History ipratropium bromide 42 mcg (0.06 2 spray intranasal QID 7 days #15 07/03/23 07/13/23 Rx %) nasal spray mL cyclobenzaprine 5 mg tablet 5 mg PO Q8H PRN Muscle Spasm 07/13/23 07/13/23 History glucagon 1 mg solution for 1 mg IM Q30M PRN Hypoglycemia 07/13/23 07/13/23 History injection (Glucagon Emergency Kit) hydralazine 50 mg tablet 50 mg PO TID 07/13/23 07/13/23 History losartan 50 mg tablet 50 mg PO HS 07/13/23 07/13/23 History melatonin 3 mg tablet 3 mg PO HS 07/13/23 07/13/23 History ondansetron 4 mg disintegrating 4 mg PO Q8H PRN nausea and vomiting 07/13/23 07/13/23 History tablet sennosides 8.6 mg-docusate sodium 1 tab-cap PO HS 07/13/23 07/13/23 History 50 mg tablet (Senna Plus) sertraline 25 mg tablet 25 mg PO DAILY 07/13/23 07/13/23 History Patient hx anesthesia problems: none Family hx anesthesia problems: none Results Review: All pre-operative results and documents have been reviewed as part of the pre-operative evaluation. [facility] Past Medical History Medical History Cervical spine disease Degenerative disc disease, cervical Dyslipidemia Essential hypertension Ischemic cerebrovascular accident (CVA) Left hemiparesis Left hemiparesis Obesity (BMI 30.0-34.9) Osteoarthritis Type 2 diabetes mellitus Surgical History Surgical History History of lumbar surgery History of replacement of both shoulder joints History of toe surgery Right 1st toe surgery done for unclear reasons. Patient cannot provide me with specifics. Family History Family History Other Hypertension Social History Social History Social History: The patient lives in [place] with his . they have 2 children. He his retired from [employer]. He smoked perhaps a pack of cigarettes per day and quit 35 years ago. he denies alcohol and illicit substance use. He designates his , Katherine, as his surrogate decision maker and he wishes to be a full code. Smoking packs per day: 1 Smoking cigarettes per day: 20.0 Years smoked: 20 Smoking pack-years: 20.00 Smoking status: Former smoker Tobacco type: cigarettes Second hand tobacco smoke exposure: No Additional smoking assessment comments: STATES SMOKED YRS AGO, QUIT AGE EARLY 38'S Alcohol intake: former Substance use: never Substance use type: does not use Living arrangements: [facility] Spiritual care concerns: No Anes - Eval Final PreProcedure Day of Procedure 07/20/23 12:01 Patient weight: normal Heart: regular rate and rhythm Lungs: clear to auscultation Airway: Mallampati scale class III Neurological: alert and oriented Last oral intake: >/= 8 hours ASA classification: IV Emergent: no Anesthetic plan: proceed Anesthesia type and monitoring: general GIVS and standard monitoring
[2023-07-20] MEDS: ONDANSETRON INJ 4 MG/2 ML VIAL IV PUSH (12:04)
[2023-07-20 12:05] VITALS: BP 145/82; PULSE 84; RESP 22; TEMP 36.3; O2SAT 99; BMI 25.2
[2023-07-20 12:14] LABS: Glucose Point of Care 139 mg/dl (65-105)
[2023-07-20] MEDS: BENZOCAINE (*SP) 60 ML SPRAY CAN (HURRICAINE) 1 SPRAY MUCOUS MEM (13:03)
[2023-07-20 13:11] VITALS: BP 64/42; PULSE 68; RESP 19; O2SAT 97
[2023-07-20 13:21] VITALS: BP 73/47; PULSE 66; RESP 18; O2SAT 97
[2023-07-20 13:31] VITALS: BP 94/58; PULSE 70; RESP 24; O2SAT 99
== END 2023-07-20 13:52 | disposition home or self-care (01) ==
PROVIDERS: PCP Family Medicine; Visit Provider Internal Medicine Gastroenterology
PROC: 0DJ08ZZ Inspection of Upper Intestinal Tract, Via Natural or Artificial Opening Endoscopic (ICD-10-PCS; CPT 43235; principal; 2023-07-20 13:00)
DX: R13.10 Dysphagia, unspecified (principal); E78.5 Hyperlipidemia, unspecified; I10 Essential (primary) hypertension; E11.9 Type 2 diabetes mellitus without complications; G81.94 Hemiplegia, unspecified affecting left nondominant side; Z79.82 Long term (current) use of aspirin; Z79.01 Long term (current) use of anticoagulants; Z98.890 Other specified postprocedural states; Z87.891 Personal history of nicotine dependence; Z86.79 Personal history of other diseases of the circulatory system
CPT/HCPCS: 43235; 82948; J2371; J2405; J2704; J7120

== ENCOUNTER 2023-08-02 09:50 | Emergency (ER) | payer MEDICARE, BC, SELFPAY ==
[2023-08-02] VITALS (14 sets, daily range): BP systolic 108–158; BP diastolic 63–93; PULSE 63–69; RESP 13–26; TEMP 36.5–36.8; O2SAT 93–100
--- NOTE | ~2023-08-02 | XR_ITS ---
XR chest 2V 08/02/2023 12:29 Indication: Weakness and low blood pressure Procedure: 2 view chest Comparison: Comparison to multiple prior studies sequentially, with oldest reviewed study dated 02/28. Findings: Heart size normal. There is atherosclerosis and ectasia of the aorta. There is a left shoul brett arthroplasty. Left basilar atelectasis. No focal pneumonia, edema, pleural effusion or pneumothor ax. Impression: 1: Left basilar atelectasis. Reviewed, dictated and finalized at location B. [employer] ACCOUNT MANAGER Impression: 1: Left basilar atelectasis.
--- NOTE | 2023-08-02 10:58 | ECG_ITS ---
Measurements Intervals [place] Rate: 67 P: 10 OR: 261 QRS: -35 QRSD: 145 T: 15 QT: 411 QTc: 436 Interpretive Statements SINUS RHYTHM WITH FIRST DEGREE AV BLOCK LEFT AXIS DEVIATION RIGHT BUNDLE BRANCH BLOCK BASELINE ARTIFACT- I, II, III, AVR, AVL, AVF, V1-V3 ABNORMAL ECG COMPARED TO ECG 07/03/2023 12:54:04 NO SIGNIFICANT CHANGES Electronically Signed On 08-02-2023 11:27:23 [employer] by Matthias Smith D.O.
[2023-08-02 11:31] LABS: Basophils Absolute Auto 0.1 K/mm3 (0.0-0.1); Basophils Percent Auto 0.8 % (0.2-1.2); Eosinophils Absolute Auto 0.1 K/mm3 (0-0.3); Eosinophils Percent Auto 1.1 % (0-4.4); Hematocrit 42.1 % (42.0-52.0); Hemoglobin 13.5 g/dL (14.0-18.0); Immature Granulocyte Absolute 0.04 K/mm3 (0.00-0.031); Immature Granulocyte Percent A 0.4 % (0-0.5); Lymphocytes Absolute Auto 1.53 K/mm3 (0.9-3.2); Lymphocytes Percent Auto 17.2 % (18.3-44.2); Mean Corpuscular HGB Conc 32.1 g/dl (32-36); Mean Corpuscular Hemoglobin 29.1 pg (26-34); Mean Corpuscular Volume 90.7 fl (80-100); Mean Platelet Volume 9.5 fl (7.4-10.4); Monocytes Absolute Auto 0.6 K/mm3 (0.1-0.6); Monocytes Percent Auto 7.1 % (2.6-8.5); Neutrophils Absolute Auto 6.5 K/mm3 (1.3-6.7); Neutrophils Percent Auto 73.4 % (45.5-73.1); Platelet Count Result 289 k/mm3 (150-375); Red Blood Count 4.64 M/mm3 (4.6-6.20); White Blood Count 8.9 K/mm3 (4.5-10.0)
[2023-08-02 11:41] LABS: Alanine Aminotransferase 19 U/L (6-50); Albumin Level 3.7 g/dL (3.5-5.1); Alkaline Phosphatase 92 U/L (38-126); Anion Gap 8 mmol/L (8-16); Aspartate Amino Transferase 20 U/L (17-59); Bilirubin,Total 0.7 mg/dL (0.2-1.3); Blood Urea Nitrogen 14 mg/dL (9-20); Calcium 8.9 mg/dL (8.4-10.2); Carbon Dioxide 26 mmol/L (22-30); Chloride 102 mmol/L (98-107); Estimated Glomerular Filt Rate > 60; Glucose 160 mg/dL (65-110); Potassium 4.3 mmol/L (3.4-5.0); Sodium 136 mmol/L (137-145)
--- NOTE | 2023-08-02 11:53 | ED.RECABL ---
HPI - Recheck/Abnormal Lab/Rx General Chief Complaint: Recheck/Abnormal Lab/Rx Stated Complaint: low bp Time Seen by Provider: 08/02/23 10:58 Source: patient Mode of arrival: EMS Limitations: no limitations History of Present Illness HPI narrative: This is an 78-year-old male that presents to the emergency department for low blood pressure noted at his nursing facility. Reportedly patient's blood pressure was low today. He was normal upon EMS arrival and has been normal here. He has no symptoms currently. Does report trouble with incontinence which is chronic. Denies fevers, cough, chest pain, shortness of breath, abdominal pain, vomiting, or dysuria. Related Data Home Medications Medication Instructions Recorded Confirmed carvedilol 25 mg tablet 25 mg PO Q12H 06/21/23 07/13/23 pantoprazole 40 mg tablet,delayed 40 mg PO QAM 06/21/23 07/13/23 release rivaroxaban 2.5 mg tablet 2.5 mg PO BID 06/21/23 07/13/23 cyclobenzaprine 5 mg tablet 5 mg PO Q8H PRN Muscle Spasm 07/13/23 07/13/23 glucagon 1 mg solution for 1 mg IM Q30M PRN Hypoglycemia 07/13/23 07/13/23 injection (Glucagon Emergency Kit) hydralazine 50 mg tablet 50 mg PO TID 07/13/23 07/13/23 losartan 50 mg tablet 50 mg PO HS 07/13/23 07/13/23 melatonin 3 mg tablet 3 mg PO HS 07/13/23 07/13/23 ondansetron 4 mg disintegrating 4 mg PO Q8H PRN nausea and vomiting 07/13/23 07/13/23 tablet sennosides 8.6 mg-docusate sodium 1 tab-cap PO HS 07/13/23 07/13/23 50 mg tablet (Senna Plus) sertraline 25 mg tablet 25 mg PO DAILY 07/13/23 07/13/23 Allergies Allergy/AdvReac Type Severity Reaction Status Date / Time No Known Allergies Allergy Verified 07/20/23 11:54 Review of Systems Review of Systems: CONSTITUTIONAL: Denies fever ENT: Denies congestion CARDIOVASCULAR: Denies chest pain RESPIRATORY: Denies cough or dyspnea. GASTROINTESTINAL: Denies abdominal pain, nausea, vomiting GENITOURINARY: Denies dysuria All systems reviewed & are unremarkable except as noted in HPI and below PMFSH Past Medical History Medical History Cervical spine disease Degenerative disc disease, cervical Dyslipidemia Essential hypertension Ischemic cerebrovascular accident (CVA) Left hemiparesis Left hemiparesis Obesity (BMI 30.0-34.9) Osteoarthritis Type 2 diabetes mellitus Surgical History Surgical History History of lumbar surgery History of replacement of both shoulder joints History of toe surgery Right 1st toe surgery done for unclear reasons. Patient cannot provide me with specifics. Family History Family History Other Hypertension Social History Social History Social History: The patient lives in [place] with his . they have 2 children. He his retired from [employer]. He smoked perhaps a pack of cigarettes per day and quit 35 years ago. he denies alcohol and illicit substance use. He designates his , Katherine, as his surrogate decision maker and he wishes to be a full code. Smoking packs per day: 1 Smoking cigarettes per day: 20.0 Years smoked: 20 Smoking pack-years: 20.00 Smoking status: Former smoker Tobacco type: cigarettes Second hand tobacco smoke exposure: No Additional smoking assessment comments: STATES SMOKED YRS AGO, QUIT AGE EARLY 38'S Alcohol intake: former Substance use: never Substance use type: does not use Living arrangements: assisted Spiritual care concerns: No Exam Narrative: GENERAL: Elderly, well-nourished, and in no acute distress. HEAD: Normocephalic, atraumatic. EYES: PERRLA and EOMI. ENT: Nares clear, no rhinorrhea or epistaxis. Mucous membranes moist. Oropharynx without tonsillar hypertrophy exudate or other lesions. Bilateral TMs pearly aguirre non-bulging NECK: Supple. No adenopath
[2023-08-02 12:15] LABS: Appearance Urine Turbid (Clear); Bacteria Urine 4+ /hpf; Bilirubin Urine Negative (Negative); Blood Urine Trace (Negative); Color Urine Yellow (Yellow); Glucose Urine UA Negative (Negative); Ketones Urine Trace mg/dL (Negative); Leukocyte Esterase Ur 3+ LEU/UL (Negative); Need Manual Microscopic Reviewed; Nitrate Urine Negative (Negative); Protein Urine 1+ mg/dL (Negative); RBC Urine >100 /hpf (0-2); Specific Grav Ur 1.015 (1.001-1.035); Squamous Epithelial Cell Urine None seen /hpf (Few); WBC Urine >100 /hpf
[2023-08-02 12:16] LABS: Add Urine Microscopic? YES
== END 2023-08-02 14:45 ==
PROVIDERS: Emergency Provider Physician Assistant; PCP Family Medicine
DX: N39.0 Urinary tract infection, site not specified (principal); I10 Essential (primary) hypertension; M19.90 Unspecified osteoarthritis, unspecified site; E11.9 Type 2 diabetes mellitus without complications
CPT/HCPCS: 36415; 71046; 80053; 81001; 85025; 87077; 87086; 87186; 93005; 96365; 99284; J0696

== ENCOUNTER 2024-01-22 22:52 | Emergency (ER) | payer MEDICARE, BC, SELFPAY ==
--- NOTE | ~2024-01-22 | XR_ITS ---
Portable chest x-ray Comparison: 08/02/2023 Clinical History: Vomiting, aspiration Findings: Lungs are clear, without focal consolidation or pleural effusion. Cardiomediastinal silho uette is stable. Bones and soft tissues are unremarkable, siphon bilateral shoulder arthroplasty. Impression: Clear lungs. Reviewed, dictated and finalized at location . Impression: Clear lungs.
--- NOTE | ~2024-01-22 | CT_ITS ---
CT of the Abdomen and Pelvis: Indication: Abdominal pain Technique: 2.5 mm axial scans were obtained through the abdomen and pelvis following intravenous adm inistration of 100 cc of Omnipaque 350. Dose reduction technique was used on this scan by utilizing a utomated exposure control and iterative reconstruction technique. The dose-length product (DLP) was 1 041.84 mGy-cm. COMPARISON: January 28 Findings: Scans through the lung bases demonstrate extensive groundglass opacity in the left lower l obe. There is mild right basilar atelectatic change. Small pericardial effusion present. The liver, spleen, pancreas, adrenals and kidneys are within normal limits, aside from bilateral fili l cysts. Small calcified gallstones are present. There are atherosclerotic calcifications of the aort a. No lymphadenopathy. There is prominent stool at the rectum. No bowel obstruction evident. No ascites. Images through the pelvis were performed. There is diffuse urinary bladder wall thickening. Prostate gland is enlarged and somewhat irregular, and indents the bladder base. 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 Impression: Extensive groundglass opacity at the left lower lobe. Correlate for pneumonia, asymmetric pulmonary e soumya, or atelectatic change. Diffuse urinary bladder wall thickening is compatible with cystitis. Prostatomegaly. Underlying bladder or prostate neoplasm difficult to completely exclude based on this exam, though ap pearance is similar to prior exam from 01/11/2022. Stability of appearance would suggest benign finding s. Cholelithiasis. Small pericardial effusion. Reviewed, dictated and finalized at location . Impression: Extensive groundglass opacity at the left lower lobe. Correlate for pneumonia, asymmetric pulmonary edema, or atelectatic change. Diffuse urinary bladder wall thickening is compatible with cystitis. Prostatomegaly. Underlying bladder or prostate neoplasm difficult to completely exclude based o n this exam, though appearance is similar to prior exam from 01/11/2022. Stabilit y of appearance would suggest benign findings. Cholelithiasis. Small pericardial effusion.
[2024-01-22 22:53] VITALS: BP 140/98; PULSE 100; RESP 16; TEMP 36.8; O2SAT 94
[2024-01-22 23:02] VITALS: BP 140/98; PULSE 100; RESP 16; TEMP 36.8; O2SAT 96
[2024-01-22 23:10] LABS: Basophils Percent Auto 0.1 % (0.2-1.2); Hematocrit 45.7 % (42.0-52.0); Hemoglobin 15.6 g/dL (14.0-18.0); Immature Granulocyte Absolute 0.07 K/mm3 (0.00-0.031); Immature Granulocyte Percent A 0.5 % (0-0.5); Lymphocytes Absolute Auto 1.01 K/mm3 (0.9-3.2); Lymphocytes Percent Auto 6.6 % (18.3-44.2); Mean Corpuscular HGB Conc 34.1 g/dl (32-36); Mean Corpuscular Hemoglobin 29.6 pg (26-34); Mean Corpuscular Volume 86.7 fl (80-100); Mean Platelet Volume 9.3 fl (7.4-10.4); Monocytes Absolute Auto 0.7 K/mm3 (0.1-0.6); Monocytes Percent Auto 4.8 % (2.6-8.5); Neutrophils Absolute Auto 13.6 K/mm3 (1.3-6.7); Platelet Count Result 336 k/mm3 (150-375); Red Blood Count 5.27 M/mm3 (4.6-6.20); Red Cell Distribution Width 14.2 % (11.5-14.5); White Blood Count 15.4 K/mm3 (4.5-10.0)
[2024-01-22 23:34] LABS: Alanine Aminotransferase 26 U/L (6-50); Alkaline Phosphatase 115 U/L (38-126); Anion Gap 15 mmol/L (4-12); Aspartate Amino Transferase 37 U/L (17-59); Bilirubin,Total 1.4 mg/dL (0.2-1.3); Blood Urea Nitrogen 24 mg/dL (9-20); Calcium 9.2 mg/dL (8.4-10.2); Carbon Dioxide 23 mmol/L (22-30); Chloride 100 mmol/L (98-107); Estimated Glomerular Filt Rate > 60; Glucose 166 mg/dL (65-110); Lipase 42 U/L (23-300); Potassium 4.1 mmol/L (3.4-5.0); Sodium 138 mmol/L (137-145)
--- NOTE | 2024-01-23 01:11 | ED.NAVMDI ---
HPI - Nausea/Vomiting/Diarrhea General Chief complaint: Nausea/Vomiting/Diarrhea <MALI Jaed Last Filed: 01/23/24 16:58> Stated complaint: N/V, STRONG URINE ODOR <MALI Jaed Last Filed: 01/23/24 16:58> Time Seen by Provider: 01/23/24 00:39 <MALI Jade Last Filed: 01/23/24 16:58> Source: patient and family <MALI Jade Last Filed: 01/23/24 16:58> Mode of arrival: EMS <MALI Jade Last Filed: 01/23/24 16:58> Limitations: clinical condition <MALI Jade Last Filed: 01/23/24 16:58> History of Present Illness HPI Narrative: Patient is an 78 y/o male, with pmh of CVA with L sided hemiplegia/speech difficulty, who presents to the ED via EMS with report of N/V. Patient is a resident of [facility]. at bedside reports she was notified by [facility] today that patient had been vomiting since this morning. EMS was contacted to bring the patient here. Daughter reports patient called her last night and stated that he did not feel well and did not have an appetite. They are unsure if he has had anything to eat at all today. Patient does still feel nauseous currently. He denies significant abdominal pain. No known fevers. reports they have head COVID exposure at [facility], unsure if other residents have had similar vomiting. <MALI Jade Last Filed: 01/23/24 16:58> Related Data Home medications: Home Medications Medication Instructions Recorded Confirmed carvedilol 25 mg tablet 25 mg PO Q12H 06/21/23 12/27/23 pantoprazole 40 mg tablet,delayed 40 mg PO QAM 06/21/23 12/27/23 release rivaroxaban 2.5 mg tablet 2.5 mg PO BID 06/21/23 12/27/23 cyclobenzaprine 5 mg tablet 5 mg PO Q8H PRN Muscle Spasm 07/13/23 12/27/23 glucagon 1 mg solution for 1 mg IM Q30M PRN Hypoglycemia 07/13/23 12/27/23 injection (Glucagon Emergency Kit) hydralazine 50 mg tablet 50 mg PO TID 07/13/23 12/27/23 losartan 50 mg tablet 50 mg PO HS 07/13/23 12/27/23 melatonin 3 mg tablet 3 mg PO HS 07/13/23 12/27/23 ondansetron 4 mg disintegrating 4 mg PO Q8H PRN nausea and vomiting 07/13/23 12/27/23 tablet sennosides 8.6 mg-docusate sodium 1 tab-cap PO HS 07/13/23 12/27/23 50 mg tablet (Senna Plus) sertraline 25 mg tablet 25 mg PO DAILY 07/13/23 12/27/23 <Yany Zeng PA-C - Last Filed: 01/23/24 16:58> Allergies/Adverse reactions: Allergies Allergy/AdvReac Type Severity Reaction Status Date / Time No Known Allergies Allergy Verified 01/22/24 23:03 <Yany Zeng PA-C - Last Filed: 01/23/24 16:58> Review of Systems Review of Systems: CONSTITUTIONAL: Denies fever, chills, or sweats. GASTROINTESTINAL: See HPI. GENITOURINARY: Denies dysuria or hematuria. MUSCULOSKELETAL: Denies back pain, extremity pain, myalgia. <Yany Zeng PA-C - Last Filed: 01/23/24 16:58> All systems reviewed & are unremarkable except as noted in HPI and below <Yany Zeng PA-C - Last Filed: 01/23/24 16:58> PMFSH Past Medical History Medical History: Medical History Cervical spine disease Degenerative disc disease, cervical Dyslipidemia Essential hypertension Ischemic cerebrovascular accident (CVA) Left hemiparesis Left hemiparesis Obesity (BMI 30.0-34.9) Osteoarthritis Type 2 diabetes mellitus <Yany Zeng PA-C - Last Filed: 01/23/24 16:58> Surgical History Surgical History: Surgical History History of lumbar surgery History of replacement of both shoulder joints History of toe surgery Right 1st toe surgery done for unclear reasons. Patient cannot provide me with specifics. <Yany Zeng PA-C - Last Filed: 01/23/24 16:58> Family History Family History: Family Histor
[2024-01-23] MEDS: SODIUM CHLORIDE 0.9% IV 1,000 ML 999 ML IV CONT ×2 (01:24→03:58)
[2024-01-23] MEDS: ONDANSETRON INJ 4 MG/2 ML VIAL IV PUSH (01:24)
[2024-01-23] MEDS: PANTOPRAZOLE SODIUM IV 40 MG VIAL IV PUSH (01:24)
[2024-01-23 01:29] LABS: Magnesium 1.7 mg/dL (1.6-2.3)
[2024-01-23 01:42] LABS: Lactic Acid Reflex 1.7 mmol/L (0.7-2.0)
[2024-01-23 03:08] VITALS: BP 118/79; PULSE 90; RESP 17; O2SAT 98
[2024-01-23 03:21] LABS: Appearance Urine Cloudy (Clear); Bacteria Urine 4+ /hpf; Bilirubin Urine Negative (Negative); Blood Urine 3+ (Negative); Color Urine Yellow (Yellow); Glucose Urine UA Negative (Negative); Ketones Urine 1+ mg/dL (Negative); Leukocyte Esterase Ur 1+ LEU/UL (Negative); Need Manual Microscopic Reviewed; Nitrate Urine Positive (Negative); Non Pathogenic Casts 0-2; Protein Urine 2+ mg/dL (Negative); RBC Urine >100 /hpf (0-2); Specific Grav Ur > 1.045 (1.001-1.035); Squamous Epithelial Cell Urine None Seen /hpf (Few); WBC Urine >100 /hpf (0-3); pH Urine 5.5 (5.0-9.0)
[2024-01-23 03:28] LABS: Add Urine Microscopic? YES
[2024-01-23 03:39] LABS: Influenza A QL RT-PCR Negative (Negative); Influenza B QL RT-PCR Negative (Negative); RSV RNA, RT-PCR Negative (Negative); SARS-CoV-2 RNA PCR Negative (Negative)
[2024-01-23 04:27] VITALS: BP 110/71; PULSE 86; O2SAT 99
== END 2024-01-23 07:09 ==
PROVIDERS: Physician Assistant; Emergency Provider Emergency Medicine; PCP Family Medicine
DX: N30.01 Acute cystitis with hematuria (principal); R11.2 Nausea with vomiting, unspecified; E86.0 Dehydration; I69.954 Hemiplegia and hemiparesis following unspecified cerebrovascular disease affecting left non-dominant side; I69.928 Other speech and language deficits following unspecified cerebrovascular disease; I10 Essential (primary) hypertension; E78.5 Hyperlipidemia, unspecified; E11.9 Type 2 diabetes mellitus without complications; M19.90 Unspecified osteoarthritis, unspecified site; M50.30 Other cervical disc degeneration, unspecified cervical region; Z96.611 Presence of right artificial shoulder joint; Z96.612 Presence of left artificial shoulder joint; Z87.891 Personal history of nicotine dependence; Z79.899 Other long term (current) drug therapy; Z79.01 Long term (current) use of anticoagulants; R91.8 Other nonspecific abnormal finding of lung field; N40.0 Benign prostatic hyperplasia without lower urinary tract symptoms; K80.20 Calculus of gallbladder without cholecystitis without obstruction
CPT/HCPCS: 36415; 71045; 74177; 80053; 81001; 83605; 83690; 83735; 85025; 87040; 87077; 87086; 87147; 87181; 87186; 87637; 96361; 96365; 96375; 99284; J0696; J2405; J2470; J7030; Q9967

== ENCOUNTER 2024-01-24 09:27 | Inpatient (IN) | payer MEDICARE, BC, SELFPAY ==
[2024-01-24] VITALS (15 sets, daily range): BP systolic 104–128; BP diastolic 68–86; PULSE 67–74; RESP 15–20; TEMP 36.4–36.8; O2SAT 96–100; BMI 25.0
--- NOTE | ~2024-01-24 | XR_ITS ---
EXAMINATION: XR chest 1V portable DATE: 01/24/2024 11:55 INDICATION: Sepsis TECHNIQUE: frontal view of the chest was obtained. COMPARISON: Chest radiograph dated 01/23/2024 and 08/02/2023 FINDINGS: Chronic mild elevation the right hemidiaphragm. Mild streaky opacities at the bilateral lung bases an d favor atelectasis over pneumonia. Tiny calcified nodule near the right costophrenic angle consisten t with old granulomatous disease. No pulmonary edema, pleural effusion or pneumothorax. The cardiomed iastinal silhouette is normal. Bilateral total shoulder arthroplasties. IMPRESSION: 1. Mild streaky opacities at the bilateral lung bases and favor atelectasis over pneumonia. Reviewed, dictated and finalized at location A. IMPRESSION: 1. Mild streaky opacities at the bilateral lung bases and favor atelectasis ove r pneumonia.
--- NOTE | 2024-01-24 10:20 | ECG_ITS ---
Test Date: 2024-01-24 10:30:50 Measurements Intervals [place] Rate: 69 P: -6 GA: 216 QRS: -54 QRSD: 150 T: 183 QT: 489 QTc: 526 Interpretive Statements SINUS RHYTHM WITH FIRST DEGREE AV BLOCK RIGHT BUNDLE BRANCH BLOCK LEFT ANTERIOR FASCICULAR BLOCK ST-T WAVE ABNORMALITY IN ANTEROLAT/HIGH LAT LEADS- CONSIDER ISCHEMIA BASELINE ARTIFACT- I, III, AVR, AVL ABNORMAL ECG No previous ECG available for comparison Electronically Signed On 01-24-2024 17:22:59 CDT by Matthias Smith D.O.
[2024-01-24 11:02] LABS: Basophils Percent Auto 0.3 % (0.2-1.2); Eosinophils Absolute Auto 0.1 K/mm3 (0-0.3); Eosinophils Percent Auto 1.5 % (0-4.4); Hematocrit 38.8 % (42.0-52.0); Hemoglobin 12.6 g/dL (14.0-18.0); Immature Granulocyte Absolute 0.04 K/mm3 (0.00-0.031); Immature Granulocyte Percent A 0.5 % (0-0.5); Lymphocytes Absolute Auto 1.82 K/mm3 (0.9-3.2); Lymphocytes Percent Auto 20.7 % (18.3-44.2); Mean Corpuscular HGB Conc 32.5 g/dl (32-36); Mean Corpuscular Hemoglobin 29.7 pg (26-34); Mean Corpuscular Volume 91.5 fl (80-100); Mean Platelet Volume 10.1 fl (7.4-10.4); Monocytes Absolute Auto 0.7 K/mm3 (0.1-0.6); Monocytes Percent Auto 8.2 % (2.6-8.5); Neutrophils Absolute Auto 6.1 K/mm3 (1.3-6.7); Neutrophils Percent Auto 68.8 % (45.5-73.1); Platelet Count Result 239 k/mm3 (150-375); Red Blood Count 4.24 M/mm3 (4.6-6.20); Red Cell Distribution Width 14.2 % (11.5-14.5); White Blood Count 8.8 K/mm3 (4.5-10.0)
[2024-01-24 11:05] LABS: Glucose Point of Care 135 mg/dl (65-105)
[2024-01-24] MEDS: SODIUM CHLORIDE 0.9% IV 2,000 ML 999 ML IV CONT (11:08)
[2024-01-24] MEDS: PIPERACILLN/TAZ 3.375GM/NS50ML 3.375 GM/50 ML BAG IVPB ×2 (11:09→18:07)
[2024-01-24 11:13] LABS: Lactic Acid Reflex 1.3 mmol/L (0.7-2.0)
--- NOTE | 2024-01-24 11:13 | ED.GENADULT ---
HPI - General Adult General Chief complaint: Recheck/Abnormal Lab/Rx Stated complaint: abnormal labs Time Seen by Provider: 01/24/24 10:07 History of Present Illness HPI narrative: This is an 78-year-old male [facility]. Patient was seen in our ER yesterday for not feeling well, nausea and vomiting. That time he was diagnosed with a urinary tract infection, started on antibiotics and [facility]. However there she was concerned because his condition is not improved. Additionally his blood cultures came back positive for g positive cocci in clusters. Patient's cell says that he still feels unwell although he has no focal findings on exam. Patient denies chest pain difficulty breathing, fevers abdominal pain or urinary symptoms. Related Data Home Medications Medication Instructions Recorded Confirmed carvedilol 25 mg tablet 25 mg PO Q12H 06/21/23 12/27/23 pantoprazole 40 mg tablet,delayed 40 mg PO QAM 06/21/23 12/27/23 release rivaroxaban 2.5 mg tablet 2.5 mg PO BID 06/21/23 12/27/23 cyclobenzaprine 5 mg tablet 5 mg PO Q8H PRN Muscle Spasm 07/13/23 12/27/23 glucagon 1 mg solution for 1 mg IM Q30M PRN Hypoglycemia 07/13/23 12/27/23 injection (Glucagon Emergency Kit) hydralazine 50 mg tablet 50 mg PO TID 07/13/23 12/27/23 losartan 50 mg tablet 50 mg PO HS 07/13/23 12/27/23 melatonin 3 mg tablet 3 mg PO HS 07/13/23 12/27/23 ondansetron 4 mg disintegrating 4 mg PO Q8H PRN nausea and vomiting 07/13/23 12/27/23 tablet sennosides 8.6 mg-docusate sodium 1 tab-cap PO HS 07/13/23 12/27/23 50 mg tablet (Senna Plus) sertraline 25 mg tablet 25 mg PO DAILY 07/13/23 12/27/23 Allergies Allergy/AdvReac Type Severity Reaction Status Date / Time No Known Allergies Allergy Verified 01/24/24 09:37 [facility] Past Medical History Medical History Cervical spine disease Degenerative disc disease, cervical Dyslipidemia Essential hypertension Ischemic cerebrovascular accident (CVA) Left hemiparesis Left hemiparesis Obesity (BMI 30.0-34.9) Osteoarthritis Type 2 diabetes mellitus Surgical History Surgical History History of lumbar surgery History of replacement of both shoulder joints History of toe surgery Right 1st toe surgery done for unclear reasons. Patient cannot provide me with specifics. Family History Family History Other Hypertension Social History Social History Social History: The patient lives in [place] with his . they have 2 children. He his retired from [employer]. He smoked perhaps a pack of cigarettes per day and quit 35 years ago. he denies alcohol and illicit substance use. He designates his , Katherine, as his surrogate decision maker and he wishes to be a full code. Smoking packs per day: 1 Smoking cigarettes per day: 20.0 Years smoked: 20 Smoking pack-years: 20.00 Smoking status: Former smoker Tobacco type: cigarettes Second hand tobacco smoke exposure: No Additional smoking assessment comments: STATES SMOKED YRS AGO, QUIT AGE EARLY 38'S Alcohol intake: former Substance use: never Substance use type: does not use Living arrangements: penitentiary Spiritual care concerns: No Exam Narrative: APPEARANCE: Patient appears unwell Head: atraumatic. EYES: EOMI, NOSE: Atraumatic NECK: Trachea midline RESPIRATORY: No increased rate of breathing clear auscultation CARDIOVASCULAR: RRR, no peripheral edema ABDOMINAL: Non-distended soft nontender no guarding or rebound MUSCULOSKELETAl: No obvious deformities NEURO: Alert. Moving 4/4 extremities SKIN:: Warm, dry. Normal color PSYCHIATRIC: Normal affect Course Vital Signs Vital signs: Vital Signs Temperature 98.3 F 01/07
[2024-01-24 11:16] LABS: Alanine Aminotransferase 20 U/L (6-50); Albumin Level 3.2 g/dL (3.5-5.1); Alkaline Phosphatase 68 U/L (38-126); Anion Gap 8 mmol/L (4-12); Aspartate Amino Transferase 36 U/L (17-59); Bilirubin,Total 1.2 mg/dL (0.2-1.3); Blood Urea Nitrogen 28 mg/dL (9-20); Calcium 8.6 mg/dL (8.4-10.2); Carbon Dioxide 27 mmol/L (22-30); Chloride 105 mmol/L (98-107); Estimated CRCL calculation 83 ml/min; Estimated Glomerular Filt Rate > 60; Glucose 90 mg/dL (65-110); Lipase 70 U/L (23-300); Potassium 3.6 mmol/L (3.4-5.0); Sodium 140 mmol/L (137-145)
[2024-01-24 11:38] LABS: Influenza A QL RT-PCR Negative (Negative); Influenza B QL RT-PCR Negative (Negative); RSV RNA, RT-PCR Negative (Negative); SARS-CoV-2 RNA PCR Negative (Negative)
[2024-01-24] MEDS: VANCOMYCIN 2,000 MG/NS 500 ML 2,000 MG/500 ML BAG 250 MG IVPB (11:55)
[2024-01-24 12:02] LABS: Appearance Urine Turbid (Clear); Bacteria Urine None Seen /hpf; Bilirubin Urine Negative (Negative); Blood Urine 1+ (Negative); Color Urine Yellow (Yellow); Glucose Urine UA Negative (Negative); Ketones Urine Negative (Negative); Leukocyte Esterase Ur 3+ LEU/UL (Negative); Need Manual Microscopic Reviewed; Nitrate Urine Positive (Negative); Non Pathogenic Casts 0-2; Protein Urine 1+ mg/dL (Negative); Specific Grav Ur 1.028 (1.001-1.035); Squamous Epithelial Cell Urine None Seen /hpf (Few); WBC Urine >100 /hpf (0-3)
[2024-01-24 12:03] LABS: Add Urine Microscopic? YES
[2024-01-24 15:14] LABS: Troponin I 0.328 ng/mL (0.000-0.034)
[2024-01-24] MEDS: ASPIRIN 325 MG TABLET PO (15:43)
--- NOTE | 2024-01-24 17:13 | ADMGEN ---
This patient, Cleve Oseguera, was admitted to IMU Room 201-01. Patient/family oriented to hospital policies and general routines including ID bracelet, bed and alarms, visiting hours, pain management, procedures, bathroom and other care routines, personal items, smoking policy, room service/diet, and visiting hours. Information on how to activate the Rapid Response Team has been discussed. Patient/Family are encouraged to report perceived risks to care and to ask questions if they do not understand what they are told or what they should do.
--- NOTE | 2024-01-24 20:12 | PM.IMHP ---
H&P: HPI History of Present Illness Date/Time: 01/24/24 16:00 Chief Complaint: Positive blood cultures. Narrative: This is a very pleasant 78-year-old gentleman with history of stroke and residual left-sided weakness and mild expressive aphasia, hypertension, hyperlipidemia, type 2 diabetes mellitus, benign prostatic hyperplasia, and osteoarthritis status post bilateral shoulder arthroplasty who presented to the emergency department via EMS from [facility] for evaluation after he was found to have positive blood cultures. The patient and his provide the following history. He was seen in the ED yesterday for evaluation of nausea and vomiting. Labs were stable and did not show any significant abnormalities and CT of the abdomen pelvis was without acute pathology. Urinalysis was consistent with urinary tract infection and he received ceftriaxone. He felt better with supportive care and was discharged with a prescription for cephalexin. Two sets of blood cultures obtained yesterday are growing staphylococcal epidermidis in both aerobic and anaerobic bottle and he was told to return to the hospital. He still feels generally unwell with mild nausea but denies vomiting today. He also denies fever, chills, sweats, chest pain, shortness of breath, abdominal pain, diarrhea, dysuria, and joint pain and swelling, In the ED: He was afebrile on arrival with stable vital signs. Labs are significant for WBC count of 8.8, hemoglobin 12.6, BUN 28, creatinine 0.60, glucose 135, lactic acid 1.3, total protein 6.0, albumin 3.2, troponin 0.328. Urine showed 1+ protein, 1+ blood, positive nitrates, 3+ leukocyte esterase, and greater than 100 WBC. He tested negative for influenza, RSV, and COVID. Chest x-ray showed mild streaky opacities at the bilateral lung bases, likely atelectasis over pneumonia. He was given a dose of Zosyn and vancomycin he is being admitted in this setting for further evaluation. Review of Systems Review of Systems: 12 systems were reviewed and are negative except for as per HPI. [facility] Past Medical History Medical History (Updated 01/24/24 @ 20:34 by Melisa Shoemaker PA-C) Cerebrovascular accident With left hemiparesis and mild expressive aphasia. Cervical spine disease Degenerative disc disease, cervical Dyslipidemia Essential hypertension Osteoarthritis Type 2 diabetes mellitus Surgical History Surgical History History of lumbar surgery History of replacement of both shoulder joints History of toe surgery Right 1st toe surgery done for unclear reasons. Patient cannot provide me with specifics. Family History Family History Other Hypertension Social History Social History (Updated 01/24/24 @ 20:27 by Melisa Shoemaker PA-C) Social History: Surrogate medical decision maker: Katherine Oseguera, . Code status: Full code. Smoking packs per day: 1 Smoking cigarettes per day: 20.0 Years smoked: 20 Smoking pack-years: 20.00 Smoking status: Former smoker Tobacco type: cigarettes Second hand tobacco smoke exposure: No Additional smoking assessment comments: quit 40 years ago Alcohol intake: never Substance use: never Substance use type: does not use Do You Feel Safe in your Home?: Yes Lack of Transportation: No Lack of Food: Never True Current Housing: I Have Housing Concerned About Future Housing: No Difficulty Paying Gas/Electric Bills: No Difficulty Paying for Meds: No Currently Unemployed: No Education: High School Diploma/GED Difficulty w/ Childcare or Family Care: No Living arrangements: assisted living Additional living arrangements comments: Lives with in assisted living. They have 2 children. Additional occupation/education comments: Retired from [employer]. Spiritual care concerns: No Meds Home Medications a
[2024-01-24 21:23] LABS: Hemoglobin A1C 5.8 % (<5.7)
[2024-01-24 22:32] LABS: Glucose Point of Care 157 mg/dl (65-105)
[2024-01-24] MEDS: BACLOFEN 10 MG TABLET PO (23:01)
[2024-01-24] MEDS: carvediloL 6.25 MG TABLET PO (23:01)
[2024-01-24] MEDS: QUEtiapine FUMARATE 25 MG TABLET PO (23:01)
[2024-01-24] MEDS: TAMSULOSIN HCL 0.4 MG CAPSULE PO (23:01)
[2024-01-24] MEDS: RIVAROXABAN 2.5 MG TABLET PO (23:07)
[2024-01-24] MEDS: VANCOMYCIN 1,250 MG/NS 250 ML 1,250 MG/250 ML BAG 166.67 MG IVPB (23:48)
[2024-01-25] VITALS (12 sets, daily range): BP systolic 114–127; BP diastolic 65–81; PULSE 63–74; RESP 16–18; TEMP 36.1–36.7; O2SAT 95–98
--- NOTE | 2024-01-25 | ECHO_ITS ---
Patient Info Name: Cleve Oseguera Age: 78 years : 1945 Gender: Male Ht: 69 in Wt: 169 lbs BSA: 1.94 m2 HR: 63 bpm BP: 119 / 71 mmHg Technical Quality: Good Exam Date: 01/25/2024 7:45 AM Exam Location: Echo Lab Patient Status: Inpatient Admit Date: 01/24/2024 Staff Ordering Physician: Melisa Shoemaker PA-C Plastic Panel Installer: Jerod Cook RDCS Attending Provider: Angela Purcell MD Referring Physician: Navid ELIZALDE; Exam Type: CA echo doppler color flow Study Info Indications - coag-neg staph bacteremia - elevated troponin Complete two-dimensional, color flow and Doppler transthoracic echocardiogram is performed. Summary 1. Left ventricular chamber dimension is normal. 2. Left ventricular systolic function is moderately reduced, estimated at 35-40%. There is global hypokinesis with more pronounced hypokinesis of the mid and apical LV segments. 3. There is mildly increased left ventricular wall thickness. 4. The left ventricular diastolic function is grade I diastolic dysfunction. 5. Right ventricular systolic function is normal. 6. Left atrial chamber dimension is severely enlarged. 7. There is mild aortic valve regurgitation. 8. There is mild mitral valve regurgitation. 9. The aortic root size at the sinus of Valsalva is moderately dilated. 10. Dilated inferior vena cava with >50% collapse upon inspiration consistent with elevated right atrial pressure, 8 mmHg. 11. There is small pericardial effusion. Left Ventricle Left ventricular chamber dimension is normal. Left ventricular systolic function is moderately reduced, estimated at 35-40%. There is global hypokinesis with more pronounced hypokinesis of the mid and apical LV segments. There is mildly increased left ventricular wall thickness. The left ventricular diastolic function is grade I diastolic dysfunction. Right Ventricle Right ventricular chamber dimension is normal. Right ventricular systolic function is normal. Left Atria Left atrial chamber dimension is severely enlarged. Right Atria Right atrial chamber dimension is normal. Atrial Septum Intact interatrial septum visualized by color flow imaging. Aortic Valve The aortic valve is trileaflet. There is no aortic valve stenosis. There is mild aortic valve regurgitation. There is moderate aortic valve calcification. Pulmonic Valve The pulmonic valve is not well visualized. Mitral Valve There is mild mitral valve regurgitation. The mitral valve annulus is moderately calcified. Tricuspid Valve There is trace tricuspid valve regurgitation. Pericardium/Pleural There is small pericardial effusion. Inferior Vena Cava Dilated inferior vena cava with >50% collapse upon inspiration consistent with elevated right atrial pressure, 8 mmHg. Aorta The aortic root size at the sinus of Valsalva is moderately dilated. Left Ventricular Outflow Tract Name Value Normal LVOT 2D LVOT Diameter 2.5 cm LVOT Doppler LVOT Peak Gradient 2 mmHg LVOT Mean Gradient 1 mmHg LVOT VTI 17 cm LVOT VTI/AV VTI Ratio 0.6 LVOT Stroke Volume 83 ml
[2024-01-25 04:59] LABS: Hematocrit 33.8 % (42.0-52.0); Mean Corpuscular HGB Conc 32.5 g/dl (32-36); Mean Corpuscular Hemoglobin 29.8 pg (26-34); Mean Corpuscular Volume 91.6 fl (80-100); Mean Platelet Volume 10.2 fl (7.4-10.4); Platelet Count Result 200 k/mm3 (150-375); Red Blood Count 3.69 M/mm3 (4.6-6.20); Red Cell Distribution Width 13.9 % (11.5-14.5); White Blood Count 7.3 K/mm3 (4.5-10.0)
[2024-01-25 05:40] LABS: Anion Gap 6 mmol/L (4-12); Blood Urea Nitrogen 19 mg/dL (9-20); Carbon Dioxide 26 mmol/L (22-30); Chloride 106 mmol/L (98-107); Estimated CRCL calculation 83 ml/min; Estimated Glomerular Filt Rate > 60; Glucose 107 mg/dL (65-110); Magnesium 1.8 mg/dL (1.6-2.3); Potassium 3.3 mmol/L (3.4-5.0); Sodium 138 mmol/L (137-145)
[2024-01-25 06:56] LABS: Glucose Point of Care 98 mg/dl (65-105)
--- NOTE | 2024-01-25 09:25 | PM.IMPN ---
Progress Note: A&P Assessment and Plan (1) Acute UTI: Code(s): N39.0 - Urinary tract infection, site not specified Status: Acute (2) Bacteremia: Code(s): R78.81 - Bacteremia Status: Acute (3) Staphylococcus epidermidis bacteremia: Code(s): R78.81 - Bacteremia; B95.7 - Other staphylococcus as the cause of diseases classified elsewhere Status: Acute (4) Elevated troponin: Code(s): R79.89 - Other specified abnormal findings of blood chemistry Status: Acute Plan HPI via Birdie Shoemaker PA-C: This is a very pleasant 78-year-old gentleman with history of stroke and residual left-sided weakness and mild expressive aphasia, hypertension, hyperlipidemia, type 2 diabetes mellitus, benign prostatic hyperplasia, and osteoarthritis status post bilateral shoulder arthroplasty who presented to the emergency department via EMS from [facility] for evaluation after he was found to have positive blood cultures. The patient and his provide the following history. He was seen in the ED yesterday for evaluation of nausea and vomiting. Labs were stable and did not show any significant abnormalities and CT of the abdomen pelvis was without acute pathology. Urinalysis was consistent with urinary tract infection and he received ceftriaxone. He felt better with supportive care and was discharged with a prescription for cephalexin. Two sets of blood cultures obtained yesterday are growing staphylococcal epidermidis in both aerobic and anaerobic bottle and he was told to return to the hospital. He still feels generally unwell with mild nausea but denies vomiting today. He also denies fever, chills, sweats, chest pain, shortness of breath, abdominal pain, diarrhea, dysuria, and joint pain and swelling, In the ED: He was afebrile on arrival with stable vital signs. Labs are significant for WBC count of 8.8, hemoglobin 12.6, BUN 28, creatinine 0.60, glucose 135, lactic acid 1.3, total protein 6.0, albumin 3.2, troponin 0.328. Urine showed 1+ protein, 1+ blood, positive nitrates, 3+ leukocyte esterase, and greater than 100 WBC. He tested negative for influenza, RSV, and COVID. Chest x-ray showed mild streaky opacities at the bilateral lung bases, likely atelectasis over pneumonia. He was given a dose of Zosyn and vancomycin he is being admitted in this setting for further evaluation. (7/18, he also carries a diagnosis of psychophysiological insomnia) ----- # acute UTI secondary to Gram-negative bacilli -status: Acute, improved -continue ceftriaxone -follow-up urine culture sensitivities from 01/23/2024 # bacteremia very to Staphylococcus epidermidis -status: Acute -increase ceftriaxone to 2 g daily, 1 g started on admission. Received Zosyn and vancomycin on admission -unclear source. He had bilateral arthroplasty of the shoulders, no pain. No edema. No fever. No white count. Patient reports back and foot surgery but he cannot specify any further and does not think he had hardware placed. No skin lesions ulcers abscess. -blood culture 01/22: Staph epidermidis x2, pending sensitivities -blood cultures 01/23: No growth to date # elevated troponin -status: Acute -peaked at 0.390 on admission. He had nausea which resolved. No chest pain. -inverted T-waves in lateral leads. Unable to assess for comparison due to system error. Cardiology consultation pending. Surface echocardiogram pending # chronic hypertension -status: Chronic, controlled -continue CRUISE CONSULTANT Coreg 6.25 mg p.o. b.i.d. # history of stroke, hyperlipidemia -status: Chronic -continue CRUISE CONSULTANT aspirin rivaroxaban atorvastatin. Continue CRUISE CONSULTANT baclofen # jsv-nkjvngr-ozgvlijyl diabetes mellitus -status: Chronic -less HbA1c 5.8% on 01/24/2024 -glucose monitoring ACHS, LDISS, hypoglycemia protocol # acute hypokalemia -replace with 20 mEq KCL tab, 3.3 on 01/24 Chronic Conditions -BPH: Continue CRUISE CONSULTANT tamsulosin -psychophysiological insomnia
--- NOTE | 2024-01-25 09:29 | PM.CNCAR ---
Assessment and Plan Assessment and plan (1) Elevated troponin: Code(s): R79.89 - Other specified abnormal findings of blood chemistry Status: Acute Assessment and Plan: Troponins are elevated at 0.390, 0.328, 0.290. Initial EKG shows sinus rhythm with first-degree AV block with T-wave inversions in the lateral leads. Will repeat an EKG now. He is not complaining of any chest pain. Cannot rule out underlying coronary artery disease but in the absence of anginal symptoms, I doubt his troponin spill is enrollment representative of acute coronary syndrome. Follow up on repeat EKG. Can consider ischemic evaluation when he recovers from his infection, cath not appropriate at this point. (2) Cardiomyopathy: Code(s): I42.9 - Cardiomyopathy, unspecified Status: Acute Assessment and Plan: Moderately reduced LV systolic function with EF 35-40%. He does have WMA, so ischemic evaluation should be pursued at some point but certainly coronary angiogram not appropriate at this time because of bacteremia. He does not appear to be in decompensated heart failure. Continue beta sonido to prevent symptomatic HF. Up titrate as able. (3) Bacteremia: Code(s): R78.81 - Bacteremia Status: Acute Assessment and Plan: Blood cultures positive for staph epi. Sensitivities are pending. Abx per hospitalist (4) Benign essential HTN: Code(s): I10 - Essential (primary) hypertension Status: Acute Assessment and Plan: BP at goal History of Present Illness History of Present Illness Consult date/time: 01/25/24 09:29 Requesting physician: Melisa Shoemaker PA-C Consult reason: Other (elevated troponin) Reason For Visit: UTI/Bacteremia Narrative: Cleve Oseguera is an 78 year old male who is hospitalized after he was found to have positive blood cultures at [facility]. Cardiology is consulted because of positive troponin levels. He denies any known cardiac history. He denies any current or previous chest pain. Denies any shortness of breath, palpitations, syncope, or presyncope. He does endorse bilateral lower extremity swelling that comes and goes. Currently, his only complaint is fatigue. Despite not having any complaints of chest pain, troponin levels were sampled. His troponin was initially elevated at 0.390 and has trended down to 0.290. Echocardiogram was performed and revealed global hypokinesis, moderately reduced LV systolic function with EF 35-40% with more pronounced hypokinesis of the mid and apical LV segments. Review of Systems Review of Systems: All systems reviewed & are unremarkable except as noted in HPI and below PMFSH Past Medical History Medical History Cerebrovascular accident With left hemiparesis and mild expressive aphasia. Cervical spine disease Degenerative disc disease, cervical Dyslipidemia Essential hypertension Osteoarthritis Type 2 diabetes mellitus Surgical History Surgical History History of lumbar surgery History of replacement of both shoulder joints History of toe surgery Right 1st toe surgery done for unclear reasons. Patient cannot provide me with specifics. Family History Family History Other Hypertension Social History Social History Social History: Surrogate medical decision maker: Katherine Oseguera, . Code status: Full code. Smoking packs per day: 1 Smoking cigarettes per day: 20.0 Years smoked: 20 Smoking pack-years: 20.00 Smoking status: Former smoker Tobacco type: cigarettes Second hand tobacco smoke exposure: No Additional smoking assessment comments: quit 40 years ago Alcohol intake: never Substance use: never Substance use type: does not use Do You Feel Safe in your H
[2024-01-25] MEDS: ATORVASTATIN 40 MG TABLET PO (10:01)
[2024-01-25] MEDS: carvediloL 6.25 MG TABLET PO ×2 (10:01→20:29)
[2024-01-25] MEDS: FLUoxetine HCL 20 MG CAPSULE PO (10:01)
[2024-01-25] MEDS: PARoxetine 20 MG TABLET PO (10:01)
[2024-01-25] MEDS: RIVAROXABAN 2.5 MG TABLET PO ×2 (10:01→20:28)
[2024-01-25] MEDS: SENNA/DOCUSATE SODIUM TABLET 1 TAB PO (10:01)
[2024-01-25] MEDS: PANTOPRAZOLE 40 MG TABLET PO (10:01)
[2024-01-25] MEDS: BACLOFEN 10 MG TABLET PO ×2 (10:01→20:29)
[2024-01-25] MEDS: ASPIRIN 81 MG ENTERIC TABLET PO (10:01)
--- NOTE | 2024-01-25 10:01 | ECG_ITS ---
Test Date: 2024-01-25 11:23:47 Measurements Intervals [place] Rate: 68 P: -16 NE: 188 QRS: -51 QRSD: 145 T: 181 QT: 489 QTc: 523 Interpretive Statements SINUS RHYTHM WITH FIRST DEGREE AV BLOCK RIGHT BUNDLE BRANCH BLOCK LEFT ANTERIOR FASCICULAR BLOCK ST-T WAVE ABNORMALITY IN ANTEROLAT/HIGH LAT LEADS- CONSIDER ISCHEMIA ABNORMAL ECG Compared to ECG 01/24/2024 10:30:50 NO SIGNIFICANT CHANGE Electronically Signed On 01-25-2024 16:33:54 CDT by Matthias Smith D.O.
[2024-01-25 12:26] LABS: Glucose Point of Care 126 mg/dl (65-105)
--- NOTE | 2024-01-25 12:47 | PC.NURSE ---
This patient, Cleve Oseguera, was received from [[id number] ] on 01/25/24 at 1247. Patient/family oriented to unit policies and routines
[2024-01-25] MEDS: VANCOMYCIN 1,250 MG/NS 250 ML 1,250 MG/250 ML BAG 166.67 MG IVPB (12:57)
[2024-01-25 15:56] LABS: Glucose Point of Care 178 mg/dl (65-105)
[2024-01-25 20:13] LABS: Glucose Point of Care 166 mg/dl (65-105)
[2024-01-25] MEDS: TAMSULOSIN HCL 0.4 MG CAPSULE PO (20:28)
[2024-01-25] MEDS: QUEtiapine FUMARATE 25 MG TABLET PO (20:34)
[2024-01-26 00:38] LABS: Vancomycin Trough 13.8 ug/mL (10.0-20.0)
[2024-01-26] MEDS: VANCOMYCIN 1,500 MG/NS 500 ML 1,500 MG/500 ML BAG 250 MG IVPB ×2 (01:10→13:42)
[2024-01-26 06:00] VITALS: BP 159/85; PULSE 74; RESP 20; TEMP 36.3; O2SAT 97
[2024-01-26 06:27] LABS: Hematocrit 38.6 % (42.0-52.0); Hemoglobin 12.2 g/dL (14.0-18.0); Mean Corpuscular HGB Conc 31.6 g/dl (32-36); Mean Corpuscular Volume 91.9 fl (80-100); Mean Platelet Volume 9.8 fl (7.4-10.4); Platelet Count Result 204 k/mm3 (150-375); Red Cell Distribution Width 13.6 % (11.5-14.5); White Blood Count 7.7 K/mm3 (4.5-10.0)
[2024-01-26 06:39] LABS: Anion Gap 5 mmol/L (4-12); Blood Urea Nitrogen 10 mg/dL (9-20); Calcium 8.3 mg/dL (8.4-10.2); Carbon Dioxide 26 mmol/L (22-30); Chloride 107 mmol/L (98-107); Estimated CRCL calculation 98 ml/min; Estimated Glomerular Filt Rate > 60; Glucose 79 mg/dL (65-110); Magnesium 1.8 mg/dL (1.6-2.3); Potassium 3.5 mmol/L (3.4-5.0); Sodium 138 mmol/L (137-145)
[2024-01-26 07:42] LABS: Glucose Point of Care 89 mg/dl (65-105)
[2024-01-26 09:15] VITALS: BP 163/91
[2024-01-26 09:20] VITALS: PULSE 73
[2024-01-26] MEDS: ASPIRIN 81 MG ENTERIC TABLET PO (09:20)
[2024-01-26] MEDS: carvediloL 6.25 MG TABLET PO ×2 (09:20→20:32)
[2024-01-26] MEDS: PARoxetine 20 MG TABLET PO (09:20)
[2024-01-26] MEDS: PANTOPRAZOLE 40 MG TABLET PO (09:20)
[2024-01-26] MEDS: RIVAROXABAN 2.5 MG TABLET PO ×2 (09:20→20:31)
[2024-01-26] MEDS: FLUoxetine HCL 20 MG CAPSULE PO (09:20)
[2024-01-26] MEDS: BACLOFEN 10 MG TABLET PO ×2 (09:20→20:32)
[2024-01-26] MEDS: SENNA/DOCUSATE SODIUM TABLET 1 TAB PO (09:20)
[2024-01-26] MEDS: ATORVASTATIN 40 MG TABLET PO (09:20)
--- NOTE | 2024-01-26 10:57 | PC.NURSE ---
RN spoke with Katherine patient's and gave her an update via telephone.
[2024-01-26 11:43] LABS: Glucose Point of Care 133 mg/dl (65-105)
[2024-01-26 13:46] VITALS: BP 145/88; PULSE 76; RESP 20; TEMP 35.9; O2SAT 99
--- NOTE | 2024-01-26 15:07 | PM.PNCARD ---
Progress Note: A&P Assessment and Plan (1) Elevated troponin: Code(s): R79.89 - Other specified abnormal findings of blood chemistry Status: Acute Assessment and Plan: Troponins are elevated at 0.390, 0.328, 0.290. Initial EKG shows sinus rhythm with first-degree AV block with T-wave inversions in the lateral leads. Repeat EKG unchanged. He is not complaining of any chest pain. Cannot rule out underlying coronary artery disease but in the absence of anginal symptoms, I doubt his troponin spill is veterans employment representative of acute coronary syndrome. Can consider ischemic evaluation when he recovers from his infection, cath not appropriate at this point. (2) Cardiomyopathy: Code(s): I42.9 - Cardiomyopathy, unspecified Status: Acute Assessment and Plan: Moderately reduced LV systolic function with EF 35-40%. He does have WMA, so ischemic evaluation should be pursued at some point but certainly coronary angiogram not appropriate at this time because of bacteremia. Because of the appearance of his echo with pronounced hypokinesis of the mid and apical LV segments, consider Takotsubo cardiomyopathy. He does not appear to be in decompensated heart failure. Continue beta sonido to prevent symptomatic HF and add losartan for possible Takotsubo. (3) Bacteremia: Code(s): R78.81 - Bacteremia Status: Acute Assessment and Plan: Blood cultures positive for staph epi. Sensitivities are pending. Abx per hospitalist (4) Benign essential HTN: Code(s): I10 - Essential (primary) hypertension Status: Acute Assessment and Plan: BP at goal Plan Discussed plan with Hospitalist. Cardiology will sign off. Please call with questions. Subjective Date/time seen: 01/26/24 15:07 Interval history: Cardiology follow up for elevated trops, cardiomyopathy He continues to feel well today and only complains of fatigue. He denies chest pain, shortness of breath. Review of Systems Review of Systems: All systems reviewed & are unremarkable except as noted in HPI and below Exam Const: General: comfortable, no acute distress and alert Orientation/consciousness: patient oriented x3 HENMT: Head: normal to inspection Eyes: General: appearance normal, both eyes and all related structures Pupils: Equal, round and reactive pupils present Neck: Neck: normal visual inspection, supple and no JVD Carotids: normal carotid upstroke Resp: Effort & Inspection: normal respiratory effort Auscultation: clear to auscultation bilaterally Cardio: Rate: regular rate Rhythm: regular rhythm Heart sounds: S1 normal heart sound present, S2 normal heart sound present and Murmur heart sound present systolic GI: Auscultation: normal bowel sounds Skin: General skin exam: normal color Neuro: General: patient oriented x3 Cranial nerves: Yes Equal, round and reactive pupils present Extrem: General: edema (Mild bilateral ankle edema, nonpitting) Psych: Appearance: grossly normal Mental Status: mental status grossly normal Objective Data Vital Signs Vital Signs: Vital Signs - 24 hr 01/25/24 20:29 01/25/24 20:32 01/25/24 20:00 Temperature 36.1 C L Pulse Rate 72 63 Respiratory Rate 18 Blood Pressure 127/81 Pulse Oximetry 98 Oxygen Delivery Room Air 01/26/24 06:00 01/26/24 09:20 01/26/24 09:15 Temperature 36.3 C L Pulse Rate 74 73 Respiratory Rate 20 Blood Pressure 159/85 H 163/91 H Pulse Oximetry 97 Oxygen Delivery 01/26/24 09:20 01/26/24 13:46 Temperature 35.9 C L Pulse Rate 76 Respiratory Rate 20 Blood Pressure 145/88 H Pulse Oximetry 99 Oxygen Delivery Room Air Intake/Output Intake/Output: Intake & Output 01/23/24 01/24/24 01/25/24 01/26/24 23:59 23:59 23:59 23:59 Intake Total 2970 1150 1614 Output Total 500 600 400 Balance 2470 550 1214 Meds/Results Medications: Active Medications Generic Name Dose Route Start Las
--- NOTE | 2024-01-26 15:24 | PM.IMPN ---
Progress Note: A&P Assessment and Plan (1) Cardiomyopathy: Code(s): I42.9 - Cardiomyopathy, unspecified Status: Acute (2) Elevated troponin: Code(s): R79.89 - Other specified abnormal findings of blood chemistry Status: Acute (3) Urinary tract infection: Code(s): N39.0 - Urinary tract infection, site not specified Status: Acute (4) Staphylococcus epidermidis bacteremia: Code(s): R78.81 - Bacteremia; B95.7 - Other staphylococcus as the cause of diseases classified elsewhere Status: Acute (5) Acute UTI: Code(s): N39.0 - Urinary tract infection, site not specified Status: Acute Plan HPI via Birdie Shoemaker PA-C: This is a very pleasant 78-year-old gentleman with history of stroke and residual left-sided weakness and mild expressive aphasia, hypertension, hyperlipidemia, type 2 diabetes mellitus, benign prostatic hyperplasia, and osteoarthritis status post bilateral shoulder arthroplasty who presented to the emergency department via EMS from [facility] for evaluation after he was found to have positive blood cultures. The patient and his provide the following history. He was seen in the ED yesterday for evaluation of nausea and vomiting. Labs were stable and did not show any significant abnormalities and CT of the abdomen pelvis was without acute pathology. Urinalysis was consistent with urinary tract infection and he received ceftriaxone. He felt better with supportive care and was discharged with a prescription for cephalexin. Two sets of blood cultures obtained yesterday are growing staphylococcal epidermidis in both aerobic and anaerobic bottle and he was told to return to the hospital. He still feels generally unwell with mild nausea but denies vomiting today. He also denies fever, chills, sweats, chest pain, shortness of breath, abdominal pain, diarrhea, dysuria, and joint pain and swelling, In the ED: He was afebrile on arrival with stable vital signs. Labs are significant for WBC count of 8.8, hemoglobin 12.6, BUN 28, creatinine 0.60, glucose 135, lactic acid 1.3, total protein 6.0, albumin 3.2, troponin 0.328. Urine showed 1+ protein, 1+ blood, positive nitrates, 3+ leukocyte esterase, and greater than 100 WBC. He tested negative for influenza, RSV, and COVID. Chest x-ray showed mild streaky opacities at the bilateral lung bases, likely atelectasis over pneumonia. He was given a dose of Zosyn and vancomycin he is being admitted in this setting for further evaluation. (01/24, he also carries a diagnosis of psychophysiological insomnia) ----- 01/25 update: Continue ceftriaxone and vancomycin for Staph epidermidis and Klebsiella pneumonia. Continue to monitor for sepsis. Will need at least 5 days. Cardiology progress note appreciated. Continue losartan beta-sonido and elective ischemic evaluation. # acute UTI secondary to Gram-negative bacilli -status: Acute, improved -continue ceftriaxone -follow-up urine culture sensitivities from 01/23/2024 # bacteremia very to Staphylococcus epidermidis -status: Acute -increase ceftriaxone to 2 g daily, 1 g started on admission. Received Zosyn and vancomycin on admission -unclear source. He had bilateral arthroplasty of the shoulders, no pain. No edema. No fever. No white count. Patient reports back and foot surgery but he cannot specify any further and does not think he had hardware placed. No skin lesions ulcers abscess. -blood culture 01/22: Staph epidermidis x2, pending sensitivities -blood cultures 01/23: No growth to date # elevated troponin -status: Acute -peaked at 0.390 on admission. He had nausea which resolved. No chest pain. -inverted T-waves in lateral leads. Unable to assess for comparison due to system error. Cardiology consultation pending. Surface echocardiogram pending # chronic hypertension -status: Chronic, controlled -continue MECHANICAL TECHNICIAN Coreg 6.25 mg p.o. b.i.d. # history of stro
[2024-01-26 16:28] LABS: Glucose Point of Care 160 mg/dl (65-105)
[2024-01-26 20:07] LABS: Glucose Point of Care 214 mg/dl (65-105)
[2024-01-26] MEDS: TAMSULOSIN HCL 0.4 MG CAPSULE PO (20:31)
[2024-01-26 20:32] VITALS: PULSE 76
[2024-01-26] MEDS: QUEtiapine FUMARATE 25 MG TABLET PO (20:32)
[2024-01-26] MEDS: INSULIN ASPART (*BKC) 100 UNITS/ML SUB-Q (20:34)
[2024-01-26 21:32] VITALS: BP 151/90; PULSE 75; RESP 16; TEMP 36.6; O2SAT 96
[2024-01-27] MEDS: VANCOMYCIN 1,500 MG/NS 500 ML 1,500 MG/500 ML BAG 250 MG IVPB ×2 (02:17→14:06)
[2024-01-27 05:22] VITALS: BP 143/86; PULSE 71; RESP 18; TEMP 36.3; O2SAT 97
[2024-01-27 07:10] LABS: Basophils Percent Auto 0.5 % (0.2-1.2); Eosinophils Absolute Auto 0.5 K/mm3 (0-0.3); Eosinophils Percent Auto 5.6 % (0-4.4); Hematocrit 37.7 % (42.0-52.0); Hemoglobin 12.5 g/dL (14.0-18.0); Immature Granulocyte Absolute 0.02 K/mm3 (0.00-0.031); Immature Granulocyte Percent A 0.2 % (0-0.5); Lymphocytes Absolute Auto 2.06 K/mm3 (0.9-3.2); Lymphocytes Percent Auto 24.7 % (18.3-44.2); Mean Corpuscular HGB Conc 33.2 g/dl (32-36); Mean Corpuscular Hemoglobin 29.8 pg (26-34); Mean Corpuscular Volume 89.8 fl (80-100); Mean Platelet Volume 10.5 fl (7.4-10.4); Monocytes Absolute Auto 0.6 K/mm3 (0.1-0.6); Neutrophils Absolute Auto 5.2 K/mm3 (1.3-6.7); Platelet Count Result 216 k/mm3 (150-375); Red Cell Distribution Width 13.7 % (11.5-14.5); White Blood Count 8.3 K/mm3 (4.5-10.0)
--- NOTE | 2024-01-27 07:25 | PC.NURSE ---
On 01/27/24, the [facility], [ Natalee], provided care and completed [facility] documentation on this patient. I have reviewed the [facility]'s documentation and agree with the findings.
[2024-01-27 07:30] LABS: Glucose Point of Care 93 mg/dl (65-105)
[2024-01-27 07:32] LABS: Anion Gap 5 mmol/L (4-12); Blood Urea Nitrogen 6 mg/dL (9-20); Calcium 8.4 mg/dL (8.4-10.2); Carbon Dioxide 26 mmol/L (22-30); Chloride 106 mmol/L (98-107); Estimated CRCL calculation 120 ml/min; Estimated Glomerular Filt Rate > 60; Glucose 80 mg/dL (65-110); Magnesium 1.8 mg/dL (1.6-2.3); Potassium 3.2 mmol/L (3.4-5.0); Sodium 137 mmol/L (137-145)
[2024-01-27 08:00] VITALS: PULSE 71; RESP 18; O2SAT 97
[2024-01-27] MEDS: RIVAROXABAN 2.5 MG TABLET PO ×2 (09:38→20:47)
[2024-01-27] MEDS: carvediloL 6.25 MG TABLET PO ×2 (09:38→20:47)
[2024-01-27] MEDS: PANTOPRAZOLE 40 MG TABLET PO (09:38)
[2024-01-27] MEDS: BACLOFEN 10 MG TABLET PO ×2 (09:38→20:47)
[2024-01-27] MEDS: FLUoxetine HCL 20 MG CAPSULE PO (09:38)
[2024-01-27] MEDS: SENNA/DOCUSATE SODIUM TABLET 1 TAB PO (09:38)
[2024-01-27] MEDS: ATORVASTATIN 40 MG TABLET PO (09:38)
[2024-01-27] MEDS: PARoxetine 20 MG TABLET PO (09:38)
[2024-01-27] MEDS: LOSARTAN POTASSIUM 25 MG TABLET PO (09:38)
[2024-01-27] MEDS: ASPIRIN 81 MG ENTERIC TABLET PO (09:38)
[2024-01-27 11:34] LABS: Glucose Point of Care 188 mg/dl (65-105)
[2024-01-27] MEDS: POTASSIUM CHLORIDE 20 MEQ ER TABLET PO (12:26)
[2024-01-27 13:04] LABS: Vancomycin Trough 17.1 ug/mL (10.0-20.0)
--- NOTE | 2024-01-27 13:33 | PCOTNOTE ---
Attempted to see for OT evaluation. Patient declined at this time. Will continue to attempt.
--- NOTE | 2024-01-27 13:34 | PM.IMPN ---
Progress Note: A&P Assessment and Plan (1) Cardiomyopathy: Code(s): I42.9 - Cardiomyopathy, unspecified Status: Acute (2) Elevated troponin: Code(s): R79.89 - Other specified abnormal findings of blood chemistry Status: Acute (3) Urinary tract infection: Code(s): N39.0 - Urinary tract infection, site not specified Status: Acute (4) Staphylococcus epidermidis bacteremia: Code(s): R78.81 - Bacteremia; B95.7 - Other staphylococcus as the cause of diseases classified elsewhere Status: Acute (5) Acute UTI: Code(s): N39.0 - Urinary tract infection, site not specified Status: Acute Plan HPI via Birdie Shoemaker PA-C: This is a very pleasant 78-year-old gentleman with history of stroke and residual left-sided weakness and mild expressive aphasia, hypertension, hyperlipidemia, type 2 diabetes mellitus, benign prostatic hyperplasia, and osteoarthritis status post bilateral shoulder arthroplasty who presented to the emergency department via EMS from [facility] for evaluation after he was found to have positive blood cultures. The patient and his provide the following history. He was seen in the ED yesterday for evaluation of nausea and vomiting. Labs were stable and did not show any significant abnormalities and CT of the abdomen pelvis was without acute pathology. Urinalysis was consistent with urinary tract infection and he received ceftriaxone. He felt better with supportive care and was discharged with a prescription for cephalexin. Two sets of blood cultures obtained yesterday are growing staphylococcal epidermidis in both aerobic and anaerobic bottle and he was told to return to the hospital. He still feels generally unwell with mild nausea but denies vomiting today. He also denies fever, chills, sweats, chest pain, shortness of breath, abdominal pain, diarrhea, dysuria, and joint pain and swelling, In the ED: He was afebrile on arrival with stable vital signs. Labs are significant for WBC count of 8.8, hemoglobin 12.6, BUN 28, creatinine 0.60, glucose 135, lactic acid 1.3, total protein 6.0, albumin 3.2, troponin 0.328. Urine showed 1+ protein, 1+ blood, positive nitrates, 3+ leukocyte esterase, and greater than 100 WBC. He tested negative for influenza, RSV, and COVID. Chest x-ray showed mild streaky opacities at the bilateral lung bases, likely atelectasis over pneumonia. He was given a dose of Zosyn and vancomycin he is being admitted in this setting for further evaluation. (01/24, he also carries a diagnosis of psychophysiological insomnia) ----- # acute UTI secondary to Gram-negative bacilli -status: Acute, improved -continue ceftriaxone -urine culture January 22: Klebsiella pneumonia pansensitive # bacteremia very to Staphylococcus epidermidis -status: Acute -received ceftriaxone, Zosyn, vancomycin admission. -unclear source. He had bilateral arthroplasty of the shoulders, no pain. No edema. No fever. No white count. Patient reports back and foot surgery but he cannot specify any further and does not think he had hardware placed. No skin lesions ulcers abscess. -blood culture 01/22: Staph epidermidis x2, sensitive to vancomycin -blood cultures 01/23: No growth to date -continue vancomycin # elevated troponin -status: Acute -peaked at 0.390 on admission. He had nausea which resolved. No chest pain. -inverted T-waves in lateral leads. Unable to assess for comparison due to system error. Cardiology consultation appreciated. # chronic hypertension -status: Chronic, controlled -continue ORTHODONTIC TECHNICIAN ASSISTANT Coreg 6.25 mg p.o. b.i.d. # history of stroke, hyperlipidemia -status: Chronic -continue ORTHODONTIC TECHNICIAN ASSISTANT aspirin rivaroxaban atorvastatin. Continue ORTHODONTIC TECHNICIAN ASSISTANT baclofen # aya-yglciis-syewowmoa diabetes mellitus -status: Chronic -less HbA1c 5.8% on 01/24/2024 -glucose monitoring ACHS, LDISS, hypoglycemia protocol # acute hypokalemia -replace with 20 mEq KCL tab, 3.3
--- NOTE | 2024-01-27 13:45 | PCPTNOTE ---
attempted PT evaluation ~ 1330- pt reports he is too tired. Unable to convince him to participate in therapy. present and agreed to try tomorrow.
[2024-01-27 13:52] VITALS: BP 103/64; PULSE 64; RESP 18; TEMP 36.4; O2SAT 97
[2024-01-27 17:07] LABS: Glucose Point of Care 110 mg/dl (65-105)
[2024-01-27 19:42] LABS: Glucose Point of Care 165 mg/dl (65-105)
[2024-01-27 20:47] VITALS: PULSE 64
[2024-01-27] MEDS: TAMSULOSIN HCL 0.4 MG CAPSULE PO (20:47)
[2024-01-27] MEDS: QUEtiapine FUMARATE 25 MG TABLET PO (20:47)
[2024-01-27 21:16] VITALS: BP 133/85; PULSE 81; RESP 16; TEMP 36.4; O2SAT 99
[2024-01-28] MEDS: VANCOMYCIN 1,500 MG/NS 500 ML 1,500 MG/500 ML BAG 250 MG IVPB ×2 (00:30→14:48)
[2024-01-28 05:12] VITALS: BP 150/93; PULSE 73; RESP 18; TEMP 36.3; O2SAT 98
--- NOTE | 2024-01-28 06:46 | PC.NURSE ---
On 01/28/24, the [employer], [ Natalee], provided care and [facility]. I have reviewed the [employer]'s documentation and agree with the findings.
[2024-01-28 07:27] LABS: Basophils Absolute Auto 0.1 K/mm3 (0.0-0.1); Basophils Percent Auto 0.7 % (0.2-1.2); Eosinophils Absolute Auto 0.6 K/mm3 (0-0.3); Eosinophils Percent Auto 6.9 % (0-4.4); Hematocrit 37.9 % (42.0-52.0); Hemoglobin 12.4 g/dL (14.0-18.0); Immature Granulocyte Absolute 0.04 K/mm3 (0.00-0.031); Immature Granulocyte Percent A 0.5 % (0-0.5); Lymphocytes Percent Auto 22.1 % (18.3-44.2); Mean Corpuscular HGB Conc 32.7 g/dl (32-36); Mean Corpuscular Hemoglobin 29.7 pg (26-34); Mean Corpuscular Volume 90.7 fl (80-100); Mean Platelet Volume 10.4 fl (7.4-10.4); Monocytes Absolute Auto 0.5 K/mm3 (0.1-0.6); Monocytes Percent Auto 6.5 % (2.6-8.5); Neutrophils Absolute Auto 5.2 K/mm3 (1.3-6.7); Neutrophils Percent Auto 63.3 % (45.5-73.1); Platelet Count Result 201 k/mm3 (150-375); Red Blood Count 4.18 M/mm3 (4.6-6.20); White Blood Count 8.2 K/mm3 (4.5-10.0)
[2024-01-28 07:47] LABS: Glucose Point of Care 78 mg/dl (65-105)
[2024-01-28 07:48] LABS: Anion Gap 6 mmol/L (4-12); Blood Urea Nitrogen 7 mg/dL (9-20); Carbon Dioxide 25 mmol/L (22-30); Chloride 107 mmol/L (98-107); Estimated CRCL calculation 120 ml/min; Estimated Glomerular Filt Rate > 60; Glucose 73 mg/dL (65-110); Potassium 3.6 mmol/L (3.4-5.0); Sodium 138 mmol/L (137-145)
[2024-01-28 07:53] VITALS: PULSE 74; RESP 24; O2SAT 96
[2024-01-28 07:55] LABS: Magnesium 1.9 mg/dL (1.6-2.3)
[2024-01-28 08:00] VITALS: PULSE 74
--- NOTE | 2024-01-28 08:15 | PM.DS ---
DS: Admitting Diagnosis Discharge Date January 28, 2024 Admitting Diagnosis Abnormal blood work DS: Discharge Diagnosis Discharge Diagnosis (1) Staphylococcus epidermidis bacteremia: Code(s): R78.81 - Bacteremia; B95.7 - Other staphylococcus as the cause of diseases classified elsewhere Status: Acute (2) Klebsiella pneumonia: Code(s): J15.0 - Pneumonia due to Klebsiella pneumoniae Status: Acute (3) Urinary tract infection: Code(s): N39.0 - Urinary tract infection, site not specified Status: Acute (4) Cardiomyopathy: Code(s): I42.9 - Cardiomyopathy, unspecified Status: Acute (5) Elevated troponin: Code(s): R79.89 - Other specified abnormal findings of blood chemistry Status: Acute DS: Summary Hospital Course Hospital Course: This is a very pleasant 78-year-old male who is a residential resident of [facility]. He has a history of stroke with left-sided residual weakness and dependent on wheelchair. He otherwise carries diagnosis of mild expressive aphasia, hypertension, hyperlipidemia, cardiomyopathy (new dx on 01/25/24), [id number] diabetes mellitus, BPH, osteoarthritis status post bilateral shoulder arthroplasty remotely who presented to [place] [facility] via EMS from [facility] for evaluation due to positive blood cultures. He was seen in [place] [facility] on 01/23/2024 for evaluation of nausea and vomiting. A CT abdomen pelvis was without acute pathology. Urinalysis was consistent with urinary tract infection and the patient received ceftriaxone. He felt better and was prescribed cephalexin and discharged from the ER. At the time blood cultures were obtained x2. Subsequently, they grew staphylococcal epidermidis in both aerobic and anaerobic bottles and was told to return to the hospital. In the ED: He was afebrile on arrival with stable vital signs. Labs are significant for WBC count of 8.8, hemoglobin 12.6, BUN 28, creatinine 0.60, glucose 135, lactic acid 1.3, total protein 6.0, albumin 3.2, troponin 0.328. Urine showed 1+ protein, 1+ blood, positive nitrates, 3+ leukocyte esterase, and greater than 100 WBC. He tested negative for influenza, RSV, and COVID. Chest x-ray showed mild streaky opacities at the bilateral lung bases, likely atelectasis over pneumonia. He was given a dose of Zosyn and vancomycin he is being admitted in this setting for further evaluation on 01/24/2024. The patient was administered 5 total days of ceftriaxone and vancomycin. Urine culture on 01/22: Klebsiella pneumoniae sensitive to cephalosporins Urine culture on 01/23: No growth, final Blood culture x2 on 01/22: Anaerobic and aerobic growing Staphylococcus epidermidis sensitive to vancomycin clindamycin gentamicin Blood culture x2 on 01/23: No growth to date Of note, troponin was 0.390 on admission which was his peak. Surface echocardiogram on 01/25/2024 demonstrates EF of 35-40% with global hypokinesis more pronounced hypokinesis of the mid and apical LV segments, grade 1 diastolic dysfunction. Summary 1. Left ventricular chamber dimension is normal. 2. Left ventricular systolic function is moderately reduced, estimated at 35-40%. There is global hypokinesis with more pronounced hypokinesis of the mid and apical LV segments. 3. There is mildly increased left ventricular wall thickness. 4. The left ventricular diastolic function is grade I diastolic dysfunction. 5. Right ventricular systolic function is normal. 6. Left atrial chamber dimension is severely enlarged. 7. There is mild aortic valve regurgitation. 8. There is mild mitral valve regurgitation. 9. The aortic root size at the sinus of Valsalva is moderately dilated. 10. Dilated inferior vena cava with >50% collapse upon inspiration consistent with elevated right atrial pressure, 8 mmHg. 11. There is small pericardial effusion. The patient did not have clinical features of congesti
--- NOTE | 2024-01-28 09:21 | PCPTNOTE ---
pt refused PT ~ 900; stated too tired and unable to convince him to get OOB.
--- NOTE | 2024-01-28 09:22 | PCOTNOTE ---
Attempted to see for OT evaluation. Patient refused despite encouragement and education on benefits of therapy. Will continue to attempt.
[2024-01-28 09:24] VITALS: PULSE 74
[2024-01-28] MEDS: carvediloL 6.25 MG TABLET PO (09:24)
[2024-01-28] MEDS: SENNA/DOCUSATE SODIUM TABLET 1 TAB PO (09:24)
[2024-01-28] MEDS: ASPIRIN 81 MG ENTERIC TABLET PO (09:24)
[2024-01-28] MEDS: FLUoxetine HCL 20 MG CAPSULE PO (09:24)
[2024-01-28] MEDS: BACLOFEN 10 MG TABLET PO (09:24)
[2024-01-28] MEDS: LOSARTAN POTASSIUM 25 MG TABLET PO (09:24)
[2024-01-28] MEDS: PARoxetine 20 MG TABLET PO (09:24)
[2024-01-28] MEDS: ATORVASTATIN 40 MG TABLET PO (09:24)
[2024-01-28] MEDS: RIVAROXABAN 2.5 MG TABLET PO (09:24)
[2024-01-28] MEDS: PANTOPRAZOLE 40 MG TABLET PO (09:25)
[2024-01-28 11:24] LABS: Glucose Point of Care 145 mg/dl (65-105)
[2024-01-28 12:28] LABS: SARS-CoV-2 RNA PCR Negative (Negative)
[2024-01-28 13:40] VITALS: BP 106/61; PULSE 68; RESP 16; TEMP 35.7; O2SAT 96
--- NOTE | 2024-01-28 16:31 | PC.NURSE ---
RN Called bettie gill to give report but was informed that the nurse was busy and would give me a call back.
[2024-01-28 16:50] LABS: Glucose Point of Care 161 mg/dl (65-105)
--- NOTE | 2024-01-28 17:41 | PC.NURSE ---
RN called to give report but [facility] nurse was busy with dinner so I wasn't able to give report. Smasher was informed that EMS will be here at 1745. [place] was also provided with a good number to contact me if she has questions or ready for report. DC was faxed to [phone]
== END 2024-01-28 18:25 | DRG 690 ==
LOC: ANHED 14:23 → ANHIMU 16:39 → ANH3MEDSUR 01-25 12:49
PROVIDERS: Physician Assistant; Admitting Provider General Practice; Emergency Provider Emergency Medicine; PCP Family Medicine; Visit Provider General Practice
DX: N39.0 Urinary tract infection, site not specified (principal); I69.354 Hemiplegia and hemiparesis following cerebral infarction affecting left non-dominant side; R78.81 Bacteremia; B95.7 Other staphylococcus as the cause of diseases classified elsewhere; B96.1 Klebsiella pneumoniae [K. pneumoniae] as the cause of diseases classified elsewhere; Z20.822 Contact with and (suspected) exposure to COVID-19; M50.30 Other cervical disc degeneration, unspecified cervical region; E87.6 Hypokalemia; E78.5 Hyperlipidemia, unspecified; M19.90 Unspecified osteoarthritis, unspecified site; E11.9 Type 2 diabetes mellitus without complications; I44.0 Atrioventricular block, first degree; I10 Essential (primary) hypertension; N40.0 Benign prostatic hyperplasia without lower urinary tract symptoms; R79.89 Other specified abnormal findings of blood chemistry; F51.04 Psychophysiologic insomnia; Z96.612 Presence of left artificial shoulder joint; Z96.611 Presence of right artificial shoulder joint; Z87.891 Personal history of nicotine dependence; I69.320 Aphasia following cerebral infarction; Z79.82 Long term (current) use of aspirin
CPT/HCPCS: 36415; 71045; 74177; 80048; 80053; 80202; 81001; 82948; 83036; 83605; 83690; 83735; 84484; 85025; 85027; 87040; 87077; 87086; 87147; 87181; 87186; 87635; 87637; 93005; 93306; 96361; 96365; 96366; 96367; 96375; 99284; 99285; A9270; J0696; J1815; J2405; J2470; J2543; J3370; J7030; Q9967